=== PATIENT | female | born 1960 | race African-American/Black ===

== ENCOUNTER 2020-06-21 08:06 | Outpatient (REF) | payer OTHER, SELFPAY ==
[2020-06-21 09:24] LABS: MANUAL DIFF FLAG NO
[2020-06-21 09:50] LABS: Basophils Percent Auto 0.6 % (0-2); Eosinophils Percent Auto 0.1 % (0-4); Hematocrit 34.5 % (37-47); Hemoglobin 11.3 g/dl (12.0-16.0); Imm Gran Abs Auto 0.02 X10*3/uL (0.00-0.03); Imm Gran Pct Auto 0.3 % (0.0-0.4); Mean Corpuscular HGB Conc 32.8 g/dl (31.0-35.0); Mean Corpuscular Volume 88.5 fL (80-98); Mean Platelet Volume 11.2 fL (9.4-12.3); Monocytes Absolute Auto 0.7 X10*3/uL (0.1-1.2); Monocytes Percent Auto 9.7 % (2-11); Neutrophils Absolute Auto 4.4 X10*3/uL (2.0-8.3); Neutrophils Percent Auto 61.3 % (45-73); Platelet Count 166 X10*3/uL (160-400); Red Cell Distribution Width 13.3 % (11.0-16.0); White Blood Count 7.2 X10*3/uL (4.8-10.8)
[2020-06-21 09:56] LABS: Estimated Average Glucose 163 mg/dL; Hemoglobin A1c % 7.3 %
[2020-06-21 10:23] LABS: Glucose Urine UA NEG (NEG); Leukocyte Esterase Urine NEG (NEG); Nitrite Urine NEG (NEG); Specific Gravity - Urine 1.015 (1.005-1.025); Urine Blood NEG (NEG); Urine Ketones NEG (NEG); Urine Protein TRACE MG/DL (NEG-TRACE)
[2020-06-21 10:30] LABS: Appearance Urine CLEAR; Color Urine YELLOW; UACC Culture Trigger NO
[2020-06-21 10:36] LABS: Alanine Aminotransferase 28 U/L (0-31); Alkaline Phosphatase 111 U/L (39-117); Anion Gap 13 (12-20); Aspartate Amino Transferase 30 U/L (5-31); Bilirubin Total 0.5 mg/dL (0.0-1.0); Blood Urea Nitrogen 35 mg/dL (9-16); Calcium 9.8 mg/dL (8.4-10.2); Carbon Dioxide 27 mmol/L (22-29); Chloride 101 mmol/L (96-108); Estimated Glomerular Filt Rate 26; Glucose Fasting 77 mg/dL (60-99); HDL Cholesterol 40 mg/dL; Potassium 4.7 mmol/l (3.3-5.1); Sodium 136 mmol/L (135-145); Triglycerides 73 mg/dL
[2020-06-21 10:57] LABS: Creatinine Urine 60.76 mg/dL; Microalbum/Creatinine Ratio Ur 334.1 ug/mg cr
[2020-06-21 11:02] LABS: Cholesterol 96 mg/dL; LDL Cholesterol Calculated 42 mg/dl
[2020-06-21 11:59] LABS: Bacteria Urine TRACE /LPF; RBC Urine 0 /HPF (0); Squamous Epithelial Cell Urine 1+ /LPF; WBC Urine 0 /HPF (0-4)
[2020-06-23 08:59] LABS: Folate 9.1 ng/mL (> or = 4.0); Vitamin B12 1114 pg/mL (200-900)
== END 2020-06-21 08:07 | disposition home or self-care (01) ==
LOC: HO.LAB 08:06
PROVIDERS: PCP Internal Medicine; Visit Provider Internal Medicine
DX: E11.22 Type 2 diabetes mellitus with diabetic chronic kidney disease (principal); E11.40 Type 2 diabetes mellitus with diabetic neuropathy, unspecified; I12.9 Hypertensive chronic kidney disease with stage 1 through stage 4 chronic kidney disease, or unspecified chronic kidney disease; N18.4 Chronic kidney disease, stage 4 (severe); E78.5 Hyperlipidemia, unspecified; E66.9 Obesity, unspecified; R60.0 Localized edema; I25.10 Atherosclerotic heart disease of native coronary artery without angina pectoris
CPT/HCPCS: 36415; 80053; 80061; 81001; 81003; 82043; 82306; 82607; 82746; 83036; 84443; 85025

== ENCOUNTER → 2020-07-18 10:13 | Outpatient (BNVA) | payer OTHER, SELFPAY | PROVIDERS: PCP Internal Medicine; Referring Provider Internal Medicine; Visit Provider Nurse Practitioner Gerontology | DX: Z76.89 Persons encountering health services in other specified circumstances (principal) ==

== ENCOUNTER → 2020-08-06 11:32 | Outpatient (BNVA) | payer OTHER, SELFPAY | PROVIDERS: Visit Provider Nurse Practitioner Family | DX: Z13.89 Encounter for screening for other disorder (principal) ==

== ENCOUNTER → 2020-08-08 11:30 | Outpatient (BNVA) | payer OTHER, SELFPAY | PROVIDERS: Visit Provider Orthopaedic Surgery | DX: M17.11 Unilateral primary osteoarthritis, right knee (principal) | CPT/HCPCS: 20610; 99212; J1040 ==

== ENCOUNTER 2020-08-08 12:21 | Outpatient (REF) | payer OTHER, SELFPAY ==
[2020-08-08 13:37] LABS: Anion Gap 13 (12-20); Blood Urea Nitrogen 29 mg/dL (9-16); Carbon Dioxide 28 mmol/L (22-29); Chloride 101 mmol/L (96-108); Estimated Glomerular Filt Rate 26; Potassium 4.3 mmol/l (3.3-5.1); Sodium 138 mmol/L (135-145)
[2020-08-08 13:42] LABS: Creatinine Urine 23.37 mg/dL; Protein/Creatinine Ratio, Ur 0.68 (<0.2); Total Protein Urine Random 16 mg/dL (<12)
[2020-08-08 13:55] LABS: Renal w Reflex Lab Use Only Order verified
== END 2020-08-08 12:22 | disposition home or self-care (01) ==
LOC: HO.LAB 12:21
PROVIDERS: PCP Internal Medicine; Referring Provider Internal Medicine Hypertension Specialist; Visit Provider Nurse Practitioner Gerontology
DX: E11.21 Type 2 diabetes mellitus with diabetic nephropathy (principal); N18.30 Chronic kidney disease, stage 3 unspecified
CPT/HCPCS: 80051; 82310; 82565; 84156; 84520

== ENCOUNTER 2020-09-25 15:00 | Outpatient (RCR) | payer OTHER, SELFPAY ==
--- NOTE | 2020-09-09 10:57 | MHC.PT.EP ---
[facility] [place] Office [place] Office [place] Office [address] J Luis Benavidez [address] [phone] F: [phone] F: [phone] F: [phone] F: [phone] Physical Therapy Plan of Care Date of Evaluation: 09/08/20 Date of Surgery: Diagnosis: bilateral knee pain Assessment: Pt is severely deconditioned. She has trouble walking community distances due to significant pain. She was asked to begin using a RW which she said she has at home. This would allow her to unload bilateral knees, improve balance, and give her a place to sit ( her walker has a chair) when she is tired. The pt was given gravity minimized exercises in the bed due to significant pain with weight bearing. Frequency and Duration: The patient will be seen 2x/week x 4 weeks Short Term Goals: Pt will demonstrate initial HEP to improve compliance and carryover. Director Of Public Safety Goals: 4 weeks - the patient will have no limiting pain in her knees during gait with community ambulation to show improved activity tolerance. 4 weeks - pt will have more quad control with TKE demonstrated by no medial collapse during a curb height step. 4 weeks -patient to be able to return to all functional movements and ADL's without limiting knee pain to show return to PLOF. Treatment Plan: Modalities to reduce pain, spasms and effusion. Manual therapy to restore motion and function. Therapeutic exercise to improve strength and flexibility. Neuromuscular re-education for posture and balance. Therapeutic activities to return to functional activities of daily living. Electronically signed by: Meena Farnsworth PT DPT Please sign and return to therapist. Thank you for your referral.
--- NOTE | 2020-11-07 08:56 | MHC.PT.DC ---
[facility] [place] [facility] [place] [facility] [place] Office [address] J Luis Benavidez 140 [facility] [phone] F: [phone] F: [phone] F: [phone] F: [phone] Physical Therapy Discharge Report Diagnosis: bilateral knee pain Date of Surgery: Date of Evaluation: 09/08/20 Date of Discharge: Treatments to Date: 4 Cancellations to Date: 9 No Shows to Date: 0 Discharge Status: Patient Elected to Stop Recommend MD Follow-up Visit Non-compliance Discharge Summary: Pt had trouble with therapy attendance. She had poor activity tolerance, and she had a complicated medical history. Electronically signed by: Meena Farnsworth PT DPT Please sign and return to therapist. Thank you for your referral.
== END 2020-11-07 15:24 | disposition other institution (70) ==
LOC: HO.PT 15:00
PROVIDERS: PCP Internal Medicine; Visit Provider Internal Medicine
DX: M25.561 Pain in right knee (principal)
CPT/HCPCS: 97110; 97116; 97163

== ENCOUNTER 2020-10-21 13:07 | Outpatient (REF) | payer OTHER, SELFPAY ==
--- NOTE | ~2020-10-21 | XR_ITS ---
EXAMINATION: XR HUMERUS, LEFT CLINICAL INFORMATION: Pain COMPARISON: None TECHNIQUE: AP and lateral views of the left humerus. FINDINGS: No evidence of acute fracture or malalignment of the left humerus. The articulation at the glenohumeral and elbow joint is grossly maintained. Mild greater trochanteric spurring. Apparent mild AC joint arthritis. There are metallic foci projected over the proximal humerus and AC joint. XR/XR humerus LT IMPRESSION: No evidence of left humeral acute fracture or malalignment.
== END 2020-10-21 13:08 | disposition home or self-care (01) ==
LOC: HO.HMGCX 13:07
PROVIDERS: PCP Internal Medicine; Visit Provider Nurse Practitioner Family
DX: M79.629 Pain in unspecified upper arm (principal)
CPT/HCPCS: 73060

== ENCOUNTER → 2020-11-10 10:58 | Outpatient (BNVA) | payer OTHER, SELFPAY | PROVIDERS: PCP Internal Medicine; Visit Provider Nurse Practitioner Family ==

== ENCOUNTER → 2020-11-24 09:25 | Outpatient (REF) | payer OTHER, SELFPAY ==
--- NOTE | ~2020-11-24 | NM_ITS ---
Myocardial perfusion study Indication: Shortness of breath evaluate for myocardial ischemia Technique: The patient was brought in for a Lexiscan perfusion study on 11/24/2020. Patient performed low-level exercise and was injected 0.4 mg of Lexiscan intravenously. Within a minute of injection, 40 mCi of sestamibi was given intravenously. Images were obtained using the SPECT gamma camera interlaced with the gating device. Images were obtained in supine position. Resting perfusion study was performed on 11/25/2020. Patient was administered 40 mCi of sestamibi intravenously at rest. Images were then obtained in supine position. Images obtained with and without CT attenuation. Total DLP 141 mGy-cm. Images were processed with the software and compared side to side in short axis, horizontal long axis and vertical long axis views. Findings: The stress perfusion study showed moderately reduced uptake in the distal septum and apical inferior wall of the LV myocardium on non attenuated images. There is suggestion of left ventricle hypertrophy. Remainder of the LV myocardium is normally perfused. Attenuation corrected images show normal uptake of radiotracer in all segments of LV myocardium. The gated study shows normal LV systolic function with calculated LVEF of 56%. LV cavity is normal size. The gated study shows normal systolic wall thickening and contraction of segments. Resting study shows no change in perfusion pattern compared to stress perfusion study. Gating at rest reveals normal systolic wall motion with ejection fraction at 57%. The findings are consistent with normal myocardial perfusion with no reversible defect. NM/NM vandana perf SPECT rest & str Impression: 1. Myocardial perfusion imaging study shows likely normal myocardial perfusion 2. Gated LVEF is 56% 3. Transient ischemic dilatation not present EKG is nondiagnostic for ischemia
--- NOTE | 2020-11-24 09:28 | CA_ITS ---
Acquisition Time: 2020-11-24 10:43:36 Total Exercise Time: 00:02:00 Test Indications: Dyspnea Medications: LOSARTAN FUROSEMIDE INSULIN CYCLOBENZAPRINE MELOXICAM Protocol: LEXISCAN Max HR: 095 BPM 59% of Pred: 160 BPM Max BP: 156/078 mmHG Max Work Load: 1.0 METS Pharmacological stress test using Lexiscan while sitting. Pt c/o chest pressure 6/10 post Lexiscan injection that resolved in recovery. EKG without arrhythmias, non-diagnostic for ischemia. Nuclear images to follow. Normotensive response to test. Test reviewed with Dr. Muniz. Referred By: Krystina Albrecht Overread By: Dara Shi NP
== END ==
LOC: HO.CARD 09:25
PROVIDERS: PCP Internal Medicine; Visit Provider Nurse Practitioner Family
DX: R06.02 Shortness of breath (principal); I25.10 Atherosclerotic heart disease of native coronary artery without angina pectoris
CPT/HCPCS: 78452; 93017; A9500; J0280; J2785

== ENCOUNTER 2020-12-17 07:47 | Outpatient (REF) | payer OTHER, SELFPAY ==
[2020-12-17 08:50] LABS: MANUAL DIFF FLAG NO
[2020-12-17 08:53] LABS: Basophils Percent Auto 0.6 % (0-2); Hematocrit 36.9 % (37-47); Hemoglobin 12.1 g/dl (12.0-16.0); Imm Gran Abs Auto 0.02 X10*3/uL (0.00-0.03); Imm Gran Pct Auto 0.4 % (0.0-0.4); Lymphocytes Absolute Auto 1.6 X10*3/uL (1.2-4.9); Lymphocytes Percent Auto 30.8 % (20-40); Mean Corpuscular HGB Conc 32.8 g/dl (31.0-35.0); Mean Corpuscular Hemoglobin 28.9 pg (27.0-33.0); Mean Corpuscular Volume 88.3 fL (80-98); Monocytes Absolute Auto 0.6 X10*3/uL (0.1-1.2); Monocytes Percent Auto 12.4 % (2-11); Neutrophils Absolute Auto 2.9 X10*3/uL (2.0-8.3); Neutrophils Percent Auto 55.8 % (45-73); Platelet Count 171 X10*3/uL (160-400); Red Blood Count 4.18 X10*6/uL (4.20-5.50); Red Cell Distribution Width 13.6 % (11.0-16.0); White Blood Count 5.2 X10*3/uL (4.8-10.8)
[2020-12-17 09:18] LABS: Alanine Aminotransferase 249 U/L (0-31); Alkaline Phosphatase 114 U/L (39-117); Anion Gap 17 (12-20); Aspartate Amino Transferase 271 U/L (5-31); Bilirubin Total 1.1 mg/dL (0.0-1.0); Blood Urea Nitrogen 29 mg/dL (9-16); Calcium 10.6 mg/dL (8.4-10.2); Carbon Dioxide 26 mmol/L (22-29); Chloride 103 mmol/L (96-108); Cholesterol 92 mg/dL; Estimated Glomerular Filt Rate 22; Glucose Fasting 127 mg/dL (60-99); HDL Cholesterol 28 mg/dL; LDL Cholesterol Calculated 47 mg/dl; Potassium 4.7 mmol/L (3.3-5.1); Sodium 141 mmol/L (135-145); Total Protein 7.3 g/dL (6.5-8.0); Triglycerides 86 mg/dL
[2020-12-17 09:41] LABS: TSH reflex Free T4 0.89 uIU/mL (0.32-4.0)
[2020-12-17 10:42] LABS: Folate 19.4 ng/mL (> or = 4.0); Vitamin B12 > 2000 pg/mL (200-900)
[2020-12-23 05:17] LABS: Fructosamine 350 umol/L (205-285)
== END 2020-12-17 07:48 | disposition home or self-care (01) ==
LOC: HO.LAB 07:47
PROVIDERS: Nurse Practitioner Gerontology; Absent Provider Internal Medicine; PCP Internal Medicine; Visit Provider Internal Medicine Hypertension Specialist
DX: E11.22 Type 2 diabetes mellitus with diabetic chronic kidney disease (principal); E11.21 Type 2 diabetes mellitus with diabetic nephropathy; E11.65 Type 2 diabetes mellitus with hyperglycemia; E11.42 Type 2 diabetes mellitus with diabetic polyneuropathy; I12.9 Hypertensive chronic kidney disease with stage 1 through stage 4 chronic kidney disease, or unspecified chronic kidney disease; N18.4 Chronic kidney disease, stage 4 (severe); E66.9 Obesity, unspecified; E78.00 Pure hypercholesterolemia, unspecified; I25.10 Atherosclerotic heart disease of native coronary artery without angina pectoris; Z79.4 Long term (current) use of insulin
CPT/HCPCS: 36415; 80053; 80061; 82607; 82746; 82985; 84443; 85025

== ENCOUNTER → 2020-12-22 11:02 | Outpatient (BNVA) | payer OTHER, SELFPAY | PROVIDERS: PCP Internal Medicine; Visit Provider Nurse Practitioner Family ==

== ENCOUNTER → 2021-01-06 14:48 | Outpatient (BNVA) | payer OTHER, SELFPAY | PROVIDERS: PCP Internal Medicine; Visit Provider Nurse Practitioner Gerontology | DX: E11.65 Type 2 diabetes mellitus with hyperglycemia (principal); E11.42 Type 2 diabetes mellitus with diabetic polyneuropathy; E11.22 Type 2 diabetes mellitus with diabetic chronic kidney disease; I12.9 Hypertensive chronic kidney disease with stage 1 through stage 4 chronic kidney disease, or unspecified chronic kidney disease; N18.4 Chronic kidney disease, stage 4 (severe); Z79.4 Long term (current) use of insulin; E78.5 Hyperlipidemia, unspecified; E66.9 Obesity, unspecified | CPT/HCPCS: 82947; 99212 ==

== ENCOUNTER 2021-04-25 08:28 | Outpatient (REF) | payer MEDICARE, SELFPAY ==
[2021-04-25 08:59] LABS: Hematocrit 33.5 % (37-47); Hemoglobin 11.1 g/dl (12.0-16.0); Mean Corpuscular HGB Conc 33.1 g/dl (31.0-35.0); Mean Corpuscular Hemoglobin 29.1 pg (27.0-33.0); Mean Corpuscular Volume 87.9 fL (80-98); Mean Platelet Volume 10.7 fL (9.4-12.3); Platelet Count 162 X10*3/uL (160-400); Red Blood Count 3.81 X10*6/uL (4.20-5.50); Red Cell Distribution Width 13.2 % (11.0-16.0); White Blood Count 5.6 X10*3/uL (4.8-10.8)
[2021-04-25 09:50] LABS: Anion Gap 12 (12-20); Blood Urea Nitrogen 22 mg/dL (9-16); Calcium 9.5 mg/dL (8.4-10.2); Carbon Dioxide 28 mmol/L (22-29); Chloride 105 mmol/L (96-108); Estimated Glomerular Filt Rate 21; Potassium 3.8 mmol/L (3.3-5.1); Sodium 141 mmol/L (135-145)
== END 2021-04-25 08:29 | disposition home or self-care (01) ==
LOC: HO.LAB 08:28
PROVIDERS: PCP Internal Medicine; Visit Provider Internal Medicine Hypertension Specialist
DX: N18.4 Chronic kidney disease, stage 4 (severe) (principal)
CPT/HCPCS: 36415; 80051; 82310; 82565; 84520; 85027

== ENCOUNTER → 2021-04-29 14:17 | Outpatient (BNVA) | payer MEDICARE, MEDICAID, SELFPAY | PROVIDERS: PCP Internal Medicine; Visit Provider Nurse Practitioner Gerontology | DX: Z13.89 Encounter for screening for other disorder (principal) | CPT/HCPCS: Q3014 ==

== ENCOUNTER 2021-05-12 20:55 | Emergency (ER) | payer MEDICARE, MEDICAID, SELFPAY ==
--- NOTE | ~2021-05-12 | CT_ITS ---
EXAMINATION: CT ABDOMEN AND PELVIS WITHOUT CONTRAST CLINICAL INFORMATION: Right upper quadrant pain, suspected cholecystitis COMPARISON: 08/05/2013 TECHNIQUE: Multidetector volumetric imaging was performed from the superior aspect of the liver through the pubic symphysis. Sagittal and coronal reformatted images were obtained on the technologist's workstation. This CT examination was performed using dose optimization techniques as appropriate, variously including the following: *Automated exposure control *Adjustment of mA and/or kV according to patient size (this includes techniques or standardized protocols for targeted exams where dose is matched to indication/reason for exam; i.e. extremities or head) *Use of iterative reconstruction technique DLP: 902 mGy-cm FINDINGS: LUNG BASES: The visualized lung bases demonstrate mild atelectasis. LIVER, GALLBLADDER, AND BILIARY TREE: The liver is normal in size, shape, and attenuation. No focal hepatic lesion or biliary ductal dilatation is present. The gallbladder appears unremarkable. PANCREAS: Unremarkable. SPLEEN: Unremarkable. ADRENAL GLANDS: Unremarkable. KIDNEYS AND URETERS: No hydronephrosis or obstructing calculus. A few tiny scattered calculi are noted bilaterally. Posterior left renal cyst measures approximately 3 cm; no follow-up required. Small hypodensities in the upper and mid right kidney are consistent with additional cysts. BLADDER: Unremarkable. GASTROINTESTINAL TRACT: The small and large bowel are unremarkable. The appendix is nondilated and contains hyperdense material. No free fluid or free air is seen. ABDOMINAL WALL: No significant hernia is appreciated. LYMPH NODES: Normal. VASCULAR: Scattered vascular calcifications noted. PELVIC VISCERA: Patient is status post hysterectomy. OSSEOUS STRUCTURES: Degenerative changes are noted in the spine. CT/CT abdomen pelvis wo con IMPRESSION: 1. Normal appearance of the gallbladder. If clinically warranted, ultrasound would be a more sensitive examination for detecting early changes of acute cholecystitis. 2. Tiny bilateral renal calculi without hydronephrosis.
[2021-05-12 21:22] VITALS: BP 180/96; PULSE 98; RESP 16; TEMP 37.1; O2SAT 98; BMI 44.6
[2021-05-12 22:04] LABS: MANUAL DIFF FLAG NO
[2021-05-12 22:06] LABS: Basophils Percent Auto 0.7 % (0-2); Eosinophils Percent Auto 0.2 % (0-4); Hematocrit 36.9 % (37-47); Hemoglobin 12.7 g/dl (12.0-16.0); Imm Gran Abs Auto 0.02 X10*3/uL (0.00-0.03); Imm Gran Pct Auto 0.3 % (0.0-0.4); Lymphocytes Absolute Auto 2.3 X10*3/uL (1.2-4.9); Lymphocytes Percent Auto 37.4 % (20-40); Mean Corpuscular HGB Conc 34.4 g/dl (31.0-35.0); Mean Corpuscular Hemoglobin 29.7 pg (27.0-33.0); Mean Corpuscular Volume 86.2 fL (80-98); Mean Platelet Volume 10.4 fL (9.4-12.3); Monocytes Absolute Auto 0.5 X10*3/uL (0.1-1.2); Monocytes Percent Auto 7.7 % (2-11); Neutrophils Absolute Auto 3.3 X10*3/uL (2.0-8.3); Neutrophils Percent Auto 53.7 % (45-73); Platelet Count 182 X10*3/uL (160-400); Red Blood Count 4.28 X10*6/uL (4.20-5.50); Red Cell Distribution Width 13.2 % (11.0-16.0); White Blood Count 6.1 X10*3/uL (4.8-10.8)
[2021-05-12 22:07] LABS: Appearance Urine CLEAR; Color Urine YELLOW; Glucose Urine UA NEG (NEG); Leukocyte Esterase Urine 1+ (NEG); Nitrite Urine NEG (NEG); Specific Gravity - Urine 1.015 (1.005-1.025); UACC Culture Trigger YES; Urine Blood NEG (NEG); Urine Ketones NEG (NEG); Urine Protein NEG (NEG-TRACE)
[2021-05-12 22:18] LABS: Bacteria Urine 1+ /LPF; RBC Urine 0-2 /HPF (0); Squamous Epithelial Cell Urine TRACE /LPF
[2021-05-12 22:28] LABS: Alanine Aminotransferase 31 U/L (0-31); Albumin Level 4.3 g/dL (3.5-5.0); Alkaline Phosphatase 110 U/L (39-117); Anion Gap 13 (12-20); Aspartate Amino Transferase 28 U/L (5-31); Bilirubin Total 0.7 mg/dL (0.0-1.0); Blood Urea Nitrogen 13 mg/dL (9-16); Carbon Dioxide 27 mmol/L (22-29); Chloride 104 mmol/L (96-108); Creatinine Clr Calc Pharmacy 35.1; Estimated Glomerular Filt Rate 23; Glucose Random 175 mg/dL (60-115); Potassium 4.1 mmol/L (3.3-5.1); Sodium 140 mmol/L (135-145); Total Protein 7.4 g/dL (6.5-8.0)
[2021-05-12 22:43] VITALS: BP 195/99; PULSE 91; RESP 18; TEMP 36.8; O2SAT 99
--- NOTE | 2021-05-12 23:31 | ED.ABDPAIN ---
HPI - Abdominal Pain General Chief Complaint: Abdominal Pain Stated Complaint: abd pain Time Seen by Provider: 05/12/21 22:47 Source: patient Mode of arrival: ambulatory History of Present Illness HPI narrative: 60-year-old female who presents with right upper quadrant abdominal discomfort since that is worse by eating and patient states that this has significantly affected her food intake as she is concerned about eating as it always causes her pain. She denies being nauseous or vomiting but states that when the pain comes on she describes it as someone kicking her and states that she is not interested in food and then as she extends out the amount of time without eating the pain begins to subside. This has been associated with 3 episodes of diarrhea that resolved on Tuesday and patient has not had a bowel movement since. She denies any urinary pain/burning/frequency, fevers, chills and states that today the pain changed somewhat in that it radiates into her right back. Patient has had both COVID-19 vaccine and has a positive abdominal surgery history. Related Data Home Medications Medication Instructions Recorded Confirmed acetaminophen 500 mg tablet 500 mg PO ONCE PRN tab 06/27/20 04/29/21 aspirin 81 mg tablet,delayed 81 mg PO DAILY 06/27/20 04/29/21 release (Adult Low Dose Aspirin) bisacodyl 5 mg tablet,delayed 10 mg PO BEDTIME 06/27/20 04/29/21 release (Gentle Laxative (bisacodyl)) furosemide 40 mg tablet 40 mg PO DAILY 01/06/21 04/29/21 gabapentin 100 mg capsule 100 mg PO ONCE PRN cap 04/29/21 04/29/21 insulin lispro 100 unit/mL 14 - 16 unit SUBCUT TID 04/29/21 04/29/21 subcutaneous pen (Humalog KwikPen (U-100) Insulin) Previous Rx's Medication Instructions Recorded blood pressure monitor #1 ea 06/27/20 polyethylene glycol 3350 17 17 g PO DAILY 30 Days #510 g 06/27/20 gram/dose oral powder (Miralax) flash glucose scanning reader #1 ea 07/18/20 (FreeStyle Allison 2 [place]) flash glucose sensor (FreeStyle #2 ea 07/18/20 Allison 2 Sensor) losartan 100 mg tablet 100 mg PO DAILY #30 tab 12/29/20 pen needle, diabetic 32 gauge x 1 ea MISCELLANEOUS .COMPLEX #200 ea 01/06/21/32 (BD Annia 2nd Gen Pen Needle) ezetimibe 10 mg tablet 10 mg PO DAILY #30 tab 02/16/21 blood sugar diagnostic (Accu-Chek #100 ea 02/18/21 Brenda Plus test strp) blood-glucose meter (Accu-Chek #1 ea 02/18/21 Brenda Plus Meter) lancets (Accu-Chek Softclix #100 ea 02/18/21 Lancets) nortriptyline 50 mg capsule 50 mg PO BEDTIME 90 Days #90 cap 02/20/21 pen needle, diabetic 32 gauge x 1 ea SUBCUT TID #100 ea 02/20/2109/01 (BD Ultra-Fine Micro Pen Needle) meloxicam 7.5 mg tablet 7.5 mg PO DAILY PRN #30 tab 03/17/21 citalopram 10 mg tablet 10 mg PO DAILY #30 tab 04/21/21 insulin aspart U-100 100 unit/mL 6 - 8 unit SUBCUT TID 30 Days #15 04/29/21 (3 mL) subcutaneous pen (Novolog ml Flexpen U-100 Insulin aspart) insulin glargine 100 unit/mL (3 40 unit SUBCUT QPM #15 ml 04/29/21 mL) subcutaneous pen (Lantus Solostar U-100 Insulin) liraglutide 0.6 mg/0.1 mL (18 mg/3 1.2 mg SUBCUT .COMPLEX #6 ml 05/12/21 mL) subcutaneous pen injector (Victoza 2-Matty) cephalexin 500 mg capsule 500 mg PO Q12H 5 Days #10 cap 05/13/21 Allergies Allergy/AdvReac Type Severity Reaction Status Date / Time No Known Allergies Allergy Verified 04/29/21 15:43 [No Known Allergies*] Review of Systems Review of Systems Pertinent positives and negatives as stated in HPI 10 point review of systems is otherwise negative. Physical Exam Vital Signs: Vital Signs: Last Vital Signs Temp 98.3 F 05/12/21 22:43 Pulse 94 05/13/21 00:53 Resp 16 05/13/21 00:53 BP 179/104 H 05/13/21 00:53 Pulse Ox 98 05/13/21 00:53 Body Mass Index 44.6 VITAL SIGNS: Reviewed. GENERAL: Well developed, well nourished, in no acute distress. HEAD: Normocephalic/atraumatic EYES: PERRLA, EOMI LUNGS: Normal breath sounds. No adventitious sounds or accessory muscle use. SpO2<99> CARDIOVASCULAR: Regular rate and rhythm without noted murmurs, no JVD but 1+ bilateral lower extremity edema. ABDOMEN: Soft, tenderness in the right upper quadrant without rebound, non-distended with bowel sounds. NEUROLOGIC: Alert and oriented x 4. Strength and sensation to light touch were grossly intact x 4. Course Course Course Narrative: 60-year-old female with history and clinical presentation suggestive of cholecystitis, pyelonephritis, less likely renal colic. Review of all investigations significant for UTI and patient received initial antibiotics here in the emergency room as well as a GI cocktail and then was discharged in stable condition with remaining course of antibiotics for her UTI. She was strongly encouraged to follow-up with her primary care provider for further investigations regarding the description of pain that she is having as it is not characteristic for UTI. MDM - Abdominal Pain Lab Data Result diagrams: 05/12/21 21:48 05/12/21 21:48 Labs: Lab Results 05/12/21 05/12/21 05/12/21 Range/Units 21:48 21:48 21:48 WBC 6.1 (4.8-10.8) X10*3/uL RBC 4.28 (4.20-5.50) X10*6/uL Hgb 12.7 (12.0-16.0) g/dl Hct 36.9 L (37-47) % MCV 86.2 (80-98) fL MCH 29.7 (27.0-33.0) pg MCHC 34.4 (31.0-35.0) g/dl RDW 13.2 (11.0-16.0) % Plt Count 182 (160-400) X10*3/uL MPV 10.4 (9.4-12.3) fL Immature Gran % (Auto) 0.3 (0.0-0.4) % Neut % (Auto) 53.7 (45-73) % Lymph % (Auto) 37.4 (20-40) % [place] % (Auto) 7.7 (2-11) % Eos % (Auto) 0.2 (0-4) % Baso % (Auto) 0.7 (0-2) % Lymph # (Auto) 2.3 (1.2-4.9) X10*3/uL [place] # (Auto) 0.5 (0.1-1.2) X10*3/uL Eos # (Auto) 0.0 (0.0-0.4) X10*3/uL Baso # (Auto) 0.0 (0.0-0.2) X10*3/uL Abs Immat Gran (auto) 0.02 (0.00-0.03) X10*3/uL Absolute Neuts (auto) 3.3 (2.0-8.3) X10*3/uL Absolute Nucleated RBC 0.000 (0.0-0.012) X10*3/uL Nucleated RBC % (auto) 0.0 (0.0-0.2) /100WBC Sodium 140 (135-145) mmol/L Potassium 4.1 (3.3-5.1) mmol/L Chloride 104 (96-108) mmol/L Carbon Dioxide 27 (22-29) mmol/L Anion Gap 13 (12-20) BUN 13 (9-16) mg/dL Creatinine 2.15 H (0.5-1.4) mg/dL Estim Creat Clear Calc 35.1 Estimated GFR 23 Random Glucose 175 H (60-115) mg/dL Calcium 11.0 H D (8.4-10.2) mg/dL Total Bilirubin 0.7 (0.0-1.0) mg/dL AST 28 D (5-31) U/L ALT 31 (0-31) U/L Alkaline Phosphatase 110 (39-117) U/L Total Protein 7.4 (6.5-8.0) g/dL Albumin 4.3 (3.5-5.0) g/dL Urine Color YELLOW Urine Appearance CLEAR Urine pH 6.0 (5.0-8.0) Ur Specific [place] 1.015 (1.005-1.025) Urine Protein NEG (NEG-TRACE) MG/DL Urine Glucose (UA) NEG (NEG) MG/DL Urine Ketones NEG (NEG) MG/DL Urine Blood NEG (NEG) Urine Nitrite NEG (NEG) Ur Leukocyte Esterase 1+ H (NEG) Urine RBC 0-2 (0) /HPF Urine WBC 5-9 H (0-4) /HPF Ur Squamous Epith Cells TRACE /LPF Urine Bacteria 1+ /LPF Discharge Plan Discharge Clinical Impression: Abdominal discomfort, UTI (urinary tract infection) Patient Disposition: Home, Self-Care Instructions: Urinary Tract Infection in Women (ED) Additional Instructions: 1. Resume all home medications as prescribed. 2. Follow-up with your primary care provider in the morning for further evaluation of your abdominal discomfort. 3. Complete the entire course of antibiotics for your UTI Return to the ER for acute worsening of symptoms. Prescriptions: New cephalexin 500 mg capsule 500 mg PO Q12H 5 Days Qty: 10 RF: 0 No Action losartan 100 mg tablet 100 mg PO DAILY Qty: 30 RF: 3 ezetimibe 10 mg tablet 10 mg PO DAILY Qty: 30 RF: 3 (DME) Accu-Chek Brenda Plus test strp Strip See Rx Instructions .ROUTE .MEDSUPPLY Qty: 100 RF: 11 (DME) blood-glucose meter [Accu-Chek Brenda Plus Meter] Misc See Rx Instructions .ROUTE .MEDSUPPLY Qty: 1 RF: 0 (DME) lancets [Accu-Chek Softclix Lancets] Misc See Rx Instructions .ROUTE .MEDSUPPLY Qty: 100 RF: 11 nortriptyline 50 mg capsule 50 mg PO BEDTIME 90 Days Qty: 90 RF: 3 pen needle, diabetic [BD Ultra-Fine Micro Pen Needle] 32 gauge x 1/4 needle 1 ea subcut TID Qty: 100 RF: 3 meloxicam 7.5 mg tablet 7.5 mg PO DAILY PRN (Reason: for severe pain) Qty: 30 RF: 1 citalopram 10 mg tablet 10 mg PO DAILY Qty: 30 RF: 3 Victoza 2-Matty 0.6 mg/0.1 mL (18 mg/3 mL) pen injector 1.2 mg subcut .COMPLEX Qty: 6 RF: 4 acetaminophen 500 mg tablet 500 mg PO ONCE PRNRF: 0 aspirin [Adult Low Dose Aspirin] 81 mg tablet,delayed release (DR/EC) 81 mg PO DAILY RF: 0 bisacodyl [Gentle Laxative (bisacodyl)] 5 mg tablet,delayed release (DR/EC) 10 mg PO BEDTIME RF: 0 polyethylene glycol 3350 [Miralax] 17 gram/dose powder 17 g PO DAILY 30 Days Qty: 510 RF: 11 (DME) blood pressure monitor Kit See Rx Instructions .ROUTE .MEDSUPPLY Qty: 1 RF: 0 furosemide 40 mg tablet 40 mg PO DAILY RF: 0 pen needle, diabetic [BD Annia 2nd Gen Pen Needle] 32 gauge x 5/32 needle 1 ea miscellaneous .COMPLEX Qty: 200 RF: 11 gabapentin 100 mg capsule 100 mg PO ONCE PRNRF: 0 insulin lispro [Humalog KwikPen Insulin] 100 unit/mL insulin pen 14 - 16 unit subcut TID RF: 0 Lantus Solostar U-100 Insulin 100 unit/mL (3 mL) insulin pen 40 unit subcut QPM Qty: 15 RF: 6 insulin aspart U-100 [Novolog Flexpen U-100 Insulin] 100 unit/mL (3 mL) insulin pen 6 - 8 unit subcut TID 30 Days Qty: 15 RF: 6 (DME) FreeStyle Allison 2 [place] Misc See Rx Instructions .ROUTE .MEDSUPPLY Qty: 1 RF: 0 (DME) FreeStyle Allison 2 Sensor Kit See Rx Instructions .ROUTE .MEDSUPPLY Qty: 2 RF: 11 Referrals: Leonid Valerio MD [Primary Care Provider] - 2 days PMF Past Medical History Source: nursing notes reviewed Medical History Arthritis Benign essential hypertension Chronic kidney disease, stage 4 (severe) Constipation Coronary atherosclerosis Depression Diabetic neuropathy Essential hypertension Hyperlipidemia LDL goal <70 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 Mother Diabetes Hypertension Social History Social History Household Members Other:: daughter Alcohol intake: current Patient Tobacco Use Status: Never used Tobacco Advance Directives: No Current occupational status: disabled Current occupation: Right Handed
[2021-05-13 00:53] VITALS: BP 179/104; PULSE 94; RESP 16; O2SAT 98
== END 2021-05-13 02:29 | disposition home or self-care (01) ==
PROVIDERS: Emergency Provider Student in an Organized Health Care Education/Training Program; PCP Internal Medicine
DX: N39.0 Urinary tract infection, site not specified (principal); R10.9 Unspecified abdominal pain; Z79.899 Other long term (current) drug therapy; Z86.16 Personal history of COVID-19
CPT/HCPCS: 36415; 74176; 80053; 81001; 85025; 87086; 96374; 99284

== ENCOUNTER 2021-07-02 08:02 | Outpatient (REF) | payer MEDICARE, MEDICAID, SELFPAY ==
[2021-07-02 08:21] LABS: MANUAL DIFF FLAG NO
[2021-07-02 08:43] LABS: Basophils Percent Auto 0.6 % (0-2); Eosinophils Percent Auto 0.1 % (0-4); Hematocrit 35.2 % (37.0-47.0); Hemoglobin 11.8 g/dl (12.0-16.0); Imm Gran Abs Auto 0.02 X10*3/uL (0.00-0.03); Imm Gran Pct Auto 0.3 % (0.0-0.4); Lymphocytes Absolute Auto 2.4 X10*3/uL (1.2-4.9); Lymphocytes Percent Auto 35.1 % (20-40); Mean Corpuscular HGB Conc 33.5 g/dl (31.0-35.0); Mean Corpuscular Hemoglobin 29.7 pg (27.0-33.0); Mean Corpuscular Volume 88.7 fL (80.0-98.0); Mean Platelet Volume 10.3 fL (9.4-12.3); Monocytes Absolute Auto 0.6 X10*3/uL (0.1-1.2); Monocytes Percent Auto 8.2 % (2-11); Neutrophils Absolute Auto 3.81 x10*3/uL (2.0-8.3); Neutrophils Percent Auto 55.7 % (45-73); Platelet Count 179 X10*3/uL (160-400); Red Blood Count 3.97 X10*6/uL (4.20-5.50); White Blood Count 6.8 X10*3/uL (4.8-10.8)
[2021-07-02 09:05] LABS: Estimated Average Glucose 146 mg/dL; Hemoglobin A1c % 6.7 %
[2021-07-02 09:21] LABS: Alanine Aminotransferase 22 U/L (0-31); Alkaline Phosphatase 92 U/L (39-117); Anion Gap 11 (12-20); Aspartate Amino Transferase 24 U/L (5-31); Bilirubin Total 0.5 mg/dL (0.0-1.0); Blood Urea Nitrogen 20 mg/dL (9-16); Calcium 10.2 mg/dL (8.4-10.2); Carbon Dioxide 29 mmol/L (22-29); Chloride 104 mmol/L (96-108); Cholesterol 192 mg/dL; Estimated Glomerular Filt Rate 26; Glucose Fasting 119 mg/dL (60-99); HDL Cholesterol 33 mg/dL; LDL Cholesterol Calculated 123 mg/dl; Potassium 4.3 mmol/L (3.3-5.1); Sodium 140 mmol/L (135-145); Triglycerides 184 mg/dL
[2021-07-02 09:33] LABS: TSH reflex Free T4 1.45 uIU/mL (0.32-4.0); Vitamin D 25-OH Total 50.3 ng/mL (>30)
[2021-07-02 10:26] LABS: Appearance Urine CLEAR; Color Urine YELLOW; Glucose Urine UA NEG (NEG); Leukocyte Esterase Urine 2+ (NEG); Nitrite Urine NEG (NEG); Specific Gravity - Urine 1.015 (1.005-1.025); UACC Culture Trigger YES; Urine Blood NEG (NEG); Urine Ketones NEG (NEG); Urine Protein 1+ MG/DL (NEG-TRACE)
[2021-07-02 10:50] LABS: Creatinine Urine 116.94 mg/dL; Microalbum/Creatinine Ratio Ur 155.6 ug/mg cr
[2021-07-02 12:06] LABS: Bacteria Urine 2+ /LPF; RBC Urine 0 /HPF (0); Squamous Epithelial Cell Urine 2+ /LPF
== END 2021-07-02 08:03 | disposition home or self-care (01) ==
LOC: HO.LAB 08:02
PROVIDERS: PCP Internal Medicine; Visit Provider Internal Medicine
DX: E78.00 Pure hypercholesterolemia, unspecified (principal); I10 Essential (primary) hypertension; E55.9 Vitamin D deficiency, unspecified; E11.9 Type 2 diabetes mellitus without complications
CPT/HCPCS: 36415; 80053; 80061; 81001; 82043; 82306; 83036; 84443; 85025; 87086

== ENCOUNTER 2021-10-04 07:13 | Emergency (ER) | payer MEDICARE, MEDICAID, SELFPAY ==
[2021-10-04 07:14] VITALS: BP 199/96; PULSE 95; RESP 16; TEMP 36.3; O2SAT 99; BMI 42.0
--- NOTE | 2021-10-04 08:09 | ED_ITS ---
History of Present Illness General Chief Complaint: Epistaxis Stated Complaint: nosebleed Time Seen by Provider: 10/04/21 07:50 Source: patient Mode of arrival: ambulatory Limitations: no limitations History of Present Illness HPI Narrative: epistaxis since 1 am,she is on ASA but no on anticoagulant Location: Yes right nares Onset/current episode: Yes hour(s) (8) Duration: Yes constant Pertinent past history: Yes hypertension Related Data Home Medications Medication Instructions Recorded Confirmed acetaminophen 500 mg tablet 500 mg PO ONCE PRN tab 06/27/20 07/12/21 aspirin 81 mg tablet,delayed 81 mg PO DAILY 06/27/20 07/12/21 release (Adult Low Dose Aspirin) bisacodyl 5 mg tablet,delayed 10 mg PO BEDTIME 06/27/20 07/12/21 release (Gentle Laxative (bisacodyl)) furosemide 40 mg tablet 40 mg PO DAILY 01/06/21 07/12/21 gabapentin 100 mg capsule 100 mg PO ONCE PRN cap 04/29/21 07/12/21 Previous Rx's Medication Instructions Recorded blood pressure monitor #1 ea 06/27/20 polyethylene glycol 3350 17 17 g PO DAILY 30 Days #510 g 06/27/20 gram/dose oral powder (Miralax) flash glucose scanning reader #1 ea 07/18/20 (Review Trackersyle Allison 2 [place]) pen needle, diabetic 32 gauge x 1 ea MISCELLANEOUS .COMPLEX #200 01/06/21 ea (BD Annia 2nd Gen Pen Needle) blood sugar diagnostic (Accu-Chek #100 ea 02/18/21 Brenda Plus test strp) blood-glucose meter (Accu-Chek #1 ea 02/18/21 Brenda Plus Meter) lancets (Accu-Chek Softclix #100 ea 02/18/21 Lancets) nortriptyline 50 mg capsule 50 mg PO BEDTIME 90 Days #90 cap 02/20/21 pen needle, diabetic 32 gauge x 1 ea SUBCUT TID #100 ea 02/20/2109/01 (BD Ultra-Fine Micro Pen Needle) insulin glargine 100 unit/mL (3 40 unit (0.4 mL) SUBCUT QPM #15 04/29/21 ml mL) subcutaneous pen (Lantus Solostar U-100 Insulin) liraglutide 0.6 mg/0.1 mL (18 mg/3 1.2 mg (0.2 mL) SUBCUT .COMPLEX 05/12/21 #6 mL) subcutaneous pen injector ml (Victoza 2-Matty) flash glucose sensor (FreeStyle #2 ea 05/27/21 Allison 2 Sensor) ezetimibe 10 mg tablet 10 mg PO DAILY 30 Days #30 tab 07/09/21 meloxicam 7.5 mg tablet 7.5 mg PO DAILY PRN 30 Days #30 07/09/21 tab rosuvastatin 5 mg tablet 5 mg PO DAILY 30 Days #30 tab 07/09/21 losartan 100 mg tablet 100 mg PO DAILY #30 tab 07/29/21 insulin lispro 100 unit/mL 12 - 16 unit (0.12 - 0.16 mL) 08/19/21 subcutaneous pen (Humalog KwikPen SUBCUT QID #30 ml (U-100) Insulin) citalopram 10 mg tablet 10 mg PO DAILY #30 tab 09/14/21 amoxicillin 500 mg capsule 500 mg PO Q8H #15 cap 10/04/21 Allergies Allergy/AdvReac Type Severity Reaction Status Date / Time No Known Allergies Allergy Verified 07/12/21 21:03 [No Known Allergies*] Review of Systems Verdana 4l Review of Systems: Yes all other systems are reviewed and Verdana 4d are negative Verdana 4l ENT: Verdana 4d Reports epistaxis Verdana 4l Cardiovascular: Verdana 4d Cardiovascular: Verdana 4d Verdana 4d Denies chest pain, Denies syncope and Denies rapid heart rate Verdana 4l Gastrointestinal: Verdana 4d Gastrointestinal: Verdana 4d Verdana 4d Reports no additional gastrointestinal complaints Verdana 4l Neurologic: Verdana 4d Denies syncope [facility] Past Medical History Medical History Arthritis Benign essential hypertension Chronic kidney disease, stage 4 (severe) Constipation Coronary atherosclerosis Depression Diabetic neuropathy Essential hypertension Hyperlipidemia LDL goal <70 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 New 4d Temp 97.4 F 10/04/21 07:14 Mimeographer New 4d Pulse 84 10/04/21 15:08 Mimeographer New 4d Resp 16 10/04/21 07:14 BP 165/83 H 10/04/21 15:08 Pulse Ox 99 10/04/21 07:14 BMI result Body Mass Index 42.0 Const: General: cooperative, alert, awake and anxious Orientation/consciousness: oriented to person, oriented to place, oriented to time and patient oriented x3 HENMT: Head: Yes normal to inspection General nose exam: Epistaxis present on the right Face and sinus: Yes normal facial exam Mouth: Normal oral and palatal mucosa present Throat: Yes posterior oropharynx normal Neck: Neck: Yes normal visual inspection Chest: Chest palpation & inspection: normal inspection of the chest Resp: Effort & Inspection: normal respiratory effort Auscultation: clear to auscultation bilaterally Cardio: Jugular venous distension: no JVD Rate: regular rate Rhythm: regular rhythm GI: Inspection: Yes normal to inspection Palpation (GI): Soft to palpation, not firm and nontender Skin: General skin exam: no rashes or lesions noted, elasticity normal and turgor normal Lesions: no lesions Rashes: no rashes Trauma: no lacerations or abrasions Neuro: General: oriented to person, oriented to place, oriented to time and patient oriented x3 Course Reevaluation(s) Reevaluation #1: Pt rebleed with the packing , new packing was inserted 7.5 CM will continue monitoring the pt for few hours Time: 13:22 Reevaluation #2: no bleeding will d/c home Time: 15:37 MDM - Epistaxis Lab Data Result diagrams: 10/04/21 09:10 10/04/21 10:18 Labs: Lab Results 10/04/21 10/04/21 10/04/21 Range/Units 09:10 09:10 10:18 WBC 7.0 (4.8-10.8) X10*3/uL RBC 3.93 L (4.20-5.50) X10*6/uL Hgb 11.8 L (12.0-16.0) g/dl Hct 34.4 L (37.0-47.0) % MCV 87.5 (80.0-98.0) fL MCH 30.0 (27.0-33.0) pg MCHC 34.3 (31.0-35.0) g/dl RDW 12.4 (11.0-16.0) % Plt Count 202 (160-400) X10*3/uL MPV 10.0 (9.4-12.3) fL Immature Gran % (Auto) 0.3 (0.0-0.4) % Neut % (Auto) 57.1 (45-73) % Lymph % (Auto) 34.8 (20-40) % [place] % (Auto) 7.0 (2-11) % Eos % (Auto) 0.1 (0-4) % Baso % (Auto) 0.7 (0-2) % Lymph # (Auto) 2.4 (1.2-4.9) X10*3/uL [place] # (Auto) 0.5 (0.1-1.2) X10*3/uL Eos # (Auto) 0.0 (0.0-0.4) X10*3/uL Baso # (Auto) 0.1 (0.0-0.2) X10*3/uL Abs Immat Gran (auto) 0.02 (0.00-0.03) X10*3/uL Absolute Neuts (auto) 4.0 (2.0-8.3) x10*3/uL Absolute Nucleated RBC 0.000 (0.0-0.012) X10*3/uL Nucleated RBC % (auto) 0.0 (0.0-0.2) /100WBC PT 11.4 (9.9-13.0) SEC INR 1.0 (0.9-1.1) APTT 41.3 H (24.1-38.0) SEC Sodium 140 (135-145) mmol/L Potassium 4.1 (3.3-5.1) mmol/L Chloride 106 (96-108) mmol/L Carbon Dioxide 25 (22-29) mmol/L Anion Gap 13 (12-20) BUN 22 H (9-16) mg/dL Creatinine 1.85 H (0.5-1.4) mg/dL Estim Creat Clear Calc 38.9 Estimated GFR 28 Random Glucose 152 H (60-115) mg/dL Calcium 10.2 (8.4-10.2) mg/dL Total Bilirubin 0.6 (0.0-1.0) mg/dL AST 25 (5-31) U/L ALT 23 (0-31) U/L Alkaline Phosphatase 87 (39-117) U/L Total Protein 6.9 (6.5-8.0) g/dL Albumin 3.8 (3.5-5.0) g/dL Procedures Epistaxis Control Time Out Performed: Yes Nostril: Yes right Nose prepped with: Yes lidocaine Direct inspection: Yes unable to visualize Direct inspection method: Yes nasal speculum Clots removed by: Yes blowing nose and Yes suction Epistaxis treatment: Yes nasal tampon Results of treatment: Yes bleeding controlled Complications: Yes none Discharge Plan Discharge Clinical Impression: Epistaxis Patient Disposition: Home, Self-Care Instructions: Nosebleed (ED) Additional Instructions: Please follow up with ENT ( nose Specialist) return if worse Prescriptions: New amoxicillin 500 mg capsule 500 mg PO Q8H Qty: 15 0RF No Action (DME) Accu-Chek Brenda Plus test strp Strip See Rx Instructions .ROUTE .MEDSUPPLY Qty: 100 11RF Rx Instructions: 3 x/day (DME) blood-glucose meter [Accu-Chek Brenda Plus Meter] Misc See Rx Instructions .ROUTE .MEDSUPPLY Qty: 1 0RF Rx Instructions: 3x/day (DME) lancets [Accu-Chek Softclix Lancets] Misc See Rx Instructions .ROUTE .MEDSUPPLY Qty: 100 11RF Rx Instructions: three times a day nortriptyline 50 mg capsule 50 mg PO BEDTIME 90 Days Qty: 90 3RF pen needle, diabetic [BD Ultra-Fine Micro Pen Needle] 32 gauge x 1/4 needle 1 ea subcut TID Qty: 100 3RF Victoza 2-Matty 0.6 mg/0.1 mL (18 mg/3 mL) pen injector 1.2 mg subcut .COMPLEX Qty: 6 4RF Rx Instructions: 1.2 mg subcutaneously once daily (DME) FreeStyle Allison 2 Sensor Kit See Rx Instructions .ROUTE .MEDSUPPLY Qty: 2 11RF Rx Instructions: As directed losartan 100 mg tablet 100 mg PO DAILY Qty: 30 1RF insulin lispro [Humalog KwikPen Insulin] 100 unit/mL insulin pen 12 - 16 unit subcut QID Qty: 30 4RF citalopram 10 mg tablet 10 mg PO DAILY Qty: 30 3RF rosuvastatin 5 mg tablet 5 mg PO DAILY 30 Days Qty: 30 3RF ezetimibe 10 mg tablet 10 mg PO DAILY 30 Days Qty: 30 3RF meloxicam 7.5 mg tablet 7.5 mg PO DAILY PRN (Reason: for severe pain) 30 Days Qty: 30 3RF Rx Instructions: Take with food acetaminophen 500 mg tablet 500 mg PO ONCE PRN0RF aspirin [Adult Low Dose Aspirin] 81 mg tablet,delayed release (DR/EC) 81 mg PO DAILY 0RF bisacodyl [Gentle Laxative (bisacodyl)] 5 mg tablet,delayed release (DR/EC) 10 mg PO BEDTIME 0RF polyethylene glycol 3350 [Miralax] 17 gram/dose powder 17 g PO DAILY 30 Days Qty: 510 11RF (DME) blood pressure monitor Kit See Rx Instructions .ROUTE .MEDSUPPLY Qty: 1 0RF Rx Instructions: As directed furosemide 40 mg tablet 40 mg PO DAILY 0RF pen needle, diabetic [BD Annia 2nd Gen Pen Needle] 32 gauge x / needle 1 ea miscellaneous .COMPLEX Qty: 200 11RF Rx Instructions: 1 ea miscellaneous six times a day; gabapentin 100 mg capsule 100 mg PO ONCE PRN0RF Lantus Solostar U-100 Insulin 100 unit/mL (3 mL) insulin pen 40 unit subcut QPM Qty: 15 6RF (DME) FreeStyle Allison 2 [place] Misc See Rx Instructions .ROUTE .MEDSUPPLY Qty: 1 0RF Rx Instructions: As directed Referrals: Tj Drake [Physician] - 2 days
[2021-10-04] MEDS: Labetalol HCL 100 MG/20 ML VIAL 10 MG IVPUSH ×2 (08:53→12:38)
[2021-10-04] MEDS: Lidocaine HCl 2 % Urojet 10 ML JEL.PF.APP TOPICAL (08:54)
--- NOTE | 2021-10-04 09:00 | PC.NURSE ---
Assisted MD with suction, nasal packing. Pt vomiting clots, suspect older bleed. Pt with BP 187/96, MD aware. Medicated for BP via #22 IV in left hand. PCT drawing blood. Awaiting effect.
[2021-10-04 09:14] LABS: MANUAL DIFF FLAG NO
[2021-10-04 09:15] LABS: Basophils Absolute Auto 0.1 X10*3/uL (0.0-0.2); Basophils Percent Auto 0.7 % (0-2); Eosinophils Percent Auto 0.1 % (0-4); Hematocrit 34.4 % (37.0-47.0); Hemoglobin 11.8 g/dl (12.0-16.0); Imm Gran Abs Auto 0.02 X10*3/uL (0.00-0.03); Imm Gran Pct Auto 0.3 % (0.0-0.4); Lymphocytes Absolute Auto 2.4 X10*3/uL (1.2-4.9); Lymphocytes Percent Auto 34.8 % (20-40); Mean Corpuscular HGB Conc 34.3 g/dl (31.0-35.0); Mean Corpuscular Volume 87.5 fL (80.0-98.0); Monocytes Absolute Auto 0.5 X10*3/uL (0.1-1.2); Neutrophils Percent Auto 57.1 % (45-73); Platelet Count 202 X10*3/uL (160-400); Red Blood Count 3.93 X10*6/uL (4.20-5.50); Red Cell Distribution Width 12.4 % (11.0-16.0)
[2021-10-04 09:23] LABS: Partial Thromboplastin Time 41.3 SEC (24.1-38.0)
[2021-10-04 09:30] LABS: Prothrombin Time 11.4 SEC (9.9-13.0)
[2021-10-04 09:36] VITALS: BP 141/85
[2021-10-04 10:43] LABS: Alanine Aminotransferase 23 U/L (0-31); Albumin Level 3.8 g/dL (3.5-5.0); Alkaline Phosphatase 87 U/L (39-117); Anion Gap 13 (12-20); Aspartate Amino Transferase 25 U/L (5-31); Bilirubin Total 0.6 mg/dL (0.0-1.0); Blood Urea Nitrogen 22 mg/dL (9-16); Calcium 10.2 mg/dL (8.4-10.2); Carbon Dioxide 25 mmol/L (22-29); Chloride 106 mmol/L (96-108); Creatinine Clr Calc Pharmacy 38.9; Estimated Glomerular Filt Rate 28; Glucose Random 152 mg/dL (60-115); Potassium 4.1 mmol/L (3.3-5.1); Sodium 140 mmol/L (135-145); Total Protein 6.9 g/dL (6.5-8.0)
[2021-10-04 12:12] VITALS: BP 188/89; PULSE 85
[2021-10-04] MEDS: Lidocaine HCl 4 % MPF w/MADgic 5 ML AMPUL 1 APPL TOPICAL (12:12)
[2021-10-04 13:07] VITALS: BP 165/76
[2021-10-04 14:17] VITALS: BP 169/82
[2021-10-04 15:08] VITALS: BP 165/83; PULSE 84
[2021-10-04] MEDS: Losartan Potassium 50 MG TABLET 100 MG PO (15:09)
[2021-10-04] MEDS: Amoxicillin 500 MG CAPSULE PO (15:50)
== END 2021-10-04 16:18 | disposition home or self-care (01) ==
PROVIDERS: Emergency Provider Emergency Medicine; PCP Internal Medicine
DX: R04.0 Epistaxis (principal); Z79.899 Other long term (current) drug therapy
CPT/HCPCS: 30901; 36415; 80053; 85025; 85610; 85730; 96374; 96375; 99284

== ENCOUNTER → 2022-01-19 08:08 | Outpatient (BNVA) | payer MEDICARE, MEDICAID, SELFPAY | PROVIDERS: PCP Internal Medicine; Visit Provider Nurse Practitioner Gerontology | DX: E11.65 Type 2 diabetes mellitus with hyperglycemia (principal); E11.42 Type 2 diabetes mellitus with diabetic polyneuropathy; E11.22 Type 2 diabetes mellitus with diabetic chronic kidney disease; I12.9 Hypertensive chronic kidney disease with stage 1 through stage 4 chronic kidney disease, or unspecified chronic kidney disease; N18.4 Chronic kidney disease, stage 4 (severe); E78.5 Hyperlipidemia, unspecified; E66.9 Obesity, unspecified; Z79.4 Long term (current) use of insulin; Z68.41 Body mass index [BMI] 40.0-44.9, adult | CPT/HCPCS: 82947; 83036; 99212 ==

== ENCOUNTER 2022-01-20 12:19 | Outpatient (REF) | payer MEDICARE, MEDICAID, SELFPAY ==
--- NOTE | ~2022-01-20 | MM_ITS ---
EXAMINATION: MM SCREENING DIGITAL BREAST TOMOSYNTHESIS, BILATERAL CLINICAL INFORMATION: Screening. Asymptomatic. The lifetime risk of breast cancer based on the Tyrer-Cuzick Model is 5%. COMPARISON: Mammography: 08/16/2017, 07/26/2016 TECHNIQUE: Digital breast tomosynthesis is performed in both the craniocaudal and mediolateral oblique views along with computer-aided detection (CAD). Synthesized 2D images are generated from the tomosynthesis. Additional bilateral MLO views are obtained. Technologist notes technically challenging exam, performed with patient seated. Exam tailored to patient capabilities. FINDINGS: There are scattered areas of fibroglandular density (ACR BI-RADS breast composition Category b). Parenchymal pattern is similar to prior exam. There is fine fibronodular parenchymal pattern with some mild stable bilateral retroareolar duct ectasia. There is no interval mass or architectural abnormality. There are scattered bilateral lucent tightly grouped similar-appearing relatively coarse calcifications, arranged circumferentially consistent with scattered fibroadenomatous changes. There are a few additional calcifications grouped posterior central 9:00 left breast and posterior central right breast since 2017. No new suspicious grouping. There are also scattered vascular calcifications. Skin contours are smooth. MM/MM tomosynthesis screening BI IMPRESSION: No significant changes from prior study. ASSESSMENT: BI-RADS 2: Benign RECOMMENDATION: Routine annual mammography screening. This patient's information was entered into a reminder system with a target due date for their next mammogram.
== END 2022-01-20 12:20 | disposition home or self-care (01) ==
LOC: HO.MAMMO 12:19
PROVIDERS: PCP Internal Medicine; Visit Provider Internal Medicine
DX: Z12.31 Encounter for screening mammogram for malignant neoplasm of breast (principal)
CPT/HCPCS: 77063; 77067

== ENCOUNTER 2022-01-23 07:28 | Outpatient (REF) | payer MEDICARE, MEDICAID, SELFPAY ==
[2022-01-23 07:50] LABS: MANUAL DIFF FLAG NO
[2022-01-23 08:40] LABS: Basophils Percent Auto 1.1 % (0-2); Eosinophils Percent Auto 0.2 % (0-4); Hematocrit 37.7 % (37.0-47.0); Hematocrit 37.8 % (37.0-47.0); Hemoglobin 12.4 g/dl (12.0-16.0); Imm Gran Abs Auto 0.01 X10*3/uL (0.00-0.03); Imm Gran Pct Auto 0.2 % (0.0-0.4); Lymphocytes Percent Auto 36.7 % (20-40); Mean Corpuscular HGB Conc 32.8 g/dl (31.0-35.0); Mean Corpuscular HGB Conc 32.9 g/dl (31.0-35.0); Mean Corpuscular Hemoglobin 28.9 pg (27.0-33.0); Mean Corpuscular Volume 88.1 fL (80.0-98.0); Mean Platelet Volume 10.4 fL (9.4-12.3); Monocytes Percent Auto 8.4 % (2-11); Neutrophils Absolute Auto 2.9 x10*3/uL (2.0-8.3); Neutrophils Percent Auto 53.4 % (45-73); Platelet Count 181 X10*3/uL (160-400); Platelet Count 188 X10*3/uL (160-400); Red Blood Count 4.28 X10*6/uL (4.20-5.50); Red Blood Count 4.29 X10*6/uL (4.20-5.50); Red Cell Distribution Width 12.6 % (11.0-16.0); Red Cell Distribution Width 12.8 % (11.0-16.0); White Blood Count 5.4 X10*3/uL (4.8-10.8); White Blood Count 5.5 X10*3/uL (4.8-10.8)
[2022-01-23 08:41] LABS: Basophils Absolute Auto 0.1 X10*3/uL (0.0-0.2); Monocytes Absolute Auto 0.5 X10*3/uL (0.1-1.2)
[2022-01-23 08:49] LABS: Estimated Average Glucose 131 mg/dL; Hemoglobin A1c % 6.2 %
[2022-01-23 08:59] LABS: Alanine Aminotransferase 19 U/L (0-31); Alkaline Phosphatase 116 U/L (39-117); Anion Gap 12 (12-20); Aspartate Amino Transferase 19 U/L (5-31); Bilirubin Total 0.5 mg/dL (0.0-1.0); Blood Urea Nitrogen 25 mg/dL (9-16); Calcium 10.4 mg/dL (8.4-10.2); Carbon Dioxide 29 mmol/L (22-29); Chloride 103 mmol/L (96-108); Estimated Glomerular Filt Rate 23; Glucose Random 117 mg/dL (60-115); Potassium 4.3 mmol/L (3.3-5.1); Sodium 140 mmol/L (135-145); Total Protein 7.2 g/dL (6.5-8.0)
[2022-01-23 09:05] LABS: Alanine Aminotransferase 18 U/L (0-31); Albumin Level 3.9 g/dL (3.5-5.0); Alkaline Phosphatase 112 U/L (39-117); Anion Gap 11 (12-20); Aspartate Amino Transferase 20 U/L (5-31); Bilirubin Total 0.4 mg/dL (0.0-1.0); Blood Urea Nitrogen 25 mg/dL (9-16); Calcium 10.1 mg/dL (8.4-10.2); Carbon Dioxide 29 mmol/L (22-29); Chloride 104 mmol/L (96-108); Cholesterol 153 mg/dL; Estimated Glomerular Filt Rate 22; Glucose Fasting 113 mg/dL (60-99); HDL Cholesterol 31 mg/dL; LDL Cholesterol Calculated 81 mg/dl; Potassium 4.4 mmol/L (3.3-5.1); Sodium 140 mmol/L (135-145); Triglycerides 206 mg/dL
[2022-01-23 09:26] LABS: TSH reflex Free T4 0.98 uIU/mL (0.32-4.0); Vitamin D 25-OH Total 38.8 ng/mL (>30)
[2022-01-23 09:56] LABS: Appearance Urine HAZY; Color Urine STRAW; Glucose Urine UA NEG (NEG); Leukocyte Esterase Urine 2+ (NEG); Nitrite Urine NEG (NEG); PH 5.5 (5.0-8.0); UACC Culture Trigger YES; Urine Blood NEG (NEG); Urine Ketones NEG (NEG); Urine Protein TRACE MG/DL (NEG-TRACE)
[2022-01-23 10:12] LABS: Bacteria Urine 2+ /LPF; RBC Urine 0 /HPF (0); Squamous Epithelial Cell Urine 2+ /LPF
[2022-01-23 10:21] LABS: Creatinine Urine 147.79 mg/dL; Microalbum/Creatinine Ratio Ur 79.1 ug/mg cr
[2022-01-26 13:41] LABS: Calcium (PTHI) 10.1 mg/dL (8.6-10.4); PTHI 225 pg/mL (16-77)
== END 2022-01-23 07:29 | disposition home or self-care (01) ==
LOC: HO.LAB 07:28
PROVIDERS: Absent Provider Internal Medicine Hypertension Specialist; PCP Internal Medicine; Visit Provider Internal Medicine
DX: I12.9 Hypertensive chronic kidney disease with stage 1 through stage 4 chronic kidney disease, or unspecified chronic kidney disease (principal); N18.4 Chronic kidney disease, stage 4 (severe); E11.22 Type 2 diabetes mellitus with diabetic chronic kidney disease; E55.9 Vitamin D deficiency, unspecified; E78.00 Pure hypercholesterolemia, unspecified
CPT/HCPCS: 36415; 80053; 80061; 81001; 82043; 82306; 83036; 83970; 84443; 85025; 85027; 87086

== ENCOUNTER 2022-03-17 06:55 | Outpatient (REF) | payer MEDICARE, SELFPAY ==
[2022-03-17 07:32] LABS: Hematocrit 35.8 % (37.0-47.0); Hemoglobin 11.8 g/dl (12.0-16.0); Mean Corpuscular Hemoglobin 28.8 pg (27.0-33.0); Mean Corpuscular Volume 87.3 fL (80.0-98.0); Mean Platelet Volume 10.1 fL (9.4-12.3); Platelet Count 156 X10*3/uL (160-400); Red Cell Distribution Width 12.9 % (11.0-16.0); White Blood Count 6.5 X10*3/uL (4.8-10.8)
[2022-03-17 08:00] LABS: Anion Gap 12 (12-20); Blood Urea Nitrogen 25 mg/dL (9-16); Calcium 9.9 mg/dL (8.4-10.2); Carbon Dioxide 28 mmol/L (22-29); Chloride 102 mmol/L (96-108); Estimated Glomerular Filt Rate 21; Glucose Random 96 mg/dL (60-115); Potassium 4.2 mmol/L (3.3-5.1); Sodium 138 mmol/L (135-145)
[2022-03-22 23:46] LABS: Prot Elec - Albumin 3.9 g/dL (3.8-4.8); Prot Elec - Alpha1 0.3 g/dL (0.2-0.3); Prot Elec - Beta 1 0.5 g/dL (0.4-0.6); Prot Elec - Beta 2 0.4 g/dL (0.2-0.5); Prot Elec - Total Protein 7.1 g/dL (6.1-8.1)
[2022-03-24 11:52] LABS: SARS COV2 IgG NEGATIVE
== END 2022-03-17 06:56 | disposition home or self-care (01) ==
LOC: HO.LAB 06:55
PROVIDERS: Absent Provider Internal Medicine Hypertension Specialist; PCP Internal Medicine; Visit Provider Internal Medicine
DX: N18.4 Chronic kidney disease, stage 4 (severe) (principal); Z20.822 Contact with and (suspected) exposure to COVID-19
CPT/HCPCS: 36415; 80048; 84165; 85027; 86335; 86769

== ENCOUNTER → 2022-04-14 09:55 | Outpatient (BNVA) | payer MEDICARE, SELFPAY | PROVIDERS: PCP Internal Medicine; Visit Provider Nurse Practitioner | DX: Z01.818 Encounter for other preprocedural examination (principal); K59.04 Chronic idiopathic constipation | CPT/HCPCS: 99202; 99212 ==

== ENCOUNTER 2022-05-29 07:43 | Outpatient (REF) | payer MEDICARE, SELFPAY ==
[2022-05-29 07:55] LABS: MANUAL DIFF FLAG NO
[2022-05-29 09:20] LABS: Basophils Absolute Auto 0.1 X10*3/uL (0.0-0.2); Basophils Percent Auto 0.8 % (0-2); Eosinophils Percent Auto 0.2 % (0-4); Hemoglobin 12.5 g/dl (12.0-16.0); Imm Gran Abs Auto 0.02 X10*3/uL (0.00-0.03); Imm Gran Pct Auto 0.3 % (0.0-0.4); Lymphocytes Absolute Auto 2.1 X10*3/uL (1.2-4.9); Lymphocytes Percent Auto 35.4 % (20-40); Mean Corpuscular HGB Conc 33.8 g/dl (31.0-35.0); Mean Corpuscular Hemoglobin 29.2 pg (27.0-33.0); Mean Corpuscular Volume 86.4 fL (80.0-98.0); Mean Platelet Volume 10.7 fL (9.4-12.3); Monocytes Absolute Auto 0.5 X10*3/uL (0.1-1.2); Neutrophils Absolute Auto 3.3 x10*3/uL (2.0-8.3); Neutrophils Percent Auto 54.3 % (45-73); Platelet Count 185 X10*3/uL (160-400); Red Blood Count 4.28 X10*6/uL (4.20-5.50)
[2022-05-29 09:32] LABS: Estimated Average Glucose 126 mg/dL
[2022-05-29 09:41] LABS: Appearance Urine Clear; Color Urine Yellow; Glucose Urine UA Negative (Negative); Leukocyte Esterase Urine Moderate (2+) (Negative); Nitrite Urine Negative (Negative); Specific Gravity - Urine <= 1.005 (1.005-1.025); UMIC TRIGGER UACC YES; Urine Blood Negative (Negative); Urine Ketones Negative (Negative); Urine Protein Negative (Neg-Trace)
[2022-05-29 09:48] LABS: Bacteria Urine None Seen (None Seen); Hyaline Casts Urine 0-2 /LPF (0-2); RBC Urine 0-2 /HPF (0-2); Squamous Epithelial Cell Urine 0-2 /HPF (0-2); UACC Culture Trigger YES
[2022-05-29 10:06] LABS: Alanine Aminotransferase 21 U/L (0-31); Albumin Level 4.2 g/dL (3.5-5.0); Alkaline Phosphatase 97 U/L (39-117); Anion Gap 17 (12-20); Aspartate Amino Transferase 24 U/L (5-31); Bilirubin Total 0.5 mg/dL (0.0-1.0); Blood Urea Nitrogen 19 mg/dL (9-16); Calcium 10.1 mg/dL (8.4-10.2); Carbon Dioxide 26 mmol/L (22-29); Chloride 102 mmol/L (96-108); Cholesterol 101 mg/dL; Estimated Glomerular Filt Rate 25; Glucose Fasting 82 mg/dL (60-99); HDL Cholesterol 36 mg/dL; LDL Cholesterol Calculated 43 mg/dl; Potassium 4.1 mmol/L (3.3-5.1); Sodium 141 mmol/L (135-145); Total Protein 7.1 g/dL (6.5-8.0); Triglycerides 112 mg/dL
[2022-05-29 10:12] LABS: Microalbum/Creatinine Ratio Ur 58.8 ug/mg cr
[2022-05-29 10:48] LABS: Vitamin D 25-OH Total 50.7 ng/mL (>30)
[2022-06-01 10:52] LABS: Calcium (PTHI) 10.2 mg/dL (8.6-10.4); PTHI 193 pg/mL (16-77)
== END 2022-05-29 07:44 | disposition home or self-care (01) ==
LOC: HO.LAB 07:43
PROVIDERS: PCP Internal Medicine; Visit Provider Internal Medicine
DX: E55.9 Vitamin D deficiency, unspecified (principal); I10 Essential (primary) hypertension; N25.81 Secondary hyperparathyroidism of renal origin; E83.52 Hypercalcemia; E11.9 Type 2 diabetes mellitus without complications; E78.00 Pure hypercholesterolemia, unspecified
CPT/HCPCS: 36415; 80053; 80061; 81001; 82043; 82306; 83036; 83970; 85025; 87086

== ENCOUNTER 2022-07-17 07:39 | Outpatient (REF) | payer MEDICARE, SELFPAY ==
--- NOTE | ~2022-07-17 | XR_ITS ---
EXAMINATION: XR LUMBOSACRAL SPINE CLINICAL INFORMATION: Low back pain COMPARISON: Previous x-ray July 2013 TECHNIQUE: Three views of the lumbosacral spine. FINDINGS: Bone alignment is normal. No fracture or dislocation. Degenerative disc disease at L4-L5 and L5-S1. Lower lumbar spine facet arthritis. XR/XR lumbar spine 2-3V IMPRESSION: Degenerative changes.
--- NOTE | ~2022-07-17 | XR_ITS ---
EXAMINATION: XR BILATERAL HIPS WITH AP PELVIS CLINICAL INFORMATION: Bilateral hip pain COMPARISON: None TECHNIQUE: AP view of the pelvis and single views of each hip were obtained. FINDINGS: Bone alignment is normal. No fracture or dislocation is seen. There are small bilateral lateral acetabular osteophytes. Hip joints are otherwise normal. There is proliferative bone reaction at the iliac crests, left greater than right. Bones of the pelvis are otherwise unremarkable. There is evidence of atherosclerotic disease. XR/XR hip BI w PEL1V IMPRESSION: Mild arthritis at both hip joints.
== END 2022-07-17 07:40 | disposition home or self-care (01) ==
LOC: HO.XRAY 07:39
PROVIDERS: PCP Internal Medicine; Visit Provider Internal Medicine
DX: M25.552 Pain in left hip (principal); M25.551 Pain in right hip; M54.50 Low back pain, unspecified
CPT/HCPCS: 72100; 73521

== ENCOUNTER 2022-08-25 08:26 | Day surgery (SDC) | payer MEDICARE, SELFPAY ==
[2022-08-18 13:36] VITALS: BMI 41.3
--- NOTE | 2022-08-25 08:45 | P.CONAN_ITS ---
[facility] Active Problems Active Problems: All Active Problems (Updated 06/02/22 @ 16:16 by Leonid Valerio MD) Bilateral hip pain (Acute) Primary hyperparathyroidism (Acute) Preop examination (Acute) Chronic idiopathic constipation (Acute) Colon cancer screening (Acute) Hypercalcemia (Acute) Secondary hyperparathyroidism (Acute) Annual physical exam (Acute) Abdominal pain (Acute) Left upper arm injury (Acute) Shortness of breath (Acute) Pain of upper arm after trauma (Acute) Type 2 diabetes mellitus with hyperglycemia, with long-term current use of insulin (Acute) Type 2 diabetes mellitus with diabetic chronic kidney disease (Acute) Type 2 diabetes mellitus with polyneuropathy (Acute) Essential hypertension (Acute) Hyperlipidemia LDL goal <70 (Acute) Constipation (Acute) Obesity (BMI 30-39.9) (Acute) Depression (Acute) Lumbar degenerative disc disease (Acute) Diabetic neuropathy (Acute) Primary osteoarthritis of right knee (Acute) Pedal edema (Acute) Chronic kidney disease, stage 4 (severe) (Acute) Pure hypercholesterolemia (Acute) 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 atherosclerosis (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) Benign essential hypertension (Acute) Past Medical History Medical History Arthritis Benign essential hypertension Chronic kidney disease, stage 4 (severe) Constipation Coronary atherosclerosis Depression Diabetic neuropathy Essential hypertension Hypercalcemia Hyperlipidemia LDL goal <70 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 Mother Diabetes Hypertension Cancer antigen 125 (CA 125) elevation Maternal Grandmother Stomach cancer Other Mental health problem Family history of problems with anesthesia: No Surgical History Surgical History H/O colonoscopy History of cardiac catheterization (~07/2019) History of section History of esophagogastroduodenoscopy (EGD) History of partial hysterectomy History of tonsillectomy History of Problems with Anesthesia: No Social History Social History Household Members Other:: daughter Housing: Apartment Alcohol intake: never Patient Tobacco Use Status: Never used Tobacco e-Cigarette/Vaping Use: Never Used Second Hand Smoke Exposure: Yes Use of substances other than those prescribed or required for medical reasons: No Are you DNR?: No Advance Directives: No Advance Directives Information Provided: Yes service: No Current occupational status: disabled Cognitive needs: Yes (cane/walker) Hearing needs: No Vision needs: Yes (reading glasses) Meds Allergies Allergy/AdvReac Type Severity Reaction Status Date / Time No Known Allergies Allergy Verified 06/02/22 16:12 [No Known Allergies*] Active Medications: Current Medications Lactated Ringer's (Lr) 1,000 mls @ 100 mls/hr IVCONT .Q10H [facility] Home Medications Medication Instructions Recorded Confirmed Last Taken Type acetaminophen 500 mg tablet 500 mg PO ONCE PRN Pain 06/27/20 08/18/22 Unknown History aspirin 81 mg tablet,delayed 81 mg PO DAILY 06/27/20 08/18/22 Unknown History release (Adult Low Dose Aspirin) furosemide 40 mg tablet 40 mg PO DAILY 01/06/21 08/18/22 Unknown History Exam Exam Date and Time: August 25, 2022 0845 Height,Weight and Vital Signs: Height 5 ft 3 in Weight 105.687 kg Airway Mallampati Class: II TM Dist: >3cm Neck ROM: Full Assessment and Plan Assessment Anesthesia Assessment: Anesthesia Plan Discussed and Chart Reviewed Final Anesthetic Review Family History of Problems with Anesthesia: No History of Problems with Anesthesia: No NPO: Yes ASA Class: III Final Preanesthetic Review: No Changes in Pt Med Stat, Meds/Allgs Chart Reviewed, Consent Obtained/Reviewed and Anes Risks/Benef Reviewed Patient Risk: Intermediate Procedure Risk: Low Anesthetic Plan Anesthetic Plan: MAC: Disposition: Standard PACU
[2022-08-25 09:06] LABS: Glucose, Whole Blood 86 mg/dL (60-115)
[2022-08-25] MEDS: Lactated Ringers 1,000 ML 100 ML IVCONT (09:15)
--- NOTE | 2022-08-25 09:16 | P.HPSUR_ITS ---
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 Lumbar degenerative disc dis) History of Previous Operations: Relevant previous surgery/procedure and date(s) (H/O colonoscopy History of cardiac catheterization (~07/2019) History of section History of esophagogastroduodenoscopy (EGD) History of partial hysterectomy History of tonsillectomy) Allergies: Allergies Allergy/AdvReac Type Severity Reaction Status Date / Time No Known Allergies Allergy Verified 06/02/22 16:12 [No Known Allergies*] Review of Systems Sugical H&P ROS: Negative: Constitution, Cardiovascular, Respiratory, Neurological, Psychiatric, Hem-Onc, Allergic/Immunologic, Gastrointestinal, Genitourinary, Musculoskeletal, Integumentary, Endocrine and Eyes/Ears/Nose/Throat Exam Surgical H&P Exam: Normal: HEENT, Normal: Heart, Normal: Lungs, Normal: Extremities, Normal: Abdomen, Normal: Skin and Normal: Neurological Plan Diagnosis/Plan: Unchanged I have reviewed the history and physical and performed a pertinent physical examination on my patient. No changes have occurred unless specified. Time Spent With Patient Time: Total time managing care of this patient today ____ minutes.
--- NOTE | 2022-08-25 09:25 | W.PM.OPN ---
Operative Note Operative Note Date of Service: 08/25/22 Narrative: Operative Information Procedure Description: Colonoscopy Indication: screening Anesthesia: MAC COLONOSCOPY Instrument: Olympus variable stiffness pediatric scope 190L Colonoscopy Monitoring: Vital signs and clinical assessment, continuous EKG monitoring, Pulse oximetry, Carbon Dioxide monitoring and blood pressure monitoring were done throughout the procedure. Colon withdrawal time was 12 minutes. Procedure: The patient was placed in the left lateral decubitis position and pre-procedure medications were administered. After a digital rectal examination of the ano-rectum, the video colonoscope was inserted into the rectum and advanced through the colon to the cecum/TI. The colonoscope was slowly withdrawn in a retrograde panoramic fashion and the colon mucosa was carefully examined including a retroflexed view of the rectum. Findings and interventions are described below. Procedure Difficulty: moderate due to looping Findings: Terminal Ileum-not intubated, due to looping Cecum:normal Ascending Colon: normal Transverse Colon -normal Descending Colon:normal Sigmoid Colon: mild diverticulosis Rectum: Retroflexion with moderate sized internal hemorrhoids, grade I Anorectum - normal Colon preparation: [place] Bowel Preparation Scale Right colon; 2 Transverse colon: 2 Left colon; 2 (0 = Unprepared colon segment with mucosa not seen due to solid stool that cannot be cleared. 1 = Portion of mucosa of the colon segment seen, but other areas of the colon segment not well seen due to staining, residual stool and/or opaque liquid. 2 = Minor amount of residual staining, small fragments of stool and/or opaque liquid, but mucosa of colon segment seen well. 3 = Entire mucosa of colon segment seen well with no residual staining, small fragments of stool or opaque liquid) Impression and Post Procedure Diagnosis: internal hemorrhoids diverticular disease Plan: High fiber diet leaflet Avoid straining at stool, epsom salts and sitz bath, anusol supps or cream Repeat Colonoscopy in 10 years or earlier if clinically indicated can try lower dose of linaclotide as she found the 145 mcg dose too high, I will send it Above findings were reviewed with the patient and relevant handouts were provided if indicated.
[2022-08-25 10:03] VITALS: BP 90/51; PULSE 79; RESP 16; TEMP 36.1; O2SAT 100
[2022-08-25 10:19] VITALS: BP 179/86; PULSE 79; RESP 18; TEMP 36.1; O2SAT 100
[2022-08-25 10:34] VITALS: BP 194/88; PULSE 75; RESP 18; TEMP 36.1; O2SAT 100
== END 2022-08-25 11:12 | disposition home or self-care (01) ==
PROVIDERS: PCP Internal Medicine; Visit Provider Internal Medicine Gastroenterology
PROC: 0DJD8ZZ Inspection of Lower Intestinal Tract, Via Natural or Artificial Opening Endoscopic (ICD-10-PCS; CPT 45378; principal; 2022-08-25 09:30)
DX: Z12.11 Encounter for screening for malignant neoplasm of colon (principal); K57.30 Diverticulosis of large intestine without perforation or abscess without bleeding; K64.0 First degree hemorrhoids; I12.9 Hypertensive chronic kidney disease with stage 1 through stage 4 chronic kidney disease, or unspecified chronic kidney disease; E11.22 Type 2 diabetes mellitus with diabetic chronic kidney disease; N18.4 Chronic kidney disease, stage 4 (severe); E11.40 Type 2 diabetes mellitus with diabetic neuropathy, unspecified; E78.5 Hyperlipidemia, unspecified; E83.52 Hypercalcemia; K59.00 Constipation, unspecified; I25.10 Atherosclerotic heart disease of native coronary artery without angina pectoris; Z98.61 Coronary angioplasty status; E66.9 Obesity, unspecified; Z68.41 Body mass index [BMI] 40.0-44.9, adult; Z79.4 Long term (current) use of insulin; Z79.82 Long term (current) use of aspirin; Z79.899 Other long term (current) drug therapy
CPT/HCPCS: G0121; 82947; J2370

== ENCOUNTER → 2022-08-31 13:01 | Outpatient (BNVA) | payer MEDICARE, SELFPAY | PROVIDERS: PCP Internal Medicine; Visit Provider Internal Medicine Endocrinology, Diabetes & Metabolism | DX: E11.22 Type 2 diabetes mellitus with diabetic chronic kidney disease (principal); N18.4 Chronic kidney disease, stage 4 (severe); Z79.4 Long term (current) use of insulin | CPT/HCPCS: 82947; 83036; 99212 ==

== ENCOUNTER 2022-09-24 07:33 | Outpatient (REF) | payer MEDICARE, SELFPAY ==
[2022-09-24 07:46] LABS: MANUAL DIFF FLAG NO
[2022-09-24 09:00] LABS: Appearance Urine Cloudy; Color Urine Yellow; Glucose Urine UA Negative (Negative); Leukocyte Esterase Urine Large (3+) (Negative); Nitrite Urine Negative (Negative); PH 5.5 (5.0-9.0); Specific Gravity - Urine 1.015 (1.005-1.025); UMIC TRIGGER UACC YES; Urine Blood Negative (Negative); Urine Ketones Negative (Negative); Urine Protein Trace mg/dL (Neg-Trace)
[2022-09-24 09:03] LABS: Basophils Percent Auto 0.6 % (0-2); Eosinophils Percent Auto 0.1 % (0-4); Hematocrit 36.6 % (37.0-47.0); Hemoglobin 12.1 g/dl (12.0-16.0); Imm Gran Abs Auto 0.02 X10*3/uL (0.00-0.03); Imm Gran Pct Auto 0.3 % (0.0-0.4); Lymphocytes Absolute Auto 2.4 X10*3/uL (1.2-4.9); Lymphocytes Percent Auto 34.9 % (20-40); Mean Corpuscular HGB Conc 33.1 g/dl (31.0-35.0); Mean Corpuscular Hemoglobin 28.8 pg (27.0-33.0); Mean Corpuscular Volume 87.1 fL (80.0-98.0); Mean Platelet Volume 10.8 fL (9.4-12.3); Monocytes Absolute Auto 0.6 X10*3/uL (0.1-1.2); Monocytes Percent Auto 8.9 % (2-11); Neutrophils Absolute Auto 3.9 x10*3/uL (2.0-8.3); Neutrophils Percent Auto 55.2 % (45-73); Platelet Count 189 X10*3/uL (160-400); Red Cell Distribution Width 12.8 % (11.0-16.0)
[2022-09-24 09:03] LABS: Bacteria Urine 1+ (None Seen); RBC Urine 0-2 /HPF (0-2); UACC Culture Trigger YES; WBC Urine >50 /HPF (0-5)
[2022-09-24 09:14] LABS: Estimated Average Glucose 140 mg/dL; Hemoglobin A1C 151.1398 umol/L; Hemoglobin A1c % 6.5 %
[2022-09-24 09:49] LABS: Creatinine Urine 139.62 mg/dL; Microalbum/Creatinine Ratio Ur 65.8 ug/mg cr
[2022-09-24 09:49] LABS: Alanine Aminotransferase 20 U/L (0-31); Albumin Level 4.2 g/dL (3.5-5.0); Alkaline Phosphatase 112 U/L (39-117); Anion Gap 16 (12-20); Aspartate Amino Transferase 22 U/L (5-31); Bilirubin Total 0.6 mg/dL (0.0-1.0); Blood Urea Nitrogen 25 mg/dL (9-16); Calcium 9.1 mg/dL (8.4-10.2); Carbon Dioxide 28 mmol/L (22-29); Chloride 100 mmol/L (96-108); Cholesterol 104 mg/dL; Estimated Glomerular Filt Rate 24; Glucose Fasting 112 mg/dL (60-99); HDL Cholesterol 35 mg/dL; LDL Cholesterol Calculated 53 mg/dl; Potassium 3.8 mmol/L (3.3-5.1); Sodium 140 mmol/L (135-145); Total Protein 7.1 g/dL (6.5-8.0); Triglycerides 81 mg/dL
[2022-09-24 10:08] LABS: Vitamin D 25-OH Total 50.5 ng/mL (>30)
== END 2022-09-24 07:34 | disposition home or self-care (01) ==
LOC: HO.LAB 07:33
PROVIDERS: PCP Internal Medicine; Visit Provider Internal Medicine
DX: E55.9 Vitamin D deficiency, unspecified (principal); E11.9 Type 2 diabetes mellitus without complications; E78.00 Pure hypercholesterolemia, unspecified; R30.0 Dysuria
CPT/HCPCS: 36415; 80053; 80061; 81001; 82043; 82306; 83036; 84443; 85025; 87086

== ENCOUNTER 2022-10-22 13:08 | Outpatient (REF) | payer MEDICARE, SELFPAY ==
--- NOTE | 2022-10-22 | PFT_ITS ---
FLOWS: 1. FEV1 127% of predicted at 2.11 L. 2. FVC 111% of predicted at 2.35 L. 3. FEV1 to FVC ratio 0.90. 4. No bronchodilator response. LUNG VOLUMES: 1. Total lung capacity 78% of predicted at 3.25 L. 2. Residual volume 55% of predicted at 0.94 L. 3. Slow vital capacity 79% of predicted at 2.31 L. 4. Expiratory reserve volume 49% of predicted at 0.9 L. 5. Diffusion capacity is mildly decreased, diffusion capacity corrects to normal after adjustment for alveolar ventilation. In comparison to pulmonary function test performed in June 2016, FEV1 and ERV have been resolved significant changes; forced vital capacity has increased by 0.35 L; total lung capacity has increased by 0.68 L; residual volume has increased by 0.47 L; slow vital capacity has increased by 0.33 L; diffusion capacity has decreased by 1.6 mL/minute per mmHg. IMPRESSION: Mild restrictive ventilatory defect with no bronchodilator response. Decreased expiratory reserve volume suggests extrathoracic restriction, likely secondary to abdominal obesity. MD CHIQUITA Bond/MODL / [id number]
== END 2022-10-22 13:09 | disposition home or self-care (01) ==
LOC: HO.RESP 13:08
PROVIDERS: PCP Internal Medicine; Visit Provider Internal Medicine
DX: R06.00 Dyspnea, unspecified (principal); R10.2 Pelvic and perineal pain
CPT/HCPCS: 94060; 94727; 94729

== ENCOUNTER 2022-10-22 14:11 | Outpatient (REF) | payer MEDICARE, MEDICAID, SELFPAY ==
--- NOTE | ~2022-10-22 | US_ITS ---
EXAMINATION: US PELVIS CLINICAL INFORMATION: Pelvic and perineal pain; history of prior hysterectomy and bilateral oophorectomies. COMPARISON: None TECHNIQUE: Ultrasound of the pelvis is performed using both transabdominal and transvaginal transducers along with Doppler. Transvaginal imaging is performed due to inadequate visualization transabdominally. FINDINGS: The uterus and bilateral ovaries are surgically absent and is not visualized. No adnexal mass is seen. There is no pelvic free fluid. US/US pelvic and transvaginal IMPRESSION: There has been a prior hysterectomy and bilateral oophorectomies. The examination is otherwise unremarkable.
== END 2022-10-22 14:12 | disposition home or self-care (01) ==
LOC: HO.US 14:11
PROVIDERS: Visit Provider Internal Medicine
DX: R10.2 Pelvic and perineal pain (principal)
CPT/HCPCS: 76830; 76856

== ENCOUNTER → 2022-12-21 10:48 | Outpatient (BNVA) | payer MEDICARE, SELFPAY | PROVIDERS: PCP Internal Medicine; Visit Provider Dietitian, Registered | DX: E11.65 Type 2 diabetes mellitus with hyperglycemia (principal); E11.40 Type 2 diabetes mellitus with diabetic neuropathy, unspecified; E11.22 Type 2 diabetes mellitus with diabetic chronic kidney disease; I12.9 Hypertensive chronic kidney disease with stage 1 through stage 4 chronic kidney disease, or unspecified chronic kidney disease; N18.4 Chronic kidney disease, stage 4 (severe); E78.00 Pure hypercholesterolemia, unspecified; E55.9 Vitamin D deficiency, unspecified; Z79.4 Long term (current) use of insulin; Z71.3 Dietary counseling and surveillance | CPT/HCPCS: 97802 ==

== ENCOUNTER 2022-12-31 07:28 | Outpatient (REF) | payer MEDICARE, SELFPAY ==
[2022-12-31 07:50] LABS: MANUAL DIFF FLAG NO
[2022-12-31 07:57] LABS: Basophils Absolute Auto 0.1 X10*3/uL (0.0-0.2); Basophils Percent Auto 1.1 % (0-2); Eosinophils Percent Auto 0.3 % (0-4); Hematocrit 36.4 % (37.0-47.0); Hemoglobin 12.3 g/dl (12.0-16.0); Imm Gran Abs Auto 0.02 X10*3/uL (0.00-0.03); Imm Gran Pct Auto 0.3 % (0.0-0.4); Lymphocytes Absolute Auto 2.3 X10*3/uL (1.2-4.9); Lymphocytes Percent Auto 35.3 % (20-40); Mean Corpuscular HGB Conc 33.8 g/dl (31.0-35.0); Mean Corpuscular Hemoglobin 28.9 pg (27.0-33.0); Mean Corpuscular Volume 85.4 fL (80.0-98.0); Mean Platelet Volume 9.7 fL (9.4-12.3); Monocytes Absolute Auto 0.6 X10*3/uL (0.1-1.2); Monocytes Percent Auto 8.7 % (2-11); Neutrophils Absolute Auto 3.6 x10*3/uL (2.0-8.3); Neutrophils Percent Auto 54.3 % (45-73); Platelet Count 169 X10*3/uL (160-400); Red Blood Count 4.26 X10*6/uL (4.20-5.50); Red Cell Distribution Width 12.6 % (11.0-16.0); White Blood Count 6.6 X10*3/uL (4.8-10.8)
[2022-12-31 08:02] LABS: Estimated Average Glucose 148 mg/dL; Hemoglobin A1c % 6.8 %
[2022-12-31 08:34] LABS: Alanine Aminotransferase 23 U/L (0-31); Alkaline Phosphatase 111 U/L (39-117); Anion Gap 17 (12-20); Aspartate Amino Transferase 28 U/L (5-31); Bilirubin Total 0.6 mg/dL (0.0-1.0); Blood Urea Nitrogen 23 mg/dL (9-16); Calcium 9.7 mg/dL (8.4-10.2); Carbon Dioxide 26 mmol/L (22-29); Chloride 102 mmol/L (96-108); Cholesterol 95 mg/dL; Estimated Glomerular Filt Rate 22; Glucose Fasting 112 mg/dL (60-99); HDL Cholesterol 38 mg/dL; Iron 84 mcg/dL (30-160); LDL Cholesterol Calculated 39 mg/dl; Percent Iron Saturation 29 % (15-50); Potassium 3.9 mmol/L (3.3-5.1); Sodium 141 mmol/L (135-145); Total Iron Binding Capacity 290 mcg/dL (228-428); Total Protein 6.8 g/dL (6.5-8.0); Triglycerides 91 mg/dL; Unsaturated Iron Binding 206 ug/dL
[2022-12-31 08:44] LABS: Ferritin 64 ng/mL (10-250)
[2022-12-31 08:45] LABS: TSH reflex Free T4 1.27 uIU/mL (0.32-4.0); Vitamin D 25-OH Total 63.3 ng/mL (>30)
[2022-12-31 09:24] LABS: Appearance Urine Cloudy; Color Urine Yellow; Glucose Urine UA Negative (Negative); Leukocyte Esterase Urine Large (3+) (Negative); Nitrite Urine Negative (Negative); PH 5.5 (5.0-9.0); UMIC TRIGGER UA YES; Urine Blood Negative (Negative); Urine Ketones Negative (Negative); Urine Protein Trace mg/dL (Neg-Trace)
[2022-12-31 09:27] LABS: Bacteria Urine 3+ (None Seen); Hyaline Casts Urine 0-2 /LPF (0-2); WBC Urine 21-50 /HPF (0-5)
[2022-12-31 09:38] LABS: UACC Culture Trigger YES
[2022-12-31 09:47] LABS: Creatinine Urine 182.09 mg/dL; Microalbum/Creatinine Ratio Ur 38.9 ug/mg cr
[2022-12-31 15:36] LABS: Creatinine Urine 182.38 mg/dL; Protein/Creatinine Ratio, Ur 0.12 (<0.2); Total Protein Urine Random 21 mg/dL (<12)
== END 2022-12-31 07:29 | disposition home or self-care (01) ==
LOC: HO.LAB 07:28
PROVIDERS: Absent Provider Internal Medicine Hypertension Specialist; PCP Internal Medicine; Visit Provider Internal Medicine
DX: E55.9 Vitamin D deficiency, unspecified (principal); E78.00 Pure hypercholesterolemia, unspecified; I11.9 Hypertensive heart disease without heart failure; N17.9 Acute kidney failure, unspecified; E11.29 Type 2 diabetes mellitus with other diabetic kidney complication; D50.8 Other iron deficiency anemias; R82.90 Unspecified abnormal findings in urine
CPT/HCPCS: 36415; 80053; 80061; 81001; 81003; 82043; 82306; 82728; 83036; 83540; 84156; 84443; 85025; 87086

== ENCOUNTER → 2023-01-07 08:51 | Outpatient (BNVA) | payer MEDICARE, SELFPAY | PROVIDERS: PCP Internal Medicine; Visit Provider Internal Medicine Endocrinology, Diabetes & Metabolism | DX: E11.22 Type 2 diabetes mellitus with diabetic chronic kidney disease (principal); N18.4 Chronic kidney disease, stage 4 (severe); Z79.4 Long term (current) use of insulin; Z79.85 Long-term (current) use of injectable non-insulin antidiabetic drugs | CPT/HCPCS: 82947; 99212 ==

== ENCOUNTER 2023-06-23 16:17 | Outpatient (AMB) | payer MEDICARE, SELFPAY ==
[2023-06-23 16:22] VITALS: BP 142/98; PULSE 98; O2SAT 96; BMI 41.6
--- NOTE | 2023-06-23 16:22 | A.OFFPC_ITS ---
Vital Signs 06/23/23 16:22 06/23/23 16:52 Height 5 ft 3 in Weight 235 lb 0.4 oz BMI 41.6 BP 142/98 H 142/82 H Blood Pressure Location Lt brachial Lt brachial Position Sitting Sitting Pulse 98 Pulse Source Pulse Oximeter Pulse Oximetry (%) 96 Oxygen Delivery Method Room Air Intake Visit Reasons: 3M. F/U-DM/CKD/Hyperlipidemia/HTN Installation And Service Technician Required: No Allergies No Known Allergies [No Known Allergies*] Allergy (Verified 06/23/23 16:39) Medication List - Last Reconciled 06/23/23 by KAILA Gold acetaminophen 500 mg PO ONCE PRN aspirin (Adult Low Dose Aspirin) 81 mg PO DAILY blood pressure monitor As directed blood sugar diagnostic (Accu-Chek Brenda Plus test strips) Tests 4 X/day blood-glucose meter (Accu-Chek Brenda Plus Meter) 3x/day cinacalcet (Sensipar) 30 mg PO DAILY 90 days citalopram 10 mg PO DAILY ezetimibe 10 mg PO DAILY flash glucose scanning reader ([employer] Allison 2 [place]) As directed flash glucose sensor (eZelleronStyle Allison 2 Sensor kit) As directed change every 14 days furosemide 40 mg PO DAILY gabapentin 100 mg PO BEDTIME glucagon 3 mg/actuation (Baqsimi) 3 mg intranasal ONCE insulin glargine (Lantus Solostar U-100 Insulin) 18 units subcut QPM insulin lispro (Humalog KwikPen (U-100) Insulin) 12 - 16 units (0.12 - 0.16 mL) subcut QID ketorolac 0.5% 0 drps ophthalmic (eye) lancets (Accu-Chek Softclix Lancets) three times a day linaclotide 72 mcg PO DAILY liraglutide (Victoza 2-Matty) 1.2 mg (0.2 mL) subcut DAILY losartan 100 mg PO DAILY meloxicam 7.5 mg PO DAILY PRN 30 days nortriptyline 50 mg PO BEDTIME 90 days pen needle, diabetic (BD Ultra-Fine Micro Pen Needle) 1 ea subcut TID pen needle, diabetic (BD Annia 2nd Gen Pen Needle) USE 1 PEN NEEDLE SIX TIMES DAILY rosuvastatin 5 mg PO DAILY 30 days Tobacco use date assessed: 06/23/23 Dental Screening Dental Screen Date: 06/23/23 Did you have a dental visit in the last 12 months?: Yes Did you have a dental problem in the last 6 months where you did not have access to dental care?: No Was dental information given to patient?: Patient has dentist HPI 3M. F/U-DM/CKD/Hyperlipidemia/HTN HPI Details Patient is a 63-year-old female who presents today to follow-up on her chronic conditions. Patient of Dr. Valerio. Medical history significant for hypertension, coronary atherosclerosis - was seen by [facility] in the past, hypercholesterolemia, CKD stage 4-followed by Dr. Dominguez, diabetic neuropathy, depression, constipation, diabetes type 2-followed by Dr. Schuster, morbid obesity-would like to be seen by weight management. Patient reports compliance with medications and denies side effects. She also reports intermittent urge incontinence and would like evaluation for this. No shortness of breath or chest pain. She reports normal blood pressures at home. Patient was encouraged to complete her blood work that was ordered by her PCP. [facility] Medical History Hypercalcemia Secondary hyperparathyroidism Left upper arm injury Arthritis Type 2 diabetes mellitus with hyperglycemia, with long-term current use of insulin Type 2 diabetes mellitus with polyneuropathy Essential hypertension Hyperlipidemia LDL goal <70 Constipation Obesity (BMI 30-39.9) Depression Lumbar degenerative disc disease Diabetic neuropathy Primary osteoarthritis of right knee Pedal edema Chronic kidney disease, stage 4 (severe) Pure hypercholesterolemia Coronary atherosclerosis [facility] (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 Mother Diabetes Hypertension Cancer antigen 125 (CA 125) elevation Maternal Grandmother Stomach cancer Other Mental health problem Social History Household Members Other:: daughter Housing: Apartment Alcohol intake: never Patient Tobacco Use Status: Never used Tobacco e-Cigarette/Vaping Use: Never Used Second Hand Smoke Exposure: Yes service: No Current occupational status: disabled Cognitive needs: Yes (cane/walker) Hearing needs: No Vision needs: Yes (reading glasses) Questionnaire Thrive Questionnaire Date Thrive assessed: 01/03/23 AUDIT C Alcohol Use Questionnaire (AUDIT-C) 1. How often do you have a drink containing alcohol?: Never 3. How often do you have six or more drinks on one occasion?: Never Total Score: 0 Score Reviewed/Action Taken: No JANIS-7 AMB Questionnaire JANIS-7 Date JANIS - 7 assessed: 01/03/23 Feeling nervous, anxious, or on edge: 0 = Not at all Not being able to stop or control worryin = Not at all Worrying too much about different things: 0 = Not at all Trouble relaxin = Not at all Being so restless that it is hard to sit still: 0 = Not at all Becoming easily annoyed or irritable: 0 = Not at all Feeling afraid as if something awful might happen: 0 = Not at all Total JANIS-7 score (0-4 normal; 5-9 mild; 10-14 moderate; 15-21 severe): 0 Source: Developed by Drs. Jake Quinones, Reena Washington, Lorne Guzman and colleagues, with an educational heather from [employer]. JANIS-7 Assessment Billing JANIS-7 Assessment Tool: JANIS-7 Assessment [id number] Review of Systems Const Denies body aches, Denies chills, Denies fever(s) and Denies headache(s) ENT Denies dizziness, Denies otalgia, Denies headache(s), Denies nasal discharge, Denies sinus pain and Denies sore throat Card Denies chest pain, Reports leg edema, Denies lightheadedness and Denies dyspnea Resp Denies cough, Denies dyspnea and Denies wheezing GI Denies abdominal pain Denies dysuria Musc Denies myalgias Skin/Breast Denies rash Neuro Denies dizziness and Denies headache(s) Aller/Immun Denies wheezing Physical exam (Primary Care) Vital Signs: Last Vital Signs Pulse 98 06/23/23 16:22 BP 142/98 H 06/23/23 16:22 Pulse Ox 96 06/23/23 16:22 Oxygen Delivery Method Room Air 06/23/23 16:22 BMI result Body Mass Index 41.6 Tobacco/Smoking Status: Tobacco use Status Tobacco use date assessed 06/23/23 06/23/23 16:23 Patient Tobacco Use Status Never used Tobacco 06/23/23 16:23 e-Cigarette/Vaping Use Never Used 06/23/23 16:23 Thrive Assessment: Date of Thrive Assessment Date Thrive assessed 01/03/23 06/23/23 16:23 Const Other: Ambulates with a cane General: cooperative and no acute distress Orientation/consciousness: patient oriented x3 HENMT Head: Yes normocephalic and Yes atraumatic Face and sinus: Yes sinuses nontender Mouth: oropharynx normal and moist mucous membranes Throat: Yes posterior oropharynx normal Eyes General: appearance normal, both eyes and all related structures Neck Neck: Yes normal visual inspection, Yes full ROM and Yes no lymphadenopathy Resp Effort & Inspection: normal respiratory effort and able to speak in complete sentences Auscultation: clear to auscultation bilaterally, no crackles, no rales, no rhonchi and no wheezes Cardio Rate: regular rate Rhythm: regular rhythm Heart sounds: S1 normal heart sound present and S2 normal heart sound present GI Auscultation: normal bowel sounds Skin General skin exam: no rashes or lesions noted Neuro General: patient oriented x3 Extrem Other: Trace edema to left lower extremity General: Yes full ROM Results AMB Hemoglobin A1c AMB Hemoglobin A1c 7.5 % Last Edit by BREE Adair on 06/23/23 16:39 Results Reviewed Results Reviewed: Laboratory Last Values Hgb A1c (Clinic) 7.5 % (4.0-6.0) H 06/23/23 16:23 Assessment and Plan Assessment & Plan (1) Urge incontinence: Code(s): N39.41 - Urge incontinence Plan: Patient was encouraged to her blood work and urinalysis Urology referral for an evaluation and treatment (2) Morbid obesity with BMI of 40.0-44.9, adult: Code(s): E66.01 - Morbid (severe) obesity due to excess calories; Z68.41 - Body mass index [BMI] 40.0-44.9, adult Plan: Healthy food choices and exercise as tolerated Weight management referral (3) Type 2 diabetes mellitus with hyperglycemia, with long-term current use of insulin: Code(s): E11.65 - Type 2 diabetes mellitus with hyperglycemia; Z79.4 - drafter civil engineering (current) use of insulin Plan: A1c 7.5 today Diabetic eye exam 10/2022 with mild diabetic retinopathy Continue current treatment Low-carbohydrate diet Continue to follow-up with Dr. Schuster (4) Essential hypertension: Code(s): I10 - Essential (primary) hypertension Plan: Goal BP equal or less than 140/90 Continue current treatment Low-sodium diet and weight loss (5) Hyperlipidemia LDL goal <70: Code(s): E78.5 - Hyperlipidemia, unspecified Plan: Continue current treatment Low-cholesterol diet Patient was encouraged to complete her blood work (6) Coronary atherosclerosis: Comment: S/P stenting of mid-LAD in 07/2019 ([facility]) Code(s): I25.10 - Atherosclerotic heart disease of [place] coronary artery without angina pectoris Qualifiers: Coronary Disease-Associated Artery/Lesion type: [place] artery [place] vs. transplanted heart: [place] heart Associated angina: without angina Qualified Code(s): I25.10 - Atherosclerotic heart disease of [place] coronary artery without angina pectoris Plan: Currently on aspirin 81 mg daily Patient reports she does not see Cardiology anymore Plan Follow-up with PCP in 3 months or sooner as needed Orders: Orders AMB Hemoglobin A1c Today Z13.9 - Encounter for screening, unspecified Referrals Medical Weight Management Referral E66.01 - Morbid (severe) obesity due to excess calories, Z68.41 - Body mass index [BMI] 40.0-44.9, adult Urology Referral N39.41 - Urge incontinence Coding Level of Care Code Est Pt Level 4 (93957) Diagnoses Urge incontinence N39.41 Morbid obesity with BMI of 40.0-44.9, adult E66.01; Z68.41 Type 2 diabetes mellitus with hyperglycemia, with long-term current use of insulin E11.65; Z79.4 Essential hypertension I10 Hyperlipidemia LDL goal <70 E78.5 Atherosclerosis of [place] coronary artery of [place] heart without angina pectoris I25.10 Coronary Disease-Associated Artery/Lesion type: [place] artery [place] vs. transplanted heart: [place] heart Associated angina: without angina Additional Codes JANIS-7 Assessment Billing - JANIS-7 Assessment Tool: JANIS-7 Assessment [id number] ([id number])
[2023-06-23 16:52] VITALS: BP 142/82
== END 2023-06-23 16:57 | disposition home or self-care (01) ==
PROVIDERS: PCP Internal Medicine; Visit Provider Nurse Practitioner Family
DX: E11.65 Type 2 diabetes mellitus with hyperglycemia (principal); E66.01 Morbid (severe) obesity due to excess calories; Z68.41 Body mass index [BMI] 40.0-44.9, adult; Z79.4 Long term (current) use of insulin; N39.41 Urge incontinence; I10 Essential (primary) hypertension; E78.5 Hyperlipidemia, unspecified; I25.10 Atherosclerotic heart disease of native coronary artery without angina pectoris
CPT/HCPCS: 83036; 99214

== ENCOUNTER → 2023-07-20 09:04 | Outpatient (BNVA) | payer MEDICARE, SELFPAY | PROVIDERS: PCP Internal Medicine; Visit Provider Internal Medicine Endocrinology, Diabetes & Metabolism | DX: E11.22 Type 2 diabetes mellitus with diabetic chronic kidney disease (principal); E11.65 Type 2 diabetes mellitus with hyperglycemia; E11.42 Type 2 diabetes mellitus with diabetic polyneuropathy; I12.9 Hypertensive chronic kidney disease with stage 1 through stage 4 chronic kidney disease, or unspecified chronic kidney disease; N18.4 Chronic kidney disease, stage 4 (severe); Z79.4 Long term (current) use of insulin | CPT/HCPCS: 82947; 99212 ==

== ENCOUNTER 2023-07-20 09:05 | Outpatient (AMB) | payer MEDICARE, MEDICAID, SELFPAY ==
[2023-07-20 09:06] VITALS: BP 134/94; PULSE 88; BMI 42.3
--- NOTE | 2023-07-20 09:06 | A.OFFVIS_ITS ---
Intake Vital Signs 07/20/23 09:06 Height 5 ft 3 in Weight 238 lb 8.642 oz BMI 42.3 BP 134/94 H Blood Pressure Location Lt brachial Position Sitting Pulse 88 Pulse Source Pulse Oximeter Intake Visit Reasons: DM-LVM Intake Note: Patient presents today to follow up on DMT2. Last Diabetic Eye exam:05/2023 Last Podiatry Visit: None Random Glucose: 134 mg/dl HgA1C: 7.5% 06/23/23 Hydraulics Teacher Required: No Accompanied by: Self / Same As Patient Allergies No Known Allergies [No Known Allergies*] Allergy (Verified 07/20/23 09:14) Medication List - Last Reconciled 07/20/23 by Jake Schuster MD acetaminophen 500 mg PO ONCE PRN aspirin (Adult Low Dose Aspirin) 81 mg PO DAILY blood pressure monitor As directed blood sugar diagnostic (Accu-Chek Brenda Plus test strips) Tests 4 X/day blood-glucose meter (Accu-Chek Brenda Plus Meter) 3x/day cinacalcet (Sensipar) 30 mg PO DAILY citalopram 10 mg PO DAILY 90 days ezetimibe 10 mg PO DAILY flash glucose scanning reader ([employer] Allison 2 [place]) As directed flash glucose sensor (FreeStyle Allison 2 Sensor kit) As directed change every 14 days furosemide 40 mg PO DAILY gabapentin 100 mg PO BEDTIME 90 days glucagon 3 mg/actuation (Baqsimi) 3 mg intranasal ONCE insulin glargine (Lantus Solostar U-100 Insulin) 18 units subcut QPM insulin lispro (Humalog KwikPen (U-100) Insulin) 12 - 16 units (0.12 - 0.16 mL) subcut QID lancets (Accu-Chek Softclix Lancets) three times a day linaclotide 72 mcg PO DAILY liraglutide (Victoza 2-Matty) 1.2 mg (0.2 mL) subcut DAILY losartan 100 mg PO DAILY meloxicam 7.5 mg PO DAILY PRN 90 days nortriptyline 50 mg PO BEDTIME 90 days pen needle, diabetic (BD Ultra-Fine Micro Pen Needle) 1 ea subcut TID pen needle, diabetic (BD Annia 2nd Gen Pen Needle) USE 1 PEN NEEDLE SIX TIMES DAILY rosuvastatin 5 mg PO DAILY 30 days HPI HPI Comments History of Present Illness Details Patient is a 63 yo female with DM type 2 diagnosed in 1997 , who presents for continued management of diabetes. Past medical history: Dm2, HTN, HLD. CKD IV Micro and macrovascular complications: + neuropathy, Diabetes medications: Lantus to 18 units, Humalog?insulin to carb ratio of 6 with a correction of 20 and a target of 120.?. Victoza 1.2mg/daily . Had optho appt 2 days ago- getting injections Allison download shows she is using the sensor 100% of the time. Average glucose is 134 with G mi of 6.5% and variability 33.4%. Eight 2% range with 60% hyperglycemia and 2% hyperglycemia. Most of the hypoglycemia is occurring after lunch particularly if doesn't eat Symptoms reported: + numbness, tingling, cramping in feet Hypoglycemia: happens overnight on a daily basis treats with glucose or candy. Hyperglycemia: denies urinary frequency, denies polydypsia. Exercise: does stretching that learned from cardiac rehab. Stationary bicycle 4 minutes 3 times a day. Laboratory Tests 07/02/21 07/02/21 10/04/21 08:19 Unknown 10:18 Creatinine 1.85 H Estimated GFR 28 Hgb A1c (Clinic) Triglycerides 184 Cholesterol 192 D HDL Cholesterol 33 Microalb/Creat Rat io 155.6 10/21/21 09:39 Creatinine Estimated GFR Hgb A1c (Clinic) 6.8 H Triglycerides Cholesterol HDL Cholesterol Microalb/Creat Rat io [facility] Medical History Hypercalcemia Secondary hyperparathyroidism Left upper arm injury Arthritis Type 2 diabetes mellitus with hyperglycemia, with long-term current use of insulin Type 2 diabetes mellitus with polyneuropathy Essential hypertension Hyperlipidemia LDL goal <70 Constipation Obesity (BMI 30-39.9) Depression Lumbar degenerative disc disease Diabetic neuropathy Primary osteoarthritis of right knee Pedal edema Chronic kidney disease, stage 4 (severe) Pure hypercholesterolemia Coronary atherosclerosis [facility] (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 Mother Diabetes Hypertension Cancer antigen 125 (CA 125) elevation Maternal Grandmother Stomach cancer Other Mental health problem Household Members Other:: daughter Housing: Apartment Alcohol intake: never Patient Tobacco Use Status: Never used Tobacco e-Cigarette/Vaping Use: Never Used Second Hand Smoke Exposure: Yes service: No Current occupational status: disabled Cognitive needs: Yes (cane/walker) Hearing needs: No Vision needs: Yes (reading glasses) Physical Exam Absence of Cushingoid features. Absence of acromegalic features. Neck exam reveals nl size thyroid about 15 gms. No thyroid nodules palpable. No carotid bruits present. Lungs CTA. Heart S1 S2, Reg R/R. No M/R/ G. Skin exam reveals absence of vitiligo or acanthosis nigricans. Abdominal exam reveals Soft NT/ND with NA BS. No organomegaly present. Neck Other: . Extrem Other: Visual exam of foot performed. No ulcerations or open lesions. No onchomycosis, no callouses.Pulses 1- distally Sensation intact to monofilament exam. Vibratory sensation sensed is intact with 128 Hz tuning fork Assessment & Plan Assessment & Plan (1) Type 2 diabetes mellitus with diabetic chronic kidney disease: Code(s): E11.22 - Type 2 diabetes mellitus with diabetic chronic kidney disease Qualifiers: Diabetes mellitus termite control technician insulin use: with termite control technician use Chronic kidney disease stage: stage 4 (severe) Qualified Code(s): E11.22 - Type 2 diabetes mellitus with diabetic chronic kidney disease; N18.4 - Chronic kidney disease, stage 4 (severe); Z79.4 - [facility] (current) use of insulin Plan: This is a 63-year-old black female with a history of type 2 diabetes being treated with Victoza and basal-bolus insulin with excellent glycemic control f and known microvascular complications namely neuropathy and CKD stage IV. Plan is to loosen the insulin: carb at lunch to 1:7 and decrease the Lantus 15 units Will have patient see the staff development educator and brake repair supervisor. I also recommended that the patient talk to her primary care provider about getting referral back to see Cardiology or vascular to better assess her lower extremity perfusion. She agrees to do so Orders: Referrals Diabetes Education Referral E11.22 - Type 2 diabetes mellitus with diabetic chronic kidney disease Coding Level of Care Code Est Pt Level 4 (33813) Diagnoses Type 2 diabetes mellitus with stage 4 chronic kidney disease, with long-term current use of insulin E11.22; N18.4; Z79.4 Diabetes mellitus skilled nursing insulin use: with skilled nursing use Chronic kidney disease stage: stage 4 (severe)
[2023-07-20 09:22] LABS: Glucose, Whole Blood 134 mg/dL (60-115)
== END 2023-07-20 09:38 | disposition home or self-care (01) ==
PROVIDERS: PCP Internal Medicine; Visit Provider Internal Medicine Endocrinology, Diabetes & Metabolism
DX: E11.22 Type 2 diabetes mellitus with diabetic chronic kidney disease (principal); N18.4 Chronic kidney disease, stage 4 (severe); Z79.4 Long term (current) use of insulin
CPT/HCPCS: 99214

== ENCOUNTER 2023-08-02 07:50 | Outpatient (REF) | payer MEDICARE, MEDICAID, SELFPAY ==
[2023-08-02 08:20] LABS: MANUAL DIFF FLAG NO
[2023-08-02 08:48] LABS: Basophils Absolute Auto 0.1 X10*3/uL (0.0-0.2); Eosinophils Percent Auto 0.5 % (0-4); Hematocrit 34.8 % (37.0-47.0); Hemoglobin 11.6 g/dl (12.0-16.0); Imm Gran Abs Auto 0.02 X10*3/uL (0.00-0.03); Imm Gran Pct Auto 0.3 % (0.0-0.4); Lymphocytes Absolute Auto 1.6 X10*3/uL (1.2-4.9); Lymphocytes Percent Auto 25.6 % (20-40); Mean Corpuscular HGB Conc 33.3 g/dl (31.0-35.0); Mean Corpuscular Hemoglobin 28.4 pg (27.0-33.0); Mean Corpuscular Volume 85.3 fL (80.0-98.0); Mean Platelet Volume 10.3 fL (9.4-12.3); Monocytes Absolute Auto 0.5 X10*3/uL (0.1-1.2); Monocytes Percent Auto 7.9 % (2-11); Neutrophils Percent Auto 64.7 % (45-73); Platelet Count 182 X10*3/uL (160-400); Red Blood Count 4.08 X10*6/uL (4.20-5.50); Red Cell Distribution Width 12.9 % (11.0-16.0); White Blood Count 6.2 X10*3/uL (4.8-10.8)
[2023-08-02 08:57] LABS: Estimated Average Glucose 160 mg/dL; Hemoglobin A1c % 7.2 % (<6.0)
[2023-08-02 09:47] LABS: Parathyroid Hormone Intact 156.9 pg/mL (8.7-77.1)
[2023-08-02 10:07] LABS: TSH reflex Free T4 1.46 uIU/mL (0.32-4.0)
[2023-08-02 10:20] LABS: Vitamin B12 1267 pg/mL (200-900)
[2023-08-02 10:33] LABS: Alanine Aminotransferase 22 U/L (0-31); Albumin Level 3.8 g/dL (3.5-5.0); Alkaline Phosphatase 108 U/L (39-117); Anion Gap 13 (12-20); Aspartate Amino Transferase 28 U/L (5-31); Bilirubin Total 0.5 mg/dL (0.0-1.0); Blood Urea Nitrogen 14 mg/dL (9-16); Calcium 9.1 mg/dL (8.4-10.2); Carbon Dioxide 24 mmol/L (22-29); Chloride 107 mmol/L (96-108); Cholesterol 100 mg/dL (<200); Estimated Glomerular Filt Rate 33; Glucose Fasting 129 mg/dL (60-99); HDL Cholesterol 36 mg/dL (>40); LDL Cholesterol Calculated 41 mg/dL (<100); Potassium 4.2 mmol/L (3.3-5.1); Sodium 140 mmol/L (135-145); Triglycerides 117 mg/dL (<150)
[2023-08-02 11:11] LABS: Anion Gap 13 (12-20); Blood Urea Nitrogen 15 mg/dL (9-16); Calcium 9.1 mg/dL (8.4-10.2); Carbon Dioxide 23 mmol/L (22-29); Chloride 108 mmol/L (96-108); Estimated Glomerular Filt Rate 33; Glucose Random 128 mg/dL (60-115); Potassium 4.3 mmol/L (3.3-5.1); Sodium 140 mmol/L (135-145)
[2023-08-02 11:33] LABS: Appearance Urine Clear; Color Urine Yellow; Glucose Urine UA Negative (Negative); Leukocyte Esterase Urine Large (3+) (Negative); Nitrite Urine Negative (Negative); UMIC TRIGGER UACC YES; Urine Blood Trace (Negative); Urine Ketones Negative (Negative); Urine Protein 30 (1+) mg/dL (Neg-Trace)
[2023-08-02 11:40] LABS: Bacteria Urine None Seen (None Seen); Hyaline Casts Urine 0-2 /LPF (0-2); RBC Urine 0-2 /HPF (0-2); Squamous Epithelial Cell Urine 0-2 /HPF (0-2); UACC Culture Trigger YES; WBC Urine 21-50 /HPF (0-5)
[2023-08-02 12:39] LABS: Microalbum/Creatinine Ratio Ur 573.7 ug/mg cr (<30)
== END 2023-08-02 07:51 | disposition home or self-care (01) ==
LOC: HO.LAB 07:50
PROVIDERS: PCP Internal Medicine; Referring Provider Internal Medicine; Visit Provider Internal Medicine Hypertension Specialist
DX: E78.00 Pure hypercholesterolemia, unspecified (principal); I12.9 Hypertensive chronic kidney disease with stage 1 through stage 4 chronic kidney disease, or unspecified chronic kidney disease; E11.22 Type 2 diabetes mellitus with diabetic chronic kidney disease; N18.4 Chronic kidney disease, stage 4 (severe); E53.8 Deficiency of other specified B group vitamins; R30.0 Dysuria
CPT/HCPCS: 36415; 80048; 80053; 80061; 81001; 82043; 82570; 82607; 82746; 83036; 83970; 84443; 85025; 87086

== ENCOUNTER 2023-08-05 13:09 | Outpatient (AMB) | payer MEDICARE, MEDICAID, SELFPAY ==
--- NOTE | 2023-08-05 13:16 | A.OFFVIS_ITS ---
Intake Intake Visit Reasons: DM Cannon Crewmember Required: No Accompanied by: Self / Same As Patient Allergies No Known Allergies [No Known Allergies*] Allergy (Verified 07/20/23 09:14) HPI Comprehensive Diabetes Asmnt Most Recent Diabetes Results: Hemoglobin A1c 7.4 % 04/23/20 Microalb/Creat Ratio 573.7 ug/mg cr (<30) H 08/02/23 Cholesterol 100 mg/dL (<200) 08/02/23 HDL Cholesterol 36 mg/dL (>40) L 08/02/23 Triglycerides 117 mg/dL (<150) 08/02/23 Creatinine 1.57 mg/dL (0.5-1.4) H 08/02/23 Blood Urea Nitrogen 15 mg/dL (9-16) 08/02/23 Sodium 140 mmol/L (135-145) 08/02/23 Potassium 4.3 mmol/L (3.3-5.1) 08/02/23 Chloride 108 mmol/L (96-108) 08/02/23 Carbon Dioxide 23 mmol/L (22-29) 08/02/23 Calcium 9.1 mg/dL (8.4-10.2) 08/02/23 AST 28 U/L (5-31) 08/02/23 ALT 22 U/L (0-31) 08/02/23 Total Protein 7.0 g/dL (6.5-8.0) 08/02/23 Albumin 3.8 g/dL (3.5-5.0) 08/02/23 [facility] Medical History Hypercalcemia Secondary hyperparathyroidism Left upper arm injury Arthritis Type 2 diabetes mellitus with hyperglycemia, with long-term current use of insulin Type 2 diabetes mellitus with polyneuropathy Essential hypertension Hyperlipidemia LDL goal <70 Constipation Obesity (BMI 30-39.9) Depression Lumbar degenerative disc disease Diabetic neuropathy Primary osteoarthritis of right knee Pedal edema Chronic kidney disease, stage 4 (severe) Pure hypercholesterolemia Coronary atherosclerosis 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 Mother Diabetes Hypertension Cancer antigen 125 (CA 125) elevation Maternal Grandmother Stomach cancer Other Mental health problem Social History Household Members Other:: daughter Housing: Apartment Alcohol intake: never Patient Tobacco Use Status: Never used Tobacco e-Cigarette/Vaping Use: Never Used Second Hand Smoke Exposure: Yes service: No Current occupational status: disabled Cognitive needs: Yes (cane/walker) Hearing needs: No Vision needs: Yes (reading glasses) Assessment & Plan Assessment & Plan (1) Type 2 diabetes mellitus with hyperglycemia, with long-term current use of insulin: Code(s): E11.65 - Type 2 diabetes mellitus with hyperglycemia; Z79.4 - tank terminal gauger (current) use of insulin Plan: Learning objectives: The patient was provided with verbal and written education on the following topics as outlined below. Assess patient education level/literacy/barriers Patient questions/concerns, patient's last A1c 7.2%. patient using [employer] Allison 2 to test glucose patient's average glucose for the past 2 weeks 142 mg/dL patient above target 21% patient at target 75% patient below target 4% last visit with Dr. Landen Schuster decrease Lantus however patient continues to have overnight hypoglycemia patient uses insulin to carb ratio 1-7 correction factor 1-50 recommended to patient she increase correction factor from 1-50 to 1-60 decrease Lantus 15 units to Lantus 12 units to alleviate overnight hypoglycemia patient is also taking Victoza 1.6 mg daily, recommended to patient she discuss taking weekly G LP 1 at next visit with Dr. Schuster on 08/30/2023. this will reduce amount of daily injection patient reports she does rotate injection sites The patient met all learning objectives and was able to verbalize understanding and provide teach back of education topics discussed . The patient was provided with the opportunity to ask questions and all questions were answered. Topics covered in today?s session included: Insulin/Injectables (If applicable) * Storage/care of insulin?? * Injection sites? * Site rotation? * Onset, peak, duration * Drawing up insulin? * Injecting insulin/other injectables? * Sharps disposal Continuous blood glucose monitoring (if applicable) Hypoglycemia and Hyperglycemia * Signs and symptoms? * Causes?? * Treatment? * Preventing hypoglycemia? * When to seek medical attention * Blood glucose targets and how you feel when your blood glucose is in and out of your target ranges. * Monitoring and knowing your A1C. * What can make blood glucose go up and down and preventing high and low blood glucose. * Review of blood sugar targets in expected goal range and outside of expected goal range. * Problem solving and preventing hyper/hypoglycemia. * Sick day management of diabetes. * Using blood sugar results in decision making process in managing diabetes. ?Patient was receptive to information provided and participated in the discussion. Asked?appropriate questions and demonstrated good understanding of the topics discussed.? ? Smart Goal:? will use rule of 15s to treat hypoglycemia Patient Response to instructions: Comprehension of Instructions: Good Readiness to make changes:? action How confident they feel about making changes:positive Patient Instructions: patient will follow-up with Diabetes Education nurse in 2 months Coding Level of Care Code Est Pt Level 1 (64340) Diagnoses Type 2 diabetes mellitus with hyperglycemia, with long-term current use of insulin E11.65; Z79.4
== END 2023-08-05 13:59 | disposition home or self-care (01) ==
PROVIDERS: PCP Internal Medicine; Visit Provider Registered Nurse Diabetes Educator
DX: E11.65 Type 2 diabetes mellitus with hyperglycemia (principal); Z79.4 Long term (current) use of insulin

== ENCOUNTER → 2023-08-05 13:09 | Outpatient (BNVA) | payer MEDICARE, MEDICAID, SELFPAY | PROVIDERS: PCP Internal Medicine; Visit Provider Registered Nurse Diabetes Educator | DX: E11.65 Type 2 diabetes mellitus with hyperglycemia (principal); Z79.4 Long term (current) use of insulin | CPT/HCPCS: 99211 ==

== ENCOUNTER 2023-08-31 13:00 | Outpatient (AMB) | payer MEDICARE, MEDICAID, SELFPAY ==
--- NOTE | 2023-08-31 13:03 | MHC.OFFVIS ---
Intake Intake Visit Reasons: urge Incontinence Intake Note: New Patient presents for initial visit for urge incontinence Urology Medications: none Blood Thinner: aspirin PVR: 67ml's Flavor Maker Required: No Accompanied by: Self / Same As Patient Allergies No Known Allergies [No Known Allergies*] Allergy (Verified 08/31/23 13:44) Medication List - Last Reconciled 08/31/23 by SHIV Ordaz acetaminophen 500 mg PO ONCE PRN aspirin (Adult Low Dose Aspirin) 81 mg PO DAILY blood pressure monitor As directed blood sugar diagnostic (Accu-Chek Brenda Plus test strips) Tests 4 X/day blood-glucose meter (Accu-Chek Brenda Plus Meter) 3x/day cinacalcet (Sensipar) 30 mg PO DAILY citalopram 10 mg PO DAILY 90 days ezetimibe 10 mg PO DAILY flash glucose scanning reader (OneWireStyle Allison 2 [place]) As directed flash glucose sensor (OneWireStyle Allison 2 Sensor kit) As directed change every 14 days furosemide 40 mg PO DAILY gabapentin 100 mg PO BEDTIME 90 days glucagon 3 mg/actuation (Baqsimi) 3 mg intranasal ONCE insulin glargine (Lantus Solostar U-100 Insulin) 18 units subcut QPM insulin lispro (Humalog KwikPen (U-100) Insulin) 12 - 16 units (0.12 - 0.16 mL) subcut QID lancets (Accu-Chek Softclix Lancets) three times a day linaclotide 72 mcg PO DAILY liraglutide (Victoza 2-Matty) 1.2 mg (0.2 mL) subcut DAILY losartan 100 mg PO DAILY meloxicam 7.5 mg PO DAILY PRN 90 days nortriptyline 50 mg PO BEDTIME 90 days pen needle, diabetic (BD Ultra-Fine Micro Pen Needle) 1 ea subcut TID pen needle, diabetic (BD Annia 2nd Gen Pen Needle) USE 1 PEN NEEDLE SIX TIMES DAILY rosuvastatin 5 mg PO DAILY 30 days HPI HPI Comments History of Present Illness Details Katerina is a very pleasant 63-year-old female patient of . She has a past medical history of type 2 diabetes, hypertension, hyperlipidemia, constipation, obesity, depression, diabetic neuropathy, osteoarthritis, chronic kidney disease stage 4, and coronary atherosclerosis She presents to the office today as a new patient for mixed urinary incontinence. Discussed with the patient today she reports symptoms have been present for many years however feels they are worsening. She reports utilizing 2-3 adult diapers throughout the day. When asked she denies hematuria, dysuria, foul smelling urine, changes to urinary stream, flank pain, fever, and or chills. Discussed at length potential causes for lower urinary tract symptoms patient has been experiencing. Discussed further workup with retroperitoneal ultrasound for further assessment evaluation. Discussed pelvic floor therapy and or trial of medications for mixed urinary incontinence. Discussed possible near future in office urodynamics and or cystoscopy for further assessment evaluation. Discussed bladder triggers/irritants. In office urinalysis results reviewed with the patient today. 3+ leukocytes negative nitrates. Discussed at length importance of managing diabetes for improvement lower urinary tract symptoms in correlation of diabetes and the bladder. She otherwise offers no issues or concerns. 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 Mother Diabetes Hypertension Cancer antigen 125 (CA 125) elevation Maternal Grandmother Stomach cancer Other Mental health problem Social History Household Members Other:: daughter Housing: Apartment Alcohol intake: never Patient Tobacco Use Status: Never used Tobacco e-Cigarette/Vaping Use: Never Used Second Hand Smoke Exposure: Yes service: No Current occupational status: disabled Cognitive needs: Yes (cane/walker) Hearing needs: No Vision needs: Yes (reading glasses) Review of Systems Const Reports as per [facility] Eyes Reports no additional complaints ENT Reports no additional complaints Card Reports as per [facility] Resp Reports no additional complaints GI Reports as per [facility] Reports as per [facility] Musc Reports as per [facility] Neuro Reports as per [facility] Psych Reports as per [facility] Physical Exam Const General: cooperative, comfortable, no acute distress, well developed, alert and awake Nutritional Appearance: overweight Orientation/consciousness: patient oriented x3 Limitations: ambulation with cane HEENT Head: Yes normal to inspection, Yes normocephalic and Yes atraumatic Ears: hearing grossly normal bilaterally Eyes General: appearance normal, both eyes and all related structures Neck Neck: Yes normal visual inspection and Yes trachea midline Chest Chest palpation & inspection: normal inspection of the chest Resp Effort & Inspection: normal respiratory effort and able to speak in complete sentences Cardio Rate: regular rate GI Inspection: Yes normal to inspection General: Yes no CVA tenderness Back/Spine/Pelvis Back: no CVA tenderness Skin General skin exam: no rashes or lesions noted Neuro General: patient oriented x3 Extrem General: Yes normal to inspection Psych Appearance: grossly normal and well kempt Mental Status: mental status grossly normal Speech and movement: Normal speech and movement present and Clear speech present Affect: normal affect Attitude: cooperative Thought process: Normal thought process present Thought content: Normal thought content present Insight: Fair insight present (Psych) Judgement: Fair judgement present (Psych) Office Procedures Post Void Residual Post Residual Void Post Void Residual (PVR): 67 [id number] Void Residual by ultrasound Results AMB Urinalysis, Automated UA Leukoctes 500 Stephanie/uL Last Edit by Buster Harrell on 08/31/23 13:31 UA Nitrite Negative Last Edit by Buster Harrell on 08/31/23 13:31 UA Urobilinogen 0.2 mg/dL Last Edit by [email or web address] Harrell on 08/31/23 13:31 UA Protein 100 mg/dL Last Edit by Buster Harrell on 08/31/23 13:31 UA pH 6.0 Last Edit by Buster Harrell on 08/31/23 13:31 UA Blood 10 Abhilash/uL Last Edit by Buster Harrell on 08/31/23 13:31 UA Specific [place] 1.015 Last Edit by Buster Harrell on 08/31/23 13:31 UA Ketone Negative Last Edit by Buster Harrell on 08/31/23 13:31 UA Bilirubin 0 mg/dL Last Edit by Buster Harrell on 08/31/23 13:31 UA Glucose 0 mg/dL Last Edit by Buster Harrell on 08/31/23 13:31 Results Reviewed Results Reviewed: Laboratory Last Values Urine pH (Auto) 6.0 08/31/23 13:08 Specific [place] (Auto) 1.015 08/31/23 13:08 Urine Protein (Auto) 100 mg/dL 08/31/23 13:08 Glucose (UA)(Auto) 0 mg/dL 08/31/23 13:08 Urine Ketones (Auto) Negative 08/31/23 13:08 Urine Blood (Auto) 10 Abhilash/uL 08/31/23 13:08 Urine Nitrite (Auto) Negative 08/31/23 13:08 Urine Bilirubin (Auto) 0 mg/dL 08/31/23 13:08 Urine Urobilinogen (Auto) 0.2 mg/dL 08/31/23 13:08 Leukocyte Esterase (Auto) 500 Stephanie/uL 08/31/23 13:08 Assessment & Plan Assessment & Plan (1) Urge incontinence: Code(s): N39.41 - Urge incontinence (2) Mixed stress and urge urinary incontinence: Code(s): N39.46 - Mixed incontinence (3) UTI (urinary tract infection): Code(s): N39.0 - Urinary tract infection, site not specified Plan In office urinalysis results reviewed with the patient today; as noted above; will send for urine culture PVR 67 mL Discussed at length potential causes for lower urinary tract symptoms patient is experiencing. Discussed multiple treatment options for mixed urinary incontinence patient is reporting. Discussed possible near future in office cystoscopy and or urodynamics for further assessment evaluation. Will refer to pelvic floor therapy for further assessment evaluation; discussed wait time for initiation of therapy; she is aware. Will obtain retroperitoneal ultrasound for further assessment evaluation. Discussed at length importance of managing diabetes for improvement in urinary symptoms as well as overall health and well-being. Follow-up in 1-2 months with imaging to be completed prior; or sooner with any issues, concerns, and or questions. Orders: Orders AMB Urinalysis Automated Today Z13.9 - Encounter for screening, unspecified AMB Post Void Residual by ultrasound Today N39.41 - Urge incontinence US retroperitoneal comp Today N39.41 - Urge incontinence, N39.46 - Mixed incontinence Urine Culture Today N39.0 - Urinary tract infection, site not specified Referrals Pelvic Wireless Consultant Referral N39.41 - Urge incontinence, N39.46 - Mixed incontinence Patient Instructions: The patient had an opportunity to ask questions regarding the treatment plan. All questions were answered. Physical exam, labs, and imaging were discussed and reviewed in detail. As well as risks, benefits, and discussion of treatment choices. No major barriers to understanding were identified. The patient expressed understanding and agreement with the above treatment plan. The patient was made aware they should contact our office by phone for worsening of their current condition, the appearance of new symptoms, or with any questions or concerns. Compliance is encouraged with any medications and follow up testing that is ordered. It is a privilege to be allowed the opportunity to participate in? your urological care.? Again, if you have any questions or concerns If you have any questions or concerns please do not hesitate to contact me. The office is [phone]. This note is constructed using voice recognition software. While every effort has been made to ensure accuracy manager rental errors may have been included. Yours sincerely, SHIV Ordaz Coding Level of Care Code New Pt Level 3 (80398) Diagnoses Urge incontinence N39.41 Mixed stress and urge urinary incontinence N39.46 UTI (urinary tract infection) N39.0 CPT Codes Post Residual Void - PVR CPT Code: 79654-Yckk Void Residual by ultrasound ([id number])
== END 2023-08-31 13:44 | disposition home or self-care (01) ==
PROVIDERS: PCP Internal Medicine; Visit Provider Nurse Practitioner Family
DX: N39.46 Mixed incontinence (principal); N39.0 Urinary tract infection, site not specified
CPT/HCPCS: 99203

== ENCOUNTER 2023-08-31 13:00 | Outpatient (REF) | payer MEDICARE, MEDICAID, SELFPAY | END 2023-08-31 13:01 | disposition home or self-care (01) | LOC: HO.LNP 13:00 | PROVIDERS: PCP Internal Medicine; Visit Provider Nurse Practitioner Family | DX: N39.0 Urinary tract infection, site not specified (principal); N39.46 Mixed incontinence; E11.22 Type 2 diabetes mellitus with diabetic chronic kidney disease; N18.4 Chronic kidney disease, stage 4 (severe); Z79.82 Long term (current) use of aspirin; Z79.899 Other long term (current) drug therapy | CPT/HCPCS: 51798; 81003; 87086; 99202 ==

== ENCOUNTER 2023-09-01 09:11 | Outpatient (AMB) | payer MEDICARE, MEDICAID, SELFPAY ==
[2023-09-01 09:14] VITALS: BP 150/90; PULSE 94; BMI 42.6
--- NOTE | 2023-09-01 09:14 | MHC.OFFVIS ---
Intake Vital Signs 09/01/23 09:14 Height 5 ft 3 in Weight 240 lb 4.862 oz BMI 42.6 BP 150/90 H Blood Pressure Location Lt brachial Position Sitting Pulse 94 Intake Visit Reasons: f/u Intake Note: f/up its feeling fine, having problems with her blood pressure been high since 3 weeks ago she had a strong chest pain that lasted for a week. Director Of Housing Required: No Accompanied by: Self / Same As Patient Allergies No Known Allergies [No Known Allergies*] Allergy (Verified 09/01/23 11:49) HPI f/u HPI Details Katerina is a 63-year-old female with past medical history of hypertension, hyperlipidemia, diabetes, chronic kidney disease, CAD with coronary stent who presents for follow-up. Her last prior visit with our office was on 12/22/2020 when she had a phone visit. Today she reports that she has not been feeling as well as she use to. She has been getting some intermittent episodes of discomfort and a her chest. She describes as pressure which occurs randomly. She is mostly sedentary and is not really engaging in exertional activities. She has been noticing that her home blood pressure has been running high. She has shortness of breath with exertion which is not new. She has gained weight over the last few years and has been unable to lose it. She denies heart palpitations, presyncope, syncope, falls. No PND, orthopnea. She does have bilateral lower leg edema, left greater than right. She is taking all her meds as directed. 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 Mother Diabetes Hypertension Cancer antigen 125 (CA 125) elevation Maternal Grandmother Stomach cancer Other Mental health problem Social History Household Members Other:: daughter Housing: Apartment Alcohol intake: never Patient Tobacco Use Status: Never used Tobacco e-Cigarette/Vaping Use: Never Used Second Hand Smoke Exposure: Yes service: No Current occupational status: disabled Cognitive needs: Yes (cane/walker) Hearing needs: No Vision needs: Yes (reading glasses) Review of Systems Const No All systems reviewed & are unremarkable except as noted in HPI and below Denies chills, Denies fatigue, Denies fever(s), Denies frequent falls, Denies weakness, Denies weight gain and Denies weight loss ENT Denies dizziness Card Reports chest pain, Reports chest pain at rest, Denies leg edema, Denies lightheadedness, Denies palpitations, Denies dyspnea and Reports dyspnea on exertion Resp Denies cough, Denies dyspnea and Reports dyspnea on exertion GI Denies hematochezia Musc Denies abnormal gait, Denies muscle weakness, Denies numbness, Denies radiating pain into limb and Denies tingling Neuro Denies abnormal gait, Denies dizziness, Denies frequent falls, Denies numbness, Denies tingling and Denies weakness Endo Denies fatigue and Denies palpitations Physical Exam Vital Signs: Last Vital Signs Pulse 94 09/01/23 09:14 BP 150/90 H 09/01/23 09:14 BMI result Body Mass Index 42.6 Const General: cooperative, healthy appearing, comfortable and no acute distress Orientation/consciousness: patient oriented x3 Neck Neck: Yes normal visual inspection Resp Effort & Inspection: normal respiratory effort Auscultation: clear to auscultation bilaterally, no crackles, no rales, no rhonchi and no wheezes Cardio Jugular venous distension: no JVD Rate: regular rate Rhythm: regular rhythm Heart sounds: S1 normal heart sound present, S2 normal heart sound present, no murmurs and no rubs Neuro General: patient oriented x3 Extrem General: Yes normal to inspection and No no pedal edema Psych Appearance: grossly normal Mental Status: mental status grossly normal Speech and movement: Normal speech and movement present Office Procedures EKG Details: Today, read by me, normal sinus rhythm, incomplete right bundle branch block, can not exclude prior anterior infarct, rate 94 [id number], Complete Assessment & Plan Assessment & Plan (1) Coronary atherosclerosis: Comment: S/P stenting of mid-LAD in 07/2019 ([facility]) Code(s): I25.10 - Atherosclerotic heart disease of [place] coronary artery without angina pectoris Qualifiers: Associated angina: without angina Coronary Disease-Associated Artery/Lesion type: [place] artery [place] vs. transplanted heart: [place] heart Qualified Code(s): I25.10 - Atherosclerotic heart disease of [place] coronary artery without angina pectoris Plan: History of CAD with last cardiac catheterization 07/31/2019 showing 60% mid LAD stenosis, IFR 0.84, MALISSA was placed. Last echo 07/04/2019 showed EF 60-65%. Nuclear stress test done 11/24/2020 showed normal myocardial perfusion imaging. Today she is reporting intermittent chest discomfort, shortness of breath with activity and leg edema. EKG showing sinus rhythm, incomplete right bundle branch block, can not exclude anterior infarct, age undetermined, rate 94. Blood pressure is elevated at 150/100. Recheck done by me 162/84. She is morbidly obese and activity is limited. Will further evaluate with pharmacological nuclear stress test to evaluate for ischemia. Will update echocardiogram to reassess EF and wall motion. Will start on carvedilol 3.125 mg b.i.d to help with heart rate and blood pressure. Continue aspirin indefinitely. Continue rosuvastatin with ideal LDL goal less than 70. Labs done 08/02/2023 showed LDL 41. Continue Zetia, losartan, Lasix. Cardiology follow-up in 4-6 weeks, sooner if needed. Emergency care if needed for symptoms. (2) Chest discomfort: Code(s): R07.89 - Other chest pain Plan: As above (3) Dyspnea: Code(s): R06.00 - Dyspnea, unspecified Qualifiers: Dyspnea type: unspecified Qualified Code(s): R06.00 - Dyspnea, unspecified Plan: As above (4) Essential hypertension: Code(s): I10 - Essential (primary) hypertension Plan: Elevated today. Adding carvedilol. Continue losartan. Plan recheck next visit (5) Hyperlipidemia LDL goal <70: Code(s): E78.5 - Hyperlipidemia, unspecified Plan: Felch LDL goal less than 70. Current LDL 41. Continue Zetia and rosuvastatin. Plan Time spent on chart review, documentation, interview and assessment Orders: Orders NM cardiolite stress test Today I25.10 - Atherosclerotic heart disease of [place] coronary artery without angina pectoris, R06.00 - Dyspnea, unspecified, R07.89 - Other chest pain CA lexiscan stress w vandana Today I25.10 - Atherosclerotic heart disease of [place] coronary artery without angina pectoris, R06.00 - Dyspnea, unspecified, R07.89 - Other chest pain CA echo transthoracic complete Today I25.10 - Atherosclerotic heart disease of [place] coronary artery without angina pectoris, R06.00 - Dyspnea, unspecified, R07.89 - Other chest pain Medications: New carvedilol must administer with a meal/food 3.125 mg PO BID 30 days 60 tabs 2RF Coding Level of Care Code Est Pt Level 4 (05529) Diagnoses Atherosclerosis of [place] coronary artery of [place] heart without angina pectoris I25.10 Associated angina: without angina Coronary Disease-Associated Artery/Lesion type: [place] artery [place] vs. transplanted heart: [place] heart Chest discomfort R07.89 Dyspnea, unspecified type R06.00 Dyspnea type: unspecified Essential hypertension I10 Hyperlipidemia LDL goal <70 E78.5 CPT Codes EKG - CPT: [id number], Complete ([id number]) Time Spent (min) 30
== END 2023-09-01 09:50 | disposition home or self-care (01) ==
PROVIDERS: PCP Internal Medicine; Visit Provider Nurse Practitioner Family
DX: I25.10 Atherosclerotic heart disease of native coronary artery without angina pectoris (principal); R07.89 Other chest pain; R06.00 Dyspnea, unspecified; I10 Essential (primary) hypertension; E78.5 Hyperlipidemia, unspecified
CPT/HCPCS: 93010; 99214

== ENCOUNTER → 2023-09-01 09:11 | Outpatient (BNVA) | payer MEDICARE, MEDICAID, SELFPAY | PROVIDERS: PCP Internal Medicine; Visit Provider Nurse Practitioner Family | DX: E11.22 Type 2 diabetes mellitus with diabetic chronic kidney disease (principal); I12.9 Hypertensive chronic kidney disease with stage 1 through stage 4 chronic kidney disease, or unspecified chronic kidney disease; N18.4 Chronic kidney disease, stage 4 (severe); D64.9 Anemia, unspecified; I25.10 Atherosclerotic heart disease of native coronary artery without angina pectoris; R07.89 Other chest pain; R06.00 Dyspnea, unspecified; E78.5 Hyperlipidemia, unspecified; I45.19 Other right bundle-branch block; R94.31 Abnormal electrocardiogram [ECG] [EKG]; Z79.4 Long term (current) use of insulin | CPT/HCPCS: 93005; 99212 ==

== ENCOUNTER 2023-09-01 11:41 | Outpatient (AMB) | payer MEDICARE, MEDICAID, SELFPAY ==
[2023-09-01 11:43] VITALS: BP 150/100; PULSE 96; O2SAT 99; BMI 42.7
--- NOTE | 2023-09-01 11:43 | HO.NEPHOV ---
HPI HPI Comments History of Present Illness Details Katerina is a middle-aged woman with a history of longstanding diabetes mellitus along with obesity and hypertension. She has CKD 3 with baseline creatinine from 1.5-1.6 mg/dL. She has a history of taking NSAIDs on a long-term basis. She is currently on meloxicam 7.5 mg every other day. She continues her fatigue and she had vague chest pain recently. She has been scheduled for a stress test. This morning she was seen by Cardiology and blood pressure suboptimal Carvedilol 3.125 mg b.i.d. has been added. [facility] Medical History Hypercalcemia Secondary hyperparathyroidism Left upper arm injury Arthritis Type 2 diabetes mellitus with hyperglycemia, with long-term current use of insulin Type 2 diabetes mellitus with polyneuropathy Essential hypertension Hyperlipidemia LDL goal <70 Constipation Obesity (BMI 30-39.9) Depression Lumbar degenerative disc disease Diabetic neuropathy Primary osteoarthritis of right knee Pedal edema Chronic kidney disease, stage 4 (severe) Pure hypercholesterolemia Coronary atherosclerosis retirement (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 Mother Diabetes Hypertension Cancer antigen 125 (CA 125) elevation Maternal Grandmother Stomach cancer Other Mental health problem Social History Household Members Other:: daughter Housing: Apartment Alcohol intake: never Patient Tobacco Use Status: Never used Tobacco e-Cigarette/Vaping Use: Never Used Second Hand Smoke Exposure: Yes service: No Current occupational status: disabled Cognitive needs: Yes (cane/walker) Hearing needs: No Vision needs: Yes (reading glasses) Vital Signs 09/01/23 11:43 Height 5 ft 3 in Weight 241 lb 2 oz BMI 42.7 BP 150/100 H Blood Pressure Location Lt brachial Position Sitting Pulse 96 Pulse Source Pulse Oximeter Pulse Oximetry (%) 99 Oxygen Delivery Method Room Air Physical Exam Vital Signs: Last Vital Signs Pulse 96 09/01/23 11:43 BP 150/100 H 09/01/23 11:43 Pulse Ox 99 09/01/23 11:43 Oxygen Delivery Method Room Air 09/01/23 11:43 BMI result Body Mass Index 42.7 Const General: comfortable Nutritional Appearance: well nourished Orientation/consciousness: patient oriented x3 HEENT Head: No normal to inspection Mouth: moist mucous membranes Neck Neck: Yes supple and Yes no JVD Resp Auscultation: clear to auscultation bilaterally, no rales and rub present Cardio Jugular venous distension: no JVD Palpation: no palpable S3 and no palpable S4 Heart sounds: no rubs GI Palpation (GI): Soft to palpation and nontender Percussion: No Fluid wave present General: Yes no CVA tenderness Back/Spine/Pelvis Back: no CVA tenderness Skin General skin exam: no rashes or lesions noted Neuro General: patient oriented x3 Extrem General: No clubbing Right upper extremity: edema Assessment & Plan Assessment & Plan (1) CKD (chronic kidney disease) stage 3, GFR 30-59 ml/min: Code(s): N18.30 - Chronic kidney disease, stage 3 unspecified Plan: CKD most likely due to underlying diabetic kidney disease. She has also been on NSAIDs on a long-term basis which could also lead to CKD. Goal is to slow the progression of renal disease. Maintain A1c less than 7%. Continue with losartan for renal protection. I have encouraged her to avoid NSAIDs. She will benefit from SGLT2 inhibitors. 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 (3) Essential hypertension: Code(s): I10 - Essential (primary) hypertension Plan: BP remains suboptimal Agree with adding carvedilol. Dose can be titrated as needed Discussed importance of low-sodium diet. (4) Anemia: Code(s): D64.9 - Anemia, unspecified Plan: Mild. No indication for Epogen. Orders: Orders Blood Urea Nitrogen Today N18.30 - Chronic kidney disease, stage 3 unspecified Calcium Today N18.30 - Chronic kidney disease, stage 3 unspecified Phosphorus Today N18.30 - Chronic kidney disease, stage 3 unspecified Complete Blood Count no Diff Today N18.30 - Chronic kidney disease, stage 3 unspecified Total Protein Urine Random Today N18.30 - Chronic kidney disease, stage 3 unspecified Electrolytes Today N18.30 - Chronic kidney disease, stage 3 unspecified Creatinine Today N18.30 - Chronic kidney disease, stage 3 unspecified Parathyroid Hormone Intact Today N18.30 - Chronic kidney disease, stage 3 unspecified Creatinine Urine Today N18.30 - Chronic kidney disease, stage 3 unspecified Vitamin D 25-OH (D2 and D3) Today N18.30 - Chronic kidney disease, stage 3 unspecified Coding Level of Care Code Est Pt Level 4 (87512) Diagnoses CKD (chronic kidney disease) stage 3, GFR 30-59 ml/min N18.30 Type 2 diabetes mellitus with stage 4 chronic kidney disease, with long-term current use of insulin E11.22; N18.4; Z79.4 Chronic kidney disease stage: stage 4 (severe) Diabetes mellitus jail insulin use: with extermination supervisor use Essential hypertension I10 Anemia D64.9 Results Reviewed Nephrology Results: Hgb 11.6 g/dl (12.0-16.0) L 08/02/23 WBC 6.2 X10*3/uL (4.8-10.8) 08/02/23 Plt Count 182 X10*3/uL (160-400) 08/02/23 Sodium 140 mmol/L (135-145) 08/02/23 Potassium 4.3 mmol/L (3.3-5.1) 08/02/23 Chloride 108 mmol/L (96-108) 08/02/23 Carbon Dioxide 23 mmol/L (22-29) 08/02/23 BUN 15 mg/dL (9-16) 08/02/23 Creatinine 1.57 mg/dL (0.5-1.4) H 08/02/23 Calcium 9.1 mg/dL (8.4-10.2) 08/02/23 PTH Intact 156.9 pg/mL (8.7-77.1) H 08/02/23 Urine Protein 30 (1+) mg/dL (Neg-Trace) H 08/02/23 Urine Creatinine 49.50 mg/dL 08/02/23
== END 2023-09-01 12:03 | disposition home or self-care (01) ==
PROVIDERS: PCP Internal Medicine; Visit Provider Internal Medicine Hypertension Specialist
DX: E11.22 Type 2 diabetes mellitus with diabetic chronic kidney disease (principal); N18.30 Chronic kidney disease, stage 3 unspecified; N18.4 Chronic kidney disease, stage 4 (severe); Z79.4 Long term (current) use of insulin; I12.9 Hypertensive chronic kidney disease with stage 1 through stage 4 chronic kidney disease, or unspecified chronic kidney disease; D64.9 Anemia, unspecified
CPT/HCPCS: 99214

== ENCOUNTER → 2023-09-20 10:56 | Outpatient (REF) | payer MEDICARE, MEDICAID, SELFPAY ==
--- NOTE | 2023-09-20 11:01 | CA_ITS ---
Transthoracic Echocardiogram Patient (Last, First, Middle): Katerina Aviles, Gender: Female Date of : 1960 Age: 63 Procedure Date: 09/20/2023 Procedure Type: Transthoracic Echocardiogram Location: OP Height: 162.56 cm Weight: 107.05 kg BSA: 2.10 m2 Heart Rate: bpm BP: 135 / 80 mmHg Drawing Hand: DOROTHY Referring MD: Krystina Albrecht WELT RANDER-Khari Symptoms: R06.00 - Dyspnea, unspecified Study Quality: Adequate ECG Rhythm: Sinus Conclusions: - The left ventricular systolic function is normal. The calculated ejection fraction is 69% by biplane method. - No obvious valvular pathology seen on this study. Findings Left Ventricle Normal left ventricular cavity size. There is mildly increased left ventricular wall thickness. The left ventricular systolic function is normal. The calculated ejection fraction is 69% by biplane method. There is no evidence of regional wall motion abnormalities. Diastolic function is normal for age. LV peak GLS -16.2%, underestimation. Right Ventricle Normal right ventricular cavity size and systolic function. Atria Both atria are normal in size. Aortic Valve There is a normal trileaflet aortic valve. There is no aortic valve stenosis. There is no aortic valve regurgitation. Mitral Valve The mitral valve appears normal. There is trace mitral valve regurgitation. There is no mitral valve stenosis. Pulmonic Valve The pulmonic valve is likely normal. Tricuspid Valve There is trace tricuspid valve regurgitation. There is no evidence of pulmonary hypertension. Great Vessels The asc aorta is normal in size. Venous The inferior vena cava is normal in size and collapses greater than 50% with inspiration. Pericardium/Pleural There is no evidence of pericardial effusion. Prior Study Comparison No significant change compared to prior study dated: 07/04/2019. Recommendations, Care & Conclusions No obvious valvular pathology seen on this study. Measurements 2D Linear Measurements IVSd: 1.16 0.6-0.9/0.6-1.0 cm LVIDd: 3.98 3.9-5.3/4.2-5.9 cm LVIDd Index: 1.90 2.4-3.2/2.2-3.1 cm/m2 LVIDs: 2.36 2.0-3.6 cm LVPWd: 1.08 0.7-1.1 cm LA Diam: 3.60 2.7-3.8/3.0-4.0 cm LAIDs Index: 1.71 1.5-2.3 cm/m2 LV Mass: 184.70 67-162/88-224 g LV Mass Index: 87.95 43-95/49-115 g/m2 LVOT Diam: 2.00 3.0+(-)1.3 cm 2D Systolic Function EF 4C: 71.20 >55% EF 2C: 66.50 >55% EF BiP: 69.20 >55% Mitral Valve MV Pk E: 0.90 MV PK A: 1.00 MV Decel Time: 238.00 E/A: 0.90 E'Lateral: 8.70 E'Medial: 5.44 E/E' Med: 16.60 E/E' Lat: 10.40 PHT: 70.00 MVA PHT: 3.14 Decel [place]: 3.79 Aortic Valve AoV Pk Slava: 1.25 AoV Mn Slava: 0.90 AoV VTI: 0.28 AoV Pk Grad: 6.00 Aov Mn Grad: 4.00 LUCITA Cont.VTI: 2.16 LVOT LVOT Pk Slava: 0.80 LVOT Mn Slava: 0.62 LVOT VTI: 0.19 LVOT Pk Grad: 3.00 LVOT Mn Grad: 2.00 LVOT Diam: 2.00 LVOT Area: 3.14 Diastolic Function MV Pk E: 0.90 MV Pk A: 1.00 E/A: 0.90 E'Medial: 5.44 E/E' Med: 16.60 E' Laterial: 8.70 E/E' Lat: 10.40 Right Ventricle TAPSE (mm): 27.70 TVS' Slava: 14.90 Tricuspid Valve TR Pk Slava: 1.85 TR Pk Grad: 14.00 RA Press: 3.00 RVSP: 17.00 Great Vessels Aorta Sinus of Valsalva: 3.10 2.0-3.5 cm Ao Asc: 3.20 2.1-3.4 cm Pulmonary Valve PV Pk Slava: 0.78 Peak PV Grad: 2.00 Updated in Other Vendor System with Status of Final Sandor Yarbrough MD electronically signed on 09/21/2023 10:43:32 AM with status of Final
== END ==
LOC: HO.CARD 10:56
PROVIDERS: PCP Internal Medicine; Visit Provider Nurse Practitioner Family
DX: R07.89 Other chest pain (principal); R06.00 Dyspnea, unspecified; I25.10 Atherosclerotic heart disease of native coronary artery without angina pectoris
CPT/HCPCS: 93306; 93356

== ENCOUNTER → 2023-09-20 11:01 | Outpatient (BNV) | payer MEDICARE, MEDICAID, SELFPAY | PROVIDERS: PCP Internal Medicine; Visit Provider Internal Medicine | DX: I25.10 Atherosclerotic heart disease of native coronary artery without angina pectoris (principal); R07.89 Other chest pain | CPT/HCPCS: 93306 ==

== ENCOUNTER 2023-10-26 15:35 | Outpatient (REF) | payer MEDICARE, MEDICAID, SELFPAY ==
--- NOTE | ~2023-10-26 | US_ITS ---
EXAMINATION: US RETROPERITONEAL COMPLETE (RENAL) CLINICAL INFORMATION: Urge incontinence. COMPARISON: CT abdomen and pelvis 05/13/2021 TECHNIQUE: Real-time imaging of the kidneys and bladder. FINDINGS: RIGHT KIDNEY: 10.6 x 4.5 x 4.6 cm (SAG x AP x TRV). The kidney is normal in size, contour, and echogenicity. Renal cortical thickness is normal. No renal calculi or hydronephrosis. Benign-appearing renal cyst measuring 1.0 cm. No follow up imaging is recommended. LEFT KIDNEY: 10.5 x 4.7 x 4.1 cm (SAG x AP x TRV). The kidney is normal in size, contour, and echogenicity. Renal cortical thickness is normal. No renal calculi or hydronephrosis. Benign-appearing renal cyst measuring 3.6 cm. No follow up imaging is recommended. BLADDER: Well distended and normal. Bilateral ureteral jets are demonstrated. Prevoid bladder volume is 546 mL. Postvoid bladder volume is 0 mL. US/US retroperitoneal comp IMPRESSION: Unremarkable renal ultrasound.
== END 2023-10-26 15:36 | disposition home or self-care (01) ==
LOC: HO.US 15:35
PROVIDERS: PCP Internal Medicine; Visit Provider Nurse Practitioner Family
DX: N39.46 Mixed incontinence (principal)
CPT/HCPCS: 76770

== ENCOUNTER → 2023-11-02 08:25 | Outpatient (REF) | payer MEDICARE, MEDICAID, SELFPAY ==
--- NOTE | ~2023-11-02 | NM_ITS ---
Lexiscan Myocardial perfusion study Indication: Coronary disease, assess for ischemia Technique: The patient was brought in for a Lexiscan perfusion study on 11/02/2023 and was injected 0.4 mg of Lexiscan intravenously. Within a minute of this injection 40 mCi of sestamibi was given intravenously. Images were obtained using the SPECT gamma camera interlaced with the gating device. Images were obtained in supine position. Resting perfusion study was performed on 11/03/2023. Patient was administered 40 mCi of sestamibi intravenously at rest. Images were then obtained in supine position. Images were processed with the software and compared side to side in short axis, horizontal long axis and vertical long axis views. Total DLP 171mGy-cm. Findings: Raw acquisition reviewed. The stress perfusion study showed diminished tracer uptake along the anterior wall. There is improved uptake with CT attenuation correction suggestive of soft tissue attenuation artifact. The gated study shows mildly decreased LV systolic function with calculated LVEF of 48%. LV cavity is normal in size. The gated study shows normal wall thickening and contraction of segments. Resting study shows diminished tracer uptake along the anterior wall. There is improvement with CT attenuation correction suggestive of soft tissue attenuation artifact. Gating at rest reveals normal wall motion with ejection fraction at 58%. The findings are consistent with fixed anterior perfusion defect that is too of soft tissue attenuation artifact. NM/NM cardiolite stress test Impression: 1. Myocardial perfusion imaging study shows probably normal myocardial perfusion. No clear evidence of any ischemia or infarction. 2. Gated LVEF is 48% during stress and 58% during rest. However, visually similar. Correlate with echocardiogram. 3. Transient ischemic dilatation not present. EKG component of the test reported separately.
--- NOTE | 2023-11-02 08:27 | CA_ITS ---
Acquisition Time: 2023-11-02 08:23:39 Total Exercise Time: 00:02:00 Test Indications: CP Medications: SEE H Protocol: LEXISCAN Max HR: 091 BPM 57% of Pred: 157 BPM Max BP: 138/080 mmHG Max Work Load: 1.0 METS Pharmacological stress test with Lexiscan injection while sitting and kicking her legs, with mild SOB, no chest discomfort, with normtonsive response to injection, without arrhythmias, with nondiagnoisitic EKGs. Aminophylline 75mg IVP give to reverse Lexiscan. Nuclear images pending. Test reviewed with Dr. العراقي. Referred By: Krystina Albrecht Overread By: Luz Maria Coburn
== END ==
LOC: HO.CARD 08:25
PROVIDERS: PCP Internal Medicine; Visit Provider Nurse Practitioner Family
DX: R07.89 Other chest pain (principal); R06.00 Dyspnea, unspecified; I25.10 Atherosclerotic heart disease of native coronary artery without angina pectoris
CPT/HCPCS: 78452; 93017; A9500; J0280; J2785

== ENCOUNTER → 2023-11-02 08:27 | Outpatient (BNV) | payer MEDICARE, MEDICAID, SELFPAY | PROVIDERS: PCP Internal Medicine; Visit Provider Nurse Practitioner | DX: R07.89 Other chest pain (principal) | CPT/HCPCS: 78452; 93016; 93018 ==

== ENCOUNTER 2023-11-30 08:40 | Outpatient (AMB) | payer MEDICARE, MEDICAID, SELFPAY ==
--- NOTE | 2023-11-30 08:37 | A.OFFVIS_ITS ---
Intake Intake Visit Reasons: 1m/US(set) Intake Note: Patient presents for follow up visit for urge incontinence and ultrasound results Imagin10/26/23 Urology Medications: none Blood Thinner: aspirin PVR: 87ml's In File Operator Required: No Accompanied by: Self / Same As Patient Allergies No Known Allergies [No Known Allergies*] Allergy (Verified 11/30/23 08:53) Medication List - Last Reconciled 11/30/23 by SHIV Ordaz acetaminophen 500 mg PO ONCE PRN aspirin (Adult Low Dose Aspirin) 81 mg PO DAILY blood pressure monitor As directed blood sugar diagnostic (Accu-Chek Brenda Plus test strips) Tests 4 X/day blood-glucose meter (Accu-Chek Brenda Plus Meter) 3x/day carvedilol 3.125 mg PO BID 90 days cinacalcet (Sensipar) 30 mg PO DAILY citalopram 10 mg PO DAILY 90 days ezetimibe 10 mg PO DAILY flash glucose scanning reader (Credit KarmaStyle Allison 2 [place]) As directed flash glucose sensor (Credit KarmaStyle Allison 2 Sensor kit) As directed change every 14 days furosemide 40 mg PO QAM gabapentin 100 mg PO BEDTIME 90 days glucagon 3 mg/actuation (Baqsimi) 3 mg intranasal ONCE insulin glargine (Lantus Solostar U-100 Insulin) 18 units (0.18 mL) subcut QPM insulin lispro (Humalog KwikPen (U-100) Insulin) 12 - 16 units (0.12 - 0.16 mL) subcut QID lancets (Accu-Chek Softclix Lancets) three times a day linaclotide 72 mcg PO DAILY losartan 100 mg PO DAILY meloxicam 7.5 mg PO DAILY PRN 90 days nortriptyline 50 mg PO BEDTIME 90 days pen needle, diabetic (BD Ultra-Fine Micro Pen Needle) 1 ea subcut TID pen needle, diabetic (BD Annia 2nd Gen Pen Needle) USE 1 PEN NEEDLE SIX TIMES DAILY rosuvastatin 5 mg PO DAILY 30 days tirzepatide (Mounjaro) 5 mg (0.5 mL) subcut QWEEK tirzepatide (Mounjaro) 2.5 mg (0.5 mL) subcut QWEEK HPI HPI Comments History of Present Illness Details Katerina is a very pleasant 63-year-old female patient of . She has a past medical history of type 2 diabetes, hypertension, hyperlipidemia, constipation, obesity, depression, diabetic neuropathy, osteoarthritis, chronic kidney disease stage 4, and coronary atherosclerosis She presents to the office today for follow-up. Of note patient was seen approximately 1 month ago as a new patient for mixed urinary incontinence at which time a retroperitoneal ultrasound was ordered for further assessment evaluation. These results reviewed with the patient today. Bilateral kidneys with no calculi or hydronephrosis. Bilateral appearing renal cysts that require no imaging follow- up recommended per radiology report. The bladder is well distended and normal. Bilateral ureteral jets are demonstrated. Pre void bladder volume is approximately 545 mL. Postvoid bladder volume is approximately 0 mL. During last office visit patient was referred to pelvic floor therapy however has not yet started. In discussion with the patient today she reports to be doing and feeling well. She reports having recently followed up with cardiology regarding her stress testing which was told everything was normal. She discusses feeling happy that her cardiac workup has been essentially negative. She discusses feeling bothered by her worsening mixed urinary incontinence and does feel she would like to trial a medication at this time. In office urinalysis results reviewed with the patient today. 2+ leukocytes negative nitrates. During last office visit urine was sent for urine culture which noted mixed bacteria. She currently denies any UTI like symptoms however does have baseline urinary urgency, frequency, and episodes of incontinence if not near a bathroom. She otherwise denies hematuria, dysuria, foul smelling urine, changes to urinary stream, flank pain, fever, and or chills. Discussed at length potential causes for lower urinary tract symptoms patient has been experiencing. Discussed possible near future in office urodynamics and or cystoscopy for further assessment evaluation. Discussed bladder triggers/irritants. Discussed at length importance of managing diabetes for improvement lower urinary tract symptoms in correlation of diabetes and the bladder. PVR 87 mL. She otherwise offers no issues or concerns. [facility] Medical History Hypercalcemia Secondary hyperparathyroidism Left upper arm injury Arthritis Type 2 diabetes mellitus with hyperglycemia, with long-term current use of insulin Type 2 diabetes mellitus with polyneuropathy Essential hypertension Hyperlipidemia LDL goal <70 Constipation Obesity (BMI 30-39.9) Depression Lumbar degenerative disc disease Diabetic neuropathy Primary osteoarthritis of right knee Pedal edema Chronic kidney disease, stage 4 (severe) Pure hypercholesterolemia Coronary atherosclerosis emt intermediate (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 Mother Diabetes Hypertension Cancer antigen 125 (CA 125) elevation Maternal Grandmother Stomach cancer Other Mental health problem Social History Household Members Other:: daughter Housing: Apartment Alcohol intake: never Patient Tobacco Use Status: Never used Tobacco e-Cigarette/Vaping Use: Never Used Second Hand Smoke Exposure: Yes service: No Current occupational status: disabled Cognitive needs: Yes (cane/walker) Hearing needs: No Vision needs: Yes (reading glasses) Review of Systems Const Reports as per HPI Eyes Reports no additional complaints ENT Reports no additional complaints Card Reports as per HPI Resp Reports no additional complaints GI Reports as per HPI Reports as per HPI Musc Reports as per HPI Neuro Reports as per HPI Psych Reports as per HPI Physical Exam Const General: cooperative, comfortable, no acute distress, well developed, alert and awake Nutritional Appearance: overweight Orientation/consciousness: patient oriented x3 Limitations: ambulation with cane HEENT Head: Yes normal to inspection, Yes normocephalic and Yes atraumatic Ears: hearing grossly normal bilaterally Eyes General: appearance normal, both eyes and all related structures Neck Neck: Yes normal visual inspection and Yes trachea midline Chest Chest palpation & inspection: normal inspection of the chest Resp Effort & Inspection: normal respiratory effort and able to speak in complete sentences Cardio Rate: regular rate GI Inspection: Yes normal to inspection General: Yes no CVA tenderness Back/Spine/Pelvis Back: no CVA tenderness Skin General skin exam: no rashes or lesions noted Neuro General: patient oriented x3 Extrem General: Yes normal to inspection Psych Appearance: grossly normal and well kempt Mental Status: mental status grossly normal Speech and movement: Normal speech and movement present and Clear speech present Affect: normal affect Attitude: cooperative Thought process: Normal thought process present Thought content: Normal thought content present Insight: Fair insight present (Psych) Judgement: Fair judgement present (Psych) Office Procedures Post Void Residual Post Residual Void Post Void Residual (PVR): 87 [id number] Void Residual by ultrasound Results AMB Urinalysis, Automated UA Leukoctes 125 Stephanie/uL Last Edit by Buster Harrell on 11/30/23 09:11 UA Nitrite Negative Last Edit by Buster Harrell on 11/30/23 09:11 UA Urobilinogen 0.2 mg/dL Last Edit by Buster Harrell on 11/30/23 09:11 UA Protein 30 mg/dL Last Edit by Buster Harrell on 11/30/23 09:11 UA pH 6.0 Last Edit by Buster Harrell on 11/30/23 09:11 UA Blood 25 Abhilash/uL Last Edit by Buster Harrell on 11/30/23 09:11 UA Specific [place] 1.015 Last Edit by Buster Harrell on 11/30/23 09:11 UA Ketone Negative Last Edit by Buster Harrell on 11/30/23 09:11 UA Bilirubin 0 mg/dL Last Edit by Buster Harrell on 11/30/23 09:11 UA Glucose 0 mg/dL Last Edit by Buster Harrell on 11/30/23 09:11 Results Reviewed Results Reviewed: Laboratory Last Values Urine pH (Auto) 6.0 11/30/23 08:40 Specific [place] (Auto) 1.015 11/30/23 08:40 Urine Protein (Auto) 30 mg/dL 11/30/23 08:40 Glucose (UA)(Auto) 0 mg/dL 11/30/23 08:40 Urine Ketones (Auto) Negative 11/30/23 08:40 Urine Blood (Auto) 25 Abhilash/uL 11/30/23 08:40 Urine Nitrite (Auto) Negative 11/30/23 08:40 Urine Bilirubin (Auto) 0 mg/dL 11/30/23 08:40 Urine Urobilinogen (Auto) 0.2 mg/dL 11/30/23 08:40 Leukocyte Esterase (Auto) 125 Stephanie/uL 11/30/23 08:40 Date of Service: 10/26/23 EXAMINATION: US RETROPERITONEAL COMPLETE (RENAL) FINDINGS: RIGHT KIDNEY: 10.6 x 4.5 x 4.6 cm (SAG x AP x TRV). The kidney is normal in size, contour, and echogenicity. Renal cortical thickness is normal. No renal calculi or hydronephrosis. Benign-appearing renal cyst measuring 1.0 cm. No follow up imaging is recommended. LEFT KIDNEY: 10.5 x 4.7 x 4.1 cm (SAG x AP x TRV). The kidney is normal in size, contour, and echogenicity. Renal cortical thickness is normal. No renal calculi or hydronephrosis. Benign-appearing renal cyst measuring 3.6 cm. No follow up imaging is recommended. BLADDER: Well distended and normal. Bilateral ureteral jets are demonstrated. Prevoid bladder volume is 546 mL. Postvoid bladder volume is 0 mL. IMPRESSION: Unremarkable renal ultrasound. Assessment & Plan Assessment & Plan (1) Mixed stress and urge urinary incontinence: Code(s): N39.46 - Mixed incontinence (2) Urge incontinence: Code(s): N39.41 - Urge incontinence Plan In office urinalysis results reviewed with the patient today; discussed microgen testing however patient denies any UTI like symptoms. PVR 87 mL Continue to follow-up with pelvic floor therapy for initiation of therapy. Discussed bladder triggers/irritants. Start Myrbetriq as discussed and prescribed. Discussed at length potential causes for lower urinary tract symptoms patient is experiencing. Discussed importance of timed/scheduled voiding to assist with decreasing episodes of urinary incontinence Discussed at length importance of managing diabetes for improvement in lower urinary tract symptoms as well as overall health and well-being. Recent retroperitoneal ultrasound results reviewed with the patient today. Discussed possible near future in office cystoscopy and or urodynamics for further assessment evaluation. Follow-up in 6-8 weeks; or sooner with any issues, concerns, and or questions. Orders: Orders AMB Urinalysis Automated Today Z13.9 - Encounter for screening, unspecified AMB Post Void Residual by ultrasound Today N39.46 - Mixed incontinence Medications: New mirabegron ER (Myrbetriq) 25 mg PO DAILY 30 days 30 tabs 3RF N30.10 - Interstitial cystitis (chronic) without hematuria, N32.81 - Overactive bladder, R35.1 - Nocturia, R39.15 - Urgency of urination Patient Instructions: The patient had an opportunity to ask questions regarding the treatment plan. All questions were answered. Physical exam, labs, and imaging were discussed and reviewed in detail. As well as risks, benefits, and discussion of treatment choices. No major barriers to understanding were identified. The patient expressed understanding and agreement with the above treatment plan. The patient was made aware they should contact our office by phone for worsening of their current condition, the appearance of new symptoms, or with any questions or concerns. Compliance is encouraged with any medications and follow up testing that is ordered. It is a privilege to be allowed the opportunity to participate in? your urological care.? Again, if you have any questions or concerns If you have any questions or concerns please do not hesitate to contact me. The office is [phone]. This note is constructed using voice recognition software. While every effort has been made to ensure accuracy frame pulley mortising machine operator errors may have been included. Yours sincerely, SHIV Ordaz Coding Level of Care Code Est Pt Level 4 (18736) Diagnoses Mixed stress and urge urinary incontinence N39.46 Urge incontinence N39.41 CPT Codes Post Residual Void - PVR CPT Code: 47096-Ykuf Void Residual by ultrasound ([id number])
== END 2023-11-30 09:37 | disposition home or self-care (01) ==
PROVIDERS: PCP Internal Medicine; Visit Provider Nurse Practitioner Family
DX: N39.41 Urge incontinence (principal); Z13.9 Encounter for screening, unspecified
CPT/HCPCS: 99214

== ENCOUNTER → 2023-11-30 08:40 | Outpatient (BNVA) | payer MEDICARE, MEDICAID, SELFPAY | PROVIDERS: PCP Internal Medicine; Visit Provider Nurse Practitioner Family | DX: N39.46 Mixed incontinence (principal); N39.41 Urge incontinence | CPT/HCPCS: 51798; 81003; 99212 ==

== ENCOUNTER 2023-12-05 11:40 | Outpatient (AMB) | payer MEDICARE, MEDICAID, SELFPAY ==
[2023-12-05 11:55] VITALS: BP 158/90; PULSE 95; O2SAT 98; BMI 42.9
--- NOTE | 2023-12-05 11:55 | HO.NEPHOV_ITS ---
HPI HPI Comments History of Present Illness Details Katerina is a middle-aged woman with a history of longstanding diabetes mellitus along with obesity and hypertension. She has CKD 3 with baseline creatinine from 1.5-1.6 mg/dL. She has a history of taking NSAIDs on a long-term basis. She is currently on meloxicam 7.5 mg every other day. She continues to have fatigue and she had vague chest pain recently. s/p stress test. c/o urinary incontinence Seen by Urology Blood sugar is suboptimal Still complaints of Fatigue [facility] Medical History Hypercalcemia Secondary hyperparathyroidism Left upper arm injury Arthritis Type 2 diabetes mellitus with hyperglycemia, with long-term current use of insulin Type 2 diabetes mellitus with polyneuropathy Essential hypertension Hyperlipidemia LDL goal <70 Constipation Obesity (BMI 30-39.9) Depression Lumbar degenerative disc disease Diabetic neuropathy Primary osteoarthritis of right knee Pedal edema Chronic kidney disease, stage 4 (severe) Pure hypercholesterolemia Coronary atherosclerosis USP (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 Mother Diabetes Hypertension Cancer antigen 125 (CA 125) elevation Maternal Grandmother Stomach cancer Other Mental health problem Social History Household Members Other:: daughter Housing: Apartment Alcohol intake: never Patient Tobacco Use Status: Never used Tobacco e-Cigarette/Vaping Use: Never Used Second Hand Smoke Exposure: Yes service: No Current occupational status: disabled Cognitive needs: Yes (cane/walker) Hearing needs: No Vision needs: Yes (reading glasses) Vital Signs 12/05/23 11:55 Height 5 ft 3 in Weight 242 lb 4 oz BMI 42.9 BP 158/90 H Blood Pressure Location Lt brachial Position Sitting Pulse 95 Pulse Source Pulse Oximeter Pulse Oximetry (%) 98 Oxygen Delivery Method Room Air Physical Exam Vital Signs: Last Vital Signs Pulse 95 12/05/23 11:55 BP 158/90 H 12/05/23 11:55 Pulse Ox 98 12/05/23 11:55 Oxygen Delivery Method Room Air 12/05/23 11:55 BMI result Body Mass Index 42.9 Const General: comfortable Nutritional Appearance: well nourished Orientation/consciousness: patient oriented x3 HEENT Head: No normal to inspection Mouth: moist mucous membranes Neck Neck: Yes supple and Yes no JVD Resp Auscultation: clear to auscultation bilaterally, no rales and rub present Cardio Jugular venous distension: no JVD Palpation: no palpable S3 and no palpable S4 Heart sounds: no rubs GI Palpation (GI): Soft to palpation and nontender Percussion: No Fluid wave present General: Yes no CVA tenderness Back/Spine/Pelvis Back: no CVA tenderness Skin General skin exam: no rashes or lesions noted Neuro General: patient oriented x3 Extrem General: No clubbing Right upper extremity: edema Assessment & Plan Assessment & Plan (1) CKD (chronic kidney disease) stage 3, GFR 30-59 ml/min: Code(s): N18.30 - Chronic kidney disease, stage 3 unspecified Plan: CKD most likely due to underlying diabetic kidney disease. She has also been on NSAIDs on a long-term basis which could also lead to CKD. Goal is to slow the progression of renal disease. Maintain A1c less than 7%. Continue with losartan for renal protection. I have encouraged her to avoid NSAIDs. She will benefit from SGLT2 inhibitors. (2) Type 2 diabetes mellitus with diabetic chronic kidney disease: Code(s): E11.22 - Type 2 diabetes mellitus with diabetic chronic kidney disease Qualifiers: Diabetes mellitus group home insulin use: with flat lock machine operator use Chronic kidney disease stage: stage 4 (severe) Qualified Code(s): E11.22 - Type 2 diabetes mellitus with diabetic chronic kidney disease; N18.4 - Chronic kidney disease, stage 4 (severe); Z79.4 - USP (current) use of insulin Plan: Goals is to keep A1C < 7% Discussed weight loss. (3) Essential hypertension: Code(s): I10 - Essential (primary) hypertension Plan: BP remains suboptimal carvedilol titrated 6.25 mg BID Discussed importance of low-sodium diet. (4) Anemia: Code(s): D64.9 - Anemia, unspecified Plan: Mild. No indication for Epogen. 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
== END 2023-12-05 12:14 | disposition home or self-care (01) ==
PROVIDERS: PCP Internal Medicine; Visit Provider Internal Medicine Hypertension Specialist
DX: I12.9 Hypertensive chronic kidney disease with stage 1 through stage 4 chronic kidney disease, or unspecified chronic kidney disease (principal); E11.22 Type 2 diabetes mellitus with diabetic chronic kidney disease; N18.4 Chronic kidney disease, stage 4 (severe); Z79.4 Long term (current) use of insulin; D63.1 Anemia in chronic kidney disease
CPT/HCPCS: 99214

== ENCOUNTER → 2023-12-05 11:40 | Outpatient (BNVA) | payer MEDICARE, MEDICAID, SELFPAY | PROVIDERS: PCP Internal Medicine; Visit Provider Internal Medicine Hypertension Specialist | DX: E11.22 Type 2 diabetes mellitus with diabetic chronic kidney disease (principal); I12.9 Hypertensive chronic kidney disease with stage 1 through stage 4 chronic kidney disease, or unspecified chronic kidney disease; N18.4 Chronic kidney disease, stage 4 (severe); D64.9 Anemia, unspecified; Z79.4 Long term (current) use of insulin | CPT/HCPCS: 99212 ==

== ENCOUNTER 2023-12-06 07:50 | Outpatient (REF) | payer MEDICARE, SELFPAY ==
[2023-12-06 08:53] LABS: Hematocrit 37.1 % (37.0-47.0); Hemoglobin 12.3 g/dl (12.0-16.0); Mean Corpuscular HGB Conc 33.2 g/dl (31.0-35.0); Mean Corpuscular Hemoglobin 29.1 pg (27.0-33.0); Mean Corpuscular Volume 87.9 fL (80.0-98.0); Mean Platelet Volume 10.5 fL (9.4-12.3); Platelet Count 183 X10*3/uL (160-400); Red Blood Count 4.22 X10*6/uL (4.20-5.50); Red Cell Distribution Width 13.2 % (11.0-16.0); White Blood Count 6.7 X10*3/uL (4.8-10.8)
[2023-12-06 09:33] LABS: Creatinine Urine 118.46 mg/dL; Total Protein Urine Random 71 mg/dL (<12)
[2023-12-06 09:45] LABS: Anion Gap 15 (12-20); Blood Urea Nitrogen 46 mg/dL (9-16); Calcium 10.2 mg/dL (8.4-10.2); Carbon Dioxide 26 mmol/L (22-29); Chloride 104 mmol/L (96-108); Estimated Glomerular Filt Rate 23; Phosphorus 4.6 mg/dL (2.7-4.5); Potassium 4.2 mmol/L (3.3-5.1); Sodium 141 mmol/L (135-145)
[2023-12-06 11:54] LABS: Parathyroid Hormone Intact 214.1 pg/mL (8.7-77.1)
[2023-12-10 15:08] LABS: Vitamin D 25-OH, D2 <4 ng/mL; Vitamin D 25-OH, D3 41 ng/mL; Vitamin D 25-OH, Total 41 ng/mL (30-100)
== END 2023-12-06 07:51 | disposition home or self-care (01) ==
LOC: HO.LAB 07:50
PROVIDERS: Absent Provider Internal Medicine; PCP Internal Medicine; Visit Provider Internal Medicine Hypertension Specialist
DX: I12.9 Hypertensive chronic kidney disease with stage 1 through stage 4 chronic kidney disease, or unspecified chronic kidney disease (principal); N18.30 Chronic kidney disease, stage 3 unspecified; I25.10 Atherosclerotic heart disease of native coronary artery without angina pectoris; R07.89 Other chest pain; E78.5 Hyperlipidemia, unspecified
CPT/HCPCS: 36415; 80051; 82306; 82310; 82565; 82570; 83970; 84100; 84156; 84520; 85027; 99212

== ENCOUNTER 2023-12-06 11:29 | Outpatient (AMB) | payer MEDICARE, SELFPAY ==
--- NOTE | 2023-12-06 11:31 | MHC.PC.OV ---
Vital Signs 12/06/23 11:32 Height 5 ft 3 in Weight 240 lb 8 oz BMI 42.6 BP 140/86 H Blood Pressure Location Lt brachial Position Sitting Pulse 87 Pulse Source Pulse Oximeter Pulse Oximetry (%) 96 Oxygen Delivery Method Room Air Intake Visit Reasons: DM, HTN, HLD Intake Note: Patient is here to follow up on DM, HTN, HLD. 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: No Aviation Program Manager: Not Required per policy Accompanied by: Self / Same As Patient Allergies No Known Allergies [No Known Allergies*] Allergy (Verified 12/06/23 11:48) Medication List - Last Reconciled 12/06/23 by Leonid Valerio MD acetaminophen 500 mg PO ONCE PRN aspirin (Adult Low Dose Aspirin) 81 mg PO DAILY blood pressure monitor As directed blood sugar diagnostic (Accu-Chek Brenda Plus test strips) Tests 4 X/day blood-glucose meter (Accu-Chek Brenda Plus Meter) 3x/day carvedilol 6.25 mg PO BID 90 days cinacalcet (Sensipar) 30 mg PO DAILY citalopram 10 mg PO DAILY 90 days diaper,brief,adult,disposable (Select Disposable Briefs) as directed, 4 daily ezetimibe 10 mg PO DAILY flash glucose scanning reader (FreeStyle Allison 2 Endeavor) As directed flash glucose sensor (FreeStyle Allison 2 Sensor kit) As directed change every 14 days furosemide 40 mg PO QAM gabapentin 100 mg PO BEDTIME 90 days glucagon 3 mg/actuation (Baqsimi) 3 mg intranasal ONCE insulin glargine (Lantus Solostar U-100 Insulin) 18 units (0.18 mL) subcut QPM insulin lispro (Humalog KwikPen (U-100) Insulin) 12 - 16 units (0.12 - 0.16 mL) subcut QID lancets (Accu-Chek Softclix Lancets) three times a day linaclotide 72 mcg PO DAILY losartan 100 mg PO DAILY meloxicam 7.5 mg PO DAILY PRN 90 days mirabegron ER (Myrbetriq) 25 mg PO DAILY 30 days nortriptyline 50 mg PO BEDTIME 90 days pen needle, diabetic (BD Ultra-Fine Micro Pen Needle) 1 ea subcut TID pen needle, diabetic (BD Annia 2nd Gen Pen Needle) USE 1 PEN NEEDLE SIX TIMES DAILY rosuvastatin 5 mg PO DAILY 30 days tirzepatide (Mounjaro) 2.5 mg (0.5 mL) subcut QWEEK underpads As directed, 2 per night Tobacco use date assessed: 12/06/23 Dental Screening Dental Screen Date: 12/06/23 Did you have a dental visit in the last 12 months?: Yes Did you have a dental problem in the last 6 months where you did not have access to dental care?: No Was dental information given to patient?: Patient has dentist HPI DM, HTN, HLD HPI Details Patient comes in today for her follow up visit States that she has been experiencing recurrent dizziness/lightheadedness for a few weeks now Notes that her symptoms would often start when she gets up (either from her bed or chair) but it is more of a lightheaded/unsteady feeling and is not a sensation of her surroundings spinning around her, but her symptoms are still significant enough that she feels very unsteady on her feet and she is unable to move around easily or walk too far for fear of falling Adds that her blood sugar has been running higher than usual for the past few weeks ever since her insurance declined to continue covering her Victoza She has since been started on Mounjaro by Dr. Schuster but she feels that her blood sugar readings have still been running high She has a follow up appt with Dr. Schuster coming up in a couple of weeks She denies any headaches Denies any chest pains, no increased SOB - had cardiac testing done recently that came back normal No nausea/vomiting, no abdominal pain No change in bowel habits noted Had her follow up labs done earlier this morning - to discuss her results [facility] Medical History Hypercalcemia Secondary hyperparathyroidism Left upper arm injury Arthritis Type 2 diabetes mellitus with hyperglycemia, with long-term current use of insulin Type 2 diabetes mellitus with polyneuropathy Essential hypertension Hyperlipidemia LDL goal <70 Constipation Obesity (BMI 30-39.9) Depression Lumbar degenerative disc disease Diabetic neuropathy Primary osteoarthritis of right knee Pedal edema Chronic kidney disease, stage 4 (severe) Pure hypercholesterolemia Coronary atherosclerosis residential (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 Mother Diabetes Hypertension Cancer antigen 125 (CA 125) elevation Maternal Grandmother Stomach cancer Other Mental health problem Social History Household Members Other:: daughter Housing: Apartment Alcohol intake: never Patient Tobacco Use Status: Never used Tobacco e-Cigarette/Vaping Use: Never Used Second Hand Smoke Exposure: Yes service: No Current occupational status: disabled Cognitive needs: Yes (cane/walker) Hearing needs: No Vision needs: Yes (reading glasses) Questionnaire PHQ-9 Over the last 2 weeks, how often have you been bothered by any of the following problems? 1. Little interest or pleasure in doing things: not at all 2. Feeling down, depressed, or hopeless: not at all 3. Trouble falling or staying asleep, or sleeping too much: not at all 4. Feeling tired or having little energy: not at all 5. Poor appetite or overeating: not at all 6. Feeling bad about yourself - or that you are a failure or have let yourself or your family down: not at all 7. Trouble concentrating on things, such as reading the newspaper or watching television: not at all 8. Moving or speaking so slowly that other people could have noticed. Or the opposite - being so fidgety or restless that you have been moving around a lot more than usual: not at all 9. Thoughts that you would be better off or of hurting yourself in some way: not at all Total score: 0 Depression Screening Interpretation: Negative Depression Screening Done: Yes [id number] - PHQ-9 Billing: Yes Source: Developed by Drs. Jake Quinones, Reena Washington, Lorne Guzman and colleagues, with an educational heather from [employer]. Thrive Questionnaire Date Thrive assessed: 12/06/23 I am a: Patient What is your living situation today?: I have a steady place to live Within the past 12 months, did the food you bought not last and you didn't have the money to get more?: Never true Within the past 12 months, did you worry whether your food would run out before you got money to buy more?: Never true Do you have trouble paying for medicines?: No Do you have trouble getting transportation to medical appointments?: No Do you have trouble paying your heating and electricity bill?: No Do you have trouble taking care of your child, family member or friend?: No Do you have trouble with day-to-day activities such as bathing, preparing meals, shopping, managing finances, etc.?: No Are you currently unemployed and looking for a job?: No Are you interested in more education?: No Currently or been in a relationship where the following occur: no concerns reported THRIVE Score: 0 AUDIT C Alcohol Use Questionnaire (AUDIT-C) 1. How often do you have a drink containing alcohol?: Never 3. How often do you have six or more drinks on one occasion?: Never Total Score: 0 Score Reviewed/Action Taken: Yes JANIS-7 AMB Questionnaire JANIS-7 Date JANIS - 7 assessed: 12/06/23 Feeling nervous, anxious, or on edge: 0 = Not at all Not being able to stop or control worryin = Not at all Worrying too much about different things: 0 = Not at all Trouble relaxin = Not at all Being so restless that it is hard to sit still: 0 = Not at all Becoming easily annoyed or irritable: 0 = Not at all Feeling afraid as if something awful might happen: 0 = Not at all Total JNAIS-7 score (0-4 normal; 5-9 mild; 10-14 moderate; 15-21 severe): 0 Source: Developed by Drs. Jake Quinones, Reena Washington, Lorne Guzman and colleagues, with an educational heather from [employer]. Review of Systems Const Denies chills, Reports fatigue (chronic), Denies fever(s) and Denies headache(s) ENT Denies dysphagia, Denies vertigo, Reports dizziness (on and off lately; more of lightheadedness - see HPI), Denies otalgia, Denies headache(s), Denies neck pain, Denies odynophagia and Denies sore throat Card Denies chest pain, Denies rapid heart rate, Denies palpitations and Reports dyspnea on exertion (mild - thinks this is more from deconditioning) Resp Denies cough, Reports dyspnea on exertion (mild - thinks this is more from deconditioning) and Denies wheezing GI Denies abdominal pain, Reports constipation, Denies dysphagia, Denies diarrhea, Denies nausea, Denies odynophagia and Denies vomiting Denies difficulty voiding, Denies nocturia, Denies dysuria, Reports pelvic pain (recurrent), Reports urinary incontinence and Denies urinary urgency Musc Reports back pain (over the lower back, increasing lately), Reports arthralgias (often, especially over the right knee; also (+) increasing bilat hip pain ) and Denies neck pain Skin/Breast Denies rash Neuro Denies vertigo, Reports dizziness (on and off lately; more of lightheadedness - see HPI) and Denies headache(s) Psych Denies anxiety Endo Reports fatigue (chronic) and Denies palpitations Donnie/Lymph Denies easy bruising Aller/Immun Denies wheezing Physical exam (Primary Care) Vital Signs: Last Vital Signs Pulse 87 12/06/23 11:32 BP 140/86 H 12/06/23 11:32 Pulse Ox 96 12/06/23 11:32 Oxygen Delivery Method Room Air 12/06/23 11:32 BMI result Body Mass Index 42.6 Tobacco/Smoking Status: Tobacco use Status Tobacco use date assessed 12/06/23 12/06/23 11:43 Patient Tobacco Use Status Never used Tobacco 12/06/23 11:43 e-Cigarette/Vaping Use Never Used 12/06/23 11:43 PHQ-9: PHQ-9 Score PHQ-9: Total score 0 12/06/23 11:43 Depression Screening Interpretation: Negative Thrive Assessment: Date of Thrive Assessment Date Thrive assessed 12/06/23 12/06/23 11:43 Currently or been in a relationship where the following occur: no concerns reported Const General: no acute distress and alert Orientation/consciousness: patient oriented x3 HENMT Ears: TM's normal bilaterally and EAC's normal Throat: Yes posterior oropharynx normal and Yes tonsils normal (no TP congestion) Neck Neck: Yes no lymphadenopathy and Yes supple Thyroid: Thyroid normal Resp Auscultation: clear to auscultation bilaterally, no rales and no wheezes Cardio Rate: regular rate Rhythm: regular rhythm Heart sounds: no murmurs GI Palpation (GI): Soft to palpation and nontender Auscultation: normal bowel sounds General: Yes no CVA tenderness Back/Spine/Pelvis Back: no CVA tenderness Thoracic/Lumbar Spine: lumbar spinal tenderness Skin Rashes: no rashes Neuro General: patient oriented x3 Cognition (Neuro): normal cognition Gait exam (Neuro): Assistive device used (cane BUT still has to hold onto the ponce at times when walking) Extrem General: Yes no clubbing, cyanosis or edema Right lower extremity: hip/thigh Details: tenderness Location: of the hip Location: anterolaterally (increasing lately) and knee Details: tenderness Left lower extremity: hip/thigh Details: tenderness Location: of the hip Location: anterolaterally Results AMB Hemoglobin A1c AMB Hemoglobin A1c 7.7 % Last Edit by BREE Man on 12/06/23 11:44 Results Reviewed Results Reviewed: Laboratory Last Values Hgb A1c (Clinic) 7.7 % (4.0-6.0) H 12/06/23 11:28 Laboratory Tests 11/30/23 12/06/23 12/06/23 08:40 08:04 08:08 WBC 6.7 Hgb 12.3 Hct 37.1 Plt Count 183 Sodium 141 Potassium 4.2 Creatinine 2.20 H Estimated GFR 23 Hgb A1c (Clinic) Calcium 10.2 D Phosphorus 4.6 H Specific [place] (Auto) 1.015 Urine Protein (Auto) 30 Glucose (UA)(Auto) 0 Urine Blood (Auto) 25 Urine Nitrite (Auto) Negative Leukocyte Esterase (Auto) 125 U Random Total Protein 71 H Urine Creatinine 118.46 12/06/23 11:28 WBC Hgb Hct Plt Count Sodium Potassium Creatinine Estimated GFR Hgb A1c (Clinic) 7.7 H Calcium Phosphorus Specific [place] (Auto) Urine Protein (Auto) Glucose (UA)(Auto) Urine Blood (Auto) Urine Nitrite (Auto) Leukocyte Esterase (Auto) U Random Total Protein Urine Creatinine Assessment and Plan Assessment & Plan (1) Pure hypercholesterolemia: Code(s): E78.00 - Pure hypercholesterolemia, unspecified Plan: Results of her labs done earlier today reviewed and discussed with patient but advised that these do not include a fasting lipid profile and that NOT all of her labs done earlier today are available yet Reinforced low cholesterol diet Continue Rosuvastatin 5 mg QD and Ezetimibe 10 mg QD Will recheck her labs and fasting lipids in 3 months for follow-up (2) Type 2 diabetes mellitus with diabetic chronic kidney disease: Code(s): E11.22 - Type 2 diabetes mellitus with diabetic chronic kidney disease Qualifiers: Diabetes mellitus prison insulin 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: 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 Chronic kidney disease stage: stage 4 (severe) Qualified Code(s): E11.22 - Type 2 diabetes mellitus with diabetic chronic kidney disease; N18.4 - Chronic kidney disease, stage 4 (severe); Z79.4 - residential (current) use of insulin Plan: In-office HgbA1c done today is at 7.7% (was at 7.5% when previously checked in May 2023) - goal is at least <7.0% Reinforced diabetic diet Continue Lantus 12 units QD, Humalog 12 to 16 units TID with meals (was previously on 6 units for small meals and 8 units for large meals) and Mounjaro 2.5 mg Q week She was on Victoza 1.2 mg QD in the past and was doing well on it BUT her insurance is now declining to cover her Rx Follow up with endocrinology as scheduled - she does have an appt coming up with Dr. Schuster in a couple of weeks (3) Chronic kidney disease, stage 4 (severe): Code(s): N18.4 - Chronic kidney disease, stage 4 (severe) Plan: Patient's renal function has remained stable lately Follow up with nephrology (Dr. Dominguez) as scheduled (4) Benign essential hypertension: Code(s): I10 - Essential (primary) hypertension Plan: Reinforced low-sodium diet -? goal is systolic BP of at least 120 to 130 mm due to her chronic kidney disease Continue Losartan 100 mg QD, Furosemide 40 mg QD and Carvedilol 6.25 mg BID (dose was just increased from 3.125 mg BID by nephrology recently) (5) Lightheadedness: Code(s): R42 - Dizziness and giddiness Plan: Have discussed with patient that based on her evaluation today, her recurrent lightheadedness and unsteadiness do not appear to be related to her blood pressure or blood sugar and also are not consistent with symptoms of paroxysmal vertigo Advised that with her multiple comorbidities, I am concerned about the possibility of a neurologic cause of her symptoms Will go ahead and refer her to neurology for further evaluation and management Discussed that I will leave it up to neurology to decide whatever diagnostic tests they would prefer she gets, whether a head CT or brain MRI, for further evaluation (6) Hyperparathyroidism: Code(s): E21.3 - Hyperparathyroidism, unspecified Plan: Continue Cinacalcet 30 mg QD Follow up with endocrinology and nephrology as scheduled (7) Coronary atherosclerosis: Comment: S/P stenting of mid-LAD in 07/2019 ([facility]) Code(s): I25.10 - Atherosclerotic heart disease of [place] coronary artery without angina pectoris Qualifiers: Coronary Disease-Associated Artery/Lesion type: [place] artery [place] vs. transplanted heart: [place] heart Associated angina: without angina Qualified Code(s): I25.10 - Atherosclerotic heart disease of [place] coronary artery without angina pectoris Plan: S/P mid-LAD stenting at [facility] in July 2019 Continue low-dose Aspirin 81 mg daily and Clopidogrel 75 mg QD Stress testing and myocardial perfusion scan done in October 2020 and more recently last month (October 2023) came out normal Follow-up with cardiology as scheduled (8) Diabetic neuropathy: Code(s): E11.40 - Type 2 diabetes mellitus with diabetic neuropathy, unspecified Qualifiers: Diabetes mellitus type: type 2 Diabetes mellitus complication detail: diabetic polyneuropathy Qualified Code(s): E11.42 - Type 2 diabetes mellitus with diabetic polyneuropathy Plan: Continue Nortriptyline 50 mg Q HS (9) Dyspnea: Code(s): R06.00 - Dyspnea, unspecified Qualifiers: Dyspnea type: unspecified Qualified Code(s): R06.00 - Dyspnea, unspecified Plan: PFTs done last year showed (+) mild restrictive ventilatory defect with no bronchodilator response and decreased expiratory reserve volume suggests extrathoracic restrictions, likely secondary to abdominal obesity Discussed again that this is also likely partly due to physical decompensation as patient is practically sedentary with very little activity tolerance, especially with her recurrent lightheadedness recently (10) Primary osteoarthritis of right knee: Code(s): M17.11 - Unilateral primary osteoarthritis, right knee Plan: X-rays of the right knee done back in February 2018 showed (+) OA changes, especially over the lateral aspect Patient gets cortisone injection into her knee?from Orthopedics as needed with (+) relief -? follow up with Orthopedics as scheduled She was taking Ibuprofen previously for her joint pains but was advised by nephrology to STOP all NSAIDs due to her advanced renal disease States that Acetaminophen alone is not providing her any significant pain relief She was allowed to start on Meloxicam at 7.5 mg to take only PRN for severe pain and have emphasized again to her that she is to take it as sparingly as possible - patient seems to be doing okay so far on this regimen (11) Lumbar degenerative disc disease: Code(s): M51.36 - Other intervertebral disc degeneration, lumbar region Plan: Reinforced activity and weight-lifting restrictions Continue Gabapentin 100 mg QD Repeat x-rays of the lumbar spine and bilateral hips done back in June 2022 revealed (+) degenerative changes in the lumbar spine and mild OA changes in both hips (12) Depression: Code(s): F32.9 - Major depressive disorder, single episode, unspecified Qualifiers: Depression Type: major depressive disorder Major depression recurrence: recurrent Active/Remission status: currently active Major depression episode severity: unspecified Qualified Code(s): F33.9 - Major depressive disorder, recurrent, unspecified Plan: Continue? Citalopram 10 mg QD (13) Morbid obesity with BMI of 40.0-44.9, adult: Code(s): E66.01 - Morbid (severe) obesity due to excess calories; Z68.41 - Body mass index [BMI] 40.0-44.9, adult Plan: Reinforced diet/lose weight/ exercise as tolerated although patient remains very limited with her activity tolerance due to her worsening OA and her recent lightheadedness Plan Follow up in 3 months Orders: Orders AMB Hemoglobin A1c 11/29/23 Heri Varner PA-C E11.22 - Type 2 diabetes mellitus with diabetic chronic kidney disease, N18.4 - Chronic kidney disease, stage 4 (severe), Z79.4 - residential (current) use of insulin Complete Blood Count Auto Diff 3 Months Leonid Valerio MD D64.9 - Anemia, unspecified Comprehensive [place]. 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 Lipid Panel 3 Months Leonid Valerio MD E78.00 - Pure hypercholesterolemia, unspecified TSH reflex Free T4 3 Months Leonid Valerio MD E78.00 - Pure hypercholesterolemia, unspecified UA CC w/rflx Micro + Cult 3 Months Leonid Valerio MD R30.0 - Dysuria Vitamin D 25-OH Total 3 Months Leonid Valerio MD E55.9 - Vitamin D deficiency, unspecified Referrals Neurology Referral Leonid Valerio MD R26.81 - Unsteadiness on feet, R42 - Dizziness and giddiness Coding Level of Care Code Est Pt Level 4 (70808) Diagnoses Pure hypercholesterolemia E78.00 Type 2 diabetes mellitus with stage 4 chronic kidney disease, with long-term current use of insulin E11.22; N18.4; Z79.4 Diabetes mellitus prison insulin use: with prison use Chronic kidney disease stage: stage 4 (severe) Chronic kidney disease, stage 4 (severe) N18.4 Benign essential hypertension I10 Lightheadedness R42 Hyperparathyroidism E21.3 Atherosclerosis of [place] coronary artery of [place] heart without angina pectoris I25.10 Coronary Disease-Associated Artery/Lesion type: [place] artery [place] vs. transplanted heart: [place] heart Associated angina: without angina Diabetic polyneuropathy associated with type 2 diabetes mellitus E11.42 Diabetes mellitus type: type 2 Diabetes mellitus complication detail: diabetic polyneuropathy Dyspnea, unspecified type R06.00 Dyspnea type: unspecified Primary osteoarthritis of right knee M17.11 Lumbar degenerative disc disease M51.36 Episode of recurrent major depressive disorder, unspecified depression episode severity F33.9 Depression Type: major depressive disorder Major depression recurrence: recurrent Active/Remission status: currently active Major depression episode severity: unspecified Morbid obesity with BMI of 40.0-44.9, adult E66.01; Z68.41
[2023-12-06 11:32] VITALS: BP 140/86; PULSE 87; O2SAT 96; BMI 42.6
== END 2023-12-06 12:14 | disposition home or self-care (01) ==
PROVIDERS: PCP Internal Medicine; Visit Provider Internal Medicine
DX: E11.65 Type 2 diabetes mellitus with hyperglycemia (principal); Z79.4 Long term (current) use of insulin
CPT/HCPCS: 83036; 99214

== ENCOUNTER 2023-12-06 13:07 | Outpatient (AMB) | payer MEDICARE, MEDICAID, SELFPAY ==
[2023-12-06 13:12] VITALS: BP 152/80; PULSE 92; BMI 42.3
--- NOTE | 2023-12-06 13:12 | MHC.OFFVIS ---
Intake Vital Signs 12/06/23 13:12 Height 5 ft 3 in Weight 238 lb 15.697 oz BMI 42.3 BP 152/80 H Blood Pressure Location Lt brachial Position Sitting Pulse 92 Intake Visit Reasons: fu after testing Allergies No Known Allergies [No Known Allergies*] Allergy (Verified 12/06/23 13:16) Medication List - Last Reconciled 12/06/23 by CECILIA Coleman acetaminophen 500 mg PO ONCE PRN aspirin (Adult Low Dose Aspirin) 81 mg PO DAILY blood pressure monitor As directed blood sugar diagnostic (Accu-Chek Brenda Plus test strips) Tests 4 X/day blood-glucose meter (Accu-Chek Brenda Plus Meter) 3x/day carvedilol 6.25 mg PO BID 90 days cinacalcet (Sensipar) 30 mg PO DAILY citalopram 10 mg PO DAILY 90 days diaper,brief,adult,disposable (Select Disposable Briefs) as directed, 4 daily ezetimibe 10 mg PO DAILY flash glucose scanning reader (FreeStyle Allison 2 [place]) As directed flash glucose sensor (FreeStyle Allison 2 Sensor kit) As directed change every 14 days furosemide 40 mg PO QAM gabapentin 100 mg PO BEDTIME 90 days glucagon 3 mg/actuation (Baqsimi) 3 mg intranasal ONCE insulin glargine (Lantus Solostar U-100 Insulin) 18 units (0.18 mL) subcut QPM insulin lispro (Humalog KwikPen (U-100) Insulin) 12 - 16 units (0.12 - 0.16 mL) subcut QID lancets (Accu-Chek Softclix Lancets) three times a day linaclotide 72 mcg PO DAILY losartan 100 mg PO DAILY meloxicam 7.5 mg PO DAILY PRN 90 days mirabegron ER (Myrbetriq) 25 mg PO DAILY 30 days nortriptyline 50 mg PO BEDTIME 90 days pen needle, diabetic (BD Ultra-Fine Micro Pen Needle) 1 ea subcut TID pen needle, diabetic (BD Annia 2nd Gen Pen Needle) USE 1 PEN NEEDLE SIX TIMES DAILY rosuvastatin 5 mg PO DAILY 30 days tirzepatide (Mounjaro) 2.5 mg (0.5 mL) subcut QWEEK underpads As directed, 2 per night HPI fu after testing HPI Details Katerina is a 63-year-old female with past medical history of hypertension, hyperlipidemia, diabetes, chronic kidney disease, CAD with coronary stent who presents for follow-up after recent echocardiogram and nuclear stress test. Today she reports that she continues to not feel well overall. She has fatigue and shortness of breath with activity. Her chest discomfort has decreased and is not as bothersome. No palpitations, lightheadedness, presyncope, syncope, falls. No PND, orthopnea. She does have bilateral lower leg edema which is not new. She is mostly sedentary and is not engaging in exertional activities. Blood pressure has been running high and her carvedilol dose was just increased yesterday. She saw Nephrology yesterday and her PCP today. She tells me she sees endocrinology tomorrow. [facility] Medical History Hypercalcemia Secondary hyperparathyroidism Left upper arm injury Arthritis Type 2 diabetes mellitus with hyperglycemia, with long-term current use of insulin Type 2 diabetes mellitus with polyneuropathy Essential hypertension Hyperlipidemia LDL goal <70 Constipation Obesity (BMI 30-39.9) Depression Lumbar degenerative disc disease Diabetic neuropathy Primary osteoarthritis of right knee Pedal edema Chronic kidney disease, stage 4 (severe) Pure hypercholesterolemia Coronary atherosclerosis nursing home (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 Mother Diabetes Hypertension Cancer antigen 125 (CA 125) elevation Maternal Grandmother Stomach cancer Other Mental health problem Social History Household Members Other:: daughter Housing: Apartment Alcohol intake: never Patient Tobacco Use Status: Never used Tobacco e-Cigarette/Vaping Use: Never Used Second Hand Smoke Exposure: Yes service: No Current occupational status: disabled Cognitive needs: Yes (cane/walker) Hearing needs: No Vision needs: Yes (reading glasses) Review of Systems Const All systems reviewed & are unremarkable except as noted in HPI and below Reports fatigue and Reports lethargy ENT Denies dizziness Card Denies chest pain, Denies chest pain at rest, Denies chest pain with activity, Denies rapid heart rate, Denies pedal edema, Denies edema, Denies leg edema, Denies lightheadedness, Denies palpitations, Denies dyspnea, Reports dyspnea on exertion and Denies orthopnea Resp Denies cough, Denies dyspnea and Reports dyspnea on exertion GI Denies hematochezia and Denies change in stool character Musc Denies abnormal gait, Denies limited range of motion, Reports muscle cramps, Denies muscle weakness, Denies numbness, Denies radiating pain into limb, Denies stiffness and Denies tingling Neuro Denies abnormal gait, Denies dizziness, Denies numbness and Denies tingling Endo Reports fatigue and Denies palpitations Physical Exam Vital Signs: Last Vital Signs Pulse 92 12/06/23 13:12 BP 152/80 H 12/06/23 13:12 BMI result Body Mass Index 42.3 Const General: cooperative, healthy appearing, comfortable and no acute distress Orientation/consciousness: patient oriented x3 Neck Neck: Yes normal visual inspection Resp Effort & Inspection: normal respiratory effort Auscultation: clear to auscultation bilaterally, no crackles, no rales, no rhonchi and no wheezes Cardio Jugular venous distension: no JVD Rate: regular rate Rhythm: regular rhythm Heart sounds: S1 normal heart sound present, S2 normal heart sound present, no murmurs and no rubs Neuro General: patient oriented x3 Extrem General: Yes normal to inspection and No no pedal edema Psych Appearance: grossly normal Mental Status: mental status grossly normal Speech and movement: Normal speech and movement present Results AMB Hemoglobin A1c AMB Hemoglobin A1c 7.7 % Last Edit by BREE Man on 12/06/23 11:44 Assessment & Plan Assessment & Plan (1) Coronary atherosclerosis: Comment: S/P stenting of mid-LAD in 07/2019 ([facility]) Code(s): I25.10 - Atherosclerotic heart disease of [place] coronary artery without angina pectoris Qualifiers: Associated angina: without angina Coronary Disease-Associated Artery/Lesion type: [place] artery [place] vs. transplanted heart: [place] heart Qualified Code(s): I25.10 - Atherosclerotic heart disease of [place] coronary artery without angina pectoris Plan: History of CAD with last cardiac catheterization 07/31/2019 showing 60% mid LAD stenosis, IFR 0.84, MALISSA was placed. Last echo 07/04/2019 showed EF 60-65%. Nuclear stress test done 11/24/2020 showed normal myocardial perfusion imaging. On last visit she reported intermittent chest discomfort, shortness of breath with activity and leg edema. EKG showed sinus rhythm, incomplete right bundle branch block, can not exclude anterior infarct, age undetermined, rate 94. Blood pressure is elevated at 150/100 and she was started on carvedilol. She underwent a repeat nuclear stress test on 11/03/2023 which showed probable normal myocardial perfusion imaging, no clear infarct or ischemia. Echocardiogram done 09/20/2023 showing EF 69%, no valve abnormalities. Test results reviewed with her in detail. Today she reports her chest discomfort has lessened. No evidence in nature. She continues to have shortness of breath if activity but she is mostly sedentary. Continue aspirin indefinitely. Continue rosuvastatin and Zetia with ideal LDL goal less than 70. Labs done 08/02/2023 showed LDL 41. Continue losartan, Lasix, carvedilol. Signs and symptoms of angina reviewed. Cardiology follow-up in 6 months, sooner if needed. (2) Chest discomfort: Code(s): R07.89 - Other chest pain Plan: As above (3) Dyspnea: Code(s): R06.00 - Dyspnea, unspecified Qualifiers: Dyspnea type: unspecified Qualified Code(s): R06.00 - Dyspnea, unspecified Plan: As above (4) Essential hypertension: Code(s): I10 - Essential (primary) hypertension Plan: Elevated today. Carvedilol was added last visit. 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 She has follow-up with Nephrology in 1 month. Continue losartan. (5) Hyperlipidemia LDL goal <70: Code(s): E78.5 - Hyperlipidemia, unspecified Plan: [place] LDL goal less than 70. Current LDL 41. Continue Zetia and rosuvastatin. Plan Time spent on chart review, documentation, interview and assessment Coding Level of Care Code Est Pt Level 4 (23541) Diagnoses Atherosclerosis of [place] coronary artery of [place] heart without angina pectoris I25.10 Associated angina: without angina Coronary Disease-Associated Artery/Lesion type: [place] artery [place] vs. transplanted heart: [place] heart Chest discomfort R07.89 Dyspnea, unspecified type R06.00 Dyspnea type: unspecified Essential hypertension I10 Hyperlipidemia LDL goal <70 E78.5 Time Spent (min) 28
== END 2023-12-06 13:46 | disposition home or self-care (01) ==
PROVIDERS: PCP Internal Medicine; Visit Provider Nurse Practitioner Family
DX: I25.10 Atherosclerotic heart disease of native coronary artery without angina pectoris (principal); R07.89 Other chest pain; R06.00 Dyspnea, unspecified; I10 Essential (primary) hypertension; E78.5 Hyperlipidemia, unspecified
CPT/HCPCS: 99214

== ENCOUNTER 2023-12-19 09:08 | Outpatient (AMB) | payer MEDICARE, MEDICAID, SELFPAY ==
--- NOTE | 2023-12-19 09:17 | MHC.OFFVIS ---
Vital Signs 12/19/23 09:18 Height 5 ft 3 in Weight 239 lb 6.752 oz BMI 42.4 BP 118/82 Blood Pressure Location Lt brachial Position Sitting Pulse 84 Pulse Source Pulse Oximeter Intake Visit Reasons: f/u Type 2 DM-confirmed Intake Note: Patient present today to follow up on Type 2 Diabetes Mellitus. Last Diabetic Eye exam: 11/2023 Last Podiatry Visit: Doesn't have one Random Glucose: 176 mg/dl HgA1C: 7.7% 12/06/2023 Associate Application Developer Required: No Accompanied by: Self / Same As Patient Allergies No Known Allergies [No Known Allergies*] Allergy (Verified 12/19/23 09:24) HPI Comments Details: Patient is a 63 yo female with DM type 2 diagnosed in 1997 , who presents for continued management of diabetes. Past medical history: Dm2, HTN, HLD. CKD IV Micro and macrovascular complications: + neuropathy, Diabetes medications: Lantus to 12 units, Humalog?insulin to carb ratio of 7 with a correction of 20 and a target of 120.?. Mounjaro 2.5 mg Qwkly Had optho appt 3 wks a go - getting injections Allison download shows she is using the sensor 94% of the time. Average glucose is 149 with G mi of 6.9% and variability 30.3%. 79% range with 19% hyperglycemia and 2% hyperglycemia. Most of the hypoglycemia is occurring overnight Symptoms reported: + numbness, tingling, cramping in feet Hypoglycemia: happens overnight but infrequently treats with glucose or candy. Hyperglycemia: denies urinary frequency, denies polydypsia. Exercise: does stretching that learned from cardiac rehab. Stationary bicycle 4 minutes 3 times a day. Laboratory Tests 07/02/21 07/02/21 10/04/21 08:19 Unknown 10:18 Creatinine 1.85 H Estimated GFR 28 Hgb A1c (Clinic) Triglycerides 184 Cholesterol 192 D HDL Cholesterol 33 Microalb/Creat Ratio 155.6 10/21/21 09:39 Creatinine Estimated GFR Hgb A1c (Clinic) 6.8 H Triglycerides Cholesterol HDL Cholesterol Microalb/Creat Ratio [facility] Medical History Hypercalcemia Secondary hyperparathyroidism Left upper arm injury Arthritis Type 2 diabetes mellitus with hyperglycemia, with long-term current use of insulin Type 2 diabetes mellitus with polyneuropathy Essential hypertension Hyperlipidemia LDL goal <70 Constipation Obesity (BMI 30-39.9) Depression Lumbar degenerative disc disease Diabetic neuropathy Primary osteoarthritis of right knee Pedal edema Chronic kidney disease, stage 4 (severe) Pure hypercholesterolemia Coronary atherosclerosis 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 Mother Diabetes Hypertension Cancer antigen 125 (CA 125) elevation Maternal Grandmother Stomach cancer Other Mental health problem Social History Household Members Other:: daughter Housing: Apartment Alcohol intake: never Patient Tobacco Use Status: Never used Tobacco e-Cigarette/Vaping Use: Never Used Second Hand Smoke Exposure: Yes service: No Current occupational status: disabled Cognitive needs: Yes (cane/walker) Hearing needs: No Vision needs: Yes (reading glasses) Physical Exam Vital Signs: Last Vital Signs Pulse 84 12/19/23 09:18 BP 118/82 12/19/23 09:18 BMI result Body Mass Index 42.4 Absence of Cushingoid features. Absence of acromegalic features. Neck exam reveals nl size thyroid about 15 gms. No thyroid nodules palpable. No carotid bruits present. Lungs CTA. Heart S1 S2, Reg R/R. No M/R/ G. Skin exam reveals absence of vitiligo or acanthosis nigricans. Abdominal exam reveals Soft NT/ND with NA BS. No organomegaly present. Neck Other: . Extrem Other: Visual exam of foot performed. No ulcerations or open lesions. No onchomycosis, no callouses.Pulses 1- distally Sensation intact to monofilament exam. Vibratory sensation sensed is intact with 128 Hz tuning fork Assessment & Plan Assessment & Plan (1) Type 2 diabetes mellitus with diabetic chronic kidney disease: Code(s): E11.22 - Type 2 diabetes mellitus with diabetic chronic kidney disease Category: Medical Qualifiers: Chronic kidney disease stage: stage 4 (severe) Diabetes mellitus tap grinder insulin use: with correction use Qualified Code(s): E11.22 - Type 2 diabetes mellitus with diabetic chronic kidney disease; N18.4 - Chronic kidney disease, stage 4 (severe); Z79.4 - shelter (current) use of insulin Plan: This is a 63-year-old black female with a history of type 2 diabetes being treated with Mounjaro and basal-bolus insulin with excellent glycemic control f and known microvascular complications namely neuropathy and CKD stage IV. Plan is to l decrease the Lantus 10 units . At this point, patient is glycemic control is optimized and she can follow up with the primary care provider returned back to endocrinology should HbA1c deteriorate
[2023-12-19 09:18] VITALS: BP 118/82; PULSE 84; BMI 42.4
[2023-12-19 09:31] LABS: Glucose, Whole Blood 176 mg/dL (60-115)
== END 2023-12-19 09:34 | disposition home or self-care (01) ==
PROVIDERS: PCP Internal Medicine; Visit Provider Internal Medicine Endocrinology, Diabetes & Metabolism
DX: E11.22 Type 2 diabetes mellitus with diabetic chronic kidney disease (principal); N18.4 Chronic kidney disease, stage 4 (severe); Z79.4 Long term (current) use of insulin
CPT/HCPCS: 99214

== ENCOUNTER → 2023-12-19 09:08 | Outpatient (BNVA) | payer MEDICARE, MEDICAID, SELFPAY | PROVIDERS: PCP Internal Medicine; Visit Provider Internal Medicine Endocrinology, Diabetes & Metabolism | DX: E11.22 Type 2 diabetes mellitus with diabetic chronic kidney disease (principal); N18.4 Chronic kidney disease, stage 4 (severe); Z79.4 Long term (current) use of insulin | CPT/HCPCS: 82947; 99212 ==

== ENCOUNTER 2024-01-05 11:27 | Outpatient (AMB) | payer MEDICARE, MEDICAID, SELFPAY ==
[2024-01-05 11:42] VITALS: BP 140/84; PULSE 101; O2SAT 97; BMI 42.0
--- NOTE | 2024-01-05 11:42 | MHC.PC.OV ---
Vital Signs 01/05/24 11:42 Height 5 ft 3 in Weight 237 lb BMI 42.0 BP 140/84 H Blood Pressure Location Lt brachial Position Sitting Pulse 101 H Pulse Source Pulse Oximeter Pulse Oximetry (%) 97 Oxygen Delivery Method Room Air Intake Visit Reasons: Annual Physical - see comments Intake Note: Patient is here today for a physical. Intelligence Director Required: No Accompanied by: Self / Same As Patient Allergies No Known Allergies [No Known Allergies*] Allergy (Verified 01/05/24 12:14) Medication List - Last Reconciled 01/05/24 by Leonid Valerio MD acetaminophen 500 mg PO ONCE PRN aspirin (Adult Low Dose Aspirin) 81 mg PO DAILY blood pressure monitor As directed blood sugar diagnostic (Accu-Chek Brenda Plus test strips) Tests 4 X/day blood-glucose meter (Accu-Chek Brenda Plus Meter) 3x/day carvedilol 6.25 mg PO BID 90 days cinacalcet (Sensipar) 30 mg PO DAILY citalopram 10 mg PO DAILY 90 days diaper,brief,adult,disposable (Select Disposable Briefs) as directed, 4 daily ezetimibe 10 mg PO DAILY flash glucose scanning reader (FreeStyle Allison 2 [place]) As directed flash glucose sensor (FreeStyle Allison 2 Sensor kit) As directed change every 14 days furosemide 40 mg PO QAM gabapentin 100 mg PO BEDTIME 90 days glucagon 3 mg/actuation (Baqsimi) 3 mg intranasal ONCE insulin glargine (Lantus Solostar U-100 Insulin) 18 units (0.18 mL) subcut QPM insulin lispro (Humalog KwikPen (U-100) Insulin) 12 - 16 units (0.12 - 0.16 mL) subcut QID lancets (Accu-Chek Softclix Lancets) three times a day linaclotide 72 mcg PO DAILY losartan 100 mg PO DAILY meloxicam 7.5 mg PO DAILY PRN 90 days mirabegron ER (Myrbetriq) 25 mg PO DAILY 30 days nortriptyline 50 mg PO BEDTIME 90 days pen needle, diabetic (BD Ultra-Fine Micro Pen Needle) 1 ea subcut TID pen needle, diabetic (BD Annia 2nd Gen Pen Needle) USE 1 PEN NEEDLE SIX TIMES DAILY rosuvastatin 5 mg PO DAILY 30 days tirzepatide (Mounjaro) 2.5 mg (0.5 mL) subcut QWEEK underpads As directed, 2 per night Tobacco use date assessed: 12/06/23 Dental Screening Dental Screen Date: 12/06/23 HPI Annual Physical - see comments HPI Details Patient comes in today for her annual physical examination States that she feels okay She denies any headaches or dizziness Denies any chest pains, no increased SOB No nausea/vomiting, no abdominal pain No change in bowel habits noted She denies any acute urinary symptoms States that her chronic joint pains remain adequately controlled on her current Rx She had her follow up labs done last month but these were non-fasting labs so they did not include her fasting lipids Patient last had her mammogram done in 12/2021 and is due for repeat She had her screening colonoscopy done in 07/2022 and she was advised to get this repeated in 10 years (2031) [facility] Medical History Hypercalcemia Secondary hyperparathyroidism Left upper arm injury Arthritis Type 2 diabetes mellitus with hyperglycemia, with long-term current use of insulin Type 2 diabetes mellitus with polyneuropathy Essential hypertension Hyperlipidemia LDL goal <70 Constipation Obesity (BMI 30-39.9) Depression Lumbar degenerative disc disease Diabetic neuropathy Primary osteoarthritis of right knee Pedal edema Chronic kidney disease, stage 4 (severe) Pure hypercholesterolemia Coronary atherosclerosis alf (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 Mother Diabetes Hypertension Cancer antigen 125 (CA 125) elevation Maternal Grandmother Stomach cancer Other Mental health problem Social History Household Members Other:: daughter Housing: Apartment Alcohol intake: never Patient Tobacco Use Status: Never used Tobacco e-Cigarette/Vaping Use: Never Used Second Hand Smoke Exposure: Yes service: No Current occupational status: disabled Cognitive needs: Yes (cane/walker) Hearing needs: No Vision needs: Yes (reading glasses) Questionnaire PHQ-9 Over the last 2 weeks, how often have you been bothered by any of the following problems? Depression Screening Interpretation: Negative Depression Screening Done: Yes Source: Developed by Drs. Jake Quinones, Reena Washington, Lorne Guzman and colleagues, with an educational heather from [employer]. Thrive Questionnaire Date Thrive assessed: 12/06/23 Currently or been in a relationship where the following occur: no concerns reported THRIVE Score: 0 JANIS-7 AMB Questionnaire JANIS-7 Date JANIS - 7 assessed: 12/06/23 Source: Developed by Drs. Jake Quinones, Reena Washington, Lorne Guzman and colleagues, with an educational heather from [employer]. Review of Systems Const Denies chills, Reports fatigue (chronic), Denies fever(s), Denies headache(s) and Denies malaise Eyes Denies blurry vision, Denies change in vision, Denies irritation and Denies itchy eyes ENT Denies dysphagia, Denies dizziness, Denies otalgia, Denies headache(s), Denies nasal congestion, Denies neck pain, Denies odynophagia, Denies sinus pain and Denies sore throat Card Denies chest pain, Denies rapid heart rate, Denies irregular heart rhythm, Denies palpitations and Reports dyspnea on exertion (mild (chronic)) Resp Denies chest congestion, Denies cough, Reports dyspnea on exertion (mild (chronic)) and Denies wheezing GI Denies abdominal pain, Denies bloating, Denies constipation, Denies dysphagia, Denies heartburn, Denies diarrhea, Denies nausea, Denies odynophagia and Denies vomiting Denies hematuria, Denies urinary frequency, Denies dysuria, Denies urinary incontinence and Denies urinary urgency Musc Denies back pain, Denies arthralgias, Denies joint swelling, Denies muscle weakness and Denies neck pain Skin/Breast Denies breast pain, Denies breast mass, Denies change in pigmentation, Denies lesions, Denies rash and Denies unusual bruising Neuro Denies dizziness, Denies headache(s) and Denies paresthesias Psych Denies anxiety and Denies depression Endo Reports fatigue (chronic) and Denies palpitations Donnie/Lymph Denies easy bruising Aller/Immun Denies itchy eyes and Denies wheezing Physical exam (Primary Care) Vital Signs: Last Vital Signs Pulse 101 H 01/05/24 11:42 BP 140/84 H 01/05/24 11:42 Pulse Ox 97 01/05/24 11:42 Oxygen Delivery Method Room Air 01/05/24 11:42 BMI result Body Mass Index 42.0 Tobacco/Smoking Status: Tobacco use Status Tobacco use date assessed 12/06/23 01/05/24 11:43 Patient Tobacco Use Status Never used Tobacco 01/05/24 11:43 e-Cigarette/Vaping Use Never Used 01/05/24 11:43 Depression Screening Interpretation: Negative Thrive Assessment: Date of Thrive Assessment Date Thrive assessed 12/06/23 01/05/24 11:43 Currently or been in a relationship where the following occur: no concerns reported Const General: no acute distress, alert and awake Orientation/consciousness: patient oriented x3 HENMT Head: Yes normocephalic and Yes atraumatic Ears: external ears normal, TM's normal bilaterally and EAC's normal General nose exam: No nasal discharge present Face and sinus: Yes normal facial exam and Yes sinuses nontender Teeth and gingiva: dentition normal Throat: Yes posterior oropharynx normal and Yes tonsils normal (no TP congestion) Eyes Eyelids: Yes eyelids normal Conjunctivae: conjunctivae normal Pupils: Equal, round and reactive pupils present EOM: EOMs intact bilaterally Neck Neck: Yes no lymphadenopathy and Yes supple Thyroid: Thyroid normal Resp Auscultation: clear to auscultation bilaterally, no rales and no wheezes Cardio Rate: regular rate Rhythm: regular rhythm Heart sounds: no murmurs GI Palpation (GI): Soft to palpation, nontender and No hepatosplenomegaly present Auscultation: normal bowel sounds General: Yes no CVA tenderness Back/Spine/Pelvis Back: no CVA tenderness Thoracic/Lumbar Spine: thoracic and lumbar spine normal to inspection and lumbar spinal tenderness Skin Lesions: no lesions Rashes: no rashes Neuro General: patient oriented x3, moves all extremities, no focal motor deficits and CN's II-XI intact bilaterally Cranial nerves: Yes Equal, round and reactive pupils present Cognition (Neuro): normal cognition Gait exam (Neuro): Normal gait present Extrem General: Yes no clubbing, cyanosis or edema Right lower extremity: hip/thigh Details: tenderness Location: of the hip Location: anterolaterally (increasing lately) and knee Details: tenderness Left lower extremity: hip/thigh Details: tenderness Location: of the hip Location: anterolaterally Results Reviewed Results Reviewed: Laboratory Tests 11/30/23 12/06/23 12/06/23 08:40 08:08 11:28 WBC 6.7 Hgb 12.3 Hct 37.1 Plt Count 183 Sodium 141 Potassium 4.2 Creatinine 2.20 H Estimated GFR 23 Glucose (Clinic) Hgb A1c (Clinic) 7.7 H Calcium 10.2 D Phosphorus 4.6 H 25-OH Vitamin D Total 41 25-Hydroxy Vitamin D3 41 PTH Intact 214.1 H Specific [place] (Auto) 1.015 Urine Protein (Auto) 30 Glucose (UA)(Auto) 0 Urine Blood (Auto) 25 Urine Nitrite (Auto) Negative Leukocyte Esterase (Auto) 125 12/19/23 09:27 WBC Hgb Hct Plt Count Sodium Potassium Creatinine Estimated GFR Glucose (Clinic) 176 H Hgb A1c (Clinic) Calcium Phosphorus 25-OH Vitamin D Total 25-Hydroxy Vitamin D3 PTH Intact Specific [place] (Auto) Urine Protein (Auto) Glucose (UA)(Auto) Urine Blood (Auto) Urine Nitrite (Auto) Leukocyte Esterase (Auto) Assessment and Plan Assessment & Plan (1) Annual physical exam: Code(s): Z00.00 - Encounter for general adult medical examination without abnormal findings Plan: Results of patient's labs done last week reviewed and discussed with patient - she is advised that these were non-fasting labs so they did not include her lipid profile She last had her mammogram done in 12/2021 and is due for repeat mammogram now She had her screening colonoscopy done in 07/2022, which came out normal, and she was advised to have repeat colonoscopy in 10 years (2031) She also does not recall when she last had a bone density done - thinks it has been over 5 years now since she's had one (2) Pure hypercholesterolemia: Code(s): E78.00 - Pure hypercholesterolemia, unspecified Plan: Patient is advised that her recent labs do not include her fasting lipid profile Reinforced low cholesterol diet Continue Rosuvastatin 5 mg QD and Ezetimibe 10 mg QD Will recheck her labs and fasting lipids in a couple of months for follow-up (3) Type 2 diabetes mellitus with diabetic chronic kidney disease: Code(s): E11.22 - Type 2 diabetes mellitus with diabetic chronic kidney disease Qualifiers: Diabetes mellitus nursing home insulin use: with nursing home use Chronic kidney disease stage: stage 4 (severe) Qualified Code(s): E11.22 - Type 2 diabetes mellitus with diabetic chronic kidney disease; N18.4 - Chronic kidney disease, stage 4 (severe); Z79.4 - alf (current) use of insulin Plan: In-office HgbA1c was at 7.7% last month (was at 7.5% when previously checked in May 2023) - goal is at least <7.0% Reinforced diabetic diet Continue Lantus 12 units QD, Humalog 12 to 16 units TID with meals (was previously on 6 units for small meals and 8 units for large meals) and Mounjaro 2.5 mg Q week She was on Victoza 1.2 mg QD in the past and was doing well on it BUT her insurance recently declined to cover her Rx Follow up with endocrinology as scheduled (4) Chronic kidney disease, stage 4 (severe): Code(s): N18.4 - Chronic kidney disease, stage 4 (severe) Plan: Patient's renal function has remained stable lately Follow up with nephrology (Dr. Dominguez) as scheduled (5) Benign essential hypertension: Code(s): I10 - Essential (primary) hypertension Plan: Reinforced low-sodium diet -? goal is systolic BP of at least 120 to 130 mm due to her chronic kidney disease Continue Losartan 100 mg QD, Furosemide 40 mg QD and Carvedilol 6.25 mg BID (6) Hyperparathyroidism: Code(s): E21.3 - Hyperparathyroidism, unspecified Plan: Continue Cinacalcet 30 mg QD Follow up with endocrinology and nephrology as scheduled (7) Coronary atherosclerosis: Comment: S/P stenting of mid-LAD in 07/2019 ([facility]) Code(s): I25.10 - Atherosclerotic heart disease of [place] coronary artery without angina pectoris Qualifiers: Coronary Disease-Associated Artery/Lesion type: [place] artery [place] vs. transplanted heart: [place] heart Associated angina: without angina Qualified Code(s): I25.10 - Atherosclerotic heart disease of [place] coronary artery without angina pectoris Plan: S/P mid-LAD stenting at [facility] in July 2019 Continue low-dose Aspirin 81 mg daily and Clopidogrel 75 mg QD Stress testing and myocardial perfusion scan done in October 2020 and more recently in October 2023 came out normal Follow-up with cardiology as scheduled (8) Diabetic neuropathy: Code(s): E11.40 - Type 2 diabetes mellitus with diabetic neuropathy, unspecified Qualifiers: Diabetes mellitus type: type 2 Diabetes mellitus complication detail: diabetic polyneuropathy Qualified Code(s): E11.42 - Type 2 diabetes mellitus with diabetic polyneuropathy Plan: Continue Nortriptyline 50 mg Q HS (9) Dyspnea: Code(s): R06.00 - Dyspnea, unspecified Qualifiers: Dyspnea type: unspecified Qualified Code(s): R06.00 - Dyspnea, unspecified Plan: PFTs done last year showed (+) mild restrictive ventilatory defect with no bronchodilator response and decreased expiratory reserve volume suggests extrathoracic restrictions, likely secondary to abdominal obesity Discussed again that this is also likely partly due to physical decompensation as patient is practically sedentary with very little activity tolerance (10) Primary osteoarthritis of right knee: Code(s): M17.11 - Unilateral primary osteoarthritis, right knee Plan: X-rays of the right knee done back in February 2018 showed (+) OA changes, especially over the lateral aspect Patient gets cortisone injection into her knee?from Orthopedics as needed with (+) relief -? follow up with Orthopedics as scheduled She was taking Ibuprofen previously for her joint pains but was advised by nephrology to STOP all NSAIDs due to her advanced renal disease States that Acetaminophen alone is not providing her any significant pain relief She was allowed to start on Meloxicam at 7.5 mg to take only PRN for severe pain and have emphasized again to her that she is to take it as sparingly as possible - patient seems to be doing okay so far on this regimen (11) Lumbar degenerative disc disease: Code(s): M51.36 - Other intervertebral disc degeneration, lumbar region Plan: Reinforced activity and weight-lifting restrictions Continue Gabapentin 100 mg QD Repeat x-rays of the lumbar spine and bilateral hips done back in June 2022 revealed (+) degenerative changes in the lumbar spine and mild OA changes in both hips (12) Depression: Code(s): F32.9 - Major depressive disorder, single episode, unspecified Qualifiers: Depression Type: major depressive disorder Major depression recurrence: recurrent Active/Remission status: currently active Major depression episode severity: unspecified Qualified Code(s): F33.9 - Major depressive disorder, recurrent, unspecified Plan: Continue? Citalopram 10 mg QD (13) Morbid obesity with BMI of 40.0-44.9, adult: Code(s): E66.01 - Morbid (severe) obesity due to excess calories; Z68.41 - Body mass index [BMI] 40.0-44.9, adult Plan: Reinforced diet/lose weight/ exercise as tolerated although patient remains very limited with her activity tolerance due to her worsening OA and her recent lightheadedness (14) Breast cancer screening by mammogram: Code(s): Z12.31 - Encounter for screening mammogram for malignant neoplasm of breast Plan: Will send her for repeat annual screening mammogram (15) Osteoporosis screening: Code(s): Z13.820 - Encounter for screening for osteoporosis Plan: Will send her for BMD for osteoporosis screening (16) Cervical cancer screening: Code(s): Z12.4 - Encounter for screening for malignant neoplasm of cervix Plan: Patient also reports experiencing some vaginal spotting lately Will refer her to OB-[facility] Worker for annual exam and pap smear and also to evaluate her recent vaginal spotting Plan Follow up as scheduled in February 2024 Orders: Orders XR DEXA axial skeleton 01/05/24 Z78.0 - Asymptomatic menopausal state MM tomosynthesis screening BI 01/05/24 Z12.31 - Encounter for screening mammogram for malignant neoplasm of breast Referrals REFRIGERATION SERVICE INSPECTOR Referral N93.9 - Abnormal uterine and vaginal bleeding, unspecified, Z12.4 - Encounter for screening for malignant neoplasm of cervix Coding Level of Care Code Est Pt Prev Care 40-64y([id number]) Diagnoses Annual physical exam Z00.00 Pure hypercholesterolemia E78.00 Type 2 diabetes mellitus with stage 4 chronic kidney disease, with long-term current use of insulin E11.22; N18.4; Z79.4 Diabetes 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 transplanted heart: [place] heart Associated angina: without angina Diabetic polyneuropathy associated with type 2 diabetes mellitus E11.42 Diabetes mellitus type: type 2 Diabetes mellitus complication detail: diabetic polyneuropathy Dyspnea, unspecified type R06.00 Dyspnea type: unspecified Primary osteoarthritis of right knee M17.11 Lumbar degenerative disc disease M51.36 Episode of recurrent major depressive disorder, unspecified depression episode severity F33.9 Depression Type: major depressive disorder Major depression recurrence: recurrent Active/Remission status: currently active Major depression episode severity: unspecified Morbid obesity with BMI of 40.0-44.9, adult E66.01; Z68.41 Breast cancer screening by mammogram Z12.31 Osteoporosis screening Z13.820 Cervical cancer screening Z12.4
== END 2024-01-05 12:16 | disposition home or self-care (01) ==
PROVIDERS: PCP Internal Medicine; Visit Provider Internal Medicine
DX: Z00.00 Encounter for general adult medical examination without abnormal findings (principal); E11.22 Type 2 diabetes mellitus with diabetic chronic kidney disease; N18.4 Chronic kidney disease, stage 4 (severe); Z79.4 Long term (current) use of insulin; E21.3 Hyperparathyroidism, unspecified; E11.42 Type 2 diabetes mellitus with diabetic polyneuropathy; F33.9 Major depressive disorder, recurrent, unspecified; E66.01 Morbid (severe) obesity due to excess calories; Z68.41 Body mass index [BMI] 40.0-44.9, adult; E78.00 Pure hypercholesterolemia, unspecified; I12.9 Hypertensive chronic kidney disease with stage 1 through stage 4 chronic kidney disease, or unspecified chronic kidney disease; I25.10 Atherosclerotic heart disease of native coronary artery without angina pectoris
CPT/HCPCS: 99396

== ENCOUNTER 2024-01-12 15:28 | Outpatient (AMB) | payer MEDICARE, MEDICAID, SELFPAY ==
[2024-01-12 15:29] VITALS: BP 150/86; PULSE 87; O2SAT 97; BMI 42.2
--- NOTE | 2024-01-12 15:29 | HO.NEPHOV_ITS ---
Vital Signs 01/12/24 15:29 Height 5 ft 3 in Weight 238 lb BMI 42.2 BP 150/86 H Blood Pressure Location Lt brachial Position Sitting Pulse 87 Pulse Source Pulse Oximeter Pulse Oximetry (%) 97 Oxygen Delivery Method Room Air Intake Visit Reasons: 6 wks follow up/ Confirmed Accompanied by: Self / Same As Patient Allergies No Known Allergies [No Known Allergies*] Allergy (Verified 01/12/24 15:32) HPI Comments Details: Katerina is a middle-aged woman with a history of longstanding diabetes mellitus along with obesity and hypertension. She has CKD 3 with baseline creatinine from 1.5-1.6 mg/dL. Currently bumped to 2.2 She has a history of taking NSAIDs on a long-term basis. She is currently on meloxicam 7.5 mg every other day. She continues to have fatigue and she had vague chest pain recently. s/p stress test. c/o urinary incontinence Seen by Urology Blood sugar is suboptimal Still complaints of Fatigue On Maunjaro along with Lantus PFSH Medical History Hypercalcemia Secondary hyperparathyroidism Left upper arm injury Arthritis Type 2 diabetes mellitus with hyperglycemia, with long-term current use of insulin Type 2 diabetes mellitus with polyneuropathy Essential hypertension Hyperlipidemia LDL goal <70 Constipation Obesity (BMI 30-39.9) Depression Lumbar degenerative disc disease Diabetic neuropathy Primary osteoarthritis of right knee Pedal edema Chronic kidney disease, stage 4 (severe) Pure hypercholesterolemia Coronary atherosclerosis 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 Mother Diabetes Hypertension Cancer antigen 125 (CA 125) elevation Maternal Grandmother Stomach cancer Other Mental health problem Social History Household Members Other:: daughter Housing: Apartment Alcohol intake: never Patient Tobacco Use Status: Never used Tobacco e-Cigarette/Vaping Use: Never Used Second Hand Smoke Exposure: Yes service: No Current occupational status: disabled Cognitive needs: Yes (cane/walker) Hearing needs: No Vision needs: Yes (reading glasses) Physical Exam Vital Signs: Last Vital Signs Pulse 87 01/12/24 15:29 BP 150/86 H 01/12/24 15:29 Pulse Ox 97 01/12/24 15:29 Oxygen Delivery Method Room Air 01/12/24 15:29 BMI result Body Mass Index 42.2 Const General: comfortable Nutritional Appearance: well nourished Orientation/consciousness: patient oriented x3 HEENT Head: No normal to inspection Mouth: moist mucous membranes Neck Neck: Yes supple and Yes no JVD Resp Auscultation: clear to auscultation bilaterally, no rales and rub present Cardio Jugular venous distension: no JVD Palpation: no palpable S3 and no palpable S4 Heart sounds: no rubs GI Palpation (GI): Soft to palpation and nontender Percussion: No Fluid wave present General: Yes no CVA tenderness Back/Spine/Pelvis Back: no CVA tenderness Skin General skin exam: no rashes or lesions noted Neuro General: patient oriented x3 Extrem General: No clubbing Right upper extremity: edema Results Reviewed Nephrology Results: Hgb 12.3 g/dl (12.0-16.0) 12/06/23 WBC 6.7 X10*3/uL (4.8-10.8) 12/06/23 Plt Count 183 X10*3/uL (160-400) 12/06/23 Sodium 141 mmol/L (135-145) 12/06/23 Potassium 4.2 mmol/L (3.3-5.1) 12/06/23 Chloride 104 mmol/L (96-108) 12/06/23 Carbon Dioxide 26 mmol/L (22-29) 12/06/23 BUN 46 mg/dL (9-16) H 12/06/23 Creatinine 2.20 mg/dL (0.5-1.4) H 12/06/23 Calcium 10.2 mg/dL (8.4-10.2) 12/06/23 Phosphorus 4.6 mg/dL (2.7-4.5) H 12/06/23 PTH Intact 214.1 pg/mL (8.7-77.1) H 12/06/23 Urine Creatinine 118.46 mg/dL 12/06/23 Assessment & Plan Assessment & Plan (1) Type 2 diabetes mellitus with diabetic chronic kidney disease: Code(s): E11.22 - Type 2 diabetes mellitus with diabetic chronic kidney disease Category: Medical Qualifiers: Diabetes mellitus mcc insulin use: with mcc use Chronic kidney disease stage: stage 4 (severe) Qualified Code(s): E11.22 - Type 2 joan betes mellitus with diabetic chronic kidney disease; N18.4 - Chronic kidney disease, stage 4 (severe); Z79.4 - superintendent container terminal (current) use of insulin Plan: Goals is to keep A1C < 7% Discussed weight loss. (2) Essential hypertension: Code(s): I10 - Essential (primary) hypertension Category: Medical Plan: BP remains suboptimal Increase carvedilol 12.5 mg BID Discussed importance of low-sodium diet. (3) Anemia: Code(s): D64.9 - Anemia, unspecified Category: Medical Plan: Mild. No indication for Epogen. (4) Chronic kidney disease, stage 4 (severe): Code(s): N18.4 - Chronic kidney disease, stage 4 (severe) Category: Medical (5) Secondary hyperparathyroidism: Code(s): N25.81 - Secondary hyperparathyroidism of renal origin Category: Medical Plan: On Cinacalcet Repeat PTH/Ca ordered Plan Refer to for PVD screening Orders: Orders Parathyroid Hormone Intact 2 Weeks N18.4 - Chronic kidney disease, stage 4 (severe) Complete Blood Count Auto Diff 2 Weeks N18.30 - Chronic kidney disease, stage 3 unspecified, N18.4 - Chronic kidney disease, stage 4 (severe) Basic Metabolic Panel 2 Weeks N18.4 - Chronic kidney disease, stage 4 (severe) Referrals Vascular Surgery Referral E11.22 - Type 2 diabetes mellitus with diabetic chronic kidney disease, N18.4 - Chronic kidney disease, stage 4 (severe), Z79.4 - superintendent container terminal (current) use of insulin Medications: Changed From carvedilol must administer with a meal/food 6.25 mg PO BID 90 days 180 tabs 3RF To carvedilol must administer with a meal/food 12.5 mg PO BID 90 days 180 tabs 3RF Coding Level of Care Code Est Pt Level 4 (43352) Diagnoses Type 2 diabetes mellitus with stage 4 chronic kidney disease, with long-term current use of insulin E11.22; N18.4; Z79.4 Diabetes mellitus mcc insulin use: with keno terminal operator use Chronic kidney disease stage: stage 4 (severe) Essential hypertension I10 Anemia D64.9 Chronic kidney disease, stage 4 (severe) N18.4 Secondary hyperparathyroidism N25.81
== END 2024-01-12 15:55 | disposition home or self-care (01) ==
LOC: HO.HKA 15:28
PROVIDERS: PCP Internal Medicine; Visit Provider Internal Medicine Hypertension Specialist
DX: E11.22 Type 2 diabetes mellitus with diabetic chronic kidney disease (principal); N18.4 Chronic kidney disease, stage 4 (severe); Z79.4 Long term (current) use of insulin; I12.9 Hypertensive chronic kidney disease with stage 1 through stage 4 chronic kidney disease, or unspecified chronic kidney disease; D64.9 Anemia, unspecified; N25.81 Secondary hyperparathyroidism of renal origin
CPT/HCPCS: 99214

== ENCOUNTER → 2024-01-12 15:28 | Outpatient (BNVA) | payer MEDICARE, MEDICAID, SELFPAY | PROVIDERS: PCP Internal Medicine; Visit Provider Internal Medicine Hypertension Specialist | DX: E11.22 Type 2 diabetes mellitus with diabetic chronic kidney disease (principal); I12.9 Hypertensive chronic kidney disease with stage 1 through stage 4 chronic kidney disease, or unspecified chronic kidney disease; N18.4 Chronic kidney disease, stage 4 (severe); N25.81 Secondary hyperparathyroidism of renal origin; D64.9 Anemia, unspecified; Z79.4 Long term (current) use of insulin | CPT/HCPCS: 99212 ==

== ENCOUNTER 2024-01-18 13:36 | Outpatient (AMB) | payer MEDICARE, MEDICAID, SELFPAY ==
--- NOTE | 2024-01-18 13:36 | A.OFFVIS_ITS ---
Intake Visit Reasons: 6 week follow up Intake Note: Patient presents for tele visit follow up for urge incontinence Urology Medications: Myrbetriq Blood Thinner: aspirin Fitter Placer Required: No Accompanied by: Self / Same As Patient Allergies No Known Allergies [No Known Allergies*] Allergy (Verified 01/18/24 13:51) Medication List - Last Reconciled 01/18/24 by SHIV Ordaz acetaminophen 500 mg PO ONCE PRN aspirin (Adult Low Dose Aspirin) 81 mg PO DAILY blood pressure monitor As directed blood sugar diagnostic (Accu-Chek Brenda Plus test strips) Tests 4 X/day blood-glucose meter (Accu-Chek Brenda Plus Meter) 3x/day carvedilol 12.5 mg PO BID 90 days cinacalcet (Sensipar) 30 mg PO DAILY citalopram 10 mg PO DAILY 90 days diaper,brief,adult,disposable (Select Disposable Briefs) as directed, 4 daily ezetimibe 10 mg PO QAM flash glucose scanning reader (FreeStyle Allison 2 Goodman) As directed flash glucose sensor (FreeStyle Allison 2 Sensor kit) As directed change every 14 days furosemide 40 mg PO QAM gabapentin 100 mg PO BEDTIME 90 days glucagon 3 mg/actuation (Baqsimi) 3 mg intranasal ONCE insulin glargine (Lantus Solostar U-100 Insulin) 18 units (0.18 mL) subcut QPM insulin lispro (Humalog KwikPen (U-100) Insulin) 12 - 16 units (0.12 - 0.16 mL) subcut QID lancets (Accu-Chek Softclix Lancets) three times a day linaclotide 72 mcg PO DAILY losartan 100 mg PO DAILY meloxicam 7.5 mg PO DAILY PRN 90 days mirabegron ER (Myrbetriq) 50 mg (2 x 25 mg) PO DAILY 90 days nortriptyline 50 mg PO BEDTIME 90 days pen needle, diabetic (BD Ultra-Fine Micro Pen Needle) 1 ea subcut TID pen needle, diabetic (BD Annia 2nd Gen Pen Needle) USE 1 PEN NEEDLE SIX TIMES DAILY rosuvastatin 5 mg PO DAILY 30 days tirzepatide (Mounjaro) 2.5 mg (0.5 mL) subcut QWEEK underpads As directed, 2 per night HPI Comments Details: Katerina is a very pleasant 63-year-old female patient of . She has a past medical history of type 2 diabetes, hypertension, hyperlipidemia, constipation, obesity, depression, diabetic neuropathy, osteoarthritis, chronic kidney disease stage 4, and coronary atherosclerosis. She is being followed up on today via video telehealth for her mixed urinary incontinence. Of note, during last office visit approximately 6 weeks ago at which time she was started on Myrbetriq 25 mg daily. In discussion with the patient today she reports feeling it has been extremely helpful however only last approximately 10 hours. She discusses on days that she has appointments she will take the medication in the morning however then at night feels symptoms have returned. Previous workup has included a retroperitoneal ultrasound noting bilateral kidneys with no calculi or hydronephrosis. Bilateral appearing renal cysts that require no imaging follow-up recommended per radiology report. The bladder is well distended and normal. Bilateral ureteral jets are demonstrated. Pre void bladder volume is approximately 545 mL. Postvoid bladder volume is approximately 0 mL. During last office visit patient was referred to pelvic floor therapy however has not yet started. In discussion with the patient today she reports to be doing and feeling well. She reports having recently followed up with cardiology regarding her stress testing which was told everything was normal. She discusses feeling happy that her cardiac workup has been essentially negative. She discusses following up with Neurology and Nephrology. She denies hematuria, dysuria, foul smelling urine, changes to urinary stream, flank pain, fever, and or chills. Discussed at length potential causes for lower urinary tract symptoms patient has been experiencing. Discussed possible near future in office urodynamics and or cystoscopy for further assessment evaluation. Discussed bladder triggers/irritants. Discussed at length importance of managing diabetes for improvement lower urinary tract symptoms in correlation of diabetes and the bladder. She otherwise offers no issues or concerns. 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 Mother Diabetes Hypertension Cancer antigen 125 (CA 125) elevation Maternal Grandmother Stomach cancer Other Mental health problem Social History Household Members Other:: daughter Housing: Apartment Alcohol intake: never Patient Tobacco Use Status: Never used Tobacco e-Cigarette/Vaping Use: Never Used Second Hand Smoke Exposure: Yes service: No Current occupational status: disabled Cognitive needs: Yes (cane/walker) Hearing needs: No Vision needs: Yes (reading glasses) Review of Systems Const Reports as per HPI Eyes Reports no additional complaints ENT Reports no additional complaints Card Reports as per HPI Resp Reports no additional complaints GI Reports as per HPI Reports as per HPI Musc Reports as per HPI Neuro Reports as per HPI Psych Reports as per HPI Physical Exam Const General: cooperative, healthy appearing, comfortable, no acute distress, well developed, alert and awake Orientation/consciousness: patient oriented x3 Resp Effort & Inspection: normal respiratory effort and able to speak in complete sentences Neuro General: patient oriented x3 Psych Appearance: grossly normal and well kempt Mental Status: mental status grossly normal Speech and movement: Clear speech present Affect: normal affect Attitude: cooperative Thought process: Normal thought process present Thought content: Normal thought content present Insight: Fair insight present (Psych) Judgement: Fair judgement present (Psych) Telehealth Telehealth Telehealth Platform: [facility] Location of provider rendering services: practice address Location of patient: address on file Patient Identification confirmed using: Name, : Yes Telehealth method: video Patient verbally consented to treatment: Yes Patient verbally consented to billing insurance company: Yes Patient informed of any privacy concerns related to visit: Yes Minutes spent on Phone/Video with Pt.: 15 Assessment & Plan Assessment & Plan (1) Mixed stress and urge urinary incontinence: Code(s): N39.46 - Mixed incontinence Category: Medical (2) Urge incontinence: Code(s): N39.41 - Urge incontinence Category: Medical Plan Continue to follow-up with pelvic floor therapy for initiation of therapy. Discussed bladder triggers/irritants. Continue Myrbetriq; however will increase to 50 mg daily. Discussed at length potential causes for lower urinary tract symptoms patient is experiencing. Discussed importance of timed/scheduled voiding to assist with decreasing episodes of urinary incontinence given patient's decreased mobility. Discussed at length importance of managing diabetes for improvement in lower uri nary tract symptoms as well as overall health and well-being. Discussed possible near future in office cystoscopy and or urodynamics for further assessment evaluation if symptoms persist and/or worsen Follow-up in 1-2 months or sooner with any issues, concerns, and or questions. Medications: Changed From mirabegron ER (Myrbetriq) 25 mg PO DAILY 30 tabs 3RF 30 days N30.10 - Interstitial cystitis (chronic) without hematuria, N32.81 - Overactive bladder, R35.1 - Nocturia, R39.15 - Urgency of urination To mirabegron ER (Myrbetriq) 50 mg (2 x 25 mg) PO DAILY 180 tabs 0RF 90 days N30.10 - Interstitial cystitis (chronic) without hematuria, N32.81 - Overactive bladder, R35.1 - Nocturia, R39.15 - Urgency of urination Patient Instructions: The patient had an opportunity to ask questions regarding the treatment plan. All questions were answered. Physical exam, labs, and imaging were discussed and reviewed in detail. As well as risks, benefits, and discussion of treatment choices. No major barriers to understanding were identified. The patient expressed understanding and agreement with the above treatment plan. The patient was made aware they should contact our office by phone for worsening of their current condition, the appearance of new symptoms, or with any questions or concerns. Compliance is encouraged with any medications and follow up testing that is ordered. It is a privilege to be allowed the opportunity to participate in? your urological care.? Again, if you have any questions or concerns If you have any questions or concerns please do not hesitate to contact me. The office is [phone]. This note is constructed using voice recognition software. While every effort has been made to ensure accuracy cook frozen dessert errors may have been included. Yours sincerely, Constanza Deshpande, COMPUTER METHODS ANALYST-BC Coding Level of Care Code Tele Est Pt Level 3 (74473) Diagnoses Mixed stress and urge urinary incontinence N39.46 Urge incontinence N39.41
== END 2024-01-18 14:18 | disposition home or self-care (01) ==
LOC: HO.HUSH 13:36
PROVIDERS: PCP Internal Medicine; Visit Provider Nurse Practitioner Family
DX: N39.46 Mixed incontinence (principal); N39.41 Urge incontinence
CPT/HCPCS: 99213

== ENCOUNTER → 2024-01-18 13:36 | Outpatient (BNVA) | payer MEDICARE, MEDICAID, SELFPAY | PROVIDERS: PCP Internal Medicine; Visit Provider Nurse Practitioner Family ==

== ENCOUNTER 2024-02-08 13:18 | Outpatient (REF) | payer MEDICARE, MEDICAID, SELFPAY ==
--- NOTE | ~2024-02-08 | MM_ITS ---
EXAMINATION: BONE DENSITOMETRY CLINICAL INDICATION: Asymptomatic menopausal state. COMPARISON: This is the patient's baseline examination. TECHNIQUE: Using a Team[employer]KS DXA System (software version: 13.1) manufactured by [employer], dual-energy x-ray absorptiometry was performed of the lumbar spine and left hip. The images are of good technical quality. Summary results are attached. FINDINGS: LEFT FEMUR, NECK: BMD 0.687 g/cm2, Z-score -2.8, T-score -2.5, osteoporosis. LEFT FEMUR, TOTAL: BMD 0.929 g/cm2, Z-score -1.3, T-score -0.6, normal. AP SPINE L1-L4: BMD 1.447 g/cm2, Z-score 1.9, T-score 2.2, normal. IDENTIFIED RISK FACTORS: Hysterectomy, menopause, renal. HISTORY OF FRACTURE: None listed. MEDICATIONS: Calcium. MM/XR DEXA axial skeleton IMPRESSION: 1. DIAGNOSIS: Osteoporosis based on the lowest T-score value of -2.5 in the femoral neck applying World Health Organization criteria. 2. 10-YEAR FRACTURE RISK PREDICTION, FRAX: According to the guidelines, FRAX calculation should only be performed on patients in the osteopenia bone density category. Therefore, FRAX was not performed on this patient.? 3. Treatment Recommendations: NOF guidelines recommend consideration for treatment in postmenopausal women and men age 50 and older presenting with the following: -A hip or vertebral (clinical or morphometric) fracture. -T-score less than or equal to -2.5 at the femoral neck or spine after appropriate evaluation to exclude secondary causes. -Low bone mass at the hip or spine and a 10-year fracture probability by FRAX of greater than or equal to 3% for hip fracture or greater than or equal to 20% for major osteoporotic fracture based on the [place] adapted WHO algorithm. 4. Other Recommendations: All treatment decisions require clinical judgment and consideration of individual patient factors, including patient preferences, comorbidities, previous drug use, risk factors not captured in the FRAX model (e.g. frailty, falls, vitamin D deficiency, increased bone turnover, interval significant decline in bone density) and possible under or overestimation of fracture risk by FRAX. Additional medical evaluation for secondary cause of low bone mineral density may be appropriate. FUTURE SCAN RECOMMENDATION: People with diagnosed cases of osteoporosis or at high risk for fracture should have regular bone mineral density tests. For patients eligible for Medicare, routine testing is allowed once every 2 years. The testing frequency can be increased to one year for patients who have rapidly progressing disease, those who are receiving or discontinuing medical therapy to restore bone mass, or have additional risk factors.
--- NOTE | ~2024-02-08 | MM_ITS ---
EXAMINATION: MM SCREENING DIGITAL BREAST TOMOSYNTHESIS, BILATERAL CLINICAL INFORMATION: Screening. Asymptomatic. COMPARISON: Mammography: This study is compared with prior exams dating back to 2017. TECHNIQUE: Digital breast tomosynthesis is performed in both the craniocaudal and mediolateral oblique views along with computer-aided detection (CAD). Synthesized 2D images are generated from the tomosynthesis. FINDINGS: There are scattered areas of fibroglandular density (ACR BI-RADS breast composition Category b). There are no significant masses, abnormal calcifications, or other abnormalities. There are benign calcifications in the left breast. MM/MM tomosynthesis screening BI IMPRESSION: No mammographic evidence of malignancy. ASSESSMENT: BI-RADS BI-RADS 2 - Benign Findings RECOMMENDATION: Routine annual mammography screening. 1 year F/U This examination should not preclude the clinical evaluation of a suspicious palpable abnormality. This patient's information was entered into a reminder system with a target due date for their next mammogram.
== END 2024-02-08 13:19 | disposition home or self-care (01) ==
LOC: HO.MAMMO 13:18
PROVIDERS: PCP Internal Medicine; Visit Provider Internal Medicine
DX: Z12.31 Encounter for screening mammogram for malignant neoplasm of breast (principal); Z13.820 Encounter for screening for osteoporosis; Z78.0 Asymptomatic menopausal state
CPT/HCPCS: 77063; 77067; 77080

== ENCOUNTER → 2024-02-08 13:30 | Outpatient (BNV) | payer MEDICARE, MEDICAID, SELFPAY | PROVIDERS: PCP Internal Medicine; Visit Provider Radiology Diagnostic Radiology | DX: Z12.31 Encounter for screening mammogram for malignant neoplasm of breast (principal) | CPT/HCPCS: 77063; 77067 ==

== ENCOUNTER 2024-02-23 11:21 | Outpatient (AMB) | payer MEDICARE, MEDICAID, SELFPAY ==
--- NOTE | 2024-02-23 11:25 | MHC.OFFVIS ---
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 Pt states podiatry stated decreased pedal pulses. Pt has neuropathy and has difficulty walking. 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 She has a longstanding history of diabetes and obesity. She is being seen by Nephrology for CKD 3. Upon discussion with her she does have lower back pain issues and does have a known history of neuropathy as well. She notes that she can walk about a block does require the use of a cane for balance. She notes that she does have discomfort left more so than right. She also experiences a fair amount of swelling on that left leg as well. She now presents to us for vascular evaluation. FORMERLY [facility], [facility]–1983 Medical History Hypercalcemia Secondary hyperparathyroidism Left upper arm injury Arthritis Type 2 diabetes mellitus with hyperglycemia, with long-term current use of insulin Type 2 diabetes mellitus with polyneuropathy Essential hypertension Hyperlipidemia LDL goal <70 Constipation Obesity (BMI 30-39.9) Depression Lumbar degenerative disc disease Diabetic neuropathy Primary osteoarthritis of right knee Pedal edema Chronic kidney disease, stage 4 (severe) Pure hypercholesterolemia Coronary atherosclerosis FDC (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 Mother Diabetes Hypertension Cancer antigen 125 (CA 125) elevation Maternal Grandmother Stomach cancer Other Mental health problem Social History Household Members Other:: daughter Housing: Apartment Alcohol intake: never Patient Tobacco Use Status: Never used Tobacco e-Cigarette/Vaping Use: Never Used Second Hand Smoke Exposure: Yes service: No Current occupational status: disabled Cognitive needs: Yes (cane/walker) Hearing needs: No Vision needs: Yes (reading glasses) Review of Systems Const All systems reviewed & are unremarkable except as noted in HPI and below Reports no additional complaints ENT Reports Normal hearing present Card Denies chest pain, Denies chest pain at rest, Denies chest pain with activity and Denies pedal edema Resp Denies cough GI Denies abdominal pain Musc Denies abnormal gait, Denies muscle cramps and Denies radiating pain into limb Skin/Breast Denies skin ulcer and Denies wounds Neuro Reports Normal hearing present and Denies abnormal gait Psych Reports no additional complaints Physical Exam Vital Signs: BMI result Body Mass Index 42.2 Const General: cooperative, healthy appearing and comfortable Orientation/consciousness: oriented to person, oriented to place and oriented to time HEENT Head: Yes normal to inspection Neck Neck: Yes normal visual inspection Carotids: no bruits Chest Chest palpation & inspection: normal inspection of the chest Resp Effort & Inspection: normal respiratory effort and able to speak in complete sentences Auscultation: clear to auscultation bilaterally, no crackles, no rales, no rhonchi and no wheezes Cardio Other: Right palpable DP, left DP signal only Rate: regular rate Rhythm: regular rhythm Heart sounds: S1 normal heart sound present and S2 normal heart sound present Bruits: no carotid bruits Peripheral pulses: Peripheral pulses 2+ throughout GI Inspection: Yes normal to inspection Skin Wounds: no wounds Hair: normal Neuro General: oriented to person, oriented to place and oriented to time Cranial nerves: Yes CN's II-XII intact bilaterally and Yes Normal hearing present Cognition (Neuro): normal cognition Motor exam (neuro): 5/5 motor strength present throughout Extrem Other: venous exam: No significant superficial varicosities or spider telangiectasias, minimal edema General: No clubbing, No cyanosis and No edema Psych Appearance: grossly normal Mental Status: mental status grossly normal Speech and movement: Normal speech and movement present Assessment & Plan Assessment & Plan (1) PAD (peripheral artery disease): Code(s): I73.9 - Peripheral vascular disease, unspecified Category: Medical Plan: In short the patient may have an element of PA D especially with her long history of diabetes. I did review the pathophysiology of peripheral vascular disease with the patient. In addition we did discuss routine conservative measures including a healthy diet and the importance of exercise and ambulation. We did discuss risk factor modification. I have taken the liberty of ordering noninvasive arterial ultrasound. Thank you for allowing us to participate in this patient's care. If there are any questions or concerns please do not hesitate to contact us. (2) Varicose veins of right lower extremity with inflammation: Code(s): I83.11 - Varicose veins of right lower extremity with inflammation Category: Medical Plan: I also appreciate some swelling of the left lower extremity. We will workup her arterial status 1st. Her lower extremity swelling may be secondary to her CKD but may have venous insufficiency component to this. She will follow up with us after arterial testing. Thank you for allowing us to assist in her care. Orders: Orders US arterial duplex LE BI 1 Week I73.9 - Peripheral vascular disease, unspecified Coding Level of Care Code Est Pt Level 4 (71094) Diagnoses PAD (peripheral artery disease) I73.9 Varicose veins of right lower extremity with inflammation I83.11
[2024-02-23 11:28] VITALS: BMI 42.2
== END 2024-02-23 12:10 | disposition home or self-care (01) ==
PROVIDERS: PCP Internal Medicine; Visit Provider Surgery Vascular Surgery
DX: I73.9 Peripheral vascular disease, unspecified (principal); I83.11 Varicose veins of right lower extremity with inflammation
CPT/HCPCS: 99213

== ENCOUNTER → 2024-02-23 11:21 | Outpatient (BNVA) | payer MEDICARE, MEDICAID, SELFPAY | PROVIDERS: PCP Internal Medicine; Visit Provider Surgery Vascular Surgery | DX: I73.9 Peripheral vascular disease, unspecified (principal); I83.11 Varicose veins of right lower extremity with inflammation | CPT/HCPCS: 99212 ==

== ENCOUNTER 2024-03-08 15:31 | Outpatient (AMB) | payer MEDICARE, MEDICAID, SELFPAY ==
--- NOTE | 2024-03-08 15:32 | A.OFFVIS_ITS ---
Intake Visit Reasons: 2 month f/u Intake Note: Patient presents for follow up visit on: urge incontinence Urology Medications: Myrbetriq (patient stated not working) Blood Thinner: aspirin Convertible Top Installer Required: No Accompanied by: Self / Same As Patient Allergies No Known Allergies [No Known Allergies*] Allergy (Verified 03/08/24 17:41) Medication List - Last Reconciled 03/08/24 by SHIV Ordaz acetaminophen 500 mg PO ONCE PRN aspirin (Adult Low Dose Aspirin) 81 mg PO DAILY [bath seat As directed] blood pressure monitor As directed blood sugar diagnostic (Accu-Chek Brenda Plus test strips) Tests 4 X/day blood-glucose meter (Accu-Chek Brenda Plus Meter) 3x/day carvedilol 12.5 mg PO BID 90 days cinacalcet 30 mg PO QAM citalopram 10 mg PO DAILY 90 days diaper,brief,adult,disposable (Select Disposable Briefs) as directed, 4 daily ezetimibe 10 mg PO QAM flash glucose scanning reader (AnagearStyle Allison 2 Sanders) As directed flash glucose sensor (FreeStyle Allison 2 Sensor kit) As directed change every 14 days furosemide 40 mg PO QAM gabapentin 100 mg PO BEDTIME 90 days glucagon 3 mg/actuation (Baqsimi) 3 mg intranasal ONCE insulin glargine (Lantus Solostar U-100 Insulin) 18 units (0.18 mL) subcut QPM insulin lispro (Humalog KwikPen (U-100) Insulin) 12 - 16 units (0.12 - 0.16 mL) subcut QID lancets (Accu-Chek Softclix Lancets) three times a day linaclotide 72 mcg PO DAILY losartan 100 mg PO DAILY meloxicam 7.5 mg PO DAILY PRN 90 days nortriptyline 50 mg PO BEDTIME 90 days pen needle, diabetic (BD Ultra-Fine Micro Pen Needle) 1 ea subcut TID pen needle, diabetic (BD Annia 2nd Gen Pen Needle) USE 1 PEN NEEDLE SIX TIMES DAILY rosuvastatin 5 mg PO DAILY 30 days tirzepatide (Mounjaro) 2.5 mg (0.5 mL) subcut QWEEK underpads As directed, 2 per night vibegron (Gemtesa) 75 mg PO DAILY 30 days HPI Comments Details: Katerina is a very pleasant 63-year-old female patient of . She has a past medical history of type 2 diabetes, hypertension, hyperlipidemia, constipation, obesity, depression, diabetic neuropathy, osteoarthritis, chronic kidney disease stage 4, and coronary atherosclerosis. She is being followed up on today via video telehealth for her mixed urinary incontinence. In discussion with the patient today she reports noting no improvement in lower urinary tract symptoms despite 25 mg of Myrbetriq as well as 50 mg of Myrbetriq daily. She continues to report urinary urgency, urinary frequency, and mixed urinary incontinence. She otherwise denies hematuria, dysuria, foul smelling urine, changes to urinary stream, flank pain, fever, and or chills. She discusses having sent a portal message earlier this morning as she has a friend who has InterStim and has had success and is enquiring if this will work for her. Discussed at length further treatment options for lower urinary tract symptoms patient is experiencing. Discussed in office urodynamics for further assessment evaluation. Previous workup has included a retroperitoneal ultrasound noting bilateral kidneys with no calculi or hydronephrosis. Bilateral appearing renal cysts that require no imaging follow-up recommended per radiology report. The bladder is well distended and normal. Bilateral ureteral jets are demonstrated. Pre void bladder volume is approximately 545 mL. Postvoid bladder volume is a pproximately 0 mL. During last office visit patient was referred to pelvic floor therapy however has not yet started. Discussed bladder triggers/irritants. Discussed at length importance of managing diabetes for improvement lower urinary tract symptoms in correlation of diabetes and the bladder. She otherwise offers no issues or concerns. [facility] Medical History Hypercalcemia Secondary hyperparathyroidism Left upper arm injury Arthritis Type 2 diabetes mellitus with hyperglycemia, with long-term current use of insulin Type 2 diabetes mellitus with polyneuropathy Essential hypertension Hyperlipidemia LDL goal <70 Constipation Obesity (BMI 30-39.9) Depression Lumbar degenerative disc disease Diabetic neuropathy Primary osteoarthritis of right knee Pedal edema Chronic kidney disease, stage 4 (severe) Pure hypercholesterolemia Coronary atherosclerosis FDC (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 Mother Diabetes Hypertension Cancer antigen 125 (CA 125) elevation Maternal Grandmother Stomach cancer Other Mental health problem Social History Household Members Other:: daughter Housing: Apartment Alcohol intake: never Patient Tobacco Use Status: Never used Tobacco e-Cigarette/Vaping Use: Never Used Second Hand Smoke Exposure: Yes service: No Current occupational status: disabled Cognitive needs: Yes (cane/walker) Hearing needs: No Vision needs: Yes (reading glasses) Review of Systems Const Reports as per HPI Eyes Reports no additional complaints ENT Reports no additional complaints Card Reports as per HPI Resp Reports no additional complaints GI Reports as per HPI Reports as per HPI Musc Reports as per HPI Neuro Reports as per HPI Psych Reports as per HPI Physical Exam Const General: cooperative, healthy appearing, comfortable, no acute distress, well developed, alert and awake Orientation/consciousness: patient oriented x3 Resp Effort & Inspection: normal respiratory effort and able to speak in complete sen tences Neuro General: patient oriented x3 Psych Appearance: grossly normal and well kempt Mental Status: mental status grossly normal Speech and movement: Clear speech present Affect: normal affect Attitude: cooperative Thought process: Normal thought process present Thought content: Normal thought content present Insight: Fair insight present (Psych) Judgement: Fair judgement present (Psych) Telehealth Telehealth Telehealth Platform: [facility] Location of provider rendering services: practice address Location of patient: address on file Patient Identification confirmed using: Name, : Yes Telehealth method: video Patient verbally consented to treatment: Yes Patient verbally consented to billing insurance company: Yes Patient informed of any privacy concerns related to visit: Yes Minutes spent on Phone/Video with Pt.: 20 Assessment & Plan Assessment & Plan (1) Mixed stress and urge urinary incontinence: Code(s): N39.46 - Mixed incontinence Category: Medical (2) Urge incontinence: Code(s): N39.41 - Urge incontinence Category: Medical Plan Continue to follow-up with pelvic floor therapy for initiation of therapy. Discussed bladder triggers/irritants. Stop Myrbetriq Start Gemtesa 75 mg daily. Discussed at length potential causes for lower urinary tract symptoms patient is experiencing. Discussed importance of timed/scheduled voiding to assist with decreasing episodes of urinary incontinence given patient's decreased mobility. Discussed at length importance of managing diabetes for improvement in lower urinary tract symptoms as well as overall health and well-being. Discussed possible near future in office cystoscopy and or urodynamics for further assessment evaluation if symptoms persist and/or worsen Follow-up in 1-2 months or sooner with any issues, concerns, and or questions. Medications: New vibegron (Gemtesa) 75 mg PO DAILY 30 tabs 2RF 30 days N32.81 - Overactive bladder Discontinued mirabegron ER (Myrbetriq) Discontinued Reason: Doctor's Order 50 mg (2 x 25 mg) PO DAILY 90 days 180 tabs 0RF N30.10 - Interstitial cystitis (chronic) without hematuria, N32.81 - Overactive bladder, R35.1 - Nocturia, R39.15 - Urgency of urination Patient Instructions: The patient had an opportunity to ask questions regarding the treatment plan. All questions were answered. Physical exam, labs, and imaging were discussed and reviewed in detail. As well as risks, benefits, and discussion of treatment choices. No major barriers to understanding were identified. The patient expressed understanding and agreement with the above treatment plan. The patient was made aware they should contact our office by phone for worsening of their current condition, the appearance of new symptoms, or with any questions or concerns. Compliance is encouraged with any medications and follow up testing that is ordered. It is a privilege to be allowed the opportunity to participate in? your urological care.? Again, if you have any questions or concerns If you have any questions or concerns please do not hesitate to contact me. The office is [phone]. This note is constructed using voice recognition software. While every effort h as been made to ensure accuracy donor recruiter errors may have been included. Yours sincerely, SHIV Ordaz Coding Level of Care Code Tele Est Pt Level 4 (28940) Diagnoses Mixed stress and urge urinary incontinence N39.46 Urge incontinence N39.41
== END 2024-03-08 15:58 | disposition home or self-care (01) ==
LOC: HO.HUSH 15:31
PROVIDERS: PCP Internal Medicine; Visit Provider Nurse Practitioner Family
DX: N39.46 Mixed incontinence (principal); N39.41 Urge incontinence
CPT/HCPCS: 99214

== ENCOUNTER → 2024-03-08 15:31 | Outpatient (BNVA) | payer MEDICARE, MEDICAID, SELFPAY | PROVIDERS: PCP Internal Medicine; Visit Provider Nurse Practitioner Family ==

== ENCOUNTER 2024-03-15 13:04 | Outpatient (REF) | payer MEDICARE, MEDICAID, SELFPAY ==
--- NOTE | ~2024-03-15 | US_ITS ---
EXAMINATION: Noninvasive assessment of the bilateral lower extremities with ARTERIAL DUPLEX and ANKLE BRACHIAL INDICES (ABIs). CLINICAL INFORMATION: Peripheral vascular disease, history of hypertension, hyperlipidemia and diabetes mellitus TECHNIQUE: Duplex Doppler techniques with waveform analysis and measurement of velocities in the bilateral common femoral, profunda femoris, superficial femoral, popliteal and tibial arteries were performed. Additionally, ankle pulse volume recordings, ankle pressure measurements and ankle brachial indices were obtained of the lower extremity arterial system bilaterally. The study was performed only at rest. COMPARISON: None FINDINGS: DIRECT DUPLEX DOPPLER FINDINGS: RIGHT LEG: Common femoral artery: 129 cm/s, phasicity: Triphasic Profunda femoris artery: 116 cm/s, phasicity: Triphasic Superficial femoral artery (proximal): 93.1 cm/s, phasicity: Triphasic Superficial femoral artery (mid): 84.5 cm/s, phasicity: Triphasic Superficial femoral artery (distal): 106 cm/s, phasicity: Triphasic Popliteal artery: 104 cm/s, phasicity: Triphasic Posterior tibial artery: 85.3 cm/s, phasicity: Biphasic Peroneal artery: Not visualized Anterior tibial artery: 72.5 cm/s, phasicity: Triphasic Dorsalis pedis artery: 61.5 cm/s, phasicity:Triphasic Incidental note made of a Andrade's cyst in the popliteal fossa measuring 6.2 x 1.5 x 2.1 cm LEFT LEG: Common femoral artery: 152 cm/s, phasicity: Triphasic Profunda femoris artery: 150 cm/s, phasicity: Biphasic Superficial femoral artery (proximal): 169 cm/s, phasicity: Triphasic Superficial femoral artery (mid): 96.5 cm/s, phasicity: Triphasic Superficial femoral artery (distal): 83.4 cm/s, phasicity: Triphasic Popliteal artery: 66.8 cm/s, phasicity: Biphasic Posterior tibial artery: 81.6 cm/s, phasicity: Biphasic Peroneal artery: Not visualized Anterior tibial artery: 44.6 cm/s, phasicity: Triphasic Dorsalis pedis artery: 26.8 cm/s, phasicity: Monophasic Incidental note made of a Andrade's cyst in the popliteal fossa measuring 5.2 x 1.0 x 1.7 cm ANKLE-BRACHIAL INDEX: Right: 1.19? Left: 1.19 ANKLE PRESSURES: Right: PT 200, DP 200 Left: PT?200, DP?200 ANKLE PVR WAVEFORMS: Right: Abnormal Left: Abnormal US/US arterial duplex LE BI IMPRESSION: Right leg: Normal ankle brachial index with mildly dampened PVR waveform. Patent arterial flow in the right lower extremity with diffuse atherosclerotic plaque but no significant stenosis Left leg: Normal ankle brachial index with mildly dampened PVR waveform. Patent arterial flow in the left lower extremity with diffuse atherosclerotic plaque but no significant stenosis CRISTEL Reference: - >1.4 = calcified vessels - 0.9 - 1.4 = normal - no significant arterial disease - 0.7 - 0.89 = mild peripheral arterial disease - 0.51 - 0.69 = moderate peripheral arterial disease - ? 0.50 = severe peripheral arterial disease - < .30 = critical arterial disease
== END 2024-03-15 13:05 | disposition home or self-care (01) ==
LOC: HO.US 13:04
PROVIDERS: PCP Internal Medicine; Visit Provider Surgery Vascular Surgery
DX: I73.9 Peripheral vascular disease, unspecified (principal)
CPT/HCPCS: 93925

== ENCOUNTER 2024-03-21 07:25 | Outpatient (REF) | payer MEDICARE, MEDICAID, SELFPAY ==
[2024-03-21 07:45] LABS: MANUAL DIFF FLAG NO
[2024-03-21 08:17] LABS: Basophils Percent Auto 0.9 % (0-2); Eosinophils Percent Auto 0.2 % (0-4); Hematocrit 33.8 % (37.0-47.0); Hemoglobin 11.3 g/dl (12.0-16.0); Imm Gran Abs Auto 0.01 X10*3/uL (0.00-0.03); Imm Gran Pct Auto 0.2 % (0.0-0.4); Lymphocytes Absolute Auto 1.3 X10*3/uL (1.2-4.9); Lymphocytes Percent Auto 29.5 % (20-40); Mean Corpuscular HGB Conc 33.4 g/dl (31.0-35.0); Mean Corpuscular Volume 86.7 fL (80.0-98.0); Mean Platelet Volume 10.1 fL (9.4-12.3); Monocytes Absolute Auto 0.5 X10*3/uL (0.1-1.2); Monocytes Percent Auto 11.6 % (2-11); Neutrophils Absolute Auto 2.6 x10*3/uL (2.0-8.3); Neutrophils Percent Auto 57.6 % (45-73); Platelet Count 149 X10*3/uL (160-400); Red Cell Distribution Width 12.8 % (11.0-16.0); White Blood Count 4.5 X10*3/uL (4.8-10.8)
[2024-03-21 08:18] LABS: Basophils Percent Auto 0.9 % (0-2); Eosinophils Percent Auto 0.2 % (0-4); Hematocrit 33.8 % (37.0-47.0); Hemoglobin 11.3 g/dl (12.0-16.0); Imm Gran Abs Auto 0.02 X10*3/uL (0.00-0.03); Imm Gran Pct Auto 0.5 % (0.0-0.4); Lymphocytes Absolute Auto 1.3 X10*3/uL (1.2-4.9); Lymphocytes Percent Auto 28.4 % (20-40); Mean Corpuscular HGB Conc 33.4 g/dl (31.0-35.0); Mean Corpuscular Volume 86.7 fL (80.0-98.0); Monocytes Absolute Auto 0.5 X10*3/uL (0.1-1.2); Neutrophils Absolute Auto 2.6 x10*3/uL (2.0-8.3); Platelet Count 159 X10*3/uL (160-400); Red Cell Distribution Width 12.7 % (11.0-16.0); White Blood Count 4.4 X10*3/uL (4.8-10.8)
[2024-03-21 08:24] LABS: Estimated Average Glucose 151 mg/dL; Hemoglobin A1C 151.3994 umol/L; Hemoglobin A1c % 6.9 % (<6.0)
[2024-03-21 08:25] LABS: Appearance Urine Clear; Color Urine Yellow; Glucose Urine UA Negative (Negative); Leukocyte Esterase Urine Moderate (2+) (Negative); Nitrite Urine Negative (Negative); UMIC TRIGGER UACC YES; Urine Blood Negative (Negative); Urine Ketones Negative (Negative); Urine Protein Trace mg/dL (Neg-Trace)
[2024-03-21 08:58] LABS: Bacteria Urine 1+ (None Seen); Hyaline Casts Urine 0-2 /LPF (0-2); RBC Urine 0-2 /HPF (0-2); UACC Culture Trigger YES; WBC Urine 21-50 /HPF (0-5)
[2024-03-21 08:59] LABS: Alanine Aminotransferase 21 U/L (0-31); Alkaline Phosphatase 122 U/L (39-117); Anion Gap 15 (12-20); Aspartate Amino Transferase 26 U/L (5-31); Bilirubin Total 0.4 mg/dL (0.0-1.0); Blood Urea Nitrogen 37 mg/dL (9-16); Calcium 9.3 mg/dL (8.4-10.2); Carbon Dioxide 25 mmol/L (22-29); Chloride 102 mmol/L (96-108); Cholesterol 86 mg/dL (<200); Estimated Glomerular Filt Rate 20; Glucose Fasting 145 mg/dL (60-99); Glucose Random 144 mg/dL (60-115); HDL Cholesterol 34 mg/dL (>40); LDL Cholesterol Calculated 30 mg/dL (<100); Potassium 4.3 mmol/L (3.3-5.1); Sodium 138 mmol/L (135-145); Total Protein 7.3 g/dL (6.5-8.0); Triglycerides 110 mg/dL (<150)
[2024-03-21 09:04] LABS: Creatinine Urine 57.68 mg/dL; Microalbum/Creatinine Ratio Ur 143.8 ug/mg cr (<30)
[2024-03-21 09:13] LABS: TSH reflex Free T4 1.43 uIU/mL (0.32-4.0); Vitamin D 25-OH Total 51.3 ng/mL (>30)
[2024-03-21 09:22] LABS: Folate 14.7 ng/mL (> or = 4.0); Vitamin B12 > 2000 pg/mL (200-900)
== END 2024-03-21 07:26 | disposition home or self-care (01) ==
LOC: HO.LAB 07:25
PROVIDERS: PCP Internal Medicine; Visit Provider Internal Medicine Hypertension Specialist
DX: E78.00 Pure hypercholesterolemia, unspecified (principal); R30.0 Dysuria; E55.9 Vitamin D deficiency, unspecified; E11.22 Type 2 diabetes mellitus with diabetic chronic kidney disease; N18.4 Chronic kidney disease, stage 4 (severe); D63.1 Anemia in chronic kidney disease; E53.8 Deficiency of other specified B group vitamins
CPT/HCPCS: 36415; 80048; 80053; 80061; 81001; 82043; 82306; 82570; 82607; 82746; 83036; 83970; 84443; 85025; 87086

== ENCOUNTER 2024-03-27 11:09 | Outpatient (AMB) | payer MEDICARE, MEDICAID, SELFPAY ==
[2024-03-27 11:13] VITALS: BP 130/76; PULSE 88; O2SAT 98; BMI 42.7
--- NOTE | 2024-03-27 11:13 | HO.NEPHOV ---
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: No Accompanied by: Self / Same As Patient Allergies No Known Allergies [No Known Allergies*] Allergy (Verified 03/27/24 11:15) Medication List - Last Reconciled 03/27/24 by Rodger Dominguez MD acetaminophen 500 mg PO ONCE PRN aspirin (Adult Low Dose Aspirin) 81 mg PO DAILY [bath seat As directed] blood pressure monitor As directed blood sugar diagnostic (Accu-Chek Brenda Plus test strips) Tests 4 X/day blood-glucose meter (Accu-Chek Brenda Plus Meter) 3x/day carvedilol 12.5 mg PO BID 90 days cinacalcet 30 mg PO QAM citalopram 10 mg PO DAILY 90 days diaper,brief,adult,disposable (Select Disposable Briefs) as directed, 4 daily ezetimibe 10 mg PO QAM flash glucose scanning reader (FreeStyle Alliosn 2 [place]) As directed flash glucose sensor (FreeStyle Allison 2 Sensor kit) As directed change every 14 days furosemide 40 mg PO QAM gabapentin 100 mg PO BEDTIME 90 days glucagon 3 mg/actuation (Baqsimi) 3 mg intranasal ONCE insulin glargine (Lantus Solostar U-100 Insulin) 18 units (0.18 mL) subcut QPM insulin lispro (Humalog KwikPen (U-100) Insulin) 12 - 16 units (0.12 - 0.16 mL) subcut QID lancets (Accu-Chek Softclix Lancets) three times a day linaclotide 72 mcg PO DAILY losartan 100 mg PO DAILY meloxicam 7.5 mg PO .qod 30 days nortriptyline 50 mg PO BEDTIME 90 days pen needle, diabetic (BD Ultra-Fine Micro Pen Needle) 1 ea subcut TID pen needle, diabetic (BD Annia 2nd Gen Pen Needle) USE 1 PEN NEEDLE SIX TIMES DAILY rosuvastatin 5 mg PO DAILY 30 days tirzepatide (Mounjaro) 2.5 mg (0.5 mL) subcut QWEEK underpads As directed, 2 per night vibegron (Gemtesa) 75 mg PO DAILY 30 days HPI Comments Details: Katerina is a middle-aged woman with a history of longstanding diabetes mellitus along with obesity and hypertension. She has CKD 3 with baseline creatinine from 1.5-1.6 mg/dL. Currently bumped to 2.2 She has a history of taking NSAIDs on a long-term basis. She is currently on meloxicam 7.5 mg every other day. She continues to have fatigue and she had vague chest pain recently. s/p stress test. c/o urinary incontinence Seen by Urology Blood sugar is suboptimal Still complaints of Fatigue On Maunjaro along with Lantus Being followed closely by Urology Waiting to start Gemtesa this week [facility] Medical History Hypercalcemia Secondary hyperparathyroidism Left upper arm injury Arthritis Type 2 diabetes mellitus with hyperglycemia, with long-term current use of insulin Type 2 diabetes mellitus with polyneuropathy Essential hypertension Hyperlipidemia LDL goal <70 Constipation Obesity (BMI 30-39.9) Depression Lumbar degenerative disc disease Diabetic neuropathy Primary osteoarthritis of right knee Pedal edema Chronic kidney disease, stage 4 (severe) Pure hypercholesterolemia 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 Mother Diabetes Hypertension Cancer antigen 125 (CA 125) elevation Maternal Grandmother Stomach cancer Other Mental health problem Social History Household Members Other:: daughter Housing: Apartment Alcohol intake: never Patient Tobacco Use Status: Never used Tobacco e-Cigarette/Vaping Use: Never Used Second Hand Smoke Exposure: Yes service: No Current occupational status: disabled Cognitive needs: Yes (cane/walker) Hearing needs: No Vision needs: Yes (reading glasses) Physical Exam Vital Signs: BMI result Body Mass Index 42.7 Const General: comfortable; No acute distress Orientation/consciousness: patient oriented x3 Eyes General: appearance normal, both eyes and all related structures Visual Crystal: normal visual crystal by confrontation Neck Neck: Yes supple and Yes no JVD Resp Effort & Inspection: normal respiratory effort and respiratory effort not decreased Auscultation: rhonchi Cardio Palpation: no palpable S3 and no palpable S4 Heart sounds: no rubs GI Inspection: Yes normal to inspection Palpation (GI): Soft to palpation Percussion: Yes normal to percussion Auscultation: normal bowel sounds General: Yes no CVA tenderness Back/Spine/Pelvis Back: no CVA tenderness Skin General skin exam: no petechiae and no purpura Neuro General: patient oriented x3 and no focal motor deficits Extrem General: No clubbing and No edema Results Reviewed Nephrology Results: Hgb 11.3 g/dl (12.0-16.0) L 03/21/24 WBC 4.4 X10*3/uL (4.8-10.8) L 03/21/24 Plt Count 159 X10*3/uL (160-400) L 03/21/24 Sodium 138 mmol/L (135-145) 24 Potassium 4.3 mmol/L (3.3-5.1) 24 Chloride 102 mmol/L (96-108) 24 Carbon Dioxide 25 mmol/L (22-29) 03/21/24 BUN 37 mg/dL (9-16) H 03/21/24 Creatinine 2.44 mg/dL (0.5-1.4) H 03/21/24 Calcium 9.3 mg/dL (8.4-10.2) 24 PTH Intact 230.0 pg/mL (8.7-77.1) H 24 Urine Protein Trace mg/dL (Neg-Trace) 03/21/24 Urine Creatinine 57.68 mg/dL 03/21/24 Assessment & Plan Assessment & Plan (1) Type 2 diabetes mellitus with diabetic chronic kidney disease: Code(s): E11.22 - Type 2 diabetes mellitus with diabetic chronic kidney disease Category: Medical Qualifiers: Chronic kidney disease stage: stage 4 (severe) Diabetes mellitus longterm insulin use: with workers' compensation claims examiner 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 (2) Essential hypertension: Code(s): I10 - Essential (primary) hypertension Category: Medical Plan: BP is better controlled Keep carvedilol 12.5 mg BID Discussed importance of low-sodium diet. (3) Anemia: Code(s): D64.9 - Anemia, unspecified Category: Medical Plan: Mild and stable No indication for Epogen. (4) Chronic kidney disease, stage 4 (severe): Code(s): N18.4 - Chronic kidney disease, stage 4 (severe) Category: Medical (5) Secondary hyperparathyroidism: Code(s): N25.81 - Secondary hyperparathyroidism of renal origin Category: Medical Plan: On Cinacalcet Repeat ca is normal PTH is at 230 Plan Follow with for PVD Orders: Orders Comprehensive Met. Panel 3 Months D64.9 - Anemia, unspecified Parathyroid Hormone Intact 3 Months D64.9 - Anemia, unspecified Complete Blood Count Auto Diff 3 Months D64.9 - Anemia, unspecified Phosphorus 3 Months D64.9 - Anemia, unspecified Medications: Changed From meloxicam Take with food ONLY NEEDED for severe pain - advised NOT to take regularly or daily due to kidney issues 7.5 mg PO DAILY 90 days PRN 90 tabs 3RF pain M17.11 - Unilateral primary osteoarthritis, right knee To meloxicam Take with food ONLY NEEDED for severe pain - advised NOT to take regularly or daily due to kidney issues 7.5 mg PO .qod 30 days 30 tabs 0RF pain M17.11 - Unilateral primary osteoarthritis, right knee Refilled cinacalcet 30 mg PO QAM 90 tabs 0RF losartan 100 mg PO DAILY 90 tabs 3RF furosemide 40 mg PO QAM 90 tabs 2RF Coding Level of Care Code Est Pt Level 4 (66839) Diagnoses Type 2 diabetes mellitus with stage 4 chronic kidney disease, with long-term current use of insulin E11.22; N18.4; Z79.4 Chronic kidney disease stage: stage 4 (severe) Diabetes mellitus longterm insulin use: with workers' compensation claims examiner use Essential hypertension I10 Anemia D64.9 Chronic kidney disease, stage 4 (severe) N18.4 Secondary hyperparathyroidism N25.81
== END 2024-03-27 11:33 | disposition home or self-care (01) ==
PROVIDERS: PCP Internal Medicine; Visit Provider Internal Medicine Hypertension Specialist
DX: E11.22 Type 2 diabetes mellitus with diabetic chronic kidney disease (principal); N18.4 Chronic kidney disease, stage 4 (severe); Z79.4 Long term (current) use of insulin; I12.9 Hypertensive chronic kidney disease with stage 1 through stage 4 chronic kidney disease, or unspecified chronic kidney disease; D64.9 Anemia, unspecified; N25.81 Secondary hyperparathyroidism of renal origin
CPT/HCPCS: 99214

== ENCOUNTER → 2024-03-27 11:09 | Outpatient (BNVA) | payer MEDICARE, MEDICAID, SELFPAY | PROVIDERS: PCP Internal Medicine; Visit Provider Internal Medicine Hypertension Specialist | DX: I12.9 Hypertensive chronic kidney disease with stage 1 through stage 4 chronic kidney disease, or unspecified chronic kidney disease (principal); E11.22 Type 2 diabetes mellitus with diabetic chronic kidney disease; N18.4 Chronic kidney disease, stage 4 (severe); D63.1 Anemia in chronic kidney disease; E66.9 Obesity, unspecified; N25.81 Secondary hyperparathyroidism of renal origin; Z79.4 Long term (current) use of insulin | CPT/HCPCS: 99212 ==

== ENCOUNTER 2024-03-29 15:05 | Outpatient (AMB) | payer MEDICARE, MEDICAID, SELFPAY ==
[2024-03-29 15:08] VITALS: BMI 42.7
--- NOTE | 2024-03-29 15:08 | A.OFFVIS_ITS ---
Vital Signs 03/29/24 15:08 Height 5 ft 3 in Weight 241 lb BMI 42.7 Intake Visit Reasons: follow up s/p Arterial US 03/15/24 Intake Note: follow up Arterial US for decreased pedal pulses and LE cramping, cramping is mostly at night, pt states that drinking water helps Accompanied by: Self / Same As Patient Allergies No Known Allergies [No Known Allergies*] Allergy (Verified 03/29/24 15:10) HPI HPI follow up s/p Arterial US 03/15/24: Details: Very pleasant 63-year-old diabetic female presents for follow-up regarding peripheral vascular disease. She has longstanding history of diabetes and obesity. She also has a history of CKD 3. She now presents for follow-up with noninvasive arterial testing. Upon further discussion with her she does have back issues and has been on gabapentin at a reduced dose. 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 Mother Diabetes Hypertension Cancer antigen 125 (CA 125) elevation Maternal Grandmother Stomach cancer Other Mental health problem Social History Household Members Other:: daughter Housing: Apartment Alcohol intake: never Patient Tobacco Use Status: Never used Tobacco e-Cigarette/Vaping Use: Never Used Second Hand Smoke Exposure: Yes service: No Current occupational status: disabled Cognitive needs: Yes (cane/walker) Hearing needs: No Vision needs: Yes (reading glasses) Review of Systems Const All systems reviewed & are unremarkable except as noted in HPI and below Reports no additional complaints ENT Reports Normal hearing present Card Denies chest pain, Denies chest pain at rest, Denies chest pain with activity and Denies pedal edema Resp Denies cough GI Denies abdominal pain Musc Denies abnormal gait, Denies muscle cramps and Denies radiating pain into limb Skin/Breast Denies skin ulcer and Denies wounds Neuro Reports Normal hearing present and Denies abnormal gait Psych Reports no additional complaints Physical Exam Vital Signs: BMI result Body Mass Index 42.7 Const General: cooperative, healthy appearing and comfortable Orientation/consciousness: oriented to person, oriented to place and oriented to time HEENT Head: Yes normal to inspection Neck Neck: Yes normal visual inspection Carotids: no bruits Chest Chest palpation & inspection: normal inspection of the chest Resp Effort & Inspection: normal respiratory effort and able to speak in complete sentences Auscultation: clear to auscultation bilaterally, no crackles, no rales, no rhonchi and no wheezes Cardio Rate: regular rate Rhythm: regular rhythm Heart sounds: S1 normal heart sound present and S2 normal heart sound present Bruits: no carotid bruits Peripheral pulses: Peripheral pulses 2+ throughout GI Inspection: Yes normal to inspection Skin Wounds: no wounds Hair: normal Neuro General: oriented to person, oriented to place and oriented to time Cranial nerves: Yes CN's II-XII intact bilaterally and Yes Normal hearing present Cognition (Neuro): normal cognition Motor exam (neuro): 5/5 motor strength present throughout Extrem Other: venous exam: No significant superficial varicosities or spider telangiectasias, minimal edema General: No clubbing, No cyanosis and No edema Psych Appearance: grossly normal Mental Status: mental status grossly normal Speech and movement: Normal speech and movement present Results Reviewed Results Reviewed: Noninvasive testing dated 03/15/2024 demonstrates CRISTEL on the right of 1.19 and on the left of 1.19 with multi phasic flow down both lower extremities. Written report and images were reviewed Assessment & Plan Assessment & Plan (1) PAD (peripheral artery disease): Code(s): I73.9 - Peripheral vascular disease, unspecified Category: Medical Plan: In short patient has stable peripheral vascular disease. At the current time it does not appear to be the source of her issues as it is within normal limits. I do believe there is a neurogenic component to it as she reports burning and back issues in addition she has a longstanding diabetic as well. We did discuss routine conservative measures including the importance of ambulation and diabetes control. She will follow up with us on an as-needed basis. Thank you for allowing us to assist in her care. Coding Level of Care Code Est Pt Level 4 (89822) Diagnoses PAD (peripheral artery disease) I73.9
== END 2024-03-29 15:17 | disposition home or self-care (01) ==
PROVIDERS: PCP Internal Medicine; Visit Provider Surgery Vascular Surgery
DX: I73.9 Peripheral vascular disease, unspecified (principal)
CPT/HCPCS: 99214

== ENCOUNTER → 2024-03-29 15:05 | Outpatient (BNVA) | payer MEDICARE, MEDICAID, SELFPAY | PROVIDERS: PCP Internal Medicine; Visit Provider Surgery Vascular Surgery | DX: I73.9 Peripheral vascular disease, unspecified (principal) | CPT/HCPCS: 99212 ==

== ENCOUNTER 2024-06-23 10:10 | Outpatient (REF) | payer MEDICARE, MEDICAID, SELFPAY ==
[2024-06-23 10:47] LABS: MANUAL DIFF FLAG NO
[2024-06-23 11:41] LABS: Basophils Percent Auto 0.5 % (0-2); Eosinophils Percent Auto 0.2 % (0-4); Hematocrit 33.5 % (37.0-47.0); Hemoglobin 11.2 g/dl (12.0-16.0); Imm Gran Abs Auto 0.02 X10*3/uL (0.00-0.03); Imm Gran Pct Auto 0.4 % (0.0-0.4); Lymphocytes Absolute Auto 1.8 X10*3/uL (1.2-4.9); Lymphocytes Percent Auto 31.9 % (20-40); Mean Corpuscular HGB Conc 33.4 g/dl (31.0-35.0); Mean Corpuscular Hemoglobin 28.6 pg (27.0-33.0); Mean Corpuscular Volume 85.7 fL (80.0-98.0); Mean Platelet Volume 10.4 fL (9.4-12.3); Monocytes Absolute Auto 0.5 X10*3/uL (0.1-1.2); Monocytes Percent Auto 8.1 % (2-11); Neutrophils Absolute Auto 3.4 x10*3/uL (2.0-8.3); Neutrophils Percent Auto 58.9 % (45-73); Platelet Count 165 X10*3/uL (160-400); Red Blood Count 3.91 X10*6/uL (4.20-5.50); Red Cell Distribution Width 12.9 % (11.0-16.0); White Blood Count 5.7 X10*3/uL (4.8-10.8)
[2024-06-23 12:10] LABS: Alanine Aminotransferase 16 U/L (0-31); Albumin Level 3.8 g/dL (3.5-5.0); Alkaline Phosphatase 112 U/L (39-117); Anion Gap 14 (12-20); Aspartate Amino Transferase 28 U/L (5-31); Bilirubin Total 0.5 mg/dL (0.0-1.0); Blood Urea Nitrogen 28 mg/dL (9-16); Calcium 9.1 mg/dL (8.4-10.2); Carbon Dioxide 27 mmol/L (22-29); Chloride 102 mmol/L (96-108); Estimated Glomerular Filt Rate 23; Glucose Random 124 mg/dL (60-115); Phosphorus 3.3 mg/dL (2.7-4.5); Potassium 4.3 mmol/L (3.3-5.1); Sodium 139 mmol/L (135-145); Total Protein 7.1 g/dL (6.5-8.0)
== END 2024-06-23 10:11 | disposition home or self-care (01) ==
LOC: HO.LAB 10:10
PROVIDERS: PCP Internal Medicine; Visit Provider Internal Medicine Hypertension Specialist
DX: D64.9 Anemia, unspecified (principal)
CPT/HCPCS: 36415; 80053; 83970; 84100; 85025

== ENCOUNTER 2024-06-26 10:37 | Outpatient (AMB) | payer MEDICARE, MEDICAID, SELFPAY ==
--- NOTE | 2024-06-26 10:37 | HO.NEPHOV ---
Vital Signs 06/26/24 10:38 06/26/24 11:01 Height 5 ft 3 in Weight 245 lb BMI 43.4 BP 152/84 H 130/80 Blood Pressure Location Lt brachial Lt brachial Position Sitting Sitting Pulse 93 Pulse Source Pulse Oximeter Pulse Oximetry (%) 99 Oxygen Delivery Method Room Air Intake Visit Reasons: Anemia/ Conf Section Leader Screen Printing Required: No Accompanied by: Self / Same As Patient Allergies No Known Allergies [No Known Allergies*] Allergy (Verified 06/26/24 10:40) Medication List - Last Reconciled 06/26/24 by Rodger Dominguez MD acetaminophen 500 mg PO ONCE PRN aspirin (Adult Low Dose Aspirin) 81 mg PO DAILY [bath seat As directed] blood pressure monitor As directed blood sugar diagnostic (Accu-Chek Brenda Plus test strips) Tests 4 X/day blood-glucose meter (Accu-Chek Brenda Plus Meter) 3x/day carvedilol 12.5 mg PO BID 90 days cinacalcet 30 mg PO QAM citalopram 10 mg PO DAILY 90 days diaper,brief,adult,disposable (Select Disposable Briefs) as directed, 4 daily ezetimibe 10 mg PO QAM flash glucose scanning reader (FreeStyle Allison 2 [place]) As directed flash glucose sensor (FreeStyle Allison 2 Sensor kit) As directed change every 14 days furosemide 40 mg PO QAM gabapentin 100 mg PO BEDTIME 90 days glucagon 3 mg/actuation (Baqsimi) 3 mg intranasal ONCE insulin glargine (Lantus Solostar U-100 Insulin) 18 units (0.18 mL) subcut QPM insulin lispro (Humalog KwikPen (U-100) Insulin) 12 - 16 units (0.12 - 0.16 mL) subcut QID lancets (Accu-Chek Softclix Lancets) three times a day linaclotide 72 mcg PO DAILY losartan 100 mg PO DAILY meloxicam 7.5 mg PO .qod 30 days nortriptyline 50 mg PO BEDTIME 90 days pen needle, diabetic (BD Ultra-Fine Micro Pen Needle) 1 ea subcut TID pen needle, diabetic (BD Annia 2nd Gen Pen Needle) USE 1 PEN NEEDLE SIX TIMES DAILY rosuvastatin 5 mg PO DAILY 30 days tirzepatide (Mounjaro) 2.5 mg (0.5 mL) subcut QWEEK underpads As directed, 2 per night vibegron (Gemtesa) 75 mg PO DAILY 30 days HPI Comments Details: Katerina is a middle-aged woman with a history of longstanding diabetes mellitus along with obesity and hypertension. She has CKD 3 with baseline creatinine from 1.5-1.6 mg/dL. Currently bumped to 2.2 She has a history of taking NSAIDs on a long-term basis. She is currently on meloxicam 7.5 mg every other day. She continues to have fatigue and she had vague chest pain recently. s/p stress test. c/o urinary incontinence Seen by Urology Blood sugar is suboptimal Still complaints of Fatigue On Maunjaro along with Lantus Being followed closely by Urology started Robert in Sep [facility] Medical History Hypercalcemia Secondary hyperparathyroidism Left upper arm injury Arthritis Type 2 diabetes mellitus with hyperglycemia, with long-term current use of insulin Type 2 diabetes mellitus with polyneuropathy Essential hypertension Hyperlipidemia LDL goal <70 Constipation Obesity (BMI 30-39.9) Depression Lumbar degenerative disc disease Diabetic neuropathy Primary osteoarthritis of right knee Pedal edema Chronic kidney disease, stage 4 (severe) Pure hypercholesterolemia 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 Mother Diabetes Hypertension Cancer antigen 125 (CA 125) elevation Maternal Grandmother Stomach cancer Other Mental health problem Social History Household Members Other:: daughter Housing: Apartment Alcohol intake: never Patient Tobacco Use Status: Never used Tobacco e-Cigarette/Vaping Use: Never Used Second Hand Smoke Exposure: Yes service: No Current occupational status: disabled Cognitive needs: Yes (cane/walker) Hearing needs: No Vision needs: Yes (reading glasses) Physical Exam Vital Signs: Last Vital Signs Pulse 93 06/26/24 10:38 BP 152/84 H 06/26/24 10:38 Pulse Ox 99 06/26/24 10:38 Oxygen Delivery Method Room Air 06/26/24 10:38 BMI result Body Mass Index 43.4 Const General: comfortable; No acute distress Orientation/consciousness: patient oriented x3 Eyes General: appearance normal, both eyes and all related structures Visual Crystal: normal visual crystal by confrontation Neck Neck: Yes supple and Yes no JVD Resp Effort & Inspection: normal respiratory effort and respiratory effort not decreased Auscultation: rhonchi Cardio Palpation: no palpable S3 and no palpable S4 Heart sounds: no rubs GI Inspection: Yes normal to inspection Palpation (GI): Soft to palpation Percussion: Yes normal to percussion Auscultation: normal bowel sounds General: Yes no CVA tenderness Back/Spine/Pelvis Back: no CVA tenderness Skin General skin exam: no petechiae and no purpura Neuro General: patient oriented x3 and no focal motor deficits Extrem General: No clubbing and No edema Results Reviewed Nephrology Results: Hgb 11.2 g/dl (12.0-16.0) L 06/23/24 WBC 5.7 X10*3/uL (4.8-10.8) 06/23/24 Plt Count 165 X10*3/uL (160-400) 06/23/24 Sodium 139 mmol/L (135-145) 06/23/24 Potassium 4.3 mmol/L (3.3-5.1) 06/23/24 Chloride 102 mmol/L (96-108) 06/23/24 Carbon Dioxide 27 mmol/L (22-29) 06/23/24 BUN 28 mg/dL (9-16) H 06/23/24 Creatinine 2.18 mg/dL (0.5-1.4) H 06/23/24 Calcium 9.1 mg/dL (8.4-10.2) 06/23/24 Phosphorus 3.3 mg/dL (2.7-4.5) 06/23/24 PTH Intact 181.0 pg/mL (8.7-77.1) H 06/23/24 Urine Protein Trace mg/dL (Neg-Trace) 03/21/24 Urine Creatinine 57.68 mg/dL 03/21/24 Assessment & Plan Assessment & Plan (1) Type 2 diabetes mellitus with diabetic chronic kidney disease: Code(s): E11.22 - Type 2 diabetes mellitus with diabetic chronic kidney disease Category: Medical Qualifiers: Diabetes mellitus mcfp insulin use: with ferry terminal agent use Chronic kidney disease stage: stage 4 (severe) Qualified Code(s): E11.22 - Type 2 diabetes mellitus with diabetic chronic kidney disease; N18.4 - Chronic kidney disease, stage 4 (severe); Z79.4 - skilled nursing (current) use of insulin Plan: Goals is to keep A1C < 7% Discussed weight loss. (2) Essential hypertension: Code(s): I10 - Essential (primary) hypertension Category: Medical Plan: BP is better controlled Keep current meds Discussed importance of low-sodium diet. (3) Anemia: Code(s): D64.9 - Anemia, unspecified Category: Medical Plan: Mild and stable No indication for Epogen. (4) Chronic kidney disease, stage 4 (severe): Code(s): N18.4 - Chronic kidney disease, stage 4 (severe) Category: Medical Plan: Creatinine is marginally better at 2.18 She is still on Miloxicam QOD adn she needs to avoid NSAIDS (5) Secondary hyperparathyroidism: Code(s): N25.81 - Secondary hyperparathyroidism of renal origin Category: Medical Plan: On Cinacalcet Repeat ca is normal PTH is down to 181 from 230 Coding Level of Care Code Est Pt Level 4 (37207) Diagnoses Type 2 diabetes mellitus with stage 4 chronic kidney disease, with long-term current use of insulin E11.22; N18.4; Z79.4 Diabetes mellitus mcfp insulin use: with ferry terminal agent use Chronic kidney disease stage: stage 4 (severe) Essential hypertension I10 Anemia D64.9 Chronic kidney disease, stage 4 (severe) N18.4 Secondary hyperparathyroidism N25.81
[2024-06-26 10:38] VITALS: BP 152/84; PULSE 93; O2SAT 99; BMI 43.4
[2024-06-26 11:01] VITALS: BP 130/80
== END 2024-06-26 12:04 | disposition home or self-care (01) ==
LOC: HO.HKA 10:37
PROVIDERS: PCP Internal Medicine; Visit Provider Internal Medicine Hypertension Specialist
DX: I12.9 Hypertensive chronic kidney disease with stage 1 through stage 4 chronic kidney disease, or unspecified chronic kidney disease (principal); E11.22 Type 2 diabetes mellitus with diabetic chronic kidney disease; N18.4 Chronic kidney disease, stage 4 (severe); Z79.4 Long term (current) use of insulin; D63.1 Anemia in chronic kidney disease; N25.81 Secondary hyperparathyroidism of renal origin
CPT/HCPCS: 99214

== ENCOUNTER → 2024-06-26 10:37 | Outpatient (BNVA) | payer MEDICARE, MEDICAID, SELFPAY | PROVIDERS: PCP Internal Medicine; Visit Provider Internal Medicine Hypertension Specialist | DX: I12.9 Hypertensive chronic kidney disease with stage 1 through stage 4 chronic kidney disease, or unspecified chronic kidney disease (principal); E11.65 Type 2 diabetes mellitus with hyperglycemia; E11.42 Type 2 diabetes mellitus with diabetic polyneuropathy; E11.22 Type 2 diabetes mellitus with diabetic chronic kidney disease; Z79.4 Long term (current) use of insulin; N18.4 Chronic kidney disease, stage 4 (severe); N25.81 Secondary hyperparathyroidism of renal origin; D64.9 Anemia, unspecified | CPT/HCPCS: 99212 ==

== ENCOUNTER 2024-07-02 08:11 | Outpatient (REF) | payer MEDICARE, SELFPAY ==
[2024-07-02 08:36] LABS: MANUAL DIFF FLAG NO
[2024-07-02 09:59] LABS: Basophils Absolute Auto 0.1 X10*3/uL (0.0-0.2); Basophils Percent Auto 0.9 % (0-2); Eosinophils Percent Auto 0.7 % (0-4); Hematocrit 33.5 % (37.0-47.0); Hemoglobin 11.2 g/dl (12.0-16.0); Imm Gran Abs Auto 0.02 X10*3/uL (0.00-0.03); Imm Gran Pct Auto 0.4 % (0.0-0.4); Lymphocytes Absolute Auto 1.5 X10*3/uL (1.2-4.9); Lymphocytes Percent Auto 26.6 % (20-40); Mean Corpuscular HGB Conc 33.4 g/dl (31.0-35.0); Mean Corpuscular Hemoglobin 29.2 pg (27.0-33.0); Mean Corpuscular Volume 87.2 fL (80.0-98.0); Mean Platelet Volume 10.5 fL (9.4-12.3); Monocytes Absolute Auto 0.5 X10*3/uL (0.1-1.2); Monocytes Percent Auto 8.2 % (2-11); Neutrophils Absolute Auto 3.6 x10*3/uL (2.0-8.3); Neutrophils Percent Auto 63.2 % (45-73); Platelet Count 163 X10*3/uL (160-400); Red Blood Count 3.84 X10*6/uL (4.20-5.50); Red Cell Distribution Width 13.2 % (11.0-16.0); White Blood Count 5.6 X10*3/uL (4.8-10.8)
[2024-07-02 10:14] LABS: Appearance Urine Clear; Color Urine Yellow; Glucose Urine UA Negative (Negative); Leukocyte Esterase Urine Moderate (2+) (Negative); Nitrite Urine Negative (Negative); UMIC TRIGGER UACC YES; Urine Blood Negative (Negative); Urine Ketones Negative (Negative); Urine Protein Trace mg/dL (Neg-Trace)
[2024-07-02 10:17] LABS: Estimated Average Glucose 157 mg/dL; Hemoglobin A1C 161.8475 umol/L; Hemoglobin A1c % 7.1 % (<6.0); Total Hemoglobin (HGBA1C) 2982.4162 umol/L
[2024-07-02 10:18] LABS: Bacteria Urine 2+ (None Seen); Hyaline Casts Urine 0-2 /LPF (0-2); RBC Urine 0-2 /HPF (0-2); UACC Culture Trigger YES; WBC Urine 21-50 /HPF (0-5)
[2024-07-02 11:04] LABS: Alanine Aminotransferase 15 U/L (0-31); Albumin Level 3.8 g/dL (3.5-5.0); Alkaline Phosphatase 115 U/L (39-117); Anion Gap 16 (12-20); Aspartate Amino Transferase 26 U/L (5-31); Bilirubin Total 0.5 mg/dL (0.0-1.0); Blood Urea Nitrogen 23 mg/dL (9-16); Carbon Dioxide 26 mmol/L (22-29); Chloride 102 mmol/L (96-108); Cholesterol 96 mg/dL (<200); Estimated Glomerular Filt Rate 27; Glucose Fasting 139 mg/dL (60-99); HDL Cholesterol 34 mg/dL (>40); LDL Cholesterol Calculated 42 mg/dL (<100); Potassium 3.8 mmol/L (3.3-5.1); Sodium 140 mmol/L (135-145); TSH reflex Free T4 1.32 uIU/mL (0.32-4.0); Total Protein 7.2 g/dL (6.5-8.0); Triglycerides 101 mg/dL (<150)
[2024-07-02 11:18] LABS: Creatinine Urine 84.43 mg/dL; Microalbum/Creatinine Ratio Ur 118.4 ug/mg cr (<30)
== END 2024-07-02 08:12 | disposition home or self-care (01) ==
LOC: HO.LAB 08:11
PROVIDERS: PCP Internal Medicine; Visit Provider Internal Medicine
DX: D64.9 Anemia, unspecified (principal); R30.0 Dysuria; E55.9 Vitamin D deficiency, unspecified; E11.9 Type 2 diabetes mellitus without complications; E78.00 Pure hypercholesterolemia, unspecified
CPT/HCPCS: 36415; 80053; 80061; 81001; 81003; 82043; 82306; 82570; 83036; 84443; 85025; 87086

== ENCOUNTER 2024-08-01 14:44 | Outpatient (REF) | payer MEDICARE, MEDICAID, SELFPAY ==
[2024-08-02 10:06] LABS: HPV 16,18/45 See PAP report
== END 2024-08-01 14:45 | disposition home or self-care (01) ==
LOC: HO.LNP 14:44
PROVIDERS: PCP Internal Medicine; Visit Provider Advanced Practice Midwife
DX: Z01.419 Encounter for gynecological examination (general) (routine) without abnormal findings (principal); N39.41 Urge incontinence
CPT/HCPCS: 51798; 87624; 88175; 99212; 99386

== ENCOUNTER 2024-08-01 15:07 | Outpatient (AMB) | payer MEDICARE, MEDICAID, SELFPAY ==
--- NOTE | 2024-08-01 14:54 | A.OFFVIS_ITS ---
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 She is doing well with no concerns. She reports some pink while wiping unsure if it is from a bowel movement or vaginal. History of hysterectomy for fibroids. Currently sexually active. Denies any vaginal dryness or irritation. STI testing offered; she declines. Attempting to eat a healthy diet with calcium and vitamin D. Uses a walker and cane. Last pap smear; approximately 2018, negative-no records available. Last mammogram; 2023. Colonoscopy is UTD. Denies any family history of breast, ovarian or colon cancer. [facility] Medical History (Updated 08/01/24 @ 15:13 by Chani Willett CNM) Hypercalcemia Secondary hyperparathyroidism Left upper arm injury Arthritis Type 2 diabetes mellitus with hyperglycemia, with long-term current use of insulin Type 2 diabetes mellitus with polyneuropathy Essential hypertension Hyperlipidemia LDL goal <70 Constipation Obesity (BMI 30-39.9) Depression Lumbar degenerative disc disease Diabetic neuropathy Primary osteoarthritis of right knee Pedal edema Chronic kidney disease, stage 4 (severe) Pure hypercholesterolemia Coronary atherosclerosis long-term (current) use of insulin Type 2 diabetes mellitus with diabetic chronic kidney disease Benign essential hypertension Surgical History (Updated 08/01/24 @ 15:15 by Chani Willett CNM) History of section History of tonsillectomy History of esophagogastroduodenoscopy (EGD) H/O colonoscopy History of cardiac catheterization (~07/2019) History of partial hysterectomy Family History Father No problems noted. Mother Diabetes Hypertension Cancer antigen 125 (CA 125) elevation Maternal Grandmother Stomach cancer Other Mental health problem Social History Household Members Other:: daughter Housing: Apartment Alcohol intake: never Patient Tobacco Use Status: Never used Tobacco e-Cigarette/Vaping Use: Never Used Second Hand Smoke Exposure: Yes service: No Current occupational status: disabled Cognitive needs: Yes (cane/walker) Hearing needs: No Vision needs: Yes (reading glasses) Female Reproductive History Menstrual Menopause type: surgical Total pregnancies: 5 Premature: 1 Number of Living Children: 3 Date of Mammogram: 02/08/24 (Birad 2) Date of last Bone Density Screenin02/08/24 Review of Systems Const All systems reviewed & are unremarkable except as noted in HPI and below Reports as per HPI Eyes Reports no additional complaints ENT Reports no additional complaints Card Reports no additional complaints Resp Reports no additional complaints GI Reports as per HPI and Reports no additional complaints Reports as per HPI Musc Reports no additional complaints Skin/Breast Reports as per HPI Neuro Reports no additional complaints Psych Reports no additional complaints Endo Reports no additional complaints Donnie/Lymph Reports no additional complaints Aller/Immun Reports no additional complaints Physical Exam Vital Signs: Last Vital Signs BP 136/78 08/01/24 14:58 BMI result Body Mass Index 43.4 Const General: cooperative, healthy appearing, no acute distress, well developed and alert Orientation/consciousness: patient oriented x3 HEENT Head: Yes normal to inspection Eyes General: appearance normal, both eyes and all related structures Neck Neck: Yes normal visual inspection Thyroid: Thyroid normal Chest Chest palpation & inspection: normal inspection of the chest and other (no puckering, dimpling, peau de orange, retraction, discharge, masses) Breast/axilla inspection: normal inspection of the breasts Breast/axilla palpation: normal palpation of the breasts Resp Effort & Inspection: normal respiratory effort GI Inspection: Yes normal to inspection Palpation (GI): Soft to palpation Rectal Exam - Female: deferred General: Yes bladder normal to palpation External Female Exam: normal external appearance, normal appearance of the urethra and lesion Speculum Exam - Vagina: normal appearance of the vagina, normal palpation, normal vaginal discharge and vagina atrophic Speculum Exam - Cervix: normal appearance of the cervix and normal palpation Bimanual exam- vagina & uterus: normal bimanual exam, normal palpation, bladder normal to palpation, normal palpation and uterus absent Bimanual Exam- Adnexa, other: no masses Skin General skin exam: no rashes or lesions noted Rashes: no rashes Neuro General: patient oriented x3 Cognition (Neuro): normal cognition Extrem General: Yes normal to inspection Psych Attitude: cooperative Thought process: Normal thought process present Assessment & Plan Assessment & Plan (1) Encounter for well woman exam with routine gynecological exam: Code(s): Z01.419 - Encounter for gynecological examination (general) (routine) without abnormal findings Category: Medical Plan Discussed: Current recommendations for pap smears per ASCCP guidelines. Breast awareness, periodic self breast exams and yearly mammogram. Maintain a healthy lifestyle, well balanced diet including Calcium 1,200 mg and Vitamin D 600 IU daily, and routine exercise. Normal elevator examiner exam with cervix found-unknown source of bleeding. Follow up with PCP for rectal bleeding. Contact the office with any postmenopausal bleeding. Patient verbalizes understanding and agrees to the plan of care. She was given opportunity to ask questions and all questions were answered to the best of my ability. RTO in 1-2 year for annual elevator examiner exam. This note is constructed using voice recognition software. While every effort has been made to ensure accuracy, medical records analyst errors may have been included. Coding Level of Care Code New Pt Prev Care 40-64y(70608) Diagnoses Encounter for well woman exam with routine gynecological exam Z01.419
[2024-08-01 14:58] VITALS: BP 136/78; BMI 43.4
== END 2024-08-01 15:40 | disposition home or self-care (01) ==
PROVIDERS: PCP Internal Medicine; Visit Provider Advanced Practice Midwife
DX: Z01.419 Encounter for gynecological examination (general) (routine) without abnormal findings (principal)
CPT/HCPCS: 99386

== ENCOUNTER 2024-08-01 16:09 | Outpatient (AMB) | payer MEDICARE, MEDICAID, SELFPAY ==
--- NOTE | 2024-08-01 16:15 | A.OFFVIS_ITS ---
Intake Visit Reasons: 3 month follow up Intake Note: Patient presents for follow up visit on: urge incontinence Urology Medications: Gemtesa Blood Thinner: aspirin PVR: 26ml's Health Services Coordinator Required: No Accompanied by: Self / Same As Patient Allergies No Known Allergies [No Known Allergies*] Allergy (Verified 08/01/24 20:02) Medication List - Last Reconciled 08/01/24 by SHIV Ordaz acetaminophen 500 mg PO ONCE PRN aspirin (Adult Low Dose Aspirin) 81 mg PO DAILY [bath seat As directed] blood pressure monitor As directed blood sugar diagnostic (Accu-Chek Brenda Plus test strips) Tests 4 X/day blood-glucose meter (Accu-Chek Brenda Plus Meter) 3x/day carvedilol 12.5 mg PO BID 90 days cinacalcet 30 mg PO QAM citalopram 10 mg PO DAILY 90 days diaper,brief,adult,disposable (Select Disposable Briefs) as directed, 4 daily ezetimibe 10 mg PO QAM flash glucose scanning reader (ProDeafStyle Allison 2 Island) As directed flash glucose sensor (FreeStyle Allison 2 Sensor kit) As directed change every 14 days furosemide 40 mg PO QAM gabapentin 100 mg PO BEDTIME 90 days glucagon 3 mg/actuation (Baqsimi) 3 mg intranasal ONCE insulin glargine (Lantus Solostar U-100 Insulin) 18 units (0.18 mL) subcut QPM insulin lispro (Humalog KwikPen (U-100) Insulin) 12 - 16 units (0.12 - 0.16 mL) subcut QID lancets (Accu-Chek Softclix Lancets) three times a day linaclotide 72 mcg PO DAILY losartan 100 mg PO DAILY meloxicam 7.5 mg PO .qod 30 days nortriptyline 50 mg PO BEDTIME 90 days pen needle, diabetic (BD Ultra-Fine Micro Pen Needle) 1 ea subcut TID pen needle, diabetic (BD Annia 2nd Gen Pen Needle) USE 1 PEN NEEDLE SIX TIMES DAILY rosuvastatin 5 mg PO DAILY 30 days tirzepatide (Mounjaro) 2.5 mg (0.5 mL) subcut QWEEK underpads As directed, 2 per night vibegron (Gemtesa) 75 mg PO DAILY 30 days HPI Comments Details: Katerina is a very pleasant 64-year-old female patient of . She has a past medical history of type 2 diabetes, hypertension, hyperlipidemia, constipation, obesity, depression, diabetic neuropathy, osteoarthritis, chronic kidney disease stage 4, and coronary atherosclerosis. She presents to the office today for a follow-up of her mixed urinary incontinence. In discussion with the patient today she reports noting somewhat improvement in mixed urinary incontinence with 75 mg of Gemtesa daily. She does however continue to have incontinent episodes. She discusses feeling Gemtesa has been helpful with sense of urgency she previously experienced. She has previously trialed Myrbetriq at 25 mg daily as well as 50 mg daily with no improvement. She otherwise denies hematuria, dysuria, foul smelling urine, changes to urinary stream, flank pain, fever, and or chills. Discussed at length further treatment options for lower urinary tract symptoms patient is experiencing. Discussed in office urodynamics for further assessment evaluation. Previous workup has included a retroperitoneal ultrasound noting bilateral kidneys with no calculi or hydronephrosis. Bilateral appearing renal cysts that require no imaging follow- up recommended per radiology report. The bladder is well distended and normal. Bilateral ureteral jets are demonstrated. Pre void bladder volume is approximately 545 mL. Postvoid bladder volume is approximately 0 mL. Discussed bladder triggers/irritants. Discussed at length importance of managing diabetes for improvement lower urinary tract symptoms in correlation of diabetes and the bladder. She had previously been referred to pelvic floor therapy however has not been able to attend. Unable to obtain urine for urinalysis today however PVR 26 mLs. She otherwise offers no issues or concerns. 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 Mother Diabetes Hypertension Cancer antigen 125 (CA 125) elevation Maternal Grandmother Stomach cancer Other Mental health problem Social History Household Members Other:: daughter Housing: Apartment Alcohol intake: never Patient Tobacco Use Status: Never used Tobacco e-Cigarette/Vaping Use: Never Used Second Hand Smoke Exposure: Yes service: No Current occupational status: disabled Cognitive needs: Yes (cane/walker) Hearing needs: No Vision needs: Yes (reading glasses) Review of Systems Const Reports as per HPI Eyes Reports no additional complaints ENT Reports no additional complaints Card Reports as per HPI Resp Reports no additional complaints GI Reports as per HPI Reports as per HPI Musc Reports as per [facility] Neuro Reports as per [facility] Psych Reports as per HPI Physical Exam Const General: cooperative, healthy appearing, comfortable, no acute distress, well developed, alert and awake Orientation/consciousness: patient oriented x3 Limitations: ambulation with cane HEENT Head: Yes normal to inspection Ears: hearing grossly normal bilaterally Eyes General: appearance normal, both eyes and all related structures Neck Neck: Yes normal visual inspection and Yes trachea midline Chest Chest palpation & inspection: normal inspection of the chest Resp Effort & Inspection: normal respiratory effort and able to speak in complete sentences Cardio Rate: regular rate GI Inspection: Yes normal to inspection General: Yes no CVA tenderness Back/Spine/Pelvis Back: no CVA tenderness Skin General skin exam: no rashes or lesions noted Neuro General: patient oriented x3 Extrem General: Yes normal to inspection Psych Appearance: grossly normal and well kempt Mental Status: mental status grossly normal Speech and movement: Clear speech present Affect: normal affect Attitude: cooperative Thought process: Normal thought process present Thought content: Normal thought content present Insight: Fair insight present (Psych) Judgement: Fair judgement present (Psych) Office Procedures Post Void Residual Post Residual Void Post Void Residual (PVR): 26 [id number] Void Residual by ultrasound Assessment & Plan Assessment & Plan (1) Mixed stress and urge urinary incontinence: Code(s): N39.46 - Mixed incontinence Category: Medical (2) Urge incontinence: Code(s): N39.41 - Urge incontinence Category: Medical Plan Unable to obtain urine for urinalysis however PVR 26 mL Discussed at length potential causes for lower urinary tract symptoms patient is experiencing. Discussed importance of timed/scheduled voiding to assist with decreasing episodes of urinary incontinence given patient's decreased mobility. Discussed at length importance of managing diabetes for improvement in lower urinary tract symptoms as well as overall health and well-being. Discussed further treatment options and risks and benefits of these treatment options. Will continue Gemtesa. Will schedule for in office urodynamics for further assessment evaluation. Follow-up per doctor's orders; or sooner with any issues, concerns, and or questions. Orders: Orders AMB Post Void Residual by ultrasound Today N39.46 - Mixed incontinence Patient Instructions: The patient had an opportunity to ask questions regarding the treatment plan. All questions were answered. Physical exam, labs, and imaging were discussed and reviewed in detail. As well as risks, benefits, and discussion of treatment choices. No major barriers to understanding were identified. The patient expressed understanding and agreement with the above treatment plan. The patient was made aware they should contact our office by phone for worsening of their current condition, the appearance of new symptoms, or with any questi ons or concerns. Compliance is encouraged with any medications and follow up testing that is ordered. It is a privilege to be allowed the opportunity to participate in? your urological care.? Again, if you have any questions or concerns If you have any questions or concerns please do not hesitate to contact me. The office is [phone]. This note is constructed using voice recognition software. While every effort has been made to ensure accuracy rehab therapist errors may have been included. Yours sincerely, SHIV Ordaz Coding Level of Care Code Est Pt Level 3 (04200) Diagnoses Mixed stress and urge urinary incontinence N39.46 Urge incontinence N39.41 CPT Codes Post Residual Void - PVR CPT Code: 55017-Ywrz Void Residual by ultrasound ([id number])
== END 2024-08-01 16:57 | disposition home or self-care (01) ==
PROVIDERS: PCP Internal Medicine; Visit Provider Nurse Practitioner Family
DX: N39.46 Mixed incontinence (principal)
CPT/HCPCS: 99213

== ENCOUNTER 2024-11-09 01:27 | Emergency (ER) | payer MEDICARE, MEDICAID, SELFPAY ==
--- NOTE | 2024-11-09 | ECG_ITS ---
Test Reason : CHEST PAIN Blood Pressure : */* mmHG Vent. Rate : 77 BPM Atrial Rate : 77 BPM P-R Int : 242 ms QRS Dur : 102 ms QT Int : 440 ms P-R-T Axes : 60 -23 6 degrees QTcB Int : 497 ms Sinus rhythm with 1st degree A-V block Prolonged QT Abnormal ECG When compared with ECG of 14-Jan-2018 07:32, IA interval has increased Referred By: Generic ED Physician Electronically Signed By: DARA OROPEZA
--- NOTE | ~2024-11-09 | XR_ITS ---
CLINICAL HISTORY: chest pain 1 view chest x-ray. Comparison: CR - CHEST 1 VIEW - 12/02/18 19:25 EDT Findings: No consolidation, pneumothorax, or effusion. Mild pulmonary hypoinflation. Heart size is at the upper limits of normal. Impression: 1. Mild pulmonary hypoinflation. No acute cardiopulmonary process or focal pulmonary consolidation identified. This document has been electronically signed by: Manuel Hussein MD on 11/09/2024 02:52:30
[2024-11-09 01:32] VITALS: BP 144/57; PULSE 76; RESP 18; TEMP 37.1; O2SAT 100; BMI 42.5
[2024-11-09 02:06] LABS: Basophils Percent Auto 0.6 % (0-2); Eosinophils Percent Auto 0.2 % (0-4); Hematocrit 29.5 % (37.0-47.0); Hemoglobin 10.3 g/dl (12.0-16.0); Imm Gran Abs Auto 0.01 X10*3/uL (0.00-0.03); Imm Gran Pct Auto 0.2 % (0.0-0.4); MANUAL DIFF FLAG NO; Mean Corpuscular HGB Conc 34.9 g/dl (31.0-35.0); Mean Corpuscular Volume 83.1 fL (80.0-98.0); Mean Platelet Volume 10.1 fL (9.4-12.3); Monocytes Absolute Auto 0.7 X10*3/uL (0.1-1.2); Monocytes Percent Auto 10.5 % (2-11); Neutrophils Absolute Auto 3.5 x10*3/uL (2.0-8.3); Neutrophils Percent Auto 56.5 % (45-73); Platelet Count 157 X10*3/uL (160-400); Red Blood Count 3.55 X10*6/uL (4.20-5.50); Red Cell Distribution Width 12.7 % (11.0-16.0); White Blood Count 6.2 X10*3/uL (4.8-10.8)
[2024-11-09 02:25] LABS: Troponin-I High Sensitivity 7.2 ng/L (<3.5-17.0)
[2024-11-09 02:26] LABS: Alanine Aminotransferase 22 U/L (0-31); Albumin Level 3.8 g/dL (3.5-5.0); Alkaline Phosphatase 119 U/L (39-117); Anion Gap 14 (12-20); Aspartate Amino Transferase 30 U/L (5-31); Bilirubin Direct 0.1 mg/dL (0.0-0.5); Bilirubin Total 0.4 mg/dL (0.0-1.0); Blood Urea Nitrogen 38 mg/dL (9-16); Calcium 8.8 mg/dL (8.4-10.2); Carbon Dioxide 25 mmol/L (22-29); Chloride 103 mmol/L (96-108); Estimated Glomerular Filt Rate 21; Glucose Random 154 mg/dL (60-115); Potassium 3.8 mmol/L (3.3-5.1); Sodium 138 mmol/L (135-145); Total Protein 7.5 g/dL (6.5-8.0)
--- NOTE | 2024-11-09 03:09 | ECG_ITS ---
Test Reason : CHEST PAIN Blood Pressure : */* mmHG Vent. Rate : 72 BPM Atrial Rate : 72 BPM P-R Int : 244 ms QRS Dur : 92 ms QT Int : 444 ms P-R-T Axes : 40 -23 -12 degrees QTcB Int : 486 ms Sinus rhythm with 1st degree A-V block Cannot rule out Anterior infarct , age undetermined Abnormal ECG When compared with ECG of 09-Nov-2024 01:33, No significant change was found Referred By: Joleen Simon Electronically Signed By: DARA OROPEZA
--- NOTE | 2024-11-09 03:17 | PC.NURSE ---
Dr. Delong into assess pt, pt change director to hospital attire, EKG completed, labs collected and sent. pt on bedside monitor.
[2024-11-09 03:23] VITALS: BP 176/77; PULSE 74; RESP 15; TEMP 36.6; O2SAT 98
--- NOTE | 2024-11-09 03:31 | ED_ITS ---
HPI - Chest Pain General Chief Complaint: Chest Pain Stated Complaint: CP Time Seen by Provider: 11/09/24 03:00 Source: patient and family Mode of arrival: wheelchair Limitations: no limitations History of Present Illness ED Provider: Dr. Joleen Simon HPI narrative: Patient comes to the emergency room complaining of chest pain that started a proximally heme 6 hours ago. Patient states that she was watching TV, felt a bit of achiness under the shoulder. Patient was hoping that it would go away. Patient states that it feels more muscular, like somebody punched her. At this time, patient states that she feels a bit achy, no significant pain or shortness of breath. Patient reports that she had cardiac stents placed in July of 2019, currently not on blood thinners. Patient states that she noted that the pain gets worse if she takes a deep breath. Patient denies abdominal pain. Related Data Home Medications ?Medication ?Instructions ?Recorded ?Confirmed acetaminophen 500 mg tablet 500 mg PO ONCE PRN Pain 06/27/20 06/26/24 aspirin 81 mg tablet,delayed 81 mg PO DAILY 06/27/20 06/26/24 release (Adult Low Dose Aspirin) Previous Rx's ?Medication ?Instructions ?Recorded blood pressure monitor #1 ea 06/27/20 blood-glucose meter (Accu-Chek #1 ea 02/18/21 Brenda Plus Meter) lancets (Accu-Chek Softclix #100 ea 05/11/22 Lancets) linaclotide 72 mcg capsule 72 mcg PO DAILY #30 caps 08/25/22 flash glucose scanning reader #1 ea 01/07/23 (FreeStyle Allison 2 [place]) pen needle, diabetic 32 gauge x 1 ea subcut TID #100 ea 02/16/23/ (BD Ultra-Fine Micro Pen Needle) pen needle, diabetic 32 gauge x #200 ea 03/02/23 (BD Annia 2nd Gen Pen Needle) blood sugar diagnostic (Accu-Chek #100 ea 06/27/23 Brenda Plus test strips) glucagon 3 mg/actuation nasal 3 mg intranasal ONCE #2 ea 07/26/23 spray (Baqsimi) insulin glargine 100 unit/mL (3 18 unit (0.18 mL) subcut QPM #45 mL 09/22/23 mL) subcutaneous pen (Lantus Solostar U-100 Insulin) tirzepatide 2.5 mg/0.5 mL 2.5 mg (0.5 mL) subcut QWEEK #2 mL 11/18/23 subcutaneous pen injector (Mounjaro) diaper,brief,adult,disposable #160 ea 12/01/23 (Select Disposable Briefs) underpads 30 X 36 #60 ea 12/01/23 citalopram 10 mg tablet 10 mg PO DAILY 90 days #90 tabs 03/09/24 losartan 100 mg tablet 100 mg PO DAILY #90 tabs 03/27/24 bath seat #1 ea 04/10/24 cinacalcet 30 mg tablet 30 mg PO QAM #90 tabs 06/15/24 flash glucose sensor (FreeStyle #2 ea 07/18/24 Allison 2 Sensor kit) rosuvastatin 5 mg tablet 5 mg PO DAILY 30 days #90 tabs 07/28/24 insulin lispro 100 unit/mL 12 - 16 unit (0.12 - 0.16 mL) 08/08/24 subcutaneous pen (Humalog KwikPen subcut QID #30 mL (U-100) Insulin) gabapentin 100 mg capsule 100 mg PO BEDTIME 90 days #90 caps 08/19/24 meloxicam 7.5 mg tablet 7.5 mg PO .qod pain 30 days #30 08/28/24 tabs vibegron 75 mg tablet (Gemtesa) 75 mg PO DAILY 30 days #30 tabs 09/17/24 furosemide 40 mg tablet 40 mg PO QAM #100 tabs 09/19/24 ezetimibe 10 mg tablet 10 mg PO QAM #90 tabs 10/03/24 nortriptyline 50 mg capsule 50 mg PO BEDTIME 90 days #90 caps 10/15/24 carvedilol 12.5 mg tablet 12.5 mg PO BID #200 tabs 11/08/24 Allergies Allergy/AdvReac Type Severity Reaction Status Date / Time No Known Allergies Allergy Verified 11/09/24 01:37 [No Known Allergies*] Review of Systems 2 Review of Systems: Constitutional : No Weight loss, No Fever, No Chills, No Night Sweats, No Fatigue, No Malaise ENT/Mouth : No Hearing loss, No Ear Pain, No Nasal Congestion, No Sinus Pain, No Hoarseness, No sore throat, No Rhinorrhea, No Swallowing Difficulty Eyes: No Eye Pain, No Swelling, No Redness, No Foreign Body, No Discharge, No Vision Changes Cardiovascular : Complaining of left-sided chest pain/back pain that gets worse with deep inhalation, No SOB, No Dyspnea on Exertion, No Orthopnea, No Edema, No Palpitations Respiratory : No Cough, No Sputum, No Wheezing, No Smoke Exposure, No Dyspnea Gastrointestinal : No Nausea, No Vomiting, No Diarrhea, No Constipation, No abdominal Pain, No Hematochezia, No Melena Genitourinary : no irregular bleeding, No Dysuria, No Urinary Frequency, No Hematuria, No Urinary Incontinence, No Urgency, No Flank Pain, No Urinary Flow Changes, No Hesitancy Musculoskeletal : No joint pain, No Myalgias, No Joint Swelling Skin : No Skin Lesions, No rash Neuro : No Weakness, No Numbness, No Paresthesias, No Loss of Consciousness, No Dizziness, No Headache Psych : No Anxiety/Panic, No Depression, No SI/HI/AH/VH, No Social Issues, Heme/Lymph: No Bruising, No Bleeding,No Lymphadenopathy Endocrine : No Polyuria, No Polydipsia, No Temperature Intolerance FOR[facility]LY [facility], [facility] Past Medical History Medical History Hypercalcemia Secondary hyperparathyroidism Left upper arm injury Arthritis Type 2 diabetes mellitus with hyperglycemia, with long-term current use of insulin Type 2 diabetes mellitus with polyneuropathy Essential hypertension Hyperlipidemia LDL goal <70 Constipation Obesity (BMI 30-39.9) Depression Lumbar degenerative disc disease Diabetic neuropathy Primary osteoarthritis of right knee Pedal edema Chronic kidney disease, stage 4 (severe) Pure hypercholesterolemia Coronary atherosclerosis assisted (current) use of insulin Type 2 diabetes mellitus with diabetic chronic kidney disease Benign essential hypertension Surgical History History of section History of tonsillectomy History of esophagogastroduodenoscopy (EGD) H/O colonoscopy History of cardiac catheterization (~07/2019) History of partial hysterectomy Family History Family History Father No problems noted. Mother Diabetes Hypertension Cancer antigen 125 (CA 125) elevation Maternal Grandmother Stomach cancer Other Mental health problem Social History Social History Household Members Other:: daughter Housing: Apartment Alcohol intake: never Patient Tobacco Use Status: Never used Tobacco Smoked in Last 30 Days: No e-Cigarette/Vaping Use: Never Used Second Hand Smoke Exposure: Yes Use of substances other than those prescribed or required for medical reasons: No Advance Directives: No Advance Directives Information Provided: Yes service: No Current occupational status: disabled Cognitive needs: Yes (cane/walker) Hearing needs: No Vision needs: Yes (reading glasses) Physical Exam 2 Vital Signs: Vital Signs: Last Vital Signs Temp 97.9 F 11/09/24 03:23 Pulse 74 11/09/24 03:23 Resp 15 11/09/24 03:23 BP 176/77 H 11/09/24 03:23 Pulse Ox 98 11/09/24 03:23 O2 Del Method Room Air 11/09/24 03:23 BMI result Body Mass Index 42.5 Const: Other: Appearance: Alert. Oriented X3. No acute distress. Eyes: Pupils equal, round and reactive to light. ENT: Pharynx normal. Neck: Normal inspection. Neck supple. No lymph nodes noted. No crepitus CVS: Normal heart rate and rhythm. Pulses normal. Normal S1 and S2. Nonreproducible chest pain to palpation Respiratory: No respiratory distress. Breath sounds normal. No Wheezing. No rales Abdomen: Soft and nontender. No rigidity. No distention. Skin: Skin warm and dry. Normal skin color. Normal skin turgor. Extremities: No lower extremity edema. No Lacerations. No Rash Neuro: Oriented X 3. No motor deficit. No sensory deficit. Moving all extremities. No slurred speech. CN 2 through 12 grossly intact Psych: calm, cooperative, normal affect Medical Decision Making Medical Decision Making MDM Narrative: my interpretation of EKG 1 : Sinus rhythm, first-degree AV block, heart rate 77, no ST segment depression or elevation, nonspecific T-wave inversion in lead 3, QTC 497 EKG of the 2 hours: unchanged Troponin 2. Negative, troponins flat my interpretation of labs: Hematology at baseline, chemistry shows a creatinine of 2.32 which is chronic and at baseline for the patient. Normal troponin, chest x-ray: No acute cardiopulmonary process or focal pulmonary consolidation Differential Diagnosis Differential Diagnoses: The differential diagnosis associated with the presentation includes ( pleurisy, musculoskeletal pain, ACS) Admission/Observation Consideration of admission/observation: Escalation of care including admission/observation considered ( given patient's past medical history and symptoms, observation was considered) Lab Data MDM Lab Attestation statement: I reviewed the patient's lab results. 11/09/24 02:00 11/09/24 02:00 Labs: Lab Results 11/09/24 11/09/24 Range/Units 02:00 05:03 WBC 6.2 (4.8-10.8) X10*3/uL RBC 3.55 L (4.20-5.50) X10*6/uL Hgb 10.3 L (12.0-16.0) g/dl Hct 29.5 L (37.0-47.0) % MCV 83.1 (80.0-98.0) fL MCH 29.0 (27.0-33.0) pg MCHC 34.9 (31.0-35.0) g/dl RDW 12.7 (11.0-16.0) % Plt Count 157 L (160-400) X10*3/uL MPV 10.1 (9.4-12.3) fL Immature Gran % (Auto) 0.2 (0.0-0.4) % Neut % (Auto) 56.5 (45-73) % Lymph % (Auto) 32.0 (20-40) % [place] % (Auto) 10.5 (2-11) % Eos % (Auto) 0.2 (0-4) % Baso % (Auto) 0.6 (0-2) % Lymph # (Auto) 2.0 (1.2-4.9) X10*3/uL [place] # (Auto) 0.7 (0.1-1.2) X10*3/uL Eos # (Auto) 0.0 (0.0-0.4) X10*3/uL Baso # (Auto) 0.0 (0.0-0.2) X10*3/uL Abs Immat Gran (auto) 0.01 (0.00-0.03) X10*3/uL Absolute Neuts (auto) 3.5 (2.0-8.3) x10*3/uL Absolute Nucleated RBC 0.000 (0.0-0.012) X10*3/uL Nucleated RBC % (auto) 0.0 (0.0-0.2) /100WBC Sodium 138 (135-145) mmol/L Potassium 3.8 (3.3-5.1) mmol/L Chloride 103 (96-108) mmol/L Carbon Dioxide 25 (22-29) mmol/L Anion Gap 14 (12-20) BUN 38 H (9-16) mg/dL Creatinine 2.32 H (0.5-1.4) mg/dL Estim Creat Clear Calc 29.0 Estimated GFR 21 Random Glucose 154 H (60-115) mg/dL Calcium 8.8 (8.4-10.2) mg/dL Total Bilirubin 0.4 (0.0-1.0) mg/dL Direct Bilirubin 0.1 (0.0-0.5) mg/dL AST 30 (5-31) U/L ALT 22 (0-31) U/L Alkaline Phosphatase 119 H (39-117) U/L Troponin I High Sens 7.2 5.6 (<3.5-17.0) ng/L B-Natriuretic Peptide 38 (<100) pg/mL Total Protein 7.5 (6.5-8.0) g/dL Albumin 3.8 (3.5-5.0) g/dL Independent Interpretation I performed an independent interpretation of an: EKG and Plain X-Ray Radiology Impression Discussion of test interpretation with radiology: I have reviewed the radiologist's reading. Radiologist Impression: No consolidation, pneumothorax, or effusion. Mild pulmonary hypoinflation. Heart size is at the upper limits of normal. Impression: 1. Mild pulmonary hypoinflation. No acute cardiopulmonary process or focal pulmonary consolidation identified. Critical Care Time Critical Care Time Critical Care Time: Yes Total Critical Care Time: 40 Attestation: I have personally provided critical care time. Time includes review of lab data, radiology results, discussion with consultants, and monitoring for potential decompensation. Intervention performed as documented. Discharge Plan Discharge Clinical Impression: Atypical chest pain Patient Disposition: Home, Self-Care Instructions: Chest Pain (ED) Additional Instructions: Please follow-up with your primary care physician tomorrow. If you have any worsening or new symptoms, please return to the emergency room or call 911 Prescriptions: No Action (DME) blood-glucose meter [Accu-Chek Brenda Plus Meter] Misc See Rx Instructions .ROUTE .MEDSUPPLY Qty: 1 0RF Rx Instructions: 3x/day (DME) lancets [Accu-Chek Softclix Lancets] Misc See Rx Instructions .ROUTE .MEDSUPPLY Qty: 100 11RF Rx Instructions: three times a day pen needle, diabetic [BD Ultra-Fine Micro Pen Needle] 32 gauge x 1/4 needle 1 ea subcut TID Qty: 100 3RF (DME) pen needle, diabetic [BD Annia 2nd Gen Pen Needle] 32 gauge x 5/32 needle See Rx Instructions .ROUTE .COMPLEX Qty: 200 0RF Dose Instruction: USE 1 PEN NEEDLE SIX TIMES DAILY Rx Instructions: USE 1 PEN NEEDLE SIX TIMES DAILY (DME) Accu-Chek Brenda Plus test strp Strip See Rx Instructions .Route Qty: 100 5RF Rx Instructions: Tests 4 X/day Baqsimi 3 mg/actuation spray,non-aerosol 3 mg intranasal ONCE Qty: 2 5RF insulin glargine [Lantus Solostar U-100 Insulin] 100 unit/mL (3 mL) insulin pen 18 unit subcut QPM Qty: 45 4RF Mounjaro 2.5 mg/0.5 mL pen injector 2.5 mg subcut QWEEK Qty: 2 11RF (DME) Select Disposable Briefs Misc See Rx Instructions .ROUTE .MEDSUPPLY Qty: 160 3RF Rx Instructions: as directed, 4 daily (DME) underpads 30 X 36 pad See Rx Instructions .Route Qty: 60 3RF Rx Instructions: As directed, 2 per night citalopram 10 mg tablet 10 mg PO DAILY 90 Days Qty: 90 3RF (DME) bath seat See Rx Instructions .Route .MEDSUPPLY Qty: 1 0RF Rx Instructions: As directed cinacalcet 30 mg tablet 30 mg PO QAM Qty: 90 3RF (DME) FreeStyle Allison 2 Sensor Kit See Rx Instructions .Route Qty: 2 5RF Rx Instructions: As directed change every 14 days rosuvastatin 5 mg tablet 5 mg PO DAILY 30 Days Qty: 90 2RF insulin lispro [Humalog KwikPen Insulin] 100 unit/mL insulin pen 12 - 16 unit subcut QID Qty: 30 6RF gabapentin 100 mg capsule 100 mg PO BEDTIME 90 Days Qty: 90 2RF meloxicam 7.5 mg tablet 7.5 mg PO .qod 30 Days Qty: 30 5RF Rx Instructions: Take with food ONLY NEEDED for severe pain - advised NOT to take regularly or daily due to kidney issues Gemtesa 75 mg tablet 75 mg PO DAILY 30 Days Qty: 30 11RF furosemide 40 mg tablet 40 mg PO QAM Qty: 100 2RF ezetimibe 10 mg tablet 10 mg PO QAM Qty: 90 2RF nortriptyline 50 mg capsule 50 mg PO BEDTIME 90 Days Qty: 90 3RF carvedilol 12.5 mg tablet 12.5 mg PO BID Qty: 200 2RF linaclotide 72 mcg capsule 72 mcg PO DAILY Qty: 30 2RF acetaminophen 500 mg tablet 500 mg PO ONCE PRN (Reason: Pain) aspirin [Adult Low Dose Aspirin] 81 mg tablet,delayed release (DR/EC) 81 mg PO DAILY (DME) blood pressure monitor Kit See Rx Instructions .ROUTE .MEDSUPPLY Qty: 1 0RF Rx Instructions: As directed (DME) FreeStyle Allison 2 Timber Misc See Rx Instructions .Route Qty: 1 0RF Rx Instructions: As directed losartan 100 mg tablet 100 mg PO DAILY Qty: 90 3RF Print Language: Urdu
[2024-11-09 04:00] LABS: B Type Natriuretic Peptide 38 pg/mL (<100)
--- NOTE | 2024-11-09 05:18 | PC.NURSE ---
pt assisted oob to bathroom, pt awaiting second trop result for disposition
[2024-11-09 05:26] LABS: Troponin-I High Sensitivity 5.6 ng/L (<3.5-17.0)
[2024-11-09 05:45] VITALS: BP 171/70; PULSE 75; RESP 24; TEMP 36.4; O2SAT 95
[2024-11-09 06:05] VITALS: BP 171/70; PULSE 75; RESP 24; TEMP 36.4; O2SAT 95
== END 2024-11-09 06:05 | disposition home or self-care (01) ==
PROVIDERS: Emergency Provider Emergency Medicine; PCP Internal Medicine
DX: R07.89 Other chest pain (principal); M79.10 Myalgia, unspecified site; E11.9 Type 2 diabetes mellitus without complications; I44.0 Atrioventricular block, first degree; I10 Essential (primary) hypertension; Z79.899 Other long term (current) drug therapy; Z79.4 Long term (current) use of insulin
CPT/HCPCS: 36415; 71045; 80053; 82248; 83880; 84484; 85025; 93005; 99283; 99285

== ENCOUNTER → 2024-11-09 01:33 | Outpatient (BNV) | payer MEDICARE, MEDICAID, SELFPAY | PROVIDERS: Emergency Provider Emergency Medicine; PCP Internal Medicine; Visit Provider Internal Medicine | DX: R07.9 Chest pain, unspecified (principal); R94.31 Abnormal electrocardiogram [ECG] [EKG] | CPT/HCPCS: 93010 ==

== ENCOUNTER → 2024-11-09 02:30 | Outpatient (BNV) | payer MEDICARE, MEDICAID, SELFPAY | PROVIDERS: Emergency Provider Emergency Medicine; PCP Internal Medicine; Visit Provider Radiology Diagnostic Radiology | DX: R07.9 Chest pain, unspecified (principal) | CPT/HCPCS: 71045 ==

== ENCOUNTER 2024-12-15 10:27 | Outpatient (REF) | payer MEDICARE, MEDICAID, SELFPAY ==
[2024-12-15 11:17] LABS: Appearance Urine Turbid; Color Urine Yellow; Glucose Urine UA Negative (Negative); Leukocyte Esterase Urine Large (3+) (Negative); Nitrite Urine Negative (Negative); UMIC TRIGGER UA YES; Urine Blood Negative (Negative); Urine Ketones Negative (Negative); Urine Protein Negative (Neg-Trace)
[2024-12-15 11:26] LABS: Bacteria Urine None Seen (None Seen); Hyaline Casts Urine 0-2 /LPF (0-2); RBC Urine 0-2 /HPF (0-2); WBC Urine 0-5 /HPF (0-5)
[2024-12-15 11:39] LABS: Anion Gap 14 (12-20); Blood Urea Nitrogen 22 mg/dL (9-16); Calcium 8.4 mg/dL (8.4-10.2); Carbon Dioxide 26 mmol/L (22-29); Chloride 102 mmol/L (96-108); Estimated Glomerular Filt Rate 27; Potassium 4.4 mmol/L (3.3-5.1); Sodium 138 mmol/L (135-145)
[2024-12-15 11:41] LABS: Parathyroid Hormone Intact 249.8 pg/mL (8.7-77.1)
== END 2024-12-15 10:28 | disposition home or self-care (01) ==
LOC: HO.LAB 10:27
PROVIDERS: Absent Provider Internal Medicine Hypertension Specialist; PCP Internal Medicine; Visit Provider Internal Medicine
DX: R30.0 Dysuria (principal); N39.46 Mixed incontinence; N18.30 Chronic kidney disease, stage 3 unspecified
CPT/HCPCS: 36415; 80051; 81001; 82310; 82565; 83970; 84520; 87086

== ENCOUNTER 2024-12-25 15:53 | Outpatient (AMB) | payer MEDICARE, MEDICAID, SELFPAY ==
[2024-12-25 15:54] VITALS: BP 110/60; PULSE 92; O2SAT 98; BMI 43.8
--- NOTE | 2024-12-25 15:54 | HO.NEPHOV ---
Vital Signs 12/25/24 15:54 Height 5 ft 3 in Weight 247 lb 2 oz BMI 43.8 BP 110/60 Blood Pressure Location Lt brachial Position Sitting Pulse 92 Pulse Source Pulse Oximeter Pulse Oximetry (%) 98 Oxygen Delivery Method Room Air Intake Visit Reasons: Per / Ezekiel Accompanied by: Daughter Allergies No Known Allergies [No Known Allergies*] Allergy (Verified 12/25/24 15:58) Medication List - Last Reconciled 12/25/24 by Rodger Dominguez MD acetaminophen 500 mg PO ONCE PRN aspirin (Adult Low Dose Aspirin) 81 mg PO DAILY [bath seat As directed] blood pressure monitor As directed blood sugar diagnostic (Accu-Chek Brenda Plus test strips) Tests 4 X/day blood-glucose meter (Accu-Chek Brenda Plus Meter) 3x/day carvedilol 12.5 mg PO BID cinacalcet 30 mg PO QAM citalopram 10 mg PO DAILY 90 days diaper,brief,adult,disposable (Select Disposable Briefs) as directed, 4 daily ezetimibe 10 mg PO QAM flash glucose scanning reader (FreeStyle Allison 2 [place]) As directed flash glucose sensor (FreeStyle Allison 2 Sensor kit) As directed change every 14 days furosemide 40 mg PO QAM gabapentin 100 mg PO BEDTIME 90 days glucagon 3 mg/actuation (Baqsimi) 3 mg intranasal ONCE insulin glargine (Lantus Solostar U-100 Insulin) 18 units (0.18 mL) subcut QPM insulin lispro (Humalog KwikPen (U-100) Insulin) 12 - 16 units (0.12 - 0.16 mL) subcut QID lancets (Accu-Chek Softclix Lancets) three times a day losartan 100 mg PO DAILY meloxicam 7.5 mg PO .qod 30 days nortriptyline 50 mg PO BEDTIME 90 days pen needle, diabetic (BD Ultra-Fine Micro Pen Needle) 1 ea subcut TID pen needle, diabetic (BD Annia 2nd Gen Pen Needle) USE 1 PEN NEEDLE SIX TIMES DAILY rosuvastatin 5 mg PO DAILY 30 days tirzepatide (Mounjaro) 2.5 mg (0.5 mL) subcut QWEEK underpads As directed, 2 per night vibegron (Gemtesa) 75 mg PO DAILY 30 days HPI Comments Details: Katerina is a middle-aged woman with a history of longstanding diabetes mellitus along with obesity and hypertension. She has CKD 3 with baseline creatinine from 1.5-1.6 mg/dL. Currently bumped to 2.2 She has a history of taking NSAIDs on a long-term basis. She is currently on meloxicam 7.5 mg every other day. She continues to have fatigue and she had vague chest pain recently. s/p stress test. c/o urinary incontinence Seen by Urology Blood sugar is suboptimal Still complaints of Fatigue On Maunjaro along with Lantus Being followed closely by Urology started Venustesa in Sep 12/25/24 Here for follow up c/o Left hip pain She has gained 4- 5 lbs PFSH Medical History CKD (chronic kidney disease) stage 3, GFR 30-59 ml/min Hypercalcemia Secondary hyperparathyroidism Left upper arm injury Arthritis Type 2 diabetes mellitus with hyperglycemia, with long-term current use of insulin Type 2 diabetes mellitus with polyneuropathy Essential hypertension Hyperlipidemia LDL goal <70 Constipation Obesity (BMI 30-39.9) Depression Lumbar degenerative disc disease Diabetic neuropathy Primary osteoarthritis of right knee Pedal edema Chronic kidney disease, stage 4 (severe) Pure hypercholesterolemia Coronary atherosclerosis 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 Mother Diabetes Hypertension Cancer antigen 125 (CA 125) elevation Maternal Grandmother Stomach cancer Other Mental health problem Social History Household Members Other:: daughter Housing: Apartment Alcohol intake: never Patient Tobacco Use Status: Never used Tobacco e-Cigarette/Vaping Use: Never Used Second Hand Smoke Exposure: Yes service: No Current occupational status: disabled Cognitive needs: Yes (cane/walker) Hearing needs: No Vision needs: Yes (reading glasses) Physical Exam Vital Signs: Last Vital Signs Pulse 92 04/29/25 15:54 BP 110/60 12/25/24 15:54 Pulse Ox 98 12/25/24 15:54 Oxygen Delivery Method Room Air 12/25/24 15:54 BMI result Body Mass Index 43.8 Comfortable Neck supple no JVD. Lungs entry equal no rales. Heart S1-S2 heard no gallop or rub. Abdomen soft nontender. Neuro alert awake oriented. No asterixis. Extremities no edema. Results Reviewed Nephrology Results: Hgb 10.3 g/dl (12.0-16.0) L 11/09/24 WBC 6.2 X10*3/uL (4.8-10.8) 11/09/24 Plt Count 157 X10*3/uL (160-400) L 11/09/24 Sodium 138 mmol/L (135-145) 12/15/24 Potassium 4.4 mmol/L (3.3-5.1) 12/15/24 Chloride 102 mmol/L (96-108) 12/15/24 Carbon Dioxide 26 mmol/L (22-29) 12/15/24 BUN 22 mg/dL (9-16) H 12/15/24 Creatinine 1.89 mg/dL (0.5-1.4) H 12/15/24 Calcium 8.4 mg/dL (8.4-10.2) 12/15/24 Phosphorus 3.3 mg/dL (2.7-4.5) 06/23/24 PTH Intact 249.8 pg/mL (8.7-77.1) H 12/15/24 Urine Protein Negative mg/dL (Neg-Trace) 12/15/24 Urine Creatinine 84.43 mg/dL 07/02/24 Assessment & Plan Assessment & Plan (1) Type 2 diabetes mellitus with diabetic chronic kidney disease: Code(s): E11.22 - Type 2 diabetes mellitus with diabetic chronic kidney disease Category: Medical Qualifiers: Chronic kidney disease stage: stage 4 (severe) Diabetes mellitus custodial insulin use: with terminal clerk use Qualified Code(s): E11.22 - Type 2 diabetes mellitus with diabetic chronic kidney disease; N18.4 - Chronic kidney disease, stage 4 (severe); Z79.4 - shelter (current) use of insulin Plan: Goals is to keep A1C < 7% Discussed weight loss. (2) Essential hypertension: Code(s): I10 - Essential (primary) hypertension Category: Medical Plan: BP is better controlled Keep current meds Discussed importance of low-sodium diet. (3) Chronic kidney disease, stage 4 (severe): Code(s): N18.4 - Chronic kidney disease, stage 4 (severe) Category: Medical Plan: Creatinine is marginally better at 1.86 with eGFR of 27 ml/mt She is still on Miloxicam QOD and she needs to avoid NSAIDS Also on Losartan 100 mg At risk for ongoing renal injury Discussed with Katerina to avoid NSAIDS/Miloxicam (4) Secondary hyperparathyroidism: Code(s): N25.81 - Secondary hyperparathyroidism of renal origin Category: Medical Plan: On Cinacalcet Repeat ca is normal - 8.4 PTH 264 Orders: Orders Comprehensive Met. Panel 3 Months N18.4 - Chronic kidney disease, stage 4 (severe) Phosphorus 3 Months N18.4 - Chronic kidney disease, stage 4 (severe) Complete Blood Count no Diff 3 Months N18.4 - Chronic kidney disease, stage 4 (severe) Parathyroid Hormone Intact 3 Months N18.4 - Chronic kidney disease, stage 4 (severe) Coding Level of Care Code Est Pt Level 4 (11713) Diagnoses Type 2 diabetes mellitus with stage 4 chronic kidney disease, with long-term current use of insulin E11.22; N18.4; Z79.4 Chronic kidney disease stage: stage 4 (severe) Diabetes mellitus terminal clerk insulin use: with terminal clerk use Essential hypertension I10 Chronic kidney disease, stage 4 (severe) N18.4 Secondary hyperparathyroidism N25.81
== END 2024-12-25 16:09 | disposition home or self-care (01) ==
LOC: HO.HKA 15:54
PROVIDERS: PCP Internal Medicine; Visit Provider Internal Medicine Hypertension Specialist
DX: E11.22 Type 2 diabetes mellitus with diabetic chronic kidney disease (principal); N18.4 Chronic kidney disease, stage 4 (severe); Z79.4 Long term (current) use of insulin; I12.9 Hypertensive chronic kidney disease with stage 1 through stage 4 chronic kidney disease, or unspecified chronic kidney disease; N25.81 Secondary hyperparathyroidism of renal origin
CPT/HCPCS: 99214

== ENCOUNTER → 2024-12-25 15:53 | Outpatient (BNVA) | payer MEDICARE, MEDICAID, SELFPAY | PROVIDERS: PCP Internal Medicine; Visit Provider Internal Medicine Hypertension Specialist | DX: E11.22 Type 2 diabetes mellitus with diabetic chronic kidney disease (principal); I12.9 Hypertensive chronic kidney disease with stage 1 through stage 4 chronic kidney disease, or unspecified chronic kidney disease; N18.4 Chronic kidney disease, stage 4 (severe); N25.81 Secondary hyperparathyroidism of renal origin; Z79.4 Long term (current) use of insulin | CPT/HCPCS: 99212 ==

== ENCOUNTER 2024-12-27 12:05 | Outpatient (AMB) | payer MEDICARE, MEDICAID, SELFPAY ==
[2024-12-27 12:10] VITALS: BP 106/68; PULSE 78; O2SAT 98; BMI 43.6
--- NOTE | 2024-12-27 12:10 | MHC.PC.OV ---
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: No Accompanied by: Self / Same As Patient Allergies No Known Allergies [No Known Allergies*] Allergy (Verified 12/27/24 12:33) Medication List - Last Reconciled 12/27/24 by Leonid Valerio MD acetaminophen 500 mg PO ONCE PRN aspirin (Adult Low Dose Aspirin) 81 mg PO DAILY [bath seat As directed] blood pressure monitor As directed blood sugar diagnostic (Accu-Chek Brenda Plus test strips) Tests 4 X/day blood-glucose meter (Accu-Chek Brenda Plus Meter) 3x/day carvedilol 12.5 mg PO BID cinacalcet 30 mg PO QAM citalopram 10 mg PO DAILY 90 days diaper,brief,adult,disposable (Select Disposable Briefs) as directed, 4 daily ezetimibe 10 mg PO QAM flash glucose scanning reader (FreeStyle Allison 2 [place]) As directed flash glucose sensor (FreeStyle Allison 2 Sensor kit) As directed change every 14 days furosemide 40 mg PO QAM gabapentin 100 mg PO BEDTIME 90 days glucagon 3 mg/actuation (Baqsimi) 3 mg intranasal ONCE insulin glargine (Lantus Solostar U-100 Insulin) 18 units (0.18 mL) subcut QPM insulin lispro (Humalog KwikPen (U-100) Insulin) 12 - 16 units (0.12 - 0.16 mL) subcut QID lancets (Accu-Chek Softclix Lancets) three times a day losartan 100 mg PO DAILY meloxicam 7.5 mg PO .qod 30 days nortriptyline 50 mg PO BEDTIME 90 days pen needle, diabetic (BD Ultra-Fine Micro Pen Needle) 1 ea subcut TID pen needle, diabetic (BD Annia 2nd Gen Pen Needle) USE 1 PEN NEEDLE SIX TIMES DAILY rosuvastatin 5 mg PO DAILY 30 days tirzepatide (Mounjaro) 2.5 mg (0.5 mL) subcut QWEEK underpads As directed, 2 per night vibegron (Gemtesa) 75 mg PO DAILY 30 days Tobacco use date assessed: 12/06/23 Fall risk assessment: 2 + Falls in past year Last assessed Fall Risk: 12/27/24 Dental Screening Dental Screen Date: 12/27/24 Did you have a dental visit in the last 12 months?: Yes Did you have a dental problem in the last 6 months where you did not have access to dental care?: No Was dental information given to patient?: Patient has dentist [facility] Medical History CKD (chronic kidney disease) stage 3, GFR 30-59 ml/min Hypercalcemia Secondary hyperparathyroidism Left upper arm injury Arthritis Type 2 diabetes mellitus with hyperglycemia, with long-term current use of insulin Type 2 diabetes mellitus with polyneuropathy Essential hypertension Hyperlipidemia LDL goal <70 Constipation Obesity (BMI 30-39.9) Depression Lumbar degenerative disc disease Diabetic neuropathy Primary osteoarthritis of right knee Pedal edema Chronic kidney disease, stage 4 (severe) Pure hypercholesterolemia Coronary atherosclerosis long term (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 Mother Diabetes Hypertension Cancer antigen 125 (CA 125) elevation Maternal Grandmother Stomach cancer Other Mental health problem Social History Household Members Other:: daughter Housing: Apartment Alcohol intake: never Patient Tobacco Use Status: Never used Tobacco e-Cigarette/Vaping Use: Never Used Second Hand Smoke Exposure: Yes service: No Current occupational status: disabled Cognitive needs: Yes (cane/walker) Hearing needs: No Vision needs: Yes (reading glasses) Questionnaire PHQ-9 Over the last 2 weeks, how often have you been bothered by any of the following problems? 1. Little interest or pleasure in doing things: not at all 2. Feeling down, depressed, or hopeless: not at all 3. Trouble falling or staying asleep, or sleeping too much: not at all 4. Feeling tired or having little energy: not at all 5. Poor appetite or overeating: not at all 6. Feeling bad about yourself - or that you are a failure or have let yourself or your family down: not at all 7. Trouble concentrating on things, such as reading the newspaper or watching television: not at all 8. Moving or speaking so slowly that other people could have noticed. Or the opposite - being so fidgety or restless that you have been moving around a lot more than usual: not at all 9. Thoughts that you would be better off or of hurting yourself in some way: not at all Total score: 0 Depression Screening Interpretation: Negative Depression Screening Done: Yes Source: Developed by Drs. Jake Quinones, Reena Washington, Lorne Guzman and colleagues, with an educational heather from [employer]. Thrive Questionnaire Date Thrive assessed: 12/27/24 I am a: Patient What is your living situation today?: I have a steady place to live Within the past 12 months, did the food you bought not last and you didn't have the money to get more?: Sometimes True Within the past 12 months, did you worry whether your food would run out before you got money to buy more?: Sometimes True Do you have trouble paying for medicines?: No Do you have trouble getting transportation to medical appointments?: No Do you have trouble paying your heating and electricity bill?: Yes Do you have trouble taking care of your child, family member or friend?: No Do you have trouble with day-to-day activities such as bathing, preparing meals, shopping, managing finances, etc.?: No Are you currently unemployed and looking for a job?: No Are you interested in more education?: No Please select the resources that you would like help with: None Currently or been in a relationship where the following occur: No concerns reported THRIVE Score: 3 AUDIT C Alcohol Use Questionnaire (AUDIT-C) 1. How often do you have a drink containing alcohol?: Monthly or less 2. How many drinks containing alcohol do you have on a typical day when you are drinking?: 1 or 2 3. How often do you have six or more drinks on one occasion?: Never Total Score: 1 JANIS-7 AMB Questionnaire JANIS-7 Date JANIS - 7 assessed: 12/27/24 Feeling nervous, anxious, or on edge: 1 = Several days Not being able to stop or control worryin = Several days Worrying too much about different things: 1 = Several days Trouble relaxin = Not at all Being so restless that it is hard to sit still: 0 = Not at all Becoming easily annoyed or irritable: 0 = Not at all Feeling afraid as if something awful might happen: 0 = Not at all Total JANIS-7 score (0-4 normal; 5-9 mild; 10-14 moderate; 15-21 severe): 3 Source: Developed by Drs. Jake Quinones, Reena Washington, Lorne Guzman and colleagues, with an educational heather from [employer]. Physical exam (Primary Care) Vital Signs: Last Vital Signs Pulse 78 12/27/24 12:10 BP 106/68 12/27/24 12:10 Pulse Ox 98 12/27/24 12:10 Oxygen Delivery Method Room Air 12/27/24 12:10 BMI result Body Mass Index 43.6 Tobacco/Smoking Status: Tobacco use Status Tobacco use date assessed 12/06/23 12/27/24 12:19 Patient Tobacco Use Status Never used Tobacco 12/27/24 12:19 e-Cigarette/Vaping Use Never Used 12/27/24 12:19 PHQ-9: PHQ-9 Score PHQ-9: Total score 0 12/27/24 12:31 Depression Screening Interpretation: Negative Thrive Assessment: Date of Thrive Assessment Date Thrive assessed 12/27/24 12/27/24 12:19 Currently or been in a relationship where the following occur: No concerns reported Results AMB Hemoglobin A1c AMB Hemoglobin A1c 7.2 % Last Edit by BREE Ramirez on 12/27/24 12:33 Coding Assessment & Plan Assessment & Plan Orders: Orders XR hip LT min 2V Today M25.552 - Pain in left hip Hemoglobin A1c 4 Months E11.9 - Type 2 diabetes mellitus without complications UA CC w/rflx Micro + Cult 4 Months R30.0 - Dysuria XR hand LT min 3V Today M79.642 - Pain in left hand Complete Blood Count Auto Diff 4 Months D64.9 - Anemia, unspecified Comprehensive [place]. Panel Fast 4 Months E78.00 - Pure hypercholesterolemia, unspecified Lipid Panel 4 Months E78.00 - Pure hypercholesterolemia, unspecified Microalbumin, Random (w Creat) 4 Months E11.9 - Type 2 diabetes mellitus without complications TSH reflex Free T4 4 Months E78.00 - Pure hypercholesterolemia, unspecified Vitamin D 25-OH Total 4 Months E55.9 - Vitamin D deficiency, unspecified Referrals Ear/Nose/Throat Referral J33.0 - Polyp of nasal cavity Medications: New fluticasone propionate 50 mcg/actuation administer into each nostril 2 sprays intranasal DAILY 30 days 16 grams 5RF
--- OUTSIDE RECORDS SUMMARY | 2024-12-27 14:11 | XMS_ITS | Clinical Summary ---
Author Organization [facility] Address [address] [place] [address] Phone Care Team Providers Care Bartender Manager Name Role Phone Leonid Valerio MD Primary Care Provider [phone] Allergies Active Allergy Reactions Criticality Noted Date Comments Morphine Sulfate-Nacl Itching 04/17/2008 Oxycodone-Acetaminophen Itching 04/17/2008 Medications aspirin (ST CELSO) 81 MG EC tablet Take 1 tablet by mouth 1 (one) time each day Active citalopram (CeleXA) 10 MG tablet Take 1 tablet by mouth 1 (one) time each day 8 Active gabapentin (NEURONTIN) 100 MG capsule Take 1 capsule by mouth in the morning and 1 capsule in the evening. 7 Active nortriptyline (PAMELOR) 50 MG capsule Take 1 capsule by mouth at bed time 8 Active simvastatin (ZOCOR) 5 MG tablet Take 1 tablet by mouth 1 (one) time each day 8 Active ezetimibe (ZETIA) 10 MG tablet Take 10 mg by mouth 1 (one) time each day 1 Active Victoza 18 MG/3ML injection INJECT 0.6 MG SUBCUTANEOUSLY ONCE DAILY FOR 7 DAYS THEN 1.2MG DAILY. DO NOT EXCEED 1.8MG DAY 1 Active insulin glargine (LANTUS) 100 UNIT/ML injection Inject 18 Units under the skin 1 (one) time each day Active Insulin Lispro (HUMALOG SC) Inject under the skin Active rosuvastatin (CRESTOR) 5 MG tablet 1 Active furosemide (LASIX) 40 MG tabletIndicati ons:Hypertensi ve chronic kidney disease, unspecified, with chronic kidney disease stage I through stage IV, or unspecified,Ch ronic kidney disease stage 4 (HCC),Type 2 diabetes mellitus with diabetic chronic kidney disease (HCC) Take 1 tablet by mouth once daily 90 tablet 3 Active losartan (COZAAR) 100 MG tabletIndicati ons:Hypertensi ve chronic kidney disease, unspecified, with chronic kidney disease stage I through stage IV, or unspecified,Ch ronic kidney disease stage 4 (HCC),Type 2 diabetes mellitus with diabetic chronic kidney disease (HCC) Take 1 tablet (100 mg total) by mouth 1 (one) time each day 90 tablet 3 3 Active Active Problems Problem Noted Date Diagnosed Date Hypercalcemia 01/21/2022 05/26/2023 Goiter 01/21/2022 05/26/2023 Acute nontraumatic kidney injury 12/23/2020 Arthritis 12/23/2020 Neuropathy due to diabetes mellitus 12/23/2020 Hypertensive heart disease without congestive he art failure 12/23/2020 Obesity 12/23/2020 Renal disorder due to type 2 diabetes mellitus 0 12/23/2020 Essential hypertension 08/04/2018 Overview (02/11/2022): Last Assessment & Plan: Continue outpatient medical regimen Syncope and collapse 08/04/2018 Overview (12/23/2020): Last Assessment & Plan: Patient has multiple risk factor for coronary vascular disease, but my feeling is that this event was likely mediated by a vasovagal episode compounded by her elevated glucose and mild dehydration -Trops -Echo -Telemetry monitoring -Teds -Orthostatic BP daily Hyperlipidemia 09/07/2017 Overview (12/23/2020): Last Assessment & Plan: Check lipid panel -Continue statin History of colonoscopy 07/02/2011 3 Overview (05/26/2023): Repeat 10 yrs Type 2 diabetes mellitus 10/14/2010 Overview (02/11/2022): Last Assessment & Plan: Patient notes that she had run out of her Humalog and was only using her Lantus at this point and her glucose had been elevated -We will utilize basal insulin as well as Humalog and sliding scale -Hold glipizide and metformin at this time Proteinuria 07/11/2008 05/26/2023 Intramural leiomyoma of uterus 06/10/2006 0 05/26/2023 Overview (05/26/2023): Resection of fibroid tumor, 1998 Excessive or frequent menstruation 06/10/2006 05/26/2023 Resolved Problems Problem Noted Date Diagnosed Date Resolved Date Chronic kidney disease stage 3 12/23/2020 12/24/2020 Depressive disorder 08/04/2018 12/25/19 21 Overview (12/23/2020): Last Assessment & Plan: Patient notes that she has been depressed recently and had run out of her nortriptyline -BHRT Immunizations Immunization Administration Dates Next Due Influenza (IM) Preservative Free 05/13/2015 Influenza TIV (IM) 05/29/2015,07/11/2008, 007 Influenza, Quadrivalent, Pre servative Free 06/02/2019,05/29/2018,04/17/2017,06/18 Influenza, Quadrivalent, Wit h Preservative 05/11/2017 Influenza, Recombinant, Quad rivalent, Pf 04/28/2020 Influenza, Unspecified 05/12/2011 Pneumococcal Polysaccharide 06/17/2009, 8 Shingrix 07/27/2020,04/28/2020 Tdap 05/05/2011,09/07/2007 Family History Medical History Relation Comments Cancer Mother lung & stomach Diabetes Mother Hypertension Mother Relation Status Comments Father Mother Alive Social History Tobacco Use Types Packs/Day Years Used Date Smoking Tobacco: Never Smokeless Tobacco: Never Alcohol Use Standard Drinks/Week Comments Yes 0 (1 standard drink = 0.6 oz pure alcohol) Alcoholic Drinks/day: Occasional social drink Comments Unknown Sex and Gender Information Value Date Recorded Sex Assigned at Not on file Legal Sex Female 4:54 PM EST Gender Identity Not on file Sexual Orientation Not on file Last Filed Vital Signs Vital Sign Reading Time Taken Comments Blood Pressure 120/81 05/26/2023 4:14 PM EDT Pulse 98 05/26/2023 4:14 PM EDT Temperature - - Respiratory Rate - - Oxygen Saturation 98% 05/26/2023 4:14 PM EDT Inhaled Oxygen Concentration - - Weight 107 kg (236 lb) 05/26/2023 4:14 PM EDT Height 160 cm (5' 3 ) 02/10/2023 1:41 PM EDT Body Mass Index 41.81 02/10/2023 1:41 PM EDT Plan of Treatment Health Maintenance Due Date Last Done Comments Breast Cancer Screening 1960 Colorectal Cancer Screening: Annual FOBT 2009 Colorectal Cancer Screening: Sigmoidoscopy 2009 Pneumococcal Vaccine: 50+ Years (3 of 3 - PCV) 06/17/2010 06/17/2009, 09/07/2007 Diabetes: Hemoglobin A1C 09/26/2020 020, 04/23/2020, 01/30/2019 Diabetes: Ophthalmology Exam 09/26/2020 Diabetes: Pedal Pulse Checked 09/26/2020 Diabetes: Sensory Foot Exam 09/26/2020 Diabetes: Visual Foot Exam 09/26/2020 Colorectal Cancer Screening: Colonoscopy 07/02/2021 07/02/2011 Influenza Vaccine (Season Ended) 2025 04/28/2020, 06/02/2019, 05/29/2018, Additional history exists Pneumococcal Vaccine: Peds (0 to 5 Years) and At-Risk Patients (6 to 49 Years) Discontinued 06/17/2009, 09/07/2007 Hepatitis B Vaccine Aged Out No longe r eligible based on patient's age to complete this topic Procedures Procedure Name Priority Date/Time Associated Diagnosis Comments BLOOD PANEL (HC) Routine 06/21/2020 12:0 0 AM EDT from Last 3 Months or Most Recently Relevant to Health Maintenance Results * (ABNORMAL) Blood Panel (06/21/2020 12:00 AM EDT) BUN 35(H) 9 - 20 mg/dl [facility] Calcium 9.8 8.4 - 10.2 mg/dl [facility] Triglycerides 73 <150 mg/dl [facility] LDL,Direct 42 <130 mg/dl [facility] Hgb 11.3(L) 13.0 - 16.5 g/dl [facility] Hemoglobin A1C 7.3(H) <5 % [facility] Potassium 4.7 3.5 - 5.1 mmol/L [facility] Creatinine 1.93(H) 0.70 - 1.30 mg/dl [facility] Sodium 136(L) 137 - 145 mmol/L [facility] Cholesterol 96 <200 mg/dl [facility] HDL 40(L) >40 mg/dl [facility] Hematocrit 34.5(L) 38 - 50 % [facility] 06/21/2020 us [facility] [id number] LICITED RESULTS Final Result [facility] from Last 3 Months or Most Recently Relevant to Health Maintenance [place] Care Teams Bartender Manager Relationship Specialty Start Date End Date Leonid Valerio MD [address] [place] [address] PCP - General Internal Medicine 07/06/21
== END 2024-12-27 12:42 | disposition home or self-care (01) ==
LOC: HO.HMCH 12:06
PROVIDERS: PCP Internal Medicine; Visit Provider Internal Medicine
DX: E11.22 Type 2 diabetes mellitus with diabetic chronic kidney disease (principal); N18.4 Chronic kidney disease, stage 4 (severe); Z79.4 Long term (current) use of insulin

== ENCOUNTER → 2024-12-27 12:05 | Outpatient (BNVA) | payer MEDICARE, MEDICAID, SELFPAY | PROVIDERS: PCP Internal Medicine; Visit Provider Internal Medicine | DX: E78.00 Pure hypercholesterolemia, unspecified (principal); I12.9 Hypertensive chronic kidney disease with stage 1 through stage 4 chronic kidney disease, or unspecified chronic kidney disease; E11.22 Type 2 diabetes mellitus with diabetic chronic kidney disease; N18.4 Chronic kidney disease, stage 4 (severe); I25.10 Atherosclerotic heart disease of native coronary artery without angina pectoris; N25.81 Secondary hyperparathyroidism of renal origin; E11.42 Type 2 diabetes mellitus with diabetic polyneuropathy; Z79.4 Long term (current) use of insulin; M51.360 Other intervertebral disc degeneration, lumbar region with discogenic back pain only; M17.11 Unilateral primary osteoarthritis, right knee; M25.552 Pain in left hip; M79.642 Pain in left hand; J33.9 Nasal polyp, unspecified; F33.9 Major depressive disorder, recurrent, unspecified; E66.01 Morbid (severe) obesity due to excess calories; Z68.41 Body mass index [BMI] 40.0-44.9, adult; Z71.3 Dietary counseling and surveillance | CPT/HCPCS: 83036; 96127; 99212 ==

== ENCOUNTER → 2025-02-18 15:05 | Outpatient (BNVA) | payer MEDICARE, MEDICAID, SELFPAY | PROVIDERS: PCP Internal Medicine | DX: Z13.89 Encounter for screening for other disorder (principal) ==

== ENCOUNTER 2025-04-01 08:23 | Outpatient (REF) | payer MEDICARE, MEDICAID, SELFPAY ==
--- NOTE | ~2025-04-01 | XR_ITS ---
EXAMINATION: XR HAND 3 OR MORE VIEWS LEFT HISTORY: M79.642 - Pain in left hand COMPARISON: There are no prior studies available for comparison. FINDINGS: Three views of the left hand are submitted. Osseous mineralization is normal. There is no fracture or dislocation. There is severe arthritis of the DIP joints of the index and middle fingers with associated erosions and deformity. Milder changes are noted involving the 5th DIP joint. There is associated soft tissue swelling. 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 Findings may represent erosive osteoarthritis or psoriatic arthritis. Electronically signed by: Jake Lynne MD 04/01/2025 09:12 AM EDT
--- NOTE | ~2025-04-01 | XR_ITS ---
EXAMINATION: XR HIP 2 OR MORE VIEWS LEFT HISTORY: M25.552 - Pain in left hip COMPARISON: Comparison is made with the prior examination dated 07/17/2022. FINDINGS: Two views of the left hip are submitted. Osseous mineralization is normal. There is no fracture or dislocation. Again seen is mild joint space narrowing. There are vascular calcifications. XR/XR hip LT min 2V IMPRESSION: Mild joint space narrowing. Electronically signed by: Jake Lynne MD 04/01/2025 09:13 AM EDT
--- OUTSIDE RECORDS SUMMARY | 2025-04-01 08:43 | XMS_ITS | Clinical Summary ---
Author Organization [facility] Address [address] [place] [address] Phone Care Team Providers Care Floorperson Name Role Phone Leonid Valerio MD Primary Care Provider [phone]- [phone] Allergies Active Allergy Reactions Criticality Noted Date [...] Cancer Screening: Colonoscopy 07/02/2021 07/02/2011 Influenza Vaccine (#1) 2025 0, 06/02/2019, 05/29/2018, Additional history exists Pneumococcal Vaccine: [...] % [facility] 06/21/2020 us [facility] [id number] LICITED RESULTS Final Result Performing Organization Address City/State/[facility] Co de Phone Number [facility] from Last 3 Months or Most Recently Relevant to Health Maintenance [place] Care Teams Floorperson Relationship Specialty Start Date End Date Leonid Valerio MD [address] [place] [address] PCP - General Internal Medicine 07/06/21
[2025-04-01 09:06] LABS: Hematocrit 34.3 % (37.0-47.0); Hemoglobin 11.7 g/dl (12.0-16.0); Mean Corpuscular HGB Conc 34.1 g/dl (31.0-35.0); Mean Corpuscular Hemoglobin 28.7 pg (27.0-33.0); Mean Corpuscular Volume 84.3 fL (80.0-98.0); NRBC Abs Auto 0.000 X10*3/uL (0.0-0.012); NRBC Pct Auto 0.0 /100WBC (0.0-0.2); Platelet Count 161 X10*3/uL (160-400); Red Blood Count 4.07 X10*6/uL (4.20-5.50); White Blood Count 6.5 X10*3/uL (4.8-10.8)
[2025-04-01 09:45] LABS: Alanine Aminotransferase 16 U/L (0-31); Albumin Level 4.2 g/dL (3.5-5.0); Alkaline Phosphatase 125 U/L (39-117); Anion Gap 14 (12-20); Aspartate Amino Transferase 25 U/L (5-31); Blood Urea Nitrogen 29 mg/dL (9-16); Calcium 8.6 mg/dL (8.4-10.2); Carbon Dioxide 29 mmol/L (22-29); Chloride 100 mmol/L (96-108); Estimated Glomerular Filt Rate 26; Potassium 3.8 mmol/L (3.3-5.1); Sodium 139 mmol/L (135-145); Total Protein 7.6 g/dL (6.5-8.0)
[2025-04-01 10:55] LABS: Parathyroid Hormone Intact 286.9 pg/mL (8.7-77.1)
== END 2025-04-01 08:24 | disposition home or self-care (01) ==
LOC: HO.XRAY 08:23
PROVIDERS: Absent Provider Internal Medicine; PCP Internal Medicine; Visit Provider Internal Medicine Hypertension Specialist
DX: N18.4 Chronic kidney disease, stage 4 (severe) (principal); M79.642 Pain in left hand; M25.552 Pain in left hip
CPT/HCPCS: 36415; 73130; 73502; 80053; 83970; 84100; 85027

== ENCOUNTER → 2025-04-01 08:45 | Outpatient (BNV) | payer MEDICARE, MEDICAID, SELFPAY | PROVIDERS: Absent Provider Internal Medicine; PCP Internal Medicine; Visit Provider Radiology Diagnostic Radiology | DX: M25.552 Pain in left hip (principal); M15.4 Erosive (osteo)arthritis | CPT/HCPCS: 73130; 73502 ==

== ENCOUNTER 2025-04-03 11:02 | Outpatient (AMB) | payer MEDICARE, MEDICAID, SELFPAY ==
--- NOTE | 2025-04-03 11:04 | HO.NEPHOV ---
Vital Signs 04/03/25 11:05 Height 5 ft 3 in BP 110/84 Blood Pressure Location Lt radial Position Sitting Pulse 69 Pulse Source Pulse Oximeter Pulse Oximetry (%) 98 Oxygen Delivery Method Room Air Intake Visit Reasons: FU/ Conf Fuel Cell Builder Required: No Accompanied by: daughter in law Allergies No Known Allergies (No Known Allergies*) Allergy (Verified 04/03/25 11:07) Medication List - Last Reconciled 04/03/25 by Rodger Dominguez MD acetaminophen 500 mg PO ONCE PRN aspirin (Adult Low Dose Aspirin) 81 mg PO DAILY [bath seat As directed] blood pressure monitor As directed blood sugar diagnostic (Accu-Chek Brenda Plus test strips) Tests 4 X/day blood-glucose meter (Accu-Chek Brenda Plus Meter) 3x/day carvedilol 12.5 mg PO BID cinacalcet 30 mg PO QAM citalopram 10 mg PO DAILY 90 days diaper,brief,adult,disposable (Select Disposable Briefs) as directed, 4 daily ezetimibe 10 mg PO QAM flash glucose scanning reader (DynadmicStyle Allison 2 Peconic) As directed flash glucose sensor (FreeStyle Allison 2 Sensor kit) As directed change every 14 days fluticasone propionate 50 mcg/actuation 2 sprays intranasal DAILY 30 days furosemide 40 mg PO QAM gabapentin 100 mg PO BEDTIME 90 days glucagon 3 mg/actuation (Baqsimi) 3 mg intranasal ONCE insulin glargine (Lantus Solostar U-100 Insulin) 18 units (0.18 mL) subcut QPM insulin lispro (Humalog KwikPen (U-100) Insulin) 12 - 16 units (0.12 - 0.16 mL) subcut QID lactulose 10 grams (15 mL) PO DAILY PRN lancets (Accu-Chek Softclix Lancets) three times a day losartan 100 mg PO DAILY meloxicam 7.5 mg PO .qod 30 days nortriptyline 50 mg PO BEDTIME 90 days pen needle, diabetic (BD Annia 2nd Gen Pen Needle) USE 1 PEN NEEDLE SIX TIMES DAILY pen needle, diabetic 1 ea subcut TID rosuvastatin 5 mg PO DAILY 30 days tirzepatide (Mounjaro) 2.5 mg (0.5 mL) subcut QWEEK underpads As directed, 2 per night vibegron (Gemtesa) 75 mg PO DAILY 30 days HPI Comments Details: Katerina is a middle-aged woman with a history of longstanding diabetes mellitus along with obesity and hypertension. She has CKD 3 with baseline creatinine from 1.5-1.6 mg/dL. Currently bumped to 2.2 She has a history of taking NSAIDs on a long-term basis. She is currently on meloxicam 7.5 mg every other day. She continues to have fatigue and she had vague chest pain recently. s/p stress test. c/o urinary incontinence Seen by Urology Blood sugar is suboptimal Still complaints of Fatigue On Maunjaro along with Lantus Being followed closely by Urology started Gemtesa in Sep 12/25/24 ;Here for follow up ;c/o Left hip pain;She has gained 4- 5 lbs 04/03/25 : Overall doing well. c/o Constipation ; BM once every 10 days Weight unchanged Accompanied by caregiver/CUSTOMER RESOLUTION SPECIALIST-(daughterinlaw) [facility] Medical History CKD (chronic kidney disease) stage 3, GFR 30-59 ml/min Hypercalcemia Secondary hyperparathyroidism Left upper arm injury Arthritis Type 2 diabetes mellitus with hyperglycemia, with long-term current use of insulin Type 2 diabetes mellitus with polyneuropathy Essential hypertension Hyperlipidemia LDL goal <70 Constipation Obesity (BMI 30-39.9) Depression Lumbar degenerative disc disease Diabetic neuropathy Primary osteoarthritis of right knee Pedal edema Chronic kidney disease, stage 4 (severe) Pure hypercholesterolemia 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 Mother Diabetes Hypertension Cancer antigen 125 (CA 125) elevation Maternal Grandmother Stomach cancer Other Mental health problem Social History Household Members Other:: daughter Housing: Apartment Alcohol intake: never Patient Tobacco Use Status: Never used Tobacco e-Cigarette/Vaping Use: Never Used Second Hand Smoke Exposure: Yes service: No Current occupational status: disabled Cognitive needs: Yes (cane/walker) Hearing needs: No Vision needs: Yes (reading glasses) Physical Exam Comfortable Neck supple no JVD. Lungs entry equal no rales. Heart S1-S2 heard no gallop or rub. Abdomen soft nontender. Neuro alert awake oriented. No asterixis. Extremities no edema. Results Reviewed Nephrology Results: Hgb, (12.0-16.0) 11.7 g/dl L 04/01/25 WBC, (4.8-10.8) 6.5 X10*3/uL 04/01/25 Plt Count, (160-400) 161 X10*3/uL 04/01/25 Sodium, (135-145) 139 mmol/L 04/01/25 Potassium, (3.3-5.1) 3.8 mmol/L 04/01/25 Chloride, (96-108) 100 mmol/L 04/01/25 Carbon Dioxide, (22-29) 29 mmol/L 04/01/25 BUN, (9-16) 29 mg/dL H 04/01/25 Creatinine, (0.5-1.4) 1.91 mg/dL H 04/01/25 Calcium, (8.4-10.2) 8.6 mg/dL 04/01/25 Phosphorus, (2.7-4.5) 3.6 mg/dL 04/01/25 PTH Intact, (8.7-77.1) 286.9 pg/mL H 04/01/25 Urine Protein, (Neg-Trace) Negative mg/dL 12/15/24 Assessment & Plan Assessment & Plan (1) Type 2 diabetes mellitus with diabetic chronic kidney disease: Code(s): E11.22 - Type 2 diabetes mellitus with diabetic chronic kidney disease Category: Medical Qualifiers: Diabetes mellitus detention insulin use: with detention use Chronic kidney disease stage: stage 4 (severe) Qualified Code(s): E11.22 - Type 2 diabetes mellitus with diabetic chronic kidney disease; N18.4 - Chronic kidney disease, stage 4 (severe); Z79.4 - skilled nursing (current) use of insulin Plan: Goals is to keep A1C < 7% Discussed weight loss. (2) Essential hypertension: Code(s): I10 - Essential (primary) hypertension Category: Medical Plan: BP is better controlled Keep current meds Discussed importance of low-sodium diet. (3) Chronic kidney disease, stage 4 (severe): Code(s): N18.4 - Chronic kidney disease, stage 4 (severe) Category: Medical Plan: Creatinine is esentially unchanged She is still on Miloxicam QOD and she needs to avoid NSAIDS- Also on Losartan 100 mg At risk for ongoing renal injury Discussed with Katerina to avoid NSAIDS/Miloxicam (4) Secondary hyperparathyroidism: Code(s): N25.81 - Secondary hyperparathyroidism of renal origin Category: Medical Plan: On Cinacalcet Repeat ca is normal - 8.4 PTH 287 Plan Constipation Will add LActulose Orders: Orders Complete Blood Count no Diff 4 Months E11.22 - Type 2 diabetes mellitus with diabetic chronic kidney disease, I10 - Essential (primary) hypertension, N18.4 - Chronic kidney disease, stage 4 (severe), N25.81 - Secondary hyperparathyroidism of renal origin, Z79.4 - skilled nursing (current) use of insulin Parathyroid Hormone Intact 4 Months E11.22 - Type 2 diabetes mellitus with diabetic chronic kidney disease, I10 - Essential (primary) hypertension, N18.4 - Chronic kidney disease, stage 4 (severe), N25.81 - Secondary hyperparathyroidism of renal origin, Z79.4 - skilled nursing (current) use of insulin Phosphorus 4 Months E11.22 - Type 2 diabetes mellitus with diabetic chronic kidney disease, I10 - Essential (primary) hypertension, N18.4 - Chronic kidney disease, stage 4 (severe), N25.81 - Secondary hyperparathyroidism of renal origin, Z79.4 - skilled nursing (current) use of insulin IRON PROFILE 4 Months E11.22 - Type 2 diabetes mellitus with diabetic chronic kidney disease, I10 - Essential (primary) hypertension, N18.4 - Chronic kidney disease, stage 4 (severe), N25.81 - Secondary hyperparathyroidism of renal origin, Z79.4 - 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 Ferritin 4 Months E11.22 - Type 2 diabetes mellitus with diabetic chronic kidney disease, I10 - Essential (primary) hypertension, N18.4 - Chronic kidney disease, stage 4 (severe), N25.81 - Secondary hyperparathyroidism of renal origin, Z79.4 - skilled nursing (current) use of insulin Basic Metabolic Panel 4 Months E11.22 - Type 2 diabetes mellitus with diabetic chronic kidney disease, I10 - Essential (primary) hypertension, N18.4 - Chronic kidney disease, stage 4 (severe), N25.81 - Secondary hyperparathyroidism of renal origin, Z79.4 - 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
[2025-04-03 11:05] VITALS: BP 110/84; PULSE 69; O2SAT 98
--- OUTSIDE RECORDS SUMMARY | 2025-04-03 11:51 | XMS_ITS | Clinical Summary ---
Author Organization [facility] Address [address] [place] [address] Phone Care Team Providers Care Servicer Coin Machines Name Role Phone Leonid Valerio MD Primary Care Provider [phone] Allergies Active Allergy Reactions Criticality Noted Date [...] % PVNMA 06/21/2020 us Rtama Conversion LAB [id number] LICITED RESULTS Final Result Performing Organization Address City/State/[facility] Co de Phone Number PVNMA from Last 3 Months or Most Recently Relevant to Health Maintenance Insurance [place] Care Teams Servicer Coin Machines Relationship Specialty Start Date End Date Leonid Valerio MD [address] [place] [address] PCP - General Internal Medicine 07/06/21
--- OUTSIDE RECORDS SUMMARY | 2025-04-03 11:51 | XMS_ITS | Clinical Summary ---
Author Organization [facility] Address [address] [place] [address] Phone Care Team Providers Care Bilingual Case Manager Name Role Phone Leonid Valerio MD Primary Care Provider [phone] Denisse Marroquin MD Unavailable [phone] Allergies No known active allergies Medications insulin lispro (ADMELOG, HUMALOG) 100 unit/mL injection vial 10 Units 3 (three) times a day. Active meloxicam (MOBIC) 15 MG tablet Take 15 mg by mouth daily. Active gabapentin (NEURONTIN) 100 MG capsule Take 100 mg by mouth daily. Active nortriptyline (PAMELOR) 50 MG capsule Take 50 mg by mouth nightly. Active citalopram (CELEXA) 10 MG tablet Take 10 mg by mouth daily. Active aspirin 81 MG EC tablet Take 1 tablet by mouth. Active VICTOZA 2-BRIELLE 0.6 mg/0.1 mL (18 mg/3 mL) PnIj 2 Active furosemide (LASIX) 40 MG tablet 2 Active ezetimibe (ZETIA) 10 mg tablet Take 10 mg by mouth daily. 2 Active BD AMEE 2ND GEN PEN NEEDLE 32 gauge x Ndle USE 1 SIX TIMES DAILY 2 Active BD ULTRA-FINE MICRO PEN NEEDLE 32 gauge x 1/4 Ndle USE SUBCUTANEOUSLY THREE TIMES DAILY 2 Active rosuvastatin (CRESTOR) 5 MG tablet Take 5 mg by mouth daily. 2 Active insulin glargine (LANTUS) 100 unit/mL injection vial Inject 40 Units under the skin. 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 12/23/2020 Arthritis 12/23/2020 Acute renal failure syndrome 12/23/2020 Syncope and collapse 08/04/2018 Assessment & Plan (08/04/2018 7:45 PM EST): Patient has multiple risk factor for coronary vascular disease, but my feeling is that this event was likely mediated by a vasovagal episode compounded by her elevated glucose and mild dehydration -Trops -Echo -Telemetry monitoring -Teds -Orthostatic BP daily Depression 08/04/2018 Assessment & Plan (08/04/2018 7:47 PM EST): Patient notes that she has been depressed recently and had run out of her nortriptyline -BHRT Essential hypertension 08/04/2018 Assessment & Plan (08/04/2018 7:47 PM EST): Continue outpatient medical regimen Hyperlipidemia 09/07/2017 Assessment & Plan (08/04/2018 7:46 PM EST): Check lipid panel -Continue statin Type 2 diabetes mellitus 10/14/2010 Assessment & Plan (08/04/2018 7:47 PM EST): Patient notes that she had run out of her Humalog and was only using her Lantus at this point and her glucose had been elevated -We will utilize basal insulin as well as Humalog and sliding scale -Hold glipizide and metformin at this time Immunizations Immunization Administration Dates Next Due INFLUENZA, SPLIT VIRUS, TRIVALENT PF 05/13/2015 INFLUENZA, SPLIT VIRUS, TRIV ALENT W/ PRESERVATIVE IM 05/29/2015,05/12/2011,07/11/2008,07/11 Influenza Quadrivalent Prese rvative Free IM 06/02/2019,05/29/2018,04/17/2017,06/18 Influenza Quadrivalent w/ Pr eservative IM 05/11/2017 Influenza Recombinant Kelsey valent Preservative Free IM 04/28/2020 Pneumococcal polysaccharide PPSV23 06/17/2009, Tdap 05/05/2011,09/07/2007 Zoster recombinant 07/27/2020,04/28/2020 Family History Medical History Relation Comments Hypertension Daughter Cancer Maternal Grandmother Diabetes mellitus Mother Hypertension Mother Relation Status Comments Daughter Father in fire Maternal Grandmother Mother Alive Social History Tobacco Use Types Packs/Day Years Used Date Smoking Tobacco: Never Smokeless Tobacco: Never Alcohol Use Standard Drinks/Week Comments Yes 0 (1 standard drink = 0.6 oz pur e alcohol) occasional Education Answer Date Recorded Are you interested in more education? Not on edmund e 12/24/2022 Are you concerned about learning? Not on file 12/24/2022 No 12/24/2022 No 12/24/2022 Digital Access Answer Date Recorded No 01/22/2023 No 01/22/2023 Reliable internet access at home? Not on file 01/22/2023 Device with a working camera? 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 Not on file Not on file Last Filed Vital Signs Vital Sign Reading Time Taken Comments Blood Pressure 126/80 01/21/2022 9:33 AM EDT Pulse 99 08/05/2018 4:08 PM EST Temperature 37 C (98.6 F) 08/05/2018 4:08 PM EST Respiratory Rate 18 08/05/2018 4:08 PM EST Oxygen Saturation 100% 08/05/2018 4:08 PM EST Inhaled Oxygen Concentration - - Weight 109.3 kg (241 lb) 01/21/2022 9:33 AM EDT Height 162.6 cm (5' 4 ) 01/21/2022 9:33 AM EDT Body Mass Index 41.37 01/21/2022 9:33 AM EDT Plan of Treatment Health Maintenance Due Date Last Done Comments BLOOD PRESSURE 1960 DEPRESSION SCREENING 1972 MAMMOGRAM 2000 COLOGUARD 2005 COLONOSCOPY 2005 COLORECTAL CANCER SCREENING 2005 FIT TEST 2005 FOBT 2005 SIGMOIDOSCOPY 2005 VIRTUAL COLONOSCOPY 2005 PNEUMOCOCCAL VACCINES (50+ years) (2 of 2 - PCV) 06/17/2010 06/17/2009, 09/07/2007 DIABETIC EYE EXAM 08/04/2018 URINE MICROALBUMIN/CREATININE RATIO 08/04/2018 HEMOGLOBIN A1C 02/03/2019 08/05/2018 RSV VACCINE (1 - Risk 60-74 years 1-dose series) 2020 Adult Td,Tdap Booster 05/05/2021 05/05/2011, 008 PAP SMEAR 04/24/2024 04/24/2019, 03/30, 07/04/2014, Additional history exists COVID-19 VACCINE ( season) 2024 01/13/2022, 08/18/2021, 12/27/2020, Additional history exists HEPATITIS C SCREENING Completed 04/24/2019 HIV ONE-TIME SCREENING (18-65 YEARS) Completed 04/24/2019 ZOSTER VACCINES Completed 07/27/2020, 04/28/2020 SMOKING STATUS SCREENING (Once After 26 Yrs) Completed 01/21/2022 HEPATITIS A VACCINES Aged Out No long er eligible based on patient's age to complete this topic HIB VACCINES Aged Out No longer eligi ble based on patient's age to complete this topic MENINGOCOCCAL VACCINES (ACWY) Aged Out No longer eligible based on patient's age to complete this topic MENINGOCOCCAL VACCINES (B) Aged Out N o longer eligible based on patient's age to complete this topic Medical Devices Not on file Procedures Procedure Name Priority Date/Time Associated Diagnosis Comments HEPATITIS C ANTIBODY, QUALITATIVE Routine 04/24/2019 12:20 PM EDT Screen for STD (sexually transmitted disease) PAP TEST Routine 04/24/2019 12:00 AM EDT HEMOGLOBIN A1C Routine 08/05/2018 6:39 AM EST from Last 3 Months or Most Recently Relevant to Health Maintenance Results * Hepatitis C antibody, qualitative (04/24/2019 12:20 PM EDT) HCV NON-REACTIV E NON-REACTI VE [facility] Blood 04/24/2019 12:2 0 PM EDT 04/24/2019 12:30 PM EDT us Tricia Peacock EDGE TRIMMER LAB BLOOD ORDERABLES Final Res ult [address] [address] * Pap Smear (04/24/2019 12:00 AM EDT) 04/24/2019 04/24/2019 9:4 3 PM EDT Narrative SEE NARRATIVE - 05/01/2019 4:29 PM EDT [address] [address] Bottle Tester: Shante August MD PAINTER SHIPYARD Cytology Report FINAL DIAGNOSIS A. PAP SMEAR (SUREPATH) CE: SPECIMEN ADEQUACY: Satisfactory for evaluation; transformation zone absent/insufficient. INTERPRETATION: NEGATIVE FOR INTRAEPITHELIAL LESION OR MALIGNANCY. Electronically Signed Out By: ROBERT Byrne(ASCP) The Pap test is a screening test primarily for squamous cancers and precursors and has associated false-negative and false-positive results. New technologies such as liquid-based preparations may decrease but will not eliminate all false-negative results. Regular sampling and follow-up of unexplained clinical signs and symptoms are recommended to minimize false negative results. PROCEDURES/ADDENDA HPV Testing (Requested) Ordered Date: 04/24/2019 A. PAP SMEAR (SUREPATH) CE: Human Papilloma Virus Test Negative for high-risk human papillomavirus types 16, 18, 45 and the Other high risk probe set (Includes 31, 33, 35, 39, 51, 52, 56, 58, 59, 66, 68) by [facility] Onclarity HR-HPV analysis. Clinical correlation is advised. This HPV test was performed at [facility], [address] [place] [address]. This test has been FDA approved for SurePath cervical cytology specimens. The accuracy and precision of this test for all other specimen sources has been verified in the Cytopathology Laboratory of the [facility] and has not been cleared or approved by the U.S. Food and Drug Administration. Clinical correlation is advised. CLINICAL HISTORY Date of Last Menstrual Period: Not Provided Menstrual History: Post Menopausal Treatment History: Hysterectomy: Supracervical Other Clinical Conditions: Screening Pap SPECIMEN SOURCE A: PAP SMEAR (SUREPATH) CE Patient Name: KATERINA AVILES : 1960 (Age: 58) Sex: F Institution: [facility] Location: [facility] Date of Collection: 04/24/2019 Date of Reported: 05/01/2019 16:29 Results to: Tricia Peacock MSN, BS us Tricia Peacock EDGE TRIMMER CYTOLOGY ORDERABLES Final Resu lt Performing Organization Address City/[facility] Co de Phone Number SEE NARRATIVE * (ABNORMAL) Hemoglobin A1c (08/05/2018 6:39 AM EST) HEMOGLOBIN A1C 8.0(H) 4.3 - 5.8 % [facility] Blood 08/05/2018 6:39 AM EST 08/05/2018 7:05 AM EST us Leonel Chery MD LAB BLOOD ORDERABLES Final Result Performing Organization Address City/[facility]/ZIP Co de Phone Number [facility] [address] [place], [place] [id number] from Last 3 Months or Most Recently Relevant to Health Maintenance Insurance [employer] [facility] MEDICARE REPLACEMENT [facility] RE[facility]AC[facility] [place] REPLAC[facility] [place] [facility] REPLAC[facility] [place] [facility] REPLACEMENT [facility] [place] [facility] REPLAC[facility] [facility] MEDIC[facility] REPLACEMENT [facility] REPLACEMENT Advance Directives For more information, please contact: [phone] (9AM - 5PM [facility], Tuesday-Tuesday) * Full Code (Presumed) (Latest Code Status on File) Date Activated Date Inactivated Comments 08/04/2018 7:56 PM 08/05/2018 7:44 PM Care Teams Bilingual Case Manager Relationship Specialty Start Date End Date Leonid Valerio MD [address] [place] [address] [address] [place] [address] PCP - General 06/13/17 Denisse Marroquin MD [address] [place] [address], [address] [place] [address] Historical LMR Provider 06/14/17 Additional Source Comments The information contained in this document represents components of the legal health record. It is not the complete legal health record.[facility]
== END 2025-04-03 11:22 | disposition home or self-care (01) ==
LOC: HO.HKAS 11:03
PROVIDERS: PCP Internal Medicine; Visit Provider Internal Medicine Hypertension Specialist
DX: E11.22 Type 2 diabetes mellitus with diabetic chronic kidney disease (principal); N18.4 Chronic kidney disease, stage 4 (severe); Z79.4 Long term (current) use of insulin; I12.9 Hypertensive chronic kidney disease with stage 1 through stage 4 chronic kidney disease, or unspecified chronic kidney disease; N25.81 Secondary hyperparathyroidism of renal origin
CPT/HCPCS: 99214

== ENCOUNTER → 2025-04-03 11:02 | Outpatient (BNVA) | payer MEDICARE, MEDICAID, SELFPAY | PROVIDERS: PCP Internal Medicine; Visit Provider Internal Medicine Hypertension Specialist | DX: E11.22 Type 2 diabetes mellitus with diabetic chronic kidney disease (principal); I10 Essential (primary) hypertension; N18.4 Chronic kidney disease, stage 4 (severe); Z79.4 Long term (current) use of insulin; N25.81 Secondary hyperparathyroidism of renal origin | CPT/HCPCS: 99212 ==

== ENCOUNTER 2025-06-01 08:01 | Outpatient (REF) | payer MEDICARE, MEDICAID, SELFPAY ==
--- OUTSIDE RECORDS SUMMARY | 2025-06-01 08:09 | XMS_ITS | Clinical Summary ---
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 Not [...] 04/24/2024 04/24/2019, 03/30, 07/04/2014, Additional history exists INFLUENZA VACCINE (#1) 2025 , 06/02/2019, 05/29/2018, Additional history exists COVID-19 VACCINE ( season) 2025 01/13/2022, 08/18/2021, 12/27/2020, Additional history exists OSTEOPOROSIS SCREENING INITIAL (ONE-TIME) 2025 HEPATITIS C SCREENING Completed 04/24/2019 HIV ONE-TIME [...] PM EDT) HCV NON-REACTIV E NON-REACTI VE [facility] Blood 04/24/2019 12:2 0 PM EDT 04/24/2019 12:30 PM EDT us Tricia Peacock TILLER MAN LAB BLOOD ORDERABLES Final Res ult Performing Organization Address City/State/[facility] Co de Phone Number [address] [address] * Pap Smear (04/24/2019 12:00 AM EDT) 04/24/2019 04/24/2019 9:4 3 PM EDT Narrative SEE NARRATIVE - 05/01/2019 4:29 PM EDT [address] [address] Magnetometer Operator: Shante August MD STATIONARY ENGINEER REFRIGERATION Cytology Report FINAL DIAGNOSIS A. PAP SMEAR [...] 52, 56, 58, 59, 66, 68) by [employer] Onclarity HR-HPV analysis. Clinical correlation is advised. This HPV test was performed at [facility], [address] [place] [address]. This test has been FDA approved for SurePath cervical cytology specimens. The accuracy and precision of this test for all other specimen sources has been verified in the Cytopathology Laboratory of the [facility] and has not been cleared or approved by the U.S. Food and Drug Administration. Clinical correlation is advised. CLINICAL HISTORY Date of Last Menstrual Period: Not Provided Menstrual History: Post Menopausal Treatment History: Hysterectomy: Supracervical Other Clinical Conditions: Screening Pap SPECIMEN SOURCE A: PAP SMEAR (SUREPATH) CE Patient Name: EVERETTE AVILES : 1960 (Age: 58) Sex: F Institution: [facility] Location: [facility] Date of Collection: 04/24/2019 Date of Reported: 05/01/2019 16:29 Results to: Tricia Peacock MSN, BS us Tricia Peacock TILLER MAN CYTOLOGY ORDERABLES Final Resu lt Performing Organization Address City/[facility] Co de Phone Number SEE NARRATIVE * (ABNORMAL) Hemoglobin A1c (08/05/2018 6:39 AM EST) HEMOGLOBIN A1C 8.0(H) 4.3 - 5.8 % [facility] Blood 08/05/2018 6:39 AM EST 08/05/2018 7:05 AM EST Leonel Chery MD LAB BLOOD ORDERABLES Final Result Performing Organization Address [facility] Co de Phone Number [facility] [address] [place] [address] from Last 3 Months or Most Recently Relevant to Health Maintenance Insurance [facility] MEDIC[facility] REPLACEMENT [facility]PLACEMENT [facility] MEDIC[facility]PLACEMENT [facility] MEDICARE [facility]PLACEMENT [facility] MEDIC[facility]PLACEMENT [facility] MEDICARE [facility]PLACEMENT [facility] MEDIC[facility] REPLACEMENT [facility] MEDIC[facility] REPLACEMENT [facility] MEDICARE REPLACEMENT Advance Directives For more information, please contact: [phone] (9AM - 5PM [facility], Tuesday-Tuesday) * Full Code (Presumed) (Latest Code Status on File) Date Activated Date Inactivated Comments 08/04/2018 7:56 PM 08/05/2018 7:44 PM Care Teams Personal Fitness Manager Relationship Specialty Start Date End Date Leonid Valerio MD [address] [place] [address] [address] [place] [address] PCP - General 06/13/17 Denisse Marroquin MD [address] [place] [address], [facility] [address] [place] [address] Historical LMR Provider 06/14/17 Additional Source Comments The information contained in this document represents components of the legal health record. It is not the complete legal health record.[facility]
--- OUTSIDE RECORDS SUMMARY | 2025-06-01 08:09 | XMS_ITS | Clinical Summary ---
Author Organization [facility] Address [address] [place] [address] Phone Care Team Providers Care Equipment Operator/Laborer/Supervisor Name Role Phone Leonid Valerio MD Primary Care Provider [phone] Allergies Active Allergy Reactions Criticality Noted Date [...] % PVNMA 06/21/2020 us [facility] Conversion LAB [id number] LICITED RESULTS Final Result Performing Organization Address City/State/[facility] Co de Phone Number [facility] from Last 3 Months or Most Recently Relevant to Health Maintenance Insurance [place] Care Teams Equipment Operator/Laborer/Supervisor Relationship Specialty Start Date End Date Leonid Valerio MD [address] [place] [address] PCP - General Internal Medicine 07/06/21
--- OUTSIDE RECORDS SUMMARY | 2025-06-01 08:09 | XMS_ITS | Encounter Summary ---
Author Organization [facility] Address [address] [place] [address] Phone Care Team Providers Care Shale Miner Name Role Phone Leonid Valerio MD Primary Care Provider [phone] Norma Covarrubias CNM Unavailable [phone] Nesha Ornelas INSPECTOR MULTIFOCAL LENS Unavailable Leonid Valerio MD Unavailable Denisse Marroquin MD Unavailable Encounter Details Date Type Department Care Team (Late st Contact Info) Description 08/15/2017 Ancillary Orders Virtual Department [address] [place] [address] Leonid Valerio MD [address] [place] [address] [place] [address] Breast screening Social History Tobacco Use Types Packs/Day Years Used Date Smoking Tobacco: Never Smokeless Tobacco: Never Alcohol Use Standard Drinks/Week Comments Yes 0 (1 standard drink = 0.6 oz pur e alcohol) occasional Comments No Sex and Gender Information Value Date Recorded Sex Assigned at Female 09/25/2017 1:36 PM EST Legal Sex Female 9:48 PM EDT Gender Identity Female 09/25/2017 1:36 PM EST Sexual Orientation Straight 09/25/2017 1: 36 PM EST documented as of this encounter Plan of Treatment Not on file documented as of this encounter Visit Diagnoses Diagnosis Breast screening Breast screening, unspecified documented in this encounter Care Teams Shale Miner Relationship Specialty Start Date End Date Leonid Valerio MD [address] [place] [address] [address] PCP - General 06/13/17 Norma Covarrubias CNM [address] [place] [address] Historical LMR Provider 06/14/17 09/05/21 Nesha Ornelas NP [address] [place] [address] Historical LMR Provider 06/14/17 Leonid Valerio MD [address] [place] [address] [address] Historical LMR Provider 06/14/17 Denisse Park MD [address] [place] [address] Historical LMR Provider 06/14/17 documented as of this encounter Additional Source Comments The information contained in this document represents components of the legal health record. It is not the complete legal health record.[facility]
[2025-06-01 08:18] LABS: MANUAL DIFF FLAG NO
[2025-06-01 09:22] LABS: Hematocrit 34.2 % (37.0-47.0); Hemoglobin 11.4 g/dl (12.0-16.0); Imm Gran Abs Auto 0.01 X10*3/uL (0.00-0.03); Imm Gran Pct Auto 0.2 % (0.0-0.4); Lymphocytes Absolute Auto 1.8 X10*3/uL (1.2-4.9); Mean Corpuscular HGB Conc 33.3 g/dl (31.0-35.0); Mean Corpuscular Hemoglobin 28.4 pg (27.0-33.0); Mean Corpuscular Volume 85.1 fL (80.0-98.0); NRBC Abs Auto 0.000 X10*3/uL (0.0-0.012); NRBC Pct Auto 0.0 /100WBC (0.0-0.2); Platelet Count 156 X10*3/uL (160-400); Red Blood Count 4.02 X10*6/uL (4.20-5.50); White Blood Count 6.4 X10*3/uL (4.8-10.8)
[2025-06-01 09:29] LABS: Hemoglobin A1C 153.4877 umol/L
[2025-06-01 09:34] LABS: Appearance Urine Cloudy; Glucose Urine UA Negative (Negative); PH 7.0 (5.0-9.0); Specific Gravity - Urine <= 1.005 (1.005-1.025); UMIC TRIGGER UACC YES
[2025-06-01 09:54] LABS: Other Crystals Urine Present; UACC Culture Trigger YES
[2025-06-01 10:21] LABS: Alanine Aminotransferase 16 U/L (0-31); Albumin Level 4.1 g/dL (3.5-5.0); Alkaline Phosphatase 115 U/L (39-117); Anion Gap 13 (12-20); Aspartate Amino Transferase 28 U/L (5-31); Blood Urea Nitrogen 29 mg/dL (9-16); Calcium 8.7 mg/dL (8.4-10.2); Carbon Dioxide 26 mmol/L (22-29); Chloride 102 mmol/L (96-108); Cholesterol 98 mg/dL (<200); Estimated Glomerular Filt Rate 30; HDL Cholesterol 27 mg/dL (>40); Potassium 4.2 mmol/L (3.3-5.1); Sodium 137 mmol/L (135-145); Total Protein 7.2 g/dL (6.5-8.0); Triglycerides 107 mg/dL (<150)
[2025-06-01 10:34] LABS: Microalbum/Creatinine Ratio Ur 207.9 ug/mg cr (<30)
== END 2025-06-01 08:02 | disposition home or self-care (01) ==
LOC: HO.LAB 08:01
PROVIDERS: PCP Internal Medicine; Visit Provider Internal Medicine
DX: E11.9 Type 2 diabetes mellitus without complications (principal); E78.00 Pure hypercholesterolemia, unspecified; D64.9 Anemia, unspecified; E55.9 Vitamin D deficiency, unspecified
CPT/HCPCS: 36415; 80053; 80061; 81001; 82043; 82306; 82570; 83036; 84443; 85025; 87086

== ENCOUNTER 2025-07-26 10:10 | Outpatient (REF) | payer MEDICARE, SELFPAY ==
--- OUTSIDE RECORDS SUMMARY | 2025-07-26 10:13 | XMS_ITS | Encounter Summary ---
Author Organization [facility] Address [address] [place] [address] Phone Care Team Providers Care Cab Supervisor Name Role Phone Leonid Valerio MD Primary Care Provider [phone] Norma Covarrubias CNAnjali Unavailable [phone] Nesha Ornelas [facility] Unavailable Leonid Valerio MD Unavailable Denisse Marroquin MD Unavailable Encounter Details Date Type Department Care Team (Late st Contact Info) Description 08/15/2017 Ancillary Orders Virtual Department [address] [place] [address] Leonid Valerio MD [address] [place] [address] [place] [address] Breast screening Social History Tobacco Use Types [...] unspecified documented in this encounter Care Teams Cab Supervisor Relationship Specialty Start Date End Date Leonid Valerio MD [address] [place] [address] Dr [address] [place] [address] PCP - General 06/13/17 Norma Covarrubias CNM [address] [place] [address] Historical LMR Provider 06/14/17 09/05/21 Nesha Orenlas NP [address] [place] [address] Historical LMR Provider 06/14/17 Leonid Valerio MD [address] [place] [address] Dr [address] [place] [address] Historical LMR Provider 06/14/17 2 Denisse Marroquin MD [address] [place] [address] Historical LMR Provider 06/14/17 documented as of this encounter Additional Source Comments The information contained in this document represents components of the legal health record. It is not the complete legal health record.[facility]
--- OUTSIDE RECORDS SUMMARY | 2025-07-26 10:13 | XMS_ITS | Clinical Summary ---
Author Organization [facility] Address [address] [place] [address] Phone Care Team Providers Care Assistant Women'S Rowing Coach Name Role Phone Leonid Valerio MD Primary Care Provider [phone] Allergies Active Allergy Reactions Criticality Noted Date [...] % PVNMA 06/21/2020 us Rtama Conversion LAB [id number] LICITED RESULTS Final Result Performing Organization Address City/State/[facility] Co de Phone Number PVNMA from Last 3 Months or Most Recently Relevant to Health Maintenance [place] Care Teams Assistant Women'S Rowing Coach Relationship Specialty Start Date End Date Leonid Valerio MD [address] [place] [address] PCP - General Internal Medicine 07/06/21
--- OUTSIDE RECORDS SUMMARY | 2025-07-26 10:13 | XMS_ITS | Clinical Summary ---
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 Not on file Not [...] FOBT 2005 SIGMOIDOSCOPY 2005 VIRTUAL COLONOSCOPY 2005 RSV VACCINE (1 - Risk 50-74 years 1-dose series) 2010 PNEUMOCOCCAL VACCINES (50+ years) (2 of 2 - PCV) 06/17/2010 06/17/2009, 09/07/2007 DIABETIC EYE EXAM 08/04/2018 URINE MICROALBUMIN/CREATININE RATIO 08/04/2018 HEMOGLOBIN A1C 02/03/2019 08/05/2018 Adult Td,Tdap Booster 05/05/2021 05/05/2011, 008 PAP SMEAR 04/24/2024 04/24/2019, 03/30, 07/04/2014, Additional history exists INFLUENZA VACCINE (#1) 2025 , 06/02/2019, 05/29/2018, Additional history exists COVID-19 VACCINE ( season) 2025 01/13/2022, 08/18/2021, 12/27/2020, Additional history exists OSTEOPOROSIS SCREENING INITIAL (ONE-TIME) 2025 HEPATITIS C SCREENING Completed 04/24/2019, 019 HIV ONE-TIME SCREENING (18-65 YEARS) Completed 04/24/2019 [...] PM EDT) HCV NON-REACTIV E NON-REACTI VE [facility] Blood 04/24/2019 12:2 0 PM EDT 04/24/2019 12:30 PM EDT us Tricia Peacock SCRIPT WORKER LAB BLOOD BKR ORDERABLES Final Result Performing Organization Address City/State/[facility] Co de Phone Number [address] [address] * Pap Smear (04/24/2019 12:00 AM EDT) 04/24/2019 04/24/2019 9:4 3 PM EDT Narrative SEE NARRATIVE - 05/01/2019 4:29 [place] [address] Communications Programmer: Shante August MD ENTERPRISE SERVICES MANAGER Cytology Report FINAL DIAGNOSIS A. PAP SMEAR [...] 52, 56, 58, 59, 66, 68) by [email or web address] Onclarity HR-HPV analysis. Clinical correlation is advised. This HPV test was performed at [facility], [address] [place] [address]. This test has been FDA approved for SurePath cervical cytology specimens. The accuracy and precision of this test for all other specimen sources has been verified in the Cytopathology Laboratory of the [facility] and has not been cleared or approved by the U.S. Food and Drug Administration. Clinical correlation is advised. CLINICAL HISTORY Date of Last Menstrual Period: Not Provided Menstrual History: Post Menopausal Treatment History: Hysterectomy: Supracervical Other Clinical Conditions: Screening Pap SPECIMEN SOURCE A: PAP SMEAR (SUREPATH) CE Patient Name: ROSANA KATERINA : 1960 (Age: 58) Sex: F Institution[facility] Location: [facility] Date of Collection: 04/24/2019 Date of Reported: 05/01/2019 16:29 Results to: Tricia Peacock MSN, BS us Tricia Peacock SCRIPT WORKER CYTOLOGY ORDERABLES Final Resu lt Performing Organization Address City/[facility] Co de Phone Number SEE NARRATIVE * (ABNORMAL) Hemoglobin A1c (08/05/2018 6:39 AM EST) HEMOGLOBIN A1C 8.0(H) 4.3 - 5.8 % [facility] Blood 08/05/2018 6:39 AM EST 08/05/2018 7:05 AM EST us Leonel Chery MD LAB BLOOD BKR ORDERABLES F inal Result Performing Organization Address City/[facility] Co de Phone Number [facility] [address] [place] [address] from Last 3 Months or Most Recently Relevant to Health Maintenance [facility] MEDIC[facility]PLACEMENT [facility] MEDICARE [facility]PLACEMENT [facility] MEDIC[facility] REPLACEMENT [facility] MEDICARE [facility]PLACEMENT [facility] MEDIC[facility] REPLACEMENT [facility] MED[facility] REPLACEMENT Advance Directives For more information, please contact: [phone] (9AM - 5PM [facility], Tuesday-Tuesday) * Full Code (Presumed) (Latest Code Status on File) Date Activated Date Inactivated Comments 08/04/2018 7:56 PM 08/05/2018 7:44 PM Care Teams Wet Primer Powder Blender Relationship Specialty Start Date End Date Leonid Valerio MD [address] [place] [address] [address] [place] [address] PCP - General 06/13/17 Denisse Marroquin MD [address] [place] [address], [facility] [address] [place] [address] Historical LMR Provider 06/14/17 Additional Source Comments The information contained in this document represents components of the legal health record. It is not the complete legal health record.[facility]
[2025-07-26 11:18] LABS: Hematocrit 32.6 % (37.0-47.0); Hemoglobin 10.6 g/dl (12.0-16.0); Mean Corpuscular HGB Conc 32.5 g/dl (31.0-35.0); Mean Corpuscular Hemoglobin 28.2 pg (27.0-33.0); Mean Corpuscular Volume 86.7 fL (80.0-98.0); NRBC Abs Auto 0.000 X10*3/uL (0.0-0.012); NRBC Pct Auto 0.0 /100WBC (0.0-0.2); Platelet Count 170 X10*3/uL (160-400); Red Blood Count 3.76 X10*6/uL (4.20-5.50); White Blood Count 5.8 X10*3/uL (4.8-10.8)
[2025-07-26 11:41] LABS: Parathyroid Hormone Intact 100.6 pg/mL (8.7-77.1)
[2025-07-26 11:42] LABS: Anion Gap 13 (12-20); Blood Urea Nitrogen 31 mg/dL (9-16); Calcium 8.4 mg/dL (8.4-10.2); Carbon Dioxide 23 mmol/L (22-29); Chloride 108 mmol/L (96-108); Estimated Glomerular Filt Rate 25; Iron 65 mcg/dL (30-160); Percent Iron Saturation 30 % (15-50); Potassium 4.0 mmol/L (3.3-5.1); Sodium 140 mmol/L (135-145); Total Iron Binding Capacity 220 mcg/dL (228-428); Unsaturated Iron Binding 155 ug/dL
[2025-07-26 11:56] LABS: Ferritin 75 ng/mL (10-250)
== END 2025-07-26 10:11 | disposition home or self-care (01) ==
LOC: HO.LAB 10:10
PROVIDERS: PCP Internal Medicine; Visit Provider Internal Medicine Hypertension Specialist
DX: E11.22 Type 2 diabetes mellitus with diabetic chronic kidney disease (principal); I12.9 Hypertensive chronic kidney disease with stage 1 through stage 4 chronic kidney disease, or unspecified chronic kidney disease; N18.4 Chronic kidney disease, stage 4 (severe); N25.81 Secondary hyperparathyroidism of renal origin; Z79.4 Long term (current) use of insulin
CPT/HCPCS: 36415; 80048; 82728; 83540; 83970; 84100; 85027

== ENCOUNTER 2025-07-31 11:23 | Outpatient (AMB) | payer MEDICARE, MEDICAID, SELFPAY ==
[2025-07-31 11:16] VITALS: BP 122/76; PULSE 89; O2SAT 99; BMI 43.6
--- NOTE | 2025-07-31 11:16 | HO.NEPHOV_ITS ---
Vital Signs 07/31/25 11:16 Height 5 ft 3 in Weight 246 lb BMI 43.6 BP 122/76 Blood Pressure Location Rt radial Position Sitting Pulse 89 Pulse Source Pulse Oximeter Pulse Oximetry (%) 99 Oxygen Delivery Method Room Air Intake Visit Reasons: 3 month F/U Emblem Maker Required: No Accompanied by: Family/Other Allergies No Known Allergies (No Known Allergies*) Allergy (Verified 07/31/25 11:19) Medication List - Last Reconciled 07/31/25 by Rodger Dominguez MD acetaminophen 500 mg PO ONCE PRN aspirin (Adult Low Dose Aspirin) 81 mg PO DAILY [bath seat As directed] blood pressure monitor As directed blood sugar diagnostic (Accu-Chek Brenda Plus test strips) Tests 4 X/day blood-glucose meter (Accu-Chek Brenda Plus Meter) 3x/day carvedilol 12.5 mg PO BID cinacalcet 30 mg PO QAM citalopram 10 mg PO DAILY 90 days diaper,brief,adult,disposable (Select Disposable Briefs) as directed, 4 daily ezetimibe 10 mg PO QAM flash glucose scanning reader (Transmit PromoStyle Allison 2 [place]) As directed flash glucose sensor (FreeStyle Allison 2 Sensor kit) As directed change every 14 days fluticasone propionate 50 mcg/actuation 2 sprays intranasal DAILY 30 days furosemide (Lasix) 20 mg PO DAILY gabapentin 100 mg PO BEDTIME 90 days glucagon 3 mg/actuation (Baqsimi) 3 mg intranasal ONCE insulin glargine (Lantus Solostar U-100 Insulin) 18 units (0.18 mL) subcut QPM insulin lispro (Humalog KwikPen (U-100) Insulin) 12 - 16 units (0.12 - 0.16 mL) subcut QID lactulose 15 mL PO DAILY PRN lancets (Accu-Chek Softclix Lancets) three times a day losartan 100 mg PO DAILY meloxicam 7.5 mg PO .qod 30 days nortriptyline 50 mg PO BEDTIME 90 days pen needle, diabetic (BD Annia 2nd Gen Pen Needle) USE 1 PEN NEEDLE SIX TIMES DAILY pen needle, diabetic 1 ea subcut TID rosuvastatin 5 mg PO DAILY 30 days tirzepatide (Mounjaro) 2.5 mg (0.5 mL) subcut QWEEK underpads As directed, 2 per night vibegron (Gemtesa) 75 mg PO DAILY 30 days HPI Comments Details: Katerina is a middle-aged woman with a history of longstanding diabetes mellitus along with obesity and hypertension. She has CKD 3 with baseline creatinine from 1.5-1.6 mg/dL. Currently bumped to 2.2 She has a history of taking NSAIDs on a long-term basis. She is currently on meloxicam 7.5 mg every other day. She continues to have fatigue and she had vague chest pain recently. s/p stress test. c/o urinary incontinence Seen by Urology Blood sugar is suboptimal Still complaints of Fatigue On Maunjaro along with Lantus Being followed closely by Urology started Gemtesa in 12/25/24 ;Here for follow up ;c/o Left hip pain;She has gained 4- 5 lbs 04/03/25 : Overall doing well. c/o Constipation ; BM once every 10 days ;Weight unchanged ;Accompanied by caregiver/QUALITY ASSURANCE/R&D LAB TECHNICIAN-(daughterinlaw) 07/31/25 The patient is a 65 year old individual presenting for a follow-up visit for management of chronic conditions. The patient reports feeling tired and having difficulty with hydration, along with occasional swelling in the feet. The patient has been monitoring blood pressure at home with a wrist cuff, which has shown multiple high readings including 162, 175, and 191 mmHg. In-office blood pressure readings have been normal, including a recent measurement of 122/76 mmHg. Regarding diet, the patient avoids adding extra salt to food and has been making better grocery choices with more vegetables and greens. In terms of glycemic control, the patient reports good blood sugar levels. An A1c from May was 6.8%. Kidney function is noted to be stable. The patient has anemia, with a current hemoglobin of 10.6 g/dL, which is down from previous levels of 11.7 and 11.4 g/dL, though it was lower in October at 10.3 g/dL. Iron levels are reported to be okay. Other lab results include a normal calcium of 8.4 and a normal potassium of 4.0. REPLACED BY [facility] Medical History CKD (chronic kidney disease) stage 3, GFR 30-59 ml/min Hypercalcemia Secondary hyperparathyroidism Left upper arm injury Arthritis Type 2 diabetes mellitus with hyperglycemia, with long-term current use of insulin Type 2 diabetes mellitus with polyneuropathy Essential hypertension Hyperlipidemia LDL goal <70 Constipation Obesity (BMI 30-39.9) Depression Lumbar degenerative disc disease Diabetic neuropathy Primary osteoarthritis of right knee Pedal edema Chronic kidney disease, stage 4 (severe) Pure hypercholesterolemia Coronary atherosclerosis typing teacher (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 Mother Diabetes Hypertension Cancer antigen 125 (CA 125) elevation Maternal Grandmother Stomach cancer Other Mental health problem Social History Household Members Other:: daughter Housing: Apartment Alcohol intake: never Patient Tobacco Use Status: Never used Tobacco e-Cigarette/Vaping Use: Never Used Second Hand Smoke Exposure: Yes service: No Current occupational status: disabled Cognitive needs: Yes (cane/walker) Hearing needs: No Vision needs: Yes (reading glasses) Physical Exam Vital Signs: Last Vital Signs Pulse 89 07/31/25 11:16 BP 122/76 07/31/25 11:16 Pulse Ox 99 07/31/25 11:16 Oxygen Delivery Method Room Air 07/31/25 11:16 BMI result Body Mass Index 43.6 Comfortable Neck supple no JVD. Lungs entry equal no rales. Heart S1-S2 heard no gallop or rub. Abdomen soft nontender. Neuro alert awake oriented. No asterixis. Extremities no edema. Results Reviewed Nephrology Results: Hgb, (12.0-16.0) 10.6 g/dl L 07/26/25 WBC, (4.8-10.8) 5.8 X10*3/uL 07/26/25 Plt Count, (160-400) 170 X10*3/uL 07/26/25 Sodium, (135-145) 140 mmol/L 07/26/25 Potassium, (3.3-5.1) 4.0 mmol/L 07/26/25 Chloride, (96-108) 108 mmol/L 07/26/25 Carbon Dioxide, (22-29) 23 mmol/L 07/26/25 BUN, (9-16) 31 mg/dL H 07/26/25 Creatinine, (0.5-1.4) 1.98 mg/dL H 07/26/25 Calcium, (8.4-10.2) 8.4 mg/dL 07/26/25 Phosphorus, (2.7-4.5) 3.7 mg/dL 07/26/25 PTH Intact, (8.7-77.1) 100.6 pg/mL H 07/26/25 Urine Protein, (Neg-Trace) Negative mg/dL 06/01/25 Urine Creatinine 32.22 mg/dL 06/01/25 Assessment & Plan Assessment & Plan (1) Type 2 diabetes mellitus with diabetic chronic kidney disease: Code(s): E11.22 - Type 2 diabetes mellitus with diabetic chronic kidney disease Category: Medical Qualifiers: Chronic kidney disease stage: stage 4 (severe) Diabetes mellitus instant print operator insulin use: with chcf use Qualified Code(s): E11.22 - Type 2 diabetes mellitus with diabetic chronic kidney disease; N18.4 - Chronic kidney disease, stage 4 (severe); Z79.4 - typing teacher (current) use of insulin Plan: Goals is to keep A1C < 7% Discussed weight loss. (2) Essential hypertension: Code(s): I10 - Essential (primary) hypertension Category: Medical Plan: BP is better controlled Keep current meds Discussed importance of low-sodium diet. (3) Chronic kidney disease, stage 4 (severe): Code(s): N18.4 - Chronic kidney disease, stage 4 (severe) Category: Medical Plan: Creatinine is esentially unchanged She is still on Miloxicam QOD and she needs to avoid NSAIDS- Also on Losartan 100 mg At risk for ongoing renal injury Discussed with Katerina to avoid NSAIDS/Miloxicam (4) Secondary hyperparathyroidism: Code(s): N25.81 - Secondary hyperparathyroidism of renal origin Category: Medical Plan: On Cinacalcet Repeat ca is normal - 8.4 PTH 287 Plan 07/31/25 1. Hypertension - In-office blood pressure readings are within normal limits at 120/70 mmHg and 122/76 mmHg. - The patient's wrist-style home blood pressure cuff is providing erroneously high readings. - Advised the patient to acquire a new, arm-style blood pressure cuff for accurate home monitoring. - Current antihypertensive medications will be continued, including carvedilol. 2. Chronic Kidney Disease - The patient's kidney function is stable without significant change. - Will continue to monitor kidney function. - The patient will follow up in three months for re-evaluation. 3. Anemia In Chronic Kidney Disease - The patient is anemic with a current hemoglobin of 10.6 g/dL, which is likely secondary to chronic kidney disease. - Iron stores are adequate. - The hemoglobin level will be monitored. - If the hemoglobin level drops below 10 g/dL, initiation of an erythropoiesis- stimulating agent injection will be considered. 4. Diabetes Mellitus - The patient's A1c was 6.8% in May, indicating adequate glycemic control. - Continue current management. Orders: Orders Complete Blood Count no Diff 3 Months N18.4 - Chronic kidney disease, stage 4 (severe) Phosphorus 3 Months N18.4 - Chronic kidney disease, stage 4 (severe) Comprehensive Met. Panel 3 Months N18.4 - Chronic kidney disease, stage 4 (severe) Parathyroid Hormone Intact 3 Months N18.4 - Chronic kidney disease, stage 4 (severe) Coding Level of Care Code Est Pt Level 4 (22891) Diagnoses Type 2 diabetes mellitus with stage 4 chronic kidney disease, with long-term current use of insulin E11.22; N18.4; Z79.4 Chronic kidney disease stage: stage 4 (severe) Diabetes mellitus instant print operator insulin use: with instant print operator use Essential hypertension I10 Chronic kidney disease, stage 4 (severe) N18.4 Secondary hyperparathyroidism N25.81
--- OUTSIDE RECORDS SUMMARY | 2025-07-31 13:46 | XMS_ITS | Encounter Summary ---
Author Organization [facility] Address [address] [place] [address] Phone Care Team Providers Care Pipeline Executive Name Role Phone Leonid Valerio MD Primary Care Provider [phone] Norma Covarrubias CNAnjali Unavailable [phone] Nesha Ornelas DRUM CARRIER Unavailable [phone] Leonid Valerio MD Unavailable Denisse Marroquin MD Unavailable Encounter Details Date Type Department Care Team (Late st Contact Info) Description 08/15/2017 Ancillary Orders Virtual Department [address] [place] [address] Loenid Valerio MD [address] [place] [address] [place] [address] Breast screening Social History Tobacco Use Types [...] unspecified documented in this encounter Care Teams Pipeline Executive Relationship Specialty Start Date End Date Leonid Valerio MD [address] [place] [address] Dr Pierre [address] [place] [id number] PCP - General 06/13/17 Norma Covarrubias CNM [address] [place] [address] Historical LMR Provider 06/14/17 09/05/21 Nesha Ornelas NP [address] [place] [address] Historical LMR Provider 06/14/17 Leonid Valerio MD [address] [place] [address] Dr Pierre [address] [place] [address] Historical LMR Provider 06/14/17 2 Denisse Marroquin MD [address] [place] [id number] Historical LMR Provider 06/14/17 documented as of this encounter Additional Source Comments The information contained in this document represents components of the legal health record. It is not the complete legal health record.[facility]
--- OUTSIDE RECORDS SUMMARY | 2025-07-31 13:46 | XMS_ITS | Clinical Summary ---
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 PAP SMEAR [...] 52, 56, 58, 59, 66, 68) by [employer] Onclarity HR-HPV analysis. Clinical correlation is advised. This HPV test was performed at [facility], [address] [place] [address]. This test has been FDA approved for [facility]Path cervical cytology specimens. The accuracy and precision of this test for all other specimen sources has been verified in the Cytopathology Laboratory of the [facility] and has not been cleared or approved by the U.S. Food and Drug Administration. Clinical correlation is advised. CLINICAL HISTORY Date of Last Menstrual Period: Not Provided Menstrual History: Post Menopausal Treatment History: Hysterectomy: Supracervical Other Clinical Conditions: Screening Pap SPECIMEN SOURCE A: PAP SMEAR (SUREPATH) CE Patient Name: ROSANA KATERINA : 1960 (Age: 58) Sex: F Institution: [facility] Location: [facility] Date of Collection: 04/24/2019 Date of Reported: 05/01/2019 16:29 Results to: Tricia Peacock MSN, BS us Tricia Peacock SENIOR MAINTENANCE MACHINIST CYTOLOGY ORDERABLES Final Resu lt Performing Organization Address City/[facility] Co de Phone Number SEE NARRATIVE * (ABNORMAL) Hemoglobin A1c (08/05/2018 6:39 AM EST) HEMOGLOBIN A1C 8.0(H) 4.3 - 5.8 % [facility] Blood 08/05/2018 6:39 AM EST 08/05/2018 7:05 AM EST us Leonel Chery MD LAB BLOOD BKR ORDERABLES F inal Result Performing Organization Address City/[facility] Co de Phone Number [facility] [address] [place] [address] from Last 3 Months or Most Recently Relevant to Health Maintenance Insurance [facility] MEDIC[facility] REPLACEMENT [facility] MEDICARE REPLACEMENT [facility] MEDICARE [facility]PLACEMENT [facility] MEDICARE REPLACEMENT [facility] MEDICARE [facility]PLACEMENT [facility] MEDICARE REPLACEMENT [facility] MEDICARE [facility]PLACEMENT [facility] MEDICARE REPLACEMENT [facility] MEDIC[facility] REPLACEMENT Advance Directives For more information, please contact: [phone] (9AM - 5PM [facility], Tuesday-Tuesday) * Full Code (Presumed) (Latest Code Status on File) Date Activated Date Inactivated Comments 08/04/2018 7:56 PM 08/05/2018 7:44 PM Care Teams Wrap Yarn Sorter Relationship Specialty Start Date End Date Leonid Valerio MD [address] [place] [address] [address] [place] [address] PCP - General 06/13/17 Denisse Marroquin MD [address] [place] [address], [facility] [address] [place] [address] Historical LMR Provider 06/14/17 Additional Source Comments The information contained in this document represents components of the legal health record. It is not the complete legal health record.[facility]
== END 2025-07-31 11:36 | disposition home or self-care (01) ==
LOC: HO.HKAS 11:24
PROVIDERS: PCP Internal Medicine; Visit Provider Internal Medicine Hypertension Specialist
DX: E11.22 Type 2 diabetes mellitus with diabetic chronic kidney disease (principal); N18.4 Chronic kidney disease, stage 4 (severe); Z79.4 Long term (current) use of insulin; I12.9 Hypertensive chronic kidney disease with stage 1 through stage 4 chronic kidney disease, or unspecified chronic kidney disease; N25.81 Secondary hyperparathyroidism of renal origin
CPT/HCPCS: 99214

== ENCOUNTER → 2025-07-31 11:23 | Outpatient (BNVA) | payer MEDICARE, MEDICAID, SELFPAY | PROVIDERS: PCP Internal Medicine; Visit Provider Internal Medicine Hypertension Specialist | DX: E11.22 Type 2 diabetes mellitus with diabetic chronic kidney disease (principal); I12.9 Hypertensive chronic kidney disease with stage 1 through stage 4 chronic kidney disease, or unspecified chronic kidney disease; N18.4 Chronic kidney disease, stage 4 (severe); Z79.4 Long term (current) use of insulin; Z79.85 Long-term (current) use of injectable non-insulin antidiabetic drugs; N25.81 Secondary hyperparathyroidism of renal origin; R53.83 Other fatigue; D63.1 Anemia in chronic kidney disease | CPT/HCPCS: 99212 ==

== ENCOUNTER 2025-08-01 14:52 | Outpatient (AMB) | payer MEDICARE, MEDICAID, SELFPAY ==
--- NOTE | 2025-08-01 15:02 | A.OFFVIS_ITS ---
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 Required: No Allergies No Known Allergies (No Known Allergies*) Allergy (Verified 07/31/25 11:19) Medication List - Last Reconciled 08/01/25 by CECILIA Coleman acetaminophen 500 mg PO ONCE PRN aspirin (Adult Low Dose Aspirin) 81 mg PO DAILY [bath seat As directed] blood pressure monitor As directed blood sugar diagnostic (Accu-Chek Brenda Plus test strips) Tests 4 X/day blood-glucose meter (Accu-Chek Brenda Plus Meter) 3x/day carvedilol 12.5 mg PO BID cinacalcet 30 mg PO QAM citalopram 10 mg PO DAILY 90 days diaper,brief,adult,disposable (Select Disposable Briefs) as directed, 4 daily ezetimibe 10 mg PO QAM flash glucose scanning reader (Intern Latin AmericaStyle Allison 2 Hollister) As directed flash glucose sensor (FreeStyle Allison 2 Sensor kit) As directed change every 14 days fluticasone propionate 50 mcg/actuation 2 sprays intranasal DAILY 30 days furosemide (Lasix) 20 mg PO DAILY gabapentin 100 mg PO BEDTIME 90 days glucagon 3 mg/actuation (Baqsimi) 3 mg intranasal ONCE insulin glargine (Lantus Solostar U-100 Insulin) 18 units (0.18 mL) subcut QPM insulin lispro (Humalog KwikPen (U-100) Insulin) 12 - 16 units (0.12 - 0.16 mL) subcut QID lactulose 15 mL PO DAILY PRN lancets (Accu-Chek Softclix Lancets) three times a day losartan 100 mg PO DAILY meloxicam 7.5 mg PO .qod 30 days nortriptyline 50 mg PO BEDTIME 90 days pen needle, diabetic (BD Annia 2nd Gen Pen Needle) USE 1 PEN NEEDLE SIX TIMES DAILY pen needle, diabetic 1 ea subcut TID rosuvastatin 5 mg PO DAILY 30 days tirzepatide (Mounjaro) 2.5 mg (0.5 mL) subcut QWEEK underpads As directed, 2 per night vibegron (Gemtesa) 75 mg PO DAILY 30 days HPI HPI f/u: Details: Katerina is a 63-year-old female with past medical history of hypertension, hyperlipidemia, diabetes, chronic kidney disease, CAD with coronary stent who presents for follow-up. Last prior visit was 12/06/2023. Today she reports that she has been experiencing fatigue. She has shortness of breath and fatigue when she tries to climb the stairs to her 2nd floor bedroom. Her son has to help her. She is not getting chest discomfort at rest or with activity. She has some lightheadedness when she over exerts. No syncope or falls. She admits to being mostly sedentary. She is now living with her son and [id number]. She has a FLORIST HELPER. She is taking all meds as directed. She felt a brief skipping her heart over the weekend and once yesterday. Each episode lasted a second. [facility] Medical History CKD (chronic kidney disease) stage 3, GFR 30-59 ml/min Hypercalcemia Secondary hyperparathyroidism Left upper arm injury Arthritis Type 2 diabetes mellitus with hyperglycemia, with long-term current use of insulin Type 2 diabetes mellitus with polyneuropathy Essential hypertension Hyperlipidemia LDL goal <70 Constipation Obesity (BMI 30-39.9) Depression Lumbar degenerative disc disease Diabetic neuropathy Primary osteoarthritis of right knee Pedal edema Chronic kidney disease, stage 4 (severe) Pure hypercholesterolemia Coronary atherosclerosis FDC (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 Mother Diabetes Hypertension Cancer antigen 125 (CA 125) elevation Maternal Grandmother Stomach cancer Other Mental health problem Social History Household Members Other:: daughter Housing: Apartment Alcohol intake: never Patient Tobacco Use Status: Never used Tobacco e-Cigarette/Vaping Use: Never Used Second Hand Smoke Exposure: Yes service: No Current occupational status: disabled Cognitive needs: Yes (cane/walker) Hearing needs: No Vision needs: Yes (reading glasses) Review of Systems Const All systems reviewed & are unremarkable except as noted in HPI and below Denies chills, Denies fatigue, Denies fever(s), Denies frequent falls, Denies weakness, Reports weight gain and Denies weight loss ENT Denies dizziness Card Details: rare breif palpitation Denies chest pain, Denies leg edema, Reports lightheadedness, Denies palpitations, Reports dyspnea, Reports dyspnea on exertion, Denies orthopnea and Denies other (loss of consciousness) Resp Denies cough, Reports dyspnea and Reports dyspnea on exertion GI Denies hematochezia and Denies change in stool character Musc Denies abnormal gait, Denies muscle weakness, Denies numbness, Denies radiating pain into limb and Denies tingling Neuro Denies abnormal gait, Denies dizziness, Denies frequent falls, Denies numbness, Denies tingling and Denies weakness Endo Denies fatigue and Denies palpitations Physical Exam Vital Signs: Last Vital Signs Pulse 72 08/01/25 15:03 BP 122/70 08/01/25 15:03 BMI result Body Mass Index 43.3 Const Other: Morbidly obese, sitting in wheelchair General: cooperative and no acute distress Orientation/consciousness: patient oriented x3 Neck Neck: Yes normal visual inspection Resp Effort & Inspection: normal respiratory effort Auscultation: clear to auscultation bilaterally, no rales, no rhonchi and no wheezes Cardio Rate: regular rate Rhythm: regular rhythm Heart sounds: S1 normal heart sound present, S2 normal heart sound present, no gallops, no murmurs and no rubs Neuro General: patient oriented x3 Extrem Other: sock markings General: Yes normal to inspection, No no pedal edema and No calf tenderness Psych Appearance: grossly normal Mental Status: mental status grossly normal Speech and movement: Normal speech and movement present Assessment & Plan Assessment & Plan (1) Coronary atherosclerosis: Comment: S/P stenting of mid-LAD in 07/2019 ([facility]) Code(s): I25.10 - Atherosclerotic heart disease of deering coronary artery without angina pectoris Category: Medical Qualifiers: Coronary Disease-Associated Artery/Lesion type: deering artery Elim Ira vs. transplanted heart: deering heart Associated angina: without angina Qualified Code(s): I25.10 - Atherosclerotic heart disease of deering coronary artery without angina pectoris Plan: History of CAD with last cardiac catheterization 07/31/2019 showing 60% mid LAD stenosis, IFR 0.84, MALISSA was placed. Last nuclear stress test on 11/03/2023 which showed probable normal myocardial perfusion imaging, no clear infarct or ischemia. Last Echocardiogram done 09/20/2023 showing EF 69%, no valve abnormalities. Currently no chest discomfort. She is mostly sedentary and has shortness of breath with activities which could be related to her morbid obesity. Benefits of weight loss and increasing physical activity reviewed with her. Continue aspirin indefinitely. Continue rosuvastatin and Zetia with ideal LDL goal less than 70. Labs done 06/01/2025 showed LDL 58. Continue losartan, Lasix, carvedilol. Signs and symptoms of angina reviewed. Cardiology follow-up in 1 year sooner if needed. (2) Dyspnea: Code(s): R06.00 - Dyspnea, unspecified Category: Medical Qualifiers: Dyspnea type: unspecified Qualified Code(s): R06.00 - Dyspnea, unspecified Plan: As above (3) Essential hypertension: Code(s): I10 - Essential (primary) hypertension Category: Medical Plan: Blood pressure goal less than 130/80. Well controlled at present. Continue carvedilol, losartan and Lasix. She does follow with Nephrology as well. (4) Hyperlipidemia LDL goal <70: Code(s): E78.5 - Hyperlipidemia, unspecified Category: Medical Plan: Fluker LDL goal less than 70. Current well controlled. Continue Zetia and rosuvastatin. Plan I reviewed the patient's symptoms and I reassured her that her heart function appears stable based on her good prior test results, well-controlled blood pressure and cholesterol, and today's normal physical exam. I explained that her symptoms are most likely due to significant deconditioning, which is a state of being physically unfit. We discussed the cycle where inactivity leads to weakness, which makes activity more difficult. I recommended a plan to break this cycle by taking baby steps to rebuild her strength. I advised her to start with very short durations of exercise, such as one to two minutes on her stationary bike, and then gradually increase the time as she gets stronger. I advised her to continue all her current medications as prescribed and to be patient with herself during the rebuilding process. A follow-up appointment will be scheduled. Patient Instructions: - Continue taking all your medications as prescribed, including aspirin, carvedilol, losartan, the lower dose of furosemide (Lasix), Zetia, and rosuvastatin. - To get stronger, you should start exercising in very small amounts. For example, ride your stationary bike for only one or two minutes, then rest. You can slowly increase this time on following days. - Be patient with yourself. This process of rebuilding strength takes time. Do not be hard on yourself. - Continue to be mindful of the amount of salt in your food, as this can affect foot swelling. Patient was informed and verbally consented to the use of an ambient scribe for clinic note documentation during this visit. Visit time spent on chart review, interview, assessment, orders, documentation. Coding Level of Care Code Est Pt Level 4 (67807) Complex visit Add On G2211 Diagnoses Atherosclerosis of deering coronary artery of deering heart without angina pectoris I25.10 Coronary Disease-Associated Artery/Lesion type: deering artery Elim Ira vs. transplanted heart: deering heart Associated angina: without angina Dyspnea, unspecified type R06.00 Dyspnea type: unspecified Essential hypertension I10 Hyperlipidemia LDL goal <70 E78.5 Time Spent (min) 28
[2025-08-01 15:03] VITALS: BP 122/70; PULSE 72; BMI 43.3
--- OUTSIDE RECORDS SUMMARY | 2025-08-01 21:03 | XMS_ITS | Clinical Summary ---
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 PAP SMEAR [...] 52, 56, 58, 59, 66, 68) by [employer] On[employer] HR-HPV analysis. Clinical correlation is advised. This HPV test was performed at [facility], [address] [place] [address]. This test has been FDA approved for [facility] cervical cytology specimens. The accuracy and precision of this test for all other specimen sources has been verified in the Cytopathology Laboratory of the [facility] and has not been cleared or approved by the U.S. Food and Drug Administration. Clinical correlation is advised. CLINICAL HISTORY Date of Last Menstrual Period: Not Provided Menstrual History: Post Menopausal Treatment History: Hysterectomy: Supracervical Other Clinical Conditions: Screening Pap SPECIMEN SOURCE A: PAP SMEAR (SUREPATH) CE Patient Name: ROSANA KATERINA : 1960 (Age: 58) Sex: F Institution: [facility] Location: [facility] Date of Collection: 04/24/2019 Date of Reported: 05/01/2019 16:29 Results to: Tricia Peacock MSN, BS us Tricia Peacock ACT TUTOR CYTOLOGY ORDERABLES Final Resu lt Performing Organization Address City/[facility] Co de Phone Number SEE NARRATIVE * (ABNORMAL) Hemoglobin A1c (08/05/2018 6:39 AM EST) HEMOGLOBIN A1C 8.0(H) 4.3 - 5.8 % [facility] Blood 08/05/2018 6:39 AM EST 08/05/2018 7:05 AM EST us Leonel Chery MD LAB BLOOD BKR ORDERABLES F inal Result Performing Organization Address City/[facility] Co de Phone Number [facility] [address] [place] [address] from Last 3 Months or Most Recently Relevant to Health Maintenance Insurance [facility] MEDICARE REPLACEMENT [facility] MEDICARE REPLACEMENT [facility] MEDICARE [facility]PLACEMENT [facility] MEDICARE REPLACEMENT [facility] MEDICARE REPLACEMENT [facility] MEDICARE REPLACEMENT [facility] MEDICARE REPLACEMENT [facility] MEDICARE REPLACEMENT [facility] MEDICARE REPLACEMENT Advance Directives For more information, please contact: [phone] (9AM - 5PM [facility], Tuesday-Tuesday) * Full Code (Presumed) (Latest Code Status on File) Date Activated Date Inactivated Comments 08/04/2018 7:56 PM 08/05/2018 7:44 PM Care Teams Stranding Supervisor Relationship Specialty Start Date End Date Leonid Valerio MD [address] [place] [address] [address] [place] [address] PCP - General 06/13/17 Denisse Marroquin MD [address] [place] [address], [facility] [address] [place] [address] Historical LMR Provider 06/14/17 Additional Source Comments The information contained in this document represents components of the legal health record. It is not the complete legal health record.[facility]
--- OUTSIDE RECORDS SUMMARY | 2025-08-01 21:03 | XMS_ITS | Encounter Summary ---
Author Organization [facility] Address [address] [place] [address] Phone Care Team Providers Care Drawbridge Operator Name Role Phone Leonid Valerio MD Primary Care Provider [phone] Norma Covarrubias CNAnjali Unavailable [phone] Nesha Ornelas BUILDING ENERGY RETROFIT TECHNICIAN Unavailable Leonid Valerio MD Unavailable Denisse Marroquin MD Unavailable [phone] Encounter Details Date Type Department Care Team (Late st Contact Info) Description 08/15/2017 Ancillary Orders Virtual Department [address] [place] [address] Leonid Valerio MD [address] [place] [address] [place] [address] Breast screening Social History Tobacco Use Types [...] unspecified documented in this encounter Care Teams Drawbridge Operator Relationship Specialty Start Date End Date Leonid Valerio MD [address] [place] [address] Dr Pierre [address] [place] [id number] PCP - General 06/13/17 Norma Covarrubias CNM [address] [place] [address] Historical LMR Provider 06/14/17 09/05/21 Nesha Ornelas NP [address] [place] [address] Historical LMR Provider 06/14/17 Leonid Valerio MD [address] [place] [address] Dr Pierre [address] [place] [address] Historical LMR Provider 06/14/17 2 Denisse Marroquin MD [address] [place] [id number] Historical LMR Provider 06/14/17 documented as of this encounter Additional Source Comments The information contained in this document represents components of the legal health record. It is not the complete legal health record.[facility]
== END 2025-08-01 15:41 | disposition home or self-care (01) ==
PROVIDERS: PCP Internal Medicine; Visit Provider Nurse Practitioner Family
DX: I25.10 Atherosclerotic heart disease of native coronary artery without angina pectoris (principal); R06.00 Dyspnea, unspecified; I10 Essential (primary) hypertension; E78.5 Hyperlipidemia, unspecified
CPT/HCPCS: 99214; G2211

== ENCOUNTER → 2025-08-01 14:52 | Outpatient (BNVA) | payer MEDICARE, MEDICAID, SELFPAY | PROVIDERS: PCP Internal Medicine; Visit Provider Nurse Practitioner Family | DX: I25.10 Atherosclerotic heart disease of native coronary artery without angina pectoris (principal); R06.00 Dyspnea, unspecified; I10 Essential (primary) hypertension; E78.5 Hyperlipidemia, unspecified | CPT/HCPCS: 99212 ==